=== PATIENT | male | born 1945 | race Caucasian/White ===

== ENCOUNTER 2017-04-07 16:59 | Inpatient (IN) | payer MEDICARE, BC ==
[~2017-04-07] VITALS: Ht 185.4 cm; Wt 77.1 kg
[2017-04-07] MEDS: Albuterol ud Inhalation HHN SCH ×3 (17:21→17:53)
[2017-04-07] MEDS: Ipratropium 0.02% Inh Soln 2.5ml UD HHN SCH ×3 (17:21→17:52)
[2017-04-07 17:28] VITALS: BP 138/85
[2017-04-07] MEDS ORDERED: PREDNISONE20 MG ORAL (18:02)
[2017-04-07] MEDS ORDERED: AMOXICILLIN500 MG ORAL (18:02)
[2017-04-07] MEDS ORDERED: ALBUTEROL SULF8.5 GM INH (18:02)
[2017-04-07] MEDS ORDERED: Albuterol ud Inhalation HHN ONE (18:45)
[2017-04-07] MEDS ORDERED: Solu-MEDROL 125mg Inj IVP ONE (18:45)
[2017-04-07] MEDS ORDERED: Ipratropium 0.02% Inh Soln 2.5ml UD HHN ONE (18:45)
--- NOTE | 2017-04-07 19:36 | Emergency Room Report ---
History of Present Illness General Chief Complaint: Dyspnea/Respdistress Source: Patient, Medical Record, EMS Present Illness HPI 72-year-old male presents ED for shortness of breath. Started today. Per EMS patient was wheezing with low O2 saturations. Was started on reading treatments and states he feels better. Notes history of COPD. Admits to smoking. Denies fevers or chills. Denies chest pain. No other aggravating relieving factors. Denies any other associated Allergies: Coded Allergies: No Known Allergies (Unverified , 04/07/17) Patient History Past Medical History: COPD Past Surgical History: none Pertinent Family History: none Social History: Reports: smoking, Denies: alcohol use, drug use Immunizations: UTD Reviewed Nursing Documentation: PMH: Agreed, PSxH: Agreed Nursing Documentation-PMH Past Medical History: No History, Except For Hx COPD: Yes - emphysema Review of Systems All Other Systems: negative except mentioned in HPI Physical Exam Vital Signs Date Time Temp Pulse Resp B/P (MAP) Pulse Ox O2 Delivery O2 Flow Rate FiO2 04/07/17 16:56 98.4 115 20 138/85 95 Room Air Sp02 EP Interpretation: reviewed, normal General Appearance: no apparent distress, alert, GCS 15, non-toxic Head: normocephalic, atraumatic Eyes: bilateral eye normal inspection, bilateral eye PERRL ENT: hearing grossly normal, normal pharynx, no angioedema, normal voice Neck: full range of motion, supple/symm/no masses Respiratory: chest non-tender, speaking full sentences, wheezing Cardiovascular #1: regular rate, rhythm, no edema Cardiovascular #2: 2+ carotid (R), 2+ carotid (L), 2+ radial (R), 2+ radial (L) , 2+ dorsalis pedis (R), 2+ dorsalis pedis (L) Gastrointestinal: normal bowel sounds, non tender, soft, non-distended, no guarding, no rebound Rectal: deferred Genitourinary: normal inspection, no CVA tenderness Musculoskeletal: back normal, gait/station normal, normal range of motion, non- tender Neurologic: alert, oriented x3, responsive, motor strength/tone normal, sensory intact, speech normal Psychiatric: judgement/insight normal, memory normal, mood/affect normal, no suicidal/homicidal ideation Reflexes: 3+ bicep (R), 3+ bicep (L), 3+ tricep (R), 3+ tricep (L), 3+ knee (R) , 3+ knee (L) Skin: normal color, no rash, warm/dry, well hydrated Lymphatic: no adenopathy Medical Decision Making Diagnostic Impression: Primary Impression: COPD exacerbation ER Course Hospital Course 72-year-old M presenting to ED with SOB. h/o COPD Differential diagnoses include: Pneumonia, CHF exacerbation, pneumothorax, fluid overload Clinical course Patient placed on stretcher. On inspector paper products with stable vitals. After initial history and physical, I ordered nebulizer treatments, prednisone, CXR. Patient received breathing treatment x3. Initially said he felt better wishes to be discharged. Chest x-ray shows chronic interstitial changes. After patient got up he started to feel short of breath again. Hypoxic after breathing treatments stopped. We gave additional breathing treatments, magnesium. O2 sats declining despite treatments Patient started on BiPAP Labs - leukocytosis noted, hemoglobin/hematocrit stable, electrolytes okay, lactate okay, troponins negative CXR - chronic interstitial changes EKG - sinus tachycardia, no acute ischemic changes interpreted by me abx given. Case discussed with Dr. Ramírez and he agreed to the patient to his service for further care and support I feel this is a highly complex case requiring extensive working including EKG/ Rhythm strip, Xray/CT/US, Blood/urine lab work, repeat exams while in ED, and administration of strong opiates/narcotics for pain control, admission to hospital or close patient follow up. Diagnosis - COPD exacerbation Patient admitted to [facility] in serious condition Labs Test 04/07/17 19:05 White Blood Count 19.3 K/UL (4.8-10.8) Red Blood Count 5.23 M/UL (4.70-6.10) Hemoglobin 15.9 G/DL (14.2-18.0) Hematocrit 50.1 % (42.0-52.0) Mean Corpuscular Volume 96 FL (80-99) Mean Corpuscular Hemoglobin 30.5 PG (27.0-31.0) Mean Corpuscular Hemoglobin Concent 31.8 G/DL (32.0-36.0) Red Cell Distribution Width 13.2 % (11.6-14.8) Platelet Count 200 K/UL (150-450) Mean Platelet Volume 8.1 FL (6.5-10.1) Neutrophils (%) (Auto) % (45.0-75.0) Lymphocytes (%) (Auto) % (20.0-45.0) Monocytes (%) (Auto) % (1.0-10.0) Eosinophils (%) (Auto) % (0.0-3.0) Basophils (%) (Auto) % (0.0-2.0) Differential Total Cells Counted 100 Neutrophils % (Manual) 77 % (45-75) Lymphocytes % (Manual) 13 % (20-45) Monocytes % (Manual) 6 % (1-10) Eosinophils % (Manual) 0 % (0-3) Basophils % (Manual) 0 % (0-2) Band Neutrophils 4 % (0-8) Platelet Estimate Adequate Platelet Morphology Normal Red Blood Cell Morphology Normal Sodium Level 136 MMOL/L (136-145) Potassium Level 4.2 MMOL/L (3.5-5.1) Chloride Level 99 MMOL/L (98-107) Carbon Dioxide Level 27 MMOL/L (21-32) Anion Gap 11 mmol/L (5-15) Blood Urea Nitrogen 11 mg/dL (7-18) Creatinine 0.8 MG/DL (0.55-1.30) Estimat Glomerular Filtration Rate mL/min (>60) Glucose Level 118 MG/DL (74-106) Lactic Acid Level 1.50 mmol/L (0.66-2.22) Calcium Level 8.2 MG/DL (8.5-10.1) Total Bilirubin 0.9 MG/DL (0.2-1.0) Aspartate Amino Transf (AST/SGOT) 18 U/L (15-37) Alanine Aminotransferase (ALT/SGPT) 27 U/L (12-78) Alkaline Phosphatase 57 U/L (46-116) Total Creatine Kinase 121 U/L (26-308) Creatine Kinase MB 0.9 NG/ML (0.0-3.6) Creatine Kinase MB Relative Index 0.7 Troponin I 0.065 ng/mL (0.000-0.056) Pro-B-Type Natriuretic Peptide 261 pg/mL (0-125) Total Protein 7.2 G/DL (6.4-8.2) Albumin 4.0 G/DL (3.4-5.0) Globulin 3.2 g/dL Albumin/Globulin Ratio 1.3 (1.0-2.7) EKG Diagnostic Results Rate: tachycardiac Rhythm: NSR ST Segments: no acute changes ASA given to the pt in ED: No Rhythm Strip Diag. Results EP Interpretation: yes Rhythm: NSR, no PVC's, no ectopy Chest X-Ray Diagnostic Results Chest X-Ray Diagnostic Results : Chest X-Ray Ordered: Yes # of Views/Limited/Complete: 1 View Indication: Shortness of Breath EP Interpretation: Yes Interpretation: no pneumothorax, no acute cardiopulmonary disease, other - chronic interstitital changes Impression: Other - COPD Electronically Signed by: Electronically signed by Glenroy Laird MD Last Vital Signs Date Time Temp Pulse Resp B/P (MAP) Pulse Ox O2 Delivery O2 Flow Rate FiO2 04/07/17 19:15 110 24 88 Room Air 04/07/17 17:28 98.4 138/85 Status: improved Disposition: ADMITTED INPATIENT Condition: Serious Scripts Albuterol Sulfate* (ALBUTEROL SULFATE MDI*) 8.5 Gm Hfa.aer.ad 2 PUFF INH Q6H, #1 EA 0 Refills Prov: GLENROY LAIRD M.D. 04/07/17 Prednisone* (PREDNISONE*) 20 Mg Tablet 40 MG ORAL DAILY, #10 TAB Prov: GLENROY LAIRD M.D. 04/07/17 Amoxicillin* (AMOXIL*) 500 Mg Capsule 500 MG ORAL THREE TIMES A DAY, #21 CAP Prov: GLENROY LAIRD M.D. 04/07/17 Referrals: NON PHYSICIAN (PCP) Patient Instructions: Chronic Obstructive Pulmonary Disease Exacerbation GLENROY LAIRD M.D. Apr 07, 2017 19:35
[2017-04-07] MEDS ORDERED: Azithromycin 500mg Inj IV ONE (19:42)
[2017-04-07 19:43] LABS: HEMATOCRIT 50.1 % (42.0-52.0); HEMOGLOBIN 15.9 G/DL (14.2-18.0); MEAN CORPUSCULAR VOLUME 96 FL (80-99); PLATELET COUNT 200 K/UL (150-450); RED BLOOD COUNT 5.23 M/UL (4.70-6.10); RED CELL DISTRIBUTION WIDTH 13.2 % (11.6-14.8); WHITE BLOOD COUNT 19.3 K/UL (4.8-10.8)
[2017-04-07] MEDS ORDERED: cefTRIAXone 1 GM in NS 55 ML IVPB ONE (19:45)
[2017-04-07] MEDS ORDERED: Azithromycin 500 MG in NS 275 ML IV ONE (19:45)
[2017-04-07 20:08] LABS: ANION GAP 11 mmol/L (5-15); BLOOD UREA NITROGEN 11 mg/dL (7-18); CALCIUM 8.2 MG/DL (8.5-10.1); CARBON DIOXIDE 27 MMOL/L (21-32); CHLORIDE 99 MMOL/L (98-107); CREATININE 0.8 MG/DL (0.55-1.30); POTASSIUM 4.2 MMOL/L (3.5-5.1); SODIUM 136 MMOL/L (136-145)
[2017-04-07 20:20] LABS: ALANINE AMINOTRANSFERASE 27 U/L (12-78); ALBUMIN/GLOBULIN RATIO 1.3 (1.0-2.7); ALKALINE PHOSPHATASE 57 U/L (46-116); ASPARTATE AMINO TRANSFERASE 18 U/L (15-37); BILIRUBIN,TOTAL 0.9 MG/DL (0.2-1.0); CKMB 0.9 NG/ML (0.0-3.6); CREATINE KINASE 121 U/L (26-308)
[2017-04-07] MEDS ORDERED: LORazepam Inj 2mg/ml 1ml IV ONE (20:30)
[2017-04-07 21:12] VITALS: BP 118/65
[2017-04-08] VITALS (9 sets, daily range): BP systolic 107–153; BP diastolic 52–94
[2017-04-08 08:15] LABS: APPEARANCE,URINE CLEAR; BILIRUBIN, URINE NEGATIVE (NEGATIVE); COLOR,URINE PALE YELLOW; GLUCOSE, URINE (UA) NEGATIVE (NEGATIVE); KETONES,URINE NEGATIVE (NEGATIVE); LEUKOCYTE ESTERASE ,URINE NEGATIVE (NEGATIVE); NITRITE,URINE NEGATIVE (NEGATIVE); PH,URINE 5 (4.5-8.0); PROTEIN,URINE 2+ (NEGATIVE); UROBILINOGEN,URINE NORMAL MG/DL (0.0-1.0)
--- NOTE | 2017-04-08 11:38 | Diagnostic Imaging Report ---
Indication: Dyspnea Comparison: None A single view chest radiograph was obtained. Findings: There is a large area of increased density overlying the right lung in the mid to lower aspect. This could be due to soft tissue attenuation as the soft tissues appear denser on the right. Please correlate clinically. This could be on the basis of asymmetric breast tissue or right-sided soft tissue mass. The interstitium of the lung is prominent bilaterally. The heart is normal in size. Bones are osteopenic but age appropriate. IMPRESSION: Asymmetric density projected over the right mid and lower lung field probably on the basis of soft tissue attenuation. Underlying parenchymal disease i.e. pneumonia not excluded. Please correlate clinically. Suggest repeat examination including a lateral view.
[2017-04-08] MEDS: Albuterol/Ipratropium 3ml neb HHN SCH ×3 (16:00→23:00)
[2017-04-08] MEDS: Solu-MEDROL 125mg Inj IVP SCH ×2 (18:06→23:21)
--- NOTE | 2017-04-08 18:24 | History & Physical ---
History and Physical History & Physicial Dictated for Int Med-Dr Ramírez no. [id number]. CHRISTI LOPES Apr 08, 2017 18:24
[2017-04-08] MEDS ORDERED: Albuterol/Ipratropium 3ml neb HHN PRN (18:45)
--- NOTE | 2017-04-08 19:01 | Consultation ---
Consult Note Assessment/Plan DICT # [id number] GUILLAUME PUENTES M.D. Apr 08, 2017 19:01
[2017-04-08] MEDS ORDERED: Azithromycin 500 MG in NS 275 ML IV SCH (20:00)
[2017-04-08] MEDS: Heparin 5000 units/ml inj SUBQ SCH (21:59)
[2017-04-08] MEDS: Azithromycin 500 MG in NS 275 ML IV SCH (22:29)
[2017-04-09] VITALS: BP 114/74
[2017-04-09] MEDS: Albuterol/Ipratropium 3ml neb HHN SCH ×11 (01:00→22:38)
--- NOTE | 2017-04-09 01:45 | History and Physical Report ---
DATE OF ADMISSION: 04/07/2017 CHIEF COMPLAINT: The patient is a 72-year-old white male who presents with chief complaint of shortness of breath and cough. HISTORY OF PRESENT ILLNESS: Began four days prior to admission. The patient began to have a nonproductive cough. The patient then began to develop shortness of breath. The patient was unable to catch his breath. The patient presented to [place] emergency room. The patient was found to be hypoxic. The patient is admitted for chronic obstructive pulmonary disease, acute exacerbation. PAST MEDICAL HISTORY: Significant for: 1. Chronic obstructive pulmonary disease. 2. Hypertension. 3. Irritable bowel syndrome. 4. Hypercholesterolemia. PAST SURGICAL HISTORY: Significant for lumbar laminectomy. CURRENT MEDICATIONS: 1. Enalapril of an unknown dose daily. 2. Statin of unknown dose. 3. Albuterol metered dose inhaler two puffs p.o. daily. 4. Advair 250/50 mcg one puff p.o. twice daily. ALLERGIES: Penicillin. SOCIAL HISTORY: The patient is single. 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 The patient admits to tobacco use, one-half pack per day for 40 years. The patient admits to occasional alcohol use. The patient denies drug abuse. REVIEW OF SYSTEMS: CONSTITUTIONAL: The patient denies weight loss or weight gain. The patient denies fevers or chills. HEENT: The patient denies ear or throat pain. The patient denies headache. CARDIOVASCULAR: The patient denies palpitations or chest pain. CHEST: The patient complains of wheezes. The patient complains of nonproductive cough. The patient complains of shortness of breath. ABDOMEN: The patient complains of abdominal distention. The patient denies nausea, vomiting, diarrhea, or constipation. GENITOURINARY: The patient denies dysuria or increased frequency of urination. NEUROMUSCULAR: The patient denies seizures or generalized weakness. PHYSICAL EXAMINATION: VITAL SIGNS: Temperature 97.6, respirations 24, pulse 93, and blood pressure 153/86. GENERAL: The patient is well-developed and well-nourished white male who is currently tolerating nasal cannula. The patient is in no apparent distress. HEENT: Eyes, pupils are equal and responsive to light and accommodation. Extraocular movements are intact. NECK: Supple. No lymphadenopathy. CHEST: Few wheezes in the bilateral lower bases with left being greater than right. There are no crackles. There is no dullness to percussion. CARDIOVASCULAR: Regular rhythm and rate. S1 and S2 are normal without murmurs, rubs, or gallops. ABDOMEN: Soft and distended with decreased bowel sounds. No evidence of hepatosplenomegaly. Currently, no rebound or guarding noted. EXTREMITIES: Negative for clubbing, cyanosis, or edema. RECTAL: Refused. GENITAL: Refused. NEUROLOGIC: Cranial nerves II through XII are grossly intact without focal deficits. Motor strength is 5/5 bilaterally. Deep tendon reflexes are 2+ plantar. LABORATORY AND DIAGNOSTIC DATA: WBC 19.3, hemoglobin 15.9, hematocrit 50.1, and platelets 200,000. Sodium 136, potassium 4.2, chloride 99, CO2 27, BUN 11, creatinine 0.8 and glucose 118. Troponin elevated at 0.065. BNP elevated at 261. A chest x-ray was reported as right mid and lower lung density consistent with pneumonia. ASSESSMENT: This is a 72-year-old white male: 1. Shortness of breath. 2. Chronic obstructive pulmonary disease, acute exacerbation. 3. Pneumonia. 4. Hypoxia. 5. Hypertension. 6. Hypercholesterolemia. 7. Irritable bowel syndrome. 8. Abdominal distention. TREATMENT: 1. Pneumonia/chronic obstructive pulmonary exacerbation. A Pulmonary consultation has been obtained with Dr. Neely. The patient has been started empirically on intravenous Solu-Medrol. The patient has been started on intravenous Levaquin and azithromycin. We will follow recommendation of Pulmonary. 2. Hypertension. Continue enalapril. 3. Hypercholesterolemia. A fasting cholesterol panel obtained. 4. Irritable bowel syndrome/abdominal distention. A KUB is pending. Danielito Thomas M.D. DR: MICHAEL JOB#: [id number] CC:
[2017-04-09 04:00] VITALS: BP 126/74
[2017-04-09 04:45] LABS: HEMATOCRIT 39.2 % (42.0-52.0); HEMOGLOBIN 13.2 G/DL (14.2-18.0); MEAN CORPUSCULAR VOLUME 98 FL (80-99); PLATELET COUNT 163 K/UL (150-450); RED BLOOD COUNT 3.98 M/UL (4.70-6.10); RED CELL DISTRIBUTION WIDTH 12.8 % (11.6-14.8); WHITE BLOOD COUNT 15.3 K/UL (4.8-10.8)
--- NOTE | 2017-04-09 04:45 | Consultation ---
DATE OF CONSULTATION: 04/08/2017 PULMONARY CONSULTATION CONSULTING PHYSICIAN: Gio Neely M.D. REFERRING PHYSICIAN: Gadiel Ramírez M.D. REASON FOR CONSULTATION: Chronic obstructive pulmonary disease exacerbation. HISTORY OF PRESENT ILLNESS: The patient is a 72-year-old male with a history of severe COPD, CHF, and pulmonary hypertension, who sees Dr. Sher Long. He usually takes Spiriva and Symbicort with multiple exacerbations and continued smoking, presented to the emergency department with several days of cough, congestion, shortness of breath, increased wheezing, and generalized malaise. No fevers or chills. No headaches or dizziness. After receiving breathing treatments, he notes some alleviation and currently feels markedly improved. He had his review of [facility] record. He had a CTA of the chest with scattered micronodules suggestive of smoker's bronchiolitis and evidence of pulmonary hypertension. PAST MEDICAL HISTORY: 1. COPD. 2. Pulmonary hypertension. 3. CHF. 4. IBS. PAST SURGICAL HISTORY: None. ALLERGIES: Penicillin. MEDICATIONS: Prior to admission medications are albuterol, amoxicillin, and prednisone, however, the list at [facility] is much more extensive. SOCIAL HISTORY: He is a daily smoker greater than a pack per day. No drugs or alcohol. FAMILY HISTORY: Noncontributory. REVIEW OF SYSTEMS: Negative other than the history of present illness. PHYSICAL EXAMINATION: VITAL SIGNS: Temperature 98, pulse 95, blood pressure 110/84, respiratory rate 26, and saturating 98% on 10 liters venturi mask. GENERAL: He is a well-developed, well-nourished male, in no acute distress. Awake, alert, and oriented x3. HEENT: Normocephalic and atraumatic. Oropharynx is clear with moist mucous membranes. NECK: Supple without lymphadenopathy or JVD. CHEST: Distant, but clear. HEART: Regular rate and rhythm. ABDOMEN: Soft, nontender, and nondistended. EXTREMITIES: No cyanosis, clubbing, or edema. ANCILLARY DATA: Spirometry from Dr. Long's office, FEV1 was 0.93. Labs at [place], white count 19.3, hemoglobin 15.9, and platelet count 200. ABG, 7.33/50/135/25/98. Sodium 136, potassium 4.2, chloride 99, bicarbonate 27, BUN 11, creatinine 0.8, glucose 118, and calcium 8.2. Total bilirubin 0.9. AST 18, ALT 27, and alkaline phosphatase 57. CK 121. Troponin 0.065. BNP 261. Total protein 7.2. Albumin 4.0. Rapid influenza A and B from the ER is negative. ASSESSMENT: The patient is a 72-year-old male smoker with a history of chronic obstructive pulmonary disease, respiratory bronchiolitis, pulmonary hypertension, congestive heart failure, and irritable bowel syndrome, presenting with shortness of breath, cough, and wheezing consistent with an exacerbation of his chronic obstructive pulmonary disease possibly in the setting of an antecedent viral respiratory illness versus tracheobronchitis. PROBLEM LIST: 1. Chronic obstructive pulmonary disease with acute exacerbation. 2. Viral upper respiratory infection versus tracheobronchitis. 3. Leukocytosis, likely secondary to above. 4. Pulmonary hypertension. 5. Congestive heart failure. 6. Respiratory bronchiolitis. 7. Irritable bowel syndrome. TREATMENT PLAN: 1. Optimize pulmonary hygiene/mobilize as tolerated. 2. Titrate down FiO2 to keep saturations greater than 90%. 3. Wvacz-nsk-jizap and p.r.n. DuoNebs. 4. Continue Spiriva and Advair ( Symbicort). 5. Continue antibiotics. 6. Follow up sputum culture and respiratory panel. 7. Monitor volumes. 8. Follow up EKG and troponin. 9. Echocardiogram has been ordered. 10. DVT prophylaxis and heparin subcutaneously. 11. Nicotine patch. 12. Encourage tobacco cessation. Dr. Ramírez, thank you for allowing me to assist in the care of your patient. If I may be of any assistance in the future, please do not hesitate to ask. Gio Neely M.D. DR: SAYDA JOB#: [id number] CC:
[2017-04-09 05:05] LABS: ALANINE AMINOTRANSFERASE 20 U/L (12-78); ALBUMIN 2.9 G/DL (3.4-5.0); ALBUMIN/GLOBULIN RATIO 0.8 (1.0-2.7); ALKALINE PHOSPHATASE 42 U/L (46-116); ANION GAP 6 mmol/L (5-15); ASPARTATE AMINO TRANSFERASE 12 U/L (15-37); BILIRUBIN,TOTAL 0.3 MG/DL (0.2-1.0); BLOOD UREA NITROGEN 30 mg/dL (7-18); CALCIUM 7.7 MG/DL (8.5-10.1); CARBON DIOXIDE 29 MMOL/L (21-32); CHLORIDE 106 MMOL/L (98-107); CREATININE 0.8 MG/DL (0.55-1.30); POTASSIUM 4.4 MMOL/L (3.5-5.1); SODIUM 141 MMOL/L (136-145)
[2017-04-09] MEDS: Solu-MEDROL 125mg Inj IVP SCH ×3 (05:15→17:44)
[2017-04-09 08:00] VITALS: BP 109/73
[2017-04-09] MEDS: Heparin 5000 units/ml inj SUBQ SCH ×2 (08:43→21:20)
--- NOTE | 2017-04-09 09:25 | Diagnostic Imaging Report ---
Indication: COPD Technique: XRAY Chest 1v Comparison: 03/30/2017 Findings: Heart size and mediastinal contours are stable. Interval resolution of the previously seen opacity in the right lung. There is no definite focal consolidation. No pleural effusion. No pneumothorax. Impression: Interval resolution of the previously seen right mid/lower lung opacities which may have been artifactual in etiology. No definite consolidation, pleural effusion or pneumothorax.
[2017-04-09] MEDS: Advair 250/50 Inhaler - 14 dose INH SCH ×2 (10:59→21:32)
--- NOTE | 2017-04-09 11:23 | Diagnostic Imaging Report ---
Indication: Abdominal distention Technique: XRAY Abdomen 1v Comparison: None Findings: Nonspecific bowel gas pattern. Bowel distention of the stomach. Gas is seen throughout the small bowel, colon and rectum. The gas pattern is not overtly obstructive. No evidence to suggest free intraperitoneal air however sensitivity is limited on supine views. No acute osseous abnormality seen. Impression: Nonspecific bowel gas pattern with air seen in the stomach, small bowel, colon and rectum. No definite evidence to suggest free intraperitoneal air. Stomach is mildly distended. CT of the abdomen with oral contrast can be obtained for more sensitive evaluation as clinically indicated.
[2017-04-09 12:00] VITALS: BP 127/64
--- NOTE | 2017-04-09 14:30 | Internal Med Progress Note ---
Subjective Date of Service: Apr 09, 2017 Physician Name Thomas,Christi Attending Physician Gadiel Ramírez MD Current Medications Medications (Trade) Dose Ordered Sig/Evi Route PRN Reason Start Time Stop Time Status Last Admin Dose Admin Acetaminophen (Tylenol) 650 mg Q4H PRN ORAL Mild Pain (Pain Scale 1-3) 04/08/17 12:00 05/08/17 11:59 Albuterol/ Ipratropium (Albuterol/ Ipratropium) 3 ml Q4H PRN HHN Shortness of Breath 04/08/17 18:45 04/13/17 18:44 Albuterol/ Ipratropium (Albuterol/ Ipratropium) 3 ml Q4HRT HHN 04/08/17 16:00 04/13/17 15:59 04/09/17 09:06 Albuterol/ Ipratropium (Albuterol/ Ipratropium) 3 ml Q6HRT N 04/09/17 01:00 04/14/17 00:59 04/09/17 13:06 Azithromycin 500 mg/Sodium Chloride 275 ml @ 275 mls/hr Q24H IV 04/08/17 23:00 04/15/17 22:59 04/08/17 22:29 Dextrose (Dextrose 50%) STAT PRN IV Hypoglycemia 04/08/17 12:00 05/08/17 11:59 Heparin Sodium (Porcine) (Heparin 5000 units/ml) 5,000 units EVERY 12 HOURS SUBQ 04/08/17 21:00 05/08/17 20:59 04/09/17 08:43 Levofloxacin 100 ml @ 100 mls/hr Q24H IVPB 04/08/17 17:00 04/15/17 16:59 04/08/17 18:25 Methylprednisolone Sodium Succinate (Solu-MEDROL) 60 mg EVERY 6 HOURS IVP 04/08/17 18:00 05/08/17 17:59 04/09/17 11:52 Pantoprazole (Protonix) 40 mg DAILY ORAL 04/08/17 16:30 05/08/17 16:29 04/09/17 08:42 Salmeterol Xinafoate/ Fluticasone (Advair 250/50 Diskus) 1 puffs BIDRT INH 04/09/17 10:00 1/29/18 09:59 04/09/17 10:59 Tiotropium Murphy (Spiriva Inhaler) 1 puff Q24HRS INH 04/09/17 10:00 05/09/17 09:59 04/09/17 11:00 Allergies: Coded Allergies: PENICILLINS (Verified Allergy, Unknown, 04/08/17) ROS Limited/Unobtainable: No Constitutional: Reports: no symptoms HEENT: Reports: no symptoms Cardiovascular: Reports: no symptoms Respiratory: Reports: shortness of breath Gastrointestinal/Abdominal: Reports: no symptoms Genitourinary: Reports: no symptoms Neurologic/Psychiatric: Reports: no symptoms Subjective 72 YO M admitted with shortness of breath and COPD exacerbation. Cover for Int Derrick-Dr Ramírez. [facility]. Tolerating nasal canula. Objective Last Vital Signs Date Time Temp Pulse Resp B/P (MAP) Pulse Ox O2 Delivery O2 Flow Rate FiO2 04/09/17 13:11 71 16 95 Room Air 04/09/17 12:00 10.0 45 04/09/17 12:00 97.8 127/64 General Appearance: WD/WN, no apparent distress, mild distress EENT: PERRL/EOMI, normal ENT inspection Neck: non-tender, normal alignment, supple, normal inspection Cardiovascular: normal peripheral pulses, normal rate, regular rhythm, no gallop/murmur, no JVD Respiratory/Chest: chest wall non-tender, respiratory distress, accessory muscle use, crackles/rales, expiratory wheezing Abdomen: normal bowel sounds, non tender, soft, no organomegaly, no mass Extremities: normal range of motion, non-tender 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, no motor/sensory deficits Skin: normal pigmentation, warm/dry Laboratory Tests Test 04/08/17 18:40 04/08/17 20:20 04/09/17 03:40 Arterial Blood pH 7.408 (7.350-7.450) Arterial Blood Partial Pressure CO2 43.9 mmHg (35.0-45.0) Arterial Blood Partial Pressure O2 59.9 mmHg (75.0-100.0) L Arterial Blood HCO3 27.1 mmol/L (22.0-26.0) H Arterial Blood Oxygen Saturation 91.6 % (92.0-98.0) L Arterial Blood Base Excess 2.0 Jace Test Positive Troponin I 0.038 ng/mL (0.000-0.056) White Blood Count 15.3 K/UL (4.8-10.8) H Red Blood Count 3.98 M/UL (4.70-6.10) L Hemoglobin 13.2 G/DL (14.2-18.0) L Hematocrit 39.2 % (42.0-52.0) L Mean Corpuscular Volume 98 FL (80-99) Mean Corpuscular Hemoglobin 33.2 PG (27.0-31.0) H Mean Corpuscular Hemoglobin Concent 33.7 G/DL (32.0-36.0) Red Cell Distribution Width 12.8 % (11.6-14.8) Platelet Count 163 K/UL (150-450) Mean Platelet Volume 9.2 FL (6.5-10.1) Neutrophils (%) (Auto) % (45.0-75.0) Lymphocytes (%) (Auto) % (20.0-45.0) Monocytes (%) (Auto) % (1.0-10.0) Eosinophils (%) (Auto) % (0.0-3.0) Basophils (%) (Auto) % (0.0-2.0) Differential Total Cells Counted 100 Neutrophils % (Manual) 94 % (45-75) H Lymphocytes % (Manual) 4 % (20-45) L Monocytes % (Manual) 2 % (1-10) Eosinophils % (Manual) 0 % (0-3) Basophils % (Manual) 0 % (0-2) Band Neutrophils 0 % (0-8) Platelet Estimate Adequate Platelet Morphology Normal Sodium Level 141 MMOL/L (136-145) Potassium Level 4.4 MMOL/L (3.5-5.1) Chloride Level 106 MMOL/L (98-107) Carbon Dioxide Level 29 MMOL/L (21-32) Anion Gap 6 mmol/L (5-15) Blood Urea Nitrogen 30 mg/dL (7-18) H Creatinine 0.8 MG/DL (0.55-1.30) Estimat Glomerular Filtration Rate mL/min (>60) Glucose Level 146 MG/DL (74-106) H Calcium Level 7.7 MG/DL (8.5-10.1) L Total Bilirubin 0.3 MG/DL (0.2-1.0) Aspartate Amino Transf (AST/SGOT) 12 U/L (15-37) L Alanine Aminotransferase (ALT/SGPT) 20 U/L (12-78) Alkaline Phosphatase 42 U/L (46-116) L Total Protein 6.7 G/DL (6.4-8.2) Albumin 2.9 G/DL (3.4-5.0) L Globulin 3.8 g/dL Albumin/Globulin Ratio 0.8 (1.0-2.7) L Microbiology Date/Time Source Procedure Growth Status 04/07/17 19:05 Blood Blood Culture - Preliminary NO GROWTH AFTER 24 HOURS Resulted 04/07/17 19:05 Blood Blood Culture - Preliminary NO GROWTH AFTER 24 HOURS Resulted 04/08/17 01:30 Nasal Nares Influenza Types A,B Antigen (UNIQUE) - Final Complete Intake and Output 04/08/17 04/09/17 19:00 07:00 Intake Total 290 ml 375 ml Balance 290 ml 375 ml Intake Oral 240 ml IV Total 50 ml 375 ml # Voids 1 3 # Bowel Movements 4 Assessment/Plan Problem List: (1) Pneumonia Assessment & Plan: Continue azithromycin and levaquin. See pulmonary note. (2) Shortness of breath Assessment & Plan: Due to COPD (3) Wheezing (4) Hypoxia (5) Hypertension (6) Irritable bowel syndrome (7) Abdominal distension (8) COPD exacerbation Assessment & Plan: Continue duoneb and IV solumedrol. See pulmonary note. Status: CHRISTI Desai Apr 09, 2017 14:30
[2017-04-09 16:00] VITALS: BP 160/80
[2017-04-09] MEDS ORDERED: LORazepam 1mg tab ORAL PRN (16:45)
[2017-04-09 20:00] VITALS: BP 140/80
[2017-04-09] MEDS: Azithromycin 500 MG in NS 275 ML IV SCH (23:09)
--- NOTE | 2017-04-09 23:28 | Pulmonology Progress Note ---
Assessment/Plan Assessment/Plan PROBLEM LIST: 1. Chronic obstructive pulmonary disease with acute exacerbation. 2. Viral upper respiratory infection versus tracheobronchitis. 3. Leukocytosis, likely secondary to above. 4. Pulmonary hypertension. 5. Congestive heart failure. 6. Respiratory bronchiolitis. 7. Irritable bowel syndrome. TREATMENT PLAN: 1. Optimize pulmonary hygiene/mobilize as tolerated. 2. Titrate down FiO2 to keep saturations greater than 90%, check RA sats 3. Olbfj-szm-mkqcd and p.r.n. DuoNebs. 4. Continue Spiriva and Advair 5. Continue antibiotics. 6. Follow up sputum culture and respiratory panel. 7. Monitor volumes. 8. taper steroids, dc on 60 mg po daily and taper 505 every 3 days 10. DVT prophylaxis and heparin subcutaneously. 11. Nicotine patch. 12. Encourage tobacco cessation. 13. fu with dr beach as out pt for PFT Subjective Constitutional: Reports: no symptoms HEENT: Repors: no symptoms Respiratory: Reports: no symptoms Cardiovascular: Reports: no symptoms Gastrointestinal/Abdominal: Reports: no symptoms Allergies: Coded Allergies: PENICILLINS (Verified Allergy, Unknown, 04/08/17) Subjective continues to improve no cp nv or bleeding not using bipap on ra no fever min phlegm nebs helpful discussed tobacco cessation Objective Last 24 Hour Vital Signs Date Time Temp Pulse Resp B/P (MAP) Pulse Ox O2 Delivery O2 Flow Rate FiO2 04/09/17 22:46 78 18 100 Room Air 04/09/17 22:38 73 18 94 Room Air 04/09/17 20:15 75 18 99 Room Air 04/09/17 20:13 Room Air 04/09/17 20:13 96 Room Air 21 04/09/17 20:08 79 18 96 Room Air 04/09/17 20:00 73 04/09/17 20:00 97.4 76 20 140/80 96 Room Air 04/09/17 16:00 80 04/09/17 16:00 98.1 82 18 160/80 96 Room Air 04/09/17 13:11 71 16 95 Room Air 04/09/17 13:11 72 16 97 Room Air 04/09/17 12:00 10.0 45 04/09/17 12:00 70 04/09/17 12:00 97.8 71 18 127/64 92 Room Air 04/09/17 11:03 69 16 97 Room Air 04/09/17 10:59 68 16 96 Room Air 04/09/17 08:00 10.0 45 04/09/17 08:00 97.7 76 18 109/73 91 Room Air 04/09/17 08:00 80 04/09/17 07:10 Room Air 04/09/17 07:10 70 16 94 Room Air 04/09/17 07:10 74 16 95 Room Air 04/09/17 07:10 94 Room Air 21 04/09/17 04:00 97.8 88 22 126/74 99 Venturi Mask 10.0 30 04/09/17 04:00 72 04/09/17 03:43 Room Air 04/09/17 03:43 Room Air 04/09/17 00:00 98.2 82 24 114/74 98 Venturi Mask 10.0 30 04/09/17 00:00 84 04/08/17 23:30 Room Air 04/08/17 23:30 Room Air Intake and Output 04/08/17 04/09/17 19:00 07:00 Intake Total 290 ml 375 ml Balance 290 ml 375 ml Intake Oral 240 ml IV Total 50 ml 375 ml # Voids 1 3 # Bowel Movements 4 General Appearance: WD/WN HEENT: atraumatic, anicteric Respiratory/Chest: normal breath sounds, no respiratory distress Cardiovascular: normal rate, regular rhythm Abdomen: soft, non tender, no organomegaly Extremities: no cyanosis, no clubbing Skin: no rash, no lesions 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 grossly normal, no motor/sensory deficits, oriented x 3, responsive Lymphatic: no neck adenopathy, no groin adenopathy Musculoskeletal: normal muscle bulk Microbiology Date/Time Source Procedure Growth Status 04/07/17 19:05 Blood Blood Culture - Preliminary NO GROWTH AFTER 24 HOURS Resulted 04/07/17 19:05 Blood Blood Culture - Preliminary NO GROWTH AFTER 24 HOURS Resulted 04/08/17 01:30 Nasal Nares Influenza Types A,B Antigen (UNIQUE) - Final Complete Laboratory Tests 04/09/17 03:40: White Blood Count 15.3H, Red Blood Count 3.98L, Hemoglobin 13.2L, Hematocrit 39.2L, Mean Corpuscular Volume 98, Mean Corpuscular Hemoglobin 33.2H, Mean Corpuscular Hemoglobin Concent 33.7, Red Cell Distribution Width 12.8, Platelet Count 163, Mean Platelet Volume 9.2, Neutrophils (%) (Auto) , Lymphocytes (%) ( Auto) , Monocytes (%) (Auto) , Eosinophils (%) (Auto) , Basophils (%) (Auto) , Differential Total Cells Counted 100, Neutrophils % (Manual) 94H, Lymphocytes % (Manual) 4L, Monocytes % (Manual) 2, Eosinophils % (Manual) 0, Basophils % ( Manual) 0, Band Neutrophils 0, Platelet Estimate Adequate, Platelet Morphology Normal, Sodium Level 141, Potassium Level 4.4, Chloride Level 106, Carbon Dioxide Level 29, Anion Gap 6, Blood Urea Nitrogen 30H, Creatinine 0.8, Estimat Glomerular Filtration Rate , Glucose Level 146H, Calcium Level 7.7L, Total Bilirubin 0.3, Aspartate Amino Transf (AST/SGOT) 12L, Alanine Aminotransferase ( ALT/SGPT) 20, Alkaline Phosphatase 42L, Total Protein 6.7, Albumin 2.9L, Globulin 3.8, Albumin/Globulin Ratio 0.8L Current Medications Medications (Trade) Dose Ordered Sig/Evi Route PRN Reason Start Time Stop Time Status Last Admin Dose Admin Acetaminophen (Tylenol) 650 mg Q4H PRN ORAL Mild Pain (Pain Scale 1-3) 04/08/17 12:00 05/08/17 11:59 Albuterol/ Ipratropium (Albuterol/ Ipratropium) 3 ml Q4H PRN HHN Shortness of Breath 04/08/17 18:45 04/13/17 18:44 Albuterol/ Ipratropium (Albuterol/ Ipratropium) 3 ml Q4HRT N 04/08/17 16:00 04/13/17 15:59 04/09/17 22:38 Albuterol/ Ipratropium (Albuterol/ Ipratropium) 3 ml Q6HRT N 04/09/17 01:00 04/14/17 00:59 04/09/17 13:06 Azithromycin 500 mg/Sodium Chloride 275 ml @ 275 mls/hr Q24H IV 04/08/17 23:00 04/15/17 22:59 04/09/17 23:09 Dextrose (Dextrose 50%) STAT PRN IV Hypoglycemia 04/08/17 12:00 05/08/17 11:59 Heparin Sodium (Porcine) (Heparin 5000 units/ml) 5,000 units EVERY 12 HOURS SUBQ 04/08/17 21:00 05/08/17 20:59 04/09/17 21:20 Levofloxacin 100 ml @ 100 mls/hr Q24H IVPB 04/08/17 17:00 04/15/17 16:59 04/09/17 17:12 Lorazepam (Ativan) 2 mg Q6H PRN ORAL For Anxiety 04/09/17 16:45 04/16/17 16:44 04/09/17 21:18 Methylprednisolone Sodium Succinate (Solu-MEDROL) 60 mg EVERY 6 HOURS IVP 04/08/17 18:00 05/08/17 17:59 04/09/17 17:44 Pantoprazole (Protonix) 40 mg DAILY ORAL 04/08/17 16:30 05/08/17 16:29 04/09/17 08:42 Salmeterol Xinafoate/ Fluticasone (Advair 250/50 Diskus) 1 puffs BIDRT INH 04/09/17 10:00 05/09/17 09:59 04/09/17 21:32 Tiotropium [place] (Spiriva Inhaler) 1 puff Q24HRS INH 04/09/17 10:00 05/09/17 09:59 04/09/17 11:00 AUDREY VITAL DO Apr 09, 2017 23:27
[2017-04-10] VITALS: BP 135/73
[2017-04-10] MEDS: Solu-MEDROL 125mg Inj IVP SCH ×3 (00:01→12:19)
[2017-04-10] MEDS: Albuterol/Ipratropium 3ml neb HHN SCH ×5 (01:00→11:00)
[2017-04-10 04:00] VITALS: BP 128/66
[2017-04-10 04:49] LABS: HEMATOCRIT 37.8 % (42.0-52.0); HEMOGLOBIN 12.8 G/DL (14.2-18.0); MEAN CORPUSCULAR VOLUME 97 FL (80-99); PLATELET COUNT 178 K/UL (150-450); RED BLOOD COUNT 3.91 M/UL (4.70-6.10); WHITE BLOOD COUNT 14.9 K/UL (4.8-10.8)
[2017-04-10 05:25] LABS: ANION GAP 6 mmol/L (5-15); BLOOD UREA NITROGEN 25 mg/dL (7-18); CALCIUM 7.8 MG/DL (8.5-10.1); CARBON DIOXIDE 28 MMOL/L (21-32); CHLORIDE 107 MMOL/L (98-107); CREATININE 0.8 MG/DL (0.55-1.30); POTASSIUM 3.9 MMOL/L (3.5-5.1); SODIUM 141 MMOL/L (136-145)
[2017-04-10 08:00] VITALS: BP 151/90
[2017-04-10] MEDS: Heparin 5000 units/ml inj SUBQ SCH (09:07)
[2017-04-10] MEDS: Advair 250/50 Inhaler - 14 dose INH SCH (10:30)
--- NOTE | 2017-04-10 12:56 | Internal Med Progress Note ---
Subjective Date of Service: Apr 10, 2017 Physician Name SalazarChristi Attending Physician Gadiel Ramírez MD Current Medications Medications (Trade) Dose Ordered Sig/Evi Route PRN Reason Start Time Stop Time Status Last Admin Dose Admin Acetaminophen (Tylenol) 650 mg Q4H PRN ORAL Mild Pain (Pain Scale 1-3) 04/08/17 12:00 05/08/17 11:59 Albuterol/ Ipratropium (Albuterol/ Ipratropium) 3 ml Q4H PRN HHN Shortness of Breath 04/08/17 18:45 04/13/17 18:44 Albuterol/ Ipratropium (Albuterol/ Ipratropium) 3 ml Q4HRT HHN 04/08/17 16:00 04/13/17 15:59 04/10/17 03:02 Albuterol/ Ipratropium (Albuterol/ Ipratropium) 3 ml Q6HRT N 04/09/17 01:00 04/14/17 00:59 04/10/17 08:02 Azithromycin 500 mg/Sodium Chloride 275 ml @ 275 mls/hr Q24H IV 04/08/17 23:00 04/15/17 22:59 04/09/17 23:09 Dextrose (Dextrose 50%) STAT PRN IV Hypoglycemia 04/08/17 12:00 05/08/17 11:59 Heparin Sodium (Porcine) (Heparin 5000 units/ml) 5,000 units EVERY 12 HOURS SUBQ 04/08/17 21:00 05/08/17 20:59 04/10/17 09:07 Levofloxacin 100 ml @ 100 mls/hr Q24H IVPB 04/08/17 17:00 04/15/17 16:59 04/09/17 17:12 Lorazepam (Ativan) 2 mg Q6H PRN ORAL For Anxiety 04/09/17 16:45 04/16/17 16:44 04/09/17 21:18 Methylprednisolone Sodium Succinate (Solu-MEDROL) 60 mg EVERY 6 HOURS IVP 04/08/17 18:00 05/08/17 17:59 04/10/17 12:19 Pantoprazole (Protonix) 40 mg DAILY ORAL 04/08/17 16:30 05/08/17 16:29 04/10/17 09:04 Salmeterol Xinafoate/ Fluticasone (Advair 250/50 Diskus) 1 puffs BIDRT INH 04/09/17 10:00 05/09/17 09:59 04/10/17 10:30 Tiotropium [place] (Spiriva Inhaler) 1 puff Q24HRS INH 04/09/17 10:00 05/09/17 09:59 04/10/17 10:29 Allergies: Coded Allergies: PENICILLINS (Verified Allergy, Unknown, 04/08/17) Subjective 72 YO M admitted with shortness of breath and COPD exacerbation. Cover for Int Med-Dr Ramírez. ALPHONSE. Tolerating nasal canula. Objective Last Vital Signs Date Time Temp Pulse Resp B/P (MAP) Pulse Ox O2 Delivery O2 Flow Rate FiO2 04/10/17 10:35 75 18 97 Room Air 04/10/17 08:07 21 04/10/17 08:00 97.3 151/90 04/09/17 12:00 10.0 Laboratory Tests Test 04/10/17 03:05 White Blood Count 14.9 K/UL (4.8-10.8) H Red Blood Count 3.91 M/UL (4.70-6.10) L Hemoglobin 12.8 G/DL (14.2-18.0) L Hematocrit 37.8 % (42.0-52.0) L Mean Corpuscular Volume 97 FL (80-99) Mean Corpuscular Hemoglobin 32.9 PG (27.0-31.0) H Mean Corpuscular Hemoglobin Concent 34.0 G/DL (32.0-36.0) Red Cell Distribution Width 13.0 % (11.6-14.8) Platelet Count 178 K/UL (150-450) Mean Platelet Volume 8.1 FL (6.5-10.1) Neutrophils (%) (Auto) % (45.0-75.0) Lymphocytes (%) (Auto) % (20.0-45.0) Monocytes (%) (Auto) % (1.0-10.0) Eosinophils (%) (Auto) % (0.0-3.0) Basophils (%) (Auto) % (0.0-2.0) Differential Total Cells Counted 100 Neutrophils % (Manual) 90 % (45-75) H Lymphocytes % (Manual) 9 % (20-45) L Monocytes % (Manual) 1 % (1-10) Eosinophils % (Manual) 0 % (0-3) Basophils % (Manual) 0 % (0-2) Band Neutrophils 0 % (0-8) Platelet Estimate Adequate Platelet Morphology Normal Red Blood Cell Morphology Normal Sodium Level 141 MMOL/L (136-145) Potassium Level 3.9 MMOL/L (3.5-5.1) Chloride Level 107 MMOL/L (98-107) Carbon Dioxide Level 28 MMOL/L (21-32) Anion Gap 6 mmol/L (5-15) Blood Urea Nitrogen 25 mg/dL (7-18) H Creatinine 0.8 MG/DL (0.55-1.30) Estimat Glomerular Filtration Rate mL/min (>60) Glucose Level 148 MG/DL (74-106) H Calcium Level 7.8 MG/DL (8.5-10.1) L Microbiology Date/Time Source Procedure Growth Status 04/07/17 19:05 Blood Blood Culture - Preliminary NO GROWTH AFTER 48 HOURS Resulted 04/07/17 19:05 Blood Blood Culture - Preliminary NO GROWTH AFTER 48 HOURS Resulted 04/08/17 06:10 Nasal Nares MRSA Culture - Final NO METHICILLIN RESISTANT STAPH AUREUS... Complete 04/08/17 01:30 Nasal Nares Influenza Types A,B Antigen (UNIQUE) - Final Complete 04/08/17 06:10 Rectum VRE Culture - Final NO VANCOMYCIN RESISTANT ENTEROCOCCUS ... Complete Intake and Output 04/09/17 04/10/17 19:00 07:00 Intake Total 1920 ml 515 ml Balance 1920 ml 515 ml Intake Oral 1820 ml 240 ml IV Total 100 ml 275 ml # Voids 9 4 # Bowel Movements 2 1 Objective General Appearance: WD/WN, no apparent distress, mild distress EENT: PERRL/EOMI, normal ENT inspection Neck: non-tender, normal alignment, supple, normal inspection Cardiovascular: normal peripheral pulses, normal rate, regular rhythm, no gallop/murmur, no JVD Respiratory/Chest: chest wall non-tender, respiratory distress, accessory muscle use, crackles/rales, expiratory wheezing Abdomen: normal bowel sounds, non tender, soft, no organomegaly, no mass Extremities: normal range of motion, non-tender 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 See pulmonary note. (2) Shortness of breath Assessment & Plan: Due to COPD (3) Wheezing (4) Hypoxia (5) Hypertension (6) Irritable bowel syndrome (7) Abdominal distension (8) COPD exacerbation Assessment & Plan: Continue duoneb and IV solumedrol. See pulmonary note. Status: stable Assessment/Plan D/C home today. CHRISTI SALAZAR Apr 10, 2017 12:55
[2017-04-10] MEDS ORDERED: LEVAQUIN500 MG ORAL (13:00)
[2017-04-10] MEDS ORDERED: ADVAIR 250/501 PUFFS INH (13:00)
[2017-04-10] MEDS ORDERED: DUONEB 0.5-3(2.53 ML HHN (13:00)
[2017-04-10] MEDS ORDERED: Tubing IV Secondary IV ONE (14:02)
[2017-04-10] MEDS ORDERED: NS 275ml ONE (14:02)
--- NOTE | 2017-04-13 09:20 | Discharge Summary ---
Discharge Summary Hospital Course Date of Admission Apr 07, 2017 at 19:15 Date of Discharge Apr 10, 2017 at 14:03 Admitting Diagnosis COPD HPI Himanshu Fisher is a 72 year old male who was admitted on Apr 07, 2017 at 19:15 for Chronich Obstructive Pulmonary Disease Hospital Course dc summary #[id number] Discharge Medications New Medications: Levofloxacin* (Levaquin*) 500 Mg Tablet 500 MG ORAL DAILY for 7 Days, TAB Fluticasone/Salmeterol (Advair 250-50 Diskus) 1 Each Blst.w.dev 1 PUFFS INH BIDRT for 30 Days, UNIT Ipratropium/Albuterol Sulfate (DuoNeb 0.5-3(2.5)mg/3ml) 3 Ml Ampul.neb 3 ML HHN Q4HRT for 30 Days, EA Continued Medications: Albuterol Sulfate* (Albuterol Sulfate Mdi*) 8.5 Gm Hfa.aer.ad 2 PUFF INH Q6H, #1 EA 0 Refills Prednisone* (Prednisone*) 20 Mg Tablet 40 MG ORAL DAILY, #10 TAB Discontinued Medications: Amoxicillin* (Amoxil*) 500 Mg Capsule 500 MG ORAL THREE TIMES A DAY, #21 CAP Discharge Condition Upon Discharge: stable Discharge Disposition Patient was discharged to Home (01) Discharge Diagnoses: Discharge Instructions Discharge Instructions Special Instructions I have been assigned to complete a D/C Summary on this account. I was not involved in the patient management Mayi Rosa NP ([facility]) Apr 13, 2017 09:20
--- NOTE | 2017-04-14 02:15 | Discharge Summary 2 SIG ---
DATE OF ADMISSION: 04/07/2017 DATE OF DISCHARGE: 04/10/2017 REASON FOR ADMISSION: 72-year-old male with a past medical history significant for COPD, hypertension, irritable bowel syndrome, CHF, pulmonary, hypertension, hypercholesterolemia, current smoker, presented to emergency department with several days of cough, congestion, shortness of breath, increased wheezing, and generalized malaise. No fever. No chills. No headache. No dizziness. The patient on Spiriva and Symbicort at home, but still smoking. The patient reported multiple exacerbations of COPD in the past. CT of the chest from [facility] records, with evidence of scattered micro nodules, suggestive of smoker's bronchiolitis and evidence of pulmonary hypertension. Chest x-ray showed chronic interstitial changes, possible pneumonia. The patient had leukocytosis, WBC -19.3, pro-BNP-261. Minimally elevated troponin -0.065. Hemoglobin and hematocrit stable. The patient received breathing treatment x3. Initially he felt better, but shortly after felt short of breath again and was hypoxic. The patient was started on the BiPAP 16/8 with FiO2 of 50% since the oxygen saturation declined despite treatment. ABG revealed respiratory acidosis, pH -7.33 and pCO2- 50. The patient was started on empiric antibiotics and IV steroids and admitted with acute COPD exacerbation. HOSPITAL COURSE: The patient was admitted. Pulmonology consult was requested. Supplemental oxygen provided initially via BiPAP. Next day patient was able to be weaned from the BiPAP. ABG was done on the room air and appeared to be stable. No evidence of acidosis or hypercapnia. The patient was on the IV steroids, which were gradually tapered and changed to oral prednisone upon discharge. Nebulizing treatment with bronchodilator was provided [id number] and as needed. Inhalers such as Spiriva and Advair were continued. The patient was on empiric antibiotics. Blood culture were negative. Followup chest x-ray revealed no evidence of pneumonia, likely artifact . Next troponin was negative. Mild elevation of troponin was likely secondary to increased oxygen demand during the acute COPD exacerbation. DVT prophylaxis provided. EKG revealed no acute ischemic changes, sinus rhythm. The patient was started on a nicotine patch and encouraged tobacco cessation. Echocardiogram revealed preserved ejection fraction of 55% to 60%. No evidence of left ventricular hypertrophy and IVC dilated at 2.4 cm and collapsible with respiration, indicative of increased right atrial pressure. No evidence of pericardial or pleural effusion. Leukocytosis trending down. Blood pressure was managed with UZAIR inhibitor and was stable.The patient clinically improved. No fever . On room air pulse oximetry was stable. No chest pain. No nausea. No vomiting. Minimal amount of phlegm. The patient was stable for discharge home and follow up with the primary medical doctor next week. Encouraged compliance with medication and tobacco cessation. Prescription provided for oral prednisone and empiric antibiotics. DISCHARGE MEDICATIONS: See medication reconciliation list. DISCHARGE INSTRUCTIONS: Follow up with the primary medical doctor next week. DISCHARGE DIAGNOSES: 1. Chronic obstructive pulmonary disease with acute exacerbation 2. Viral upper respiratory infection versus tracheal bronchitis. 3. Leukocytosis likely secondary to above, improving. 4. Pulmonary hypertension. 5. Congestive heart failure. 6. Respiratory bronchiolitis. 7. Inflammatory bowel syndrome. 8. Hypertension. Gadiel Ramírez M.D. I have been assigned to dictate discharge summary on this account and I was not involved in the patient's management. Mayi Rosa ([facility] N.PKristie DR: Eleanor JOB#: [id number] CC: KARL
--- NOTE | 2017-04-18 21:49 | Cardiology Report ---
APPROVED REPORT EXAM: Two-dimensional and M-mode echocardiogram with Doppler and color Doppler. INDICATION Congestive Heart Failure M-Mode DIMENSIONS IVSd0.6 (0.7-1.1cm)Left Atrium (MM)3.7 (1.6-4.0cm) LVDd5.7 (3.5-5.6cm)Aortic Root3.2 (2.0-3.7cm) PWd1.0 (0.7-1.1cm)Aortic Cusp Exc.1.9 (1.5-2.0cm) LVDs4.1 (2.5-4.0cm) PWs1.0 cm Technically difficult study due to poor acoustical windows. Normal left ventricular chamber size, systolic function and wall motion. Left ventricular ejection fraction estimated to be 55-60%. No evidence of left ventricular hypertrophy. No evidence of pericardial or pleural effusion. Mild bi-atrial enlargement by 2D. Focal aortic valve sclerosis with adequate cusp excursion. Thickened mitral valve leaflets with normal excursion. Mild mitral annulus and aortic root calcification. Pulmonic valve not well visualized. Normal tricuspid valve structure. IVC dilated at 2.4cm and collapsible with respiration indicate increased RA pressure. A color flow and spectral Doppler study was performed and revealed: No aortic regurgitation. No mitral regurgitation. Mitral diastolic velocities suggest reduced left ventricular relaxation c/w diastolic dysfunction grade 1. No tricuspid regurgitation.
--- NOTE | 2017-04-19 00:11 | Cardiology Report ---
APPROVED REPORT EKG Measurement Heart [id number] Sinus tachycardia Indeterminate axis Right ventricular hypertrophy Nonspecific ST abnormality Abnormal ECG
== END 2017-04-10 14:03 | disposition home or self-care (01) | DRG 192 ==
LOC: EDBD 16:59 → EDBEDREQ 18:52 → EMR 19:12 → 2E 19:15 → EDBEDREQ 20:15 → EDBEDREQSVC 20:15 → EDBEDREQ 04-08 16:40 → 2W 04-08 17:17
PROC: 5A09357 Assistance with Respiratory Ventilation, Less than 24 Consecutive Hours, Continuous Positive Airway Pressure (ICD-10-PCS; principal; 2017-04-07)
DX: J44.1 Chronic obstructive pulmonary disease with (acute) exacerbation (principal); I27.20 Pulmonary hypertension, unspecified; I11.0 Hypertensive heart disease with heart failure; I50.9 Heart failure, unspecified; J44.0 Chronic obstructive pulmonary disease with (acute) lower respiratory infection; K58.9 Irritable bowel syndrome, unspecified; E78.00 Pure hypercholesterolemia, unspecified; R09.02 Hypoxemia; Z88.0 Allergy status to penicillin; Z72.89 Other problems related to lifestyle; F17.210 Nicotine dependence, cigarettes, uncomplicated; J06.9 Acute upper respiratory infection, unspecified
CPT/HCPCS: 36415; 36600; 71010; 74000; 80048; 80053; 81003; 82550; 82553; 82803; 83605; 83880; 84484; 85007; 85025; 86710; 87040; 87081; 93005; 93306; 94640; 94660; 94664; 94760; 99285; J7620

== ENCOUNTER 2017-11-01 15:26 | Inpatient (IN) | payer MEDICARE, BC ==
[~2017-11-01] VITALS: Ht 182.9 cm; Wt 84.8 kg
[~2017-11-01 15:26] MED LIST: ADVAIR 250/501 PUFFS INH; ALBUTEROL SULF8.5 GM INH; AMOXICILLIN500 MG ORAL; DUONEB 0.5-3(2.53 ML HHN; LEVAQUIN500 MG ORAL; PREDNISONE20 MG ORAL
[2017-11-01 15:55] VITALS: BP 166/89
[2017-11-01 16:07] LABS: BASOPHILS % (AUTO) 1.7 % (0.0-2.0); EOSINOPHILS % (AUTO) 0.2 % (0.0-3.0); HEMATOCRIT 48.8 % (42.0-52.0); HEMOGLOBIN 16.6 G/DL (14.2-18.0); LYMPHOCYTES % (AUTO) 10.4 % (20.0-45.0); MEAN CORPUSCULAR VOLUME 97 FL (80-99); MONOCYTES % (AUTO) 2.9 % (1.0-10.0); NEUTROPHILS % (AUTO) 84.9 % (45.0-75.0); PLATELET COUNT 165 K/UL (150-450); RED BLOOD COUNT 5.03 M/UL (4.70-6.10); RED CELL DISTRIBUTION WIDTH 13.4 % (11.6-14.8); WHITE BLOOD COUNT 13.9 K/UL (4.8-10.8)
[2017-11-01] MEDS ORDERED: Albuterol ud Inhalation HHN ONE (16:15)
[2017-11-01] MEDS ORDERED: Ipratropium 0.02% Inh Soln 2.5ml UD HHN ONE (16:15)
[2017-11-01 16:20] LABS: ANION GAP 7 mmol/L (5-15); BLOOD UREA NITROGEN 46 mg/dL (7-18); CALCIUM 9.4 MG/DL (8.5-10.1); CARBON DIOXIDE 36 MMOL/L (21-32); CHLORIDE 101 MMOL/L (98-107); CREATININE 1.1 MG/DL (0.55-1.30); POTASSIUM 5.1 MMOL/L (3.5-5.1); SODIUM 144 MMOL/L (136-145)
[2017-11-01 16:33] LABS: ALANINE AMINOTRANSFERASE 56 U/L (12-78); ALBUMIN 4.1 G/DL (3.4-5.0); ALBUMIN/GLOBULIN RATIO 1.3 (1.0-2.7); ALKALINE PHOSPHATASE 48 U/L (46-116); ASPARTATE AMINO TRANSFERASE 25 U/L (15-37); BILIRUBIN,TOTAL 0.7 MG/DL (0.2-1.0); CKMB 3.8 NG/ML (0.0-3.6); CREATINE KINASE 93 U/L (26-308)
[2017-11-01] MEDS ORDERED: Aspirin Baby 81mg ORAL ONE (16:45)
--- NOTE | 2017-11-01 16:46 | Diagnostic Imaging Report ---
Indication: Reason For Exam: SOB Technique: One view of the chest Comparison: none Findings: Lungs and pleural spaces are clear. The heart size is normal. No significant change Impression: No acute process
[2017-11-01] MEDS ORDERED: SPIRIVA18 MCG INH (16:53)
[2017-11-01] MEDS ORDERED: SYMBICORT 16010.2 G1 IH (16:53)
--- NOTE | 2017-11-01 17:02 | Emergency Room Report ---
History of Present Illness General Chief Complaint: Dyspnea/Respdistress Source: Patient Present Illness HPI This patient states that he has had shortness of breath for the past 3 days. He denies recent illness. He states he has a history of COPD. He does continue to smoke. He denies chest pain. He denies abdominal pain. He denies nausea or vomiting. He has no other complaints. Allergies: Coded Allergies: PENICILLINS (Verified Allergy, Unknown, 04/08/17) Patient History Past Medical History: see triage record, DM, CHF, COPD, other - irritable bowel syndrome Social History: Reports: smoking, alcohol use Reviewed Nursing Documentation: PMH: Agreed; PSxH: Agreed Nursing Documentation-PMH Hx Hypertension: Yes Hx Asthma: Yes Hx COPD: Yes Hx Diabetes: Yes Hx Cancer: No Hx Gastrointestinal Problems: No Hx Neurological Problems: No Review of Systems All Other Systems: negative except mentioned in HPI Physical Exam Vital Signs Date Time Temp Pulse Resp B/P (MAP) Pulse Ox O2 Delivery O2 Flow Rate FiO2 11/01/17 15:22 129 26 250/120 97 Simple Mask 5.0 Sp02 EP Interpretation: reviewed, normal General Appearance: no apparent distress, alert, GCS 15, non-toxic Head: normocephalic, atraumatic Eyes: bilateral eye normal inspection, bilateral eye PERRL ENT: hearing grossly normal, normal pharynx, no angioedema, normal voice Neck: full range of motion, supple/symm/no masses Respiratory: chest non-tender, speaking full sentences, wheezing, expiration Cardiovascular #1: regular rate, rhythm, no edema Gastrointestinal: normal bowel sounds, non tender, soft, non-distended, no guarding, no rebound Rectal: deferred Musculoskeletal: back normal, normal range of motion, swelling - BLE 1+pitting edema Neurologic: alert, oriented x3, responsive, motor strength/tone normal, sensory intact, speech normal Psychiatric: judgement/insight normal, memory normal, mood/affect normal, no suicidal/homicidal ideation Skin: normal color, no rash, warm/dry, well hydrated Medical Decision Making Diagnostic Impression: Primary Impression: COPD exacerbation Additional Impression: NSTEMI (non-ST elevated myocardial infarction) ER Course This patient has a COPD exacerbation. He was given albuterol, Atrovent and prednisone. He had significant improvement in his work of breathing. He was also found to have a slightly elevated troponin. EKG did have diffuse ST segment depressions. Patient was given aspirin and admitted to telemetry for further evaluation and treatment by pulmonology and cardiology. This patient is critically ill. This patient required complex medical decision- making, aggressive intervention, extensive laboratory workup and monitoring. Critical care time: 40 minutes. Laboratory Tests Test 11/01/17 15:40 White Blood Count 13.9 K/UL (4.8-10.8) H Red Blood Count 5.03 M/UL (4.70-6.10) Hemoglobin 16.6 G/DL (14.2-18.0) Hematocrit 48.8 % (42.0-52.0) Mean Corpuscular Volume 97 FL (80-99) Mean Corpuscular Hemoglobin 33.0 PG (27.0-31.0) H Mean Corpuscular Hemoglobin Concent 34.0 G/DL (32.0-36.0) Red Cell Distribution Width 13.4 % (11.6-14.8) Platelet Count 165 K/UL (150-450) Mean Platelet Volume 8.4 FL (6.5-10.1) Neutrophils (%) (Auto) 84.9 % (45.0-75.0) H Lymphocytes (%) (Auto) 10.4 % (20.0-45.0) L Monocytes (%) (Auto) 2.9 % (1.0-10.0) Eosinophils (%) (Auto) 0.2 % (0.0-3.0) Basophils (%) (Auto) 1.7 % (0.0-2.0) Prothrombin Time 10.6 SEC (9.30-11.50) Prothrombin Time INR 1.0 (0.9-1.1) PTT 19 SEC (23-33) L Sodium Level 144 MMOL/L (136-145) Potassium Level 5.1 MMOL/L (3.5-5.1) Chloride Level 101 MMOL/L (98-107) Carbon Dioxide Level 36 MMOL/L (21-32) H Anion Gap 7 mmol/L (5-15) Blood Urea Nitrogen 46 mg/dL (7-18) H Creatinine 1.1 MG/DL (0.55-1.30) Estimate Glomerular Filtration Rate mL/min (>60) Glucose Level 289 MG/DL (74-106) H Calcium Level 9.4 MG/DL (8.5-10.1) Total Bilirubin 0.7 MG/DL (0.2-1.0) Aspartate Amino Transferase (AST) 25 U/L (15-37) Alanine Aminotransferase (ALT) 56 U/L (12-78) Alkaline Phosphatase 48 U/L (46-116) Total Creatine Kinase 93 U/L (26-308) Creatine Kinase MB 3.8 NG/ML (0.0-3.6) H Creatine Kinase MB Relative Index 4.0 Troponin I 0.115 ng/mL (0.000-0.056) Pro-B-Type Natriuretic Peptide 345 pg/mL (0-125) H Total Protein 7.3 G/DL (6.4-8.2) Albumin 4.1 G/DL (3.4-5.0) Globulin 3.2 g/dL Albumin/Globulin Ratio 1.3 (1.0-2.7) EKG Diagnostic Results Rate: tachycardiac Rhythm: other - S.tachycardia, RAD, Diffuse ST segment depressions. ST Segments: other - See above Rhythm Strip Diag. Results EP Interpretation: yes Rate: 100's Rhythm: no PVC's, no ectopy, other - S.tachycardia Chest X-Ray Diagnostic Results Chest X-Ray Diagnostic Results : Chest X-Ray Ordered: Yes # of Views/Limited/Complete: 1 View Indication: Shortness of Breath EP Interpretation: Yes Interpretation: no consolidation, no effusion, no pneumothorax, no acute cardiopulmonary disease Impression: No acute disease Electronically Signed by: Shira Last Vital Signs Date Time Temp Pulse Resp B/P (MAP) Pulse Ox O2 Delivery O2 Flow Rate FiO2 11/01/17 15:55 117 30 166/89 99 Nasal Cannula 2.0 Disposition: ADMITTED INPATIENT Condition: Serious Referrals: NON PHYSICIAN (PCP) Norma Lara DO Nov 01, 2017 17:02
[2017-11-01] MEDS ORDERED: Enoxaparin 100mg Inj SUBQ ONE (17:15)
[2017-11-01] MEDS ORDERED: PREDNISONE20 MG ORAL (18:26)
[2017-11-01] MEDS ORDERED: ENALAPRIL MALEAT5 MG ORAL (18:26)
[2017-11-01] MEDS ORDERED: KLOR-CON M2020 MEQ ORAL (18:26)
[2017-11-01] MEDS ORDERED: CRESTOR10 M2 ORAL (18:26)
[2017-11-01] MEDS ORDERED: LANTUS SOL100 UNIT/1 SUBQ (18:26)
[2017-11-01] MEDS ORDERED: LEXAPRO10 MG ORAL (18:26)
[2017-11-01] MEDS ORDERED: HUMALOG100 UNIT/1 SUBQ (18:26)
[2017-11-01] MEDS ORDERED: CARVEDILOL6.25 MG ORAL (18:26)
[2017-11-01] MEDS ORDERED: FUROSEMIDE20 M1 ORAL (18:36)
[2017-11-01] MEDS ORDERED: VENTOLIN HFA18 GM INH (18:37)
[2017-11-01] MEDS ORDERED: LORazepam Inj 2mg/ml 1ml IV PRN (19:00)
[2017-11-01] MEDS ORDERED: Morphine Sulfate 2mg/ml Inj(IV/IM USE ONLY) IVP PRN (19:00)
[2017-11-01] MEDS ORDERED: Promethazine/Codeine 5ml UD ORAL PRN (19:00)
[2017-11-01] MEDS ORDERED: Nitroglycerin Subl 0.4mg tab SL PRN (19:00)
[2017-11-01] MEDS ORDERED: Albuterol/Ipratropium 3ml neb HHN PRN (19:00)
[2017-11-01 20:00] VITALS: BP 117/63
[2017-11-01] MEDS: Theophylline ER 100mg ORAL SCH (20:57)
[2017-11-01] MEDS: Enalapril 5mg tab ORAL SCH (20:57)
[2017-11-01] MEDS: Carvedilol 6.25mg Tab ORAL SCH (20:58)
[2017-11-01] MEDS: NovoLOG Insulin Flexpen SUBQ SCH (21:19)
[2017-11-01] MEDS: Solu-MEDROL 125mg Inj IV SCH (23:34)
[2017-11-02] VITALS: BP 131/93
[2017-11-02 04:00] VITALS: BP 123/74
[2017-11-02] MEDS: Solu-MEDROL 125mg Inj IV SCH ×3 (05:34→18:03)
[2017-11-02] MEDS: NovoLOG Insulin Flexpen SUBQ SCH ×4 (06:12→21:14)
[2017-11-02 06:57] LABS: APPEARANCE,URINE CLEAR; BILIRUBIN, URINE NEGATIVE (NEGATIVE); COLOR,URINE YELLOW; GLUCOSE, URINE (UA) 4+ (NEGATIVE); KETONES,URINE 1+ (NEGATIVE); LEUKOCYTE ESTERASE ,URINE NEGATIVE (NEGATIVE); NITRITE,URINE NEGATIVE (NEGATIVE); PH,URINE 6 (4.5-8.0); PROTEIN,URINE 1+ (NEGATIVE); UROBILINOGEN,URINE NORMAL MG/DL (0.0-1.0)
[2017-11-02 07:35] LABS: HEMATOCRIT 43.7 % (42.0-52.0); HEMOGLOBIN 14.4 G/DL (14.2-18.0); MEAN CORPUSCULAR VOLUME 99 FL (80-99); PLATELET COUNT 160 K/UL (150-450); RED BLOOD COUNT 4.41 M/UL (4.70-6.10); RED CELL DISTRIBUTION WIDTH 13.1 % (11.6-14.8); WHITE BLOOD COUNT 10.7 K/UL (4.8-10.8)
[2017-11-02 08:00] VITALS: BP 122/68
[2017-11-02 08:00] LABS: ALANINE AMINOTRANSFERASE 44 U/L (12-78); ALBUMIN 3.3 G/DL (3.4-5.0); ALBUMIN/GLOBULIN RATIO 1.2 (1.0-2.7); ALKALINE PHOSPHATASE 38 U/L (46-116); ANION GAP 4 mmol/L (5-15); ASPARTATE AMINO TRANSFERASE 11 U/L (15-37); BILIRUBIN,TOTAL 0.5 MG/DL (0.2-1.0); BLOOD UREA NITROGEN 38 mg/dL (7-18); CALCIUM 8.9 MG/DL (8.5-10.1); CARBON DIOXIDE 36 MMOL/L (21-32); CHLORIDE 104 MMOL/L (98-107); CREATININE 0.7 MG/DL (0.55-1.30); POTASSIUM 4.2 MMOL/L (3.5-5.1); SODIUM 144 MMOL/L (136-145)
[2017-11-02] MEDS: Theophylline ER 100mg ORAL SCH ×2 (08:46→21:13)
[2017-11-02] MEDS: Carvedilol 6.25mg Tab ORAL SCH ×2 (08:47→21:13)
[2017-11-02] MEDS: Enalapril 5mg tab ORAL SCH ×2 (08:47→21:12)
[2017-11-02] MEDS: Heparin 5000 units/ml inj SUBQ SCH ×2 (08:49→21:15)
--- NOTE | 2017-11-02 10:56 | History & Physical ---
History and Physical History & Physicial Dictated for Int Med-Dr Ramírez no. [id number]. Danielito Thomas MD Nov 02, 2017 10:56
--- NOTE | 2017-11-02 11:51 | Consultation ---
History of Present Illness General Date patient seen: Nov 02, 2017 Chief Complaint: Dyspnea/Respdistress Present Illness HPI 72 year old male with hx of COPD, smoking, CHF, CAD, DM presented to ER with CC of shortness of breath for the past 3 days. He denies recent illness. He denies chest pain. He denies abdominal pain. He denies nausea or vomiting. C/ o increasing pedal edema. He usually takes insulin. Pt is admitted to telemetry for further evaluation. Allergies: Coded Allergies: PENICILLINS (Verified Allergy, Unknown, 04/08/17) Medication History Scheduled Albuterol Sulfate (Ventolin Hfa), 2 PUFFS INH Q12HR, (Reported) Budesonide/Formoterol Fumarate (Symbicort 160-4.5 Mcg Inhaler), 2 PUFFS IH BID, (Reported) Carvedilol* (Carvedilol*), 6.25 MG ORAL EVERY 12 HOURS, (Reported) Enalapril Maleate* (Enalapril Maleate*), 5 MG ORAL EVERY 12 HOURS, (Reported) Escitalopram Oxalate* (Lexapro*), 10 MG ORAL DAILY, (Reported) Furosemide* (Lasix*), 20 MG ORAL DAILY, (Reported) Insulin Glargine (Lantus), 25 UNITS SUBQ BEFORE BREAKFAST, (Reported) Insulin Lispro (Humalog), 10 UNITS SUBQ AC, (Reported) Potassium Chloride (Klor-Con M20), 20 MEQ ORAL DAILY, (Reported) Prednisone* (Prednisone*), 20 MG ORAL DAILY, (Reported) Rosuvastatin Calcium* (Crestor*), 10 MG ORAL DAILY, (Reported) Tiotropium [place]* (Spiriva*), 2 PUFF INH DAILY, (Reported) Discontinued Medications Albuterol Sulfate* (Albuterol Sulfate Mdi*), 2 PUFF INH Q6H Discontinued Reason: Pt stopped taking med Fluticasone/Salmeterol (Advair 250-50 Diskus), 1 PUFFS INH BIDRT Discontinued Reason: Pt stopped taking med Ipratropium/Albuterol Sulfate (DuoNeb 0.5-3(2.5)mg/3ml), 3 ML HHN Q4HRT Discontinued Reason: Pt stopped taking med Levofloxacin* (Levaquin*), 500 MG ORAL DAILY Discontinued Reason: Therapy completed Prednisone* (Prednisone*), 40 MG ORAL DAILY Discontinued Reason: Pt stopped taking med Patient History Healthcare decision maker N Resuscitation status Full Code Advanced Directive on File No Past Medical/Surgical History Past Medical/Surgical History: (1) COPD (chronic obstructive pulmonary disease) (2) Diabetes mellitus (3) Hypertension Review of Systems All Other Systems: negative except mentioned in HPI Physical Exam General Appearance: WD/WN, no apparent distress, mild distress Lines, tubes and drains: peripheral HEENT: normocephalic, atraumatic Neck: non-tender, normal alignment Respiratory/Chest: chest wall non-tender, lungs clear, rhonchi - left, rhonchi - right Cardiovascular/Chest: normal peripheral pulses Abdomen: normal bowel sounds, non tender, soft Genitourinary/Rectal: normal genital exam Last 24 Hour Vital Signs Date Time Temp Pulse Resp B/P (MAP) Pulse Ox O2 Delivery O2 Flow Rate FiO2 11/02/17 09:00 Nasal Cannula 2.0 11/02/17 08:47 122/68 11/02/17 08:47 95 122/68 11/02/17 08:00 98.1 95 18 122/68 (86) 96 98.1 11/02/17 08:00 103 11/02/17 07:06 69 20 Nasal Cannula 2.0 11/02/17 07:05 95 Nasal Cannula 2.0 28 11/02/17 07:05 Nasal Cannula 2.0 28 11/02/17 04:00 79 11/02/17 04:00 98.3 84 21 123/74 (90) 96 98.3 11/02/17 00:00 97.3 84 24 131/93 (106) 96 97.3 11/02/17 00:00 84 11/01/17 21:18 Nasal Cannula 2.0 28 11/01/17 21:18 98 Nasal Cannula 2.0 28 11/01/17 21:00 Nasal Cannula 2.0 11/01/17 20:58 95 117/63 11/01/17 20:57 117/63 11/01/17 20:22 Nasal Cannula 2.0 11/01/17 20:00 97.5 95 24 117/63 (81) 94 97.5 11/01/17 20:00 93 11/01/17 18:35 117 16 166/89 98 Nasal Cannula 2.0 28 11/01/17 17:18 93 16 98 Nasal Cannula 2.0 28 11/01/17 17:03 105 23 Nasal Cannula 2.0 11/01/17 17:03 28 11/01/17 17:00 105 20 96 Nasal Cannula 2.0 28 11/01/17 15:55 117 30 166/89 99 Nasal Cannula 2.0 11/01/17 15:53 117 30 Nasal Cannula 2.0 11/01/17 15:22 129 26 250/120 97 Simple Mask 5.0 Intake and Output 11/01/17 11/02/17 19:00 07:00 Output Total 0 ml Balance 0 ml Output Urine Total 0 ml # Bowel Movements 1 Laboratory Tests Test 11/01/17 15:40 11/01/17 17:05 11/01/17 22:56 11/02/17 03:00 White Blood Count 13.9 K/UL (4.8-10.8) H Red Blood Count 5.03 M/UL (4.70-6.10) Hemoglobin 16.6 G/DL (14.2-18.0) Hematocrit 48.8 % (42.0-52.0) Mean Corpuscular Volume 97 FL (80-99) Mean Corpuscular Hemoglobin 33.0 PG (27.0-31.0) H Mean Corpuscular Hemoglobin Concent 34.0 G/DL (32.0-36.0) Red Cell Distribution Width 13.4 % (11.6-14.8) Platelet Count 165 K/UL (150-450) Mean Platelet Volume 8.4 FL (6.5-10.1) Neutrophils (%) (Auto) 84.9 % (45.0-75.0) H Lymphocytes (%) (Auto) 10.4 % (20.0-45.0) L Monocytes (%) (Auto) 2.9 % (1.0-10.0) Eosinophils (%) (Auto) 0.2 % (0.0-3.0) Basophils (%) (Auto) 1.7 % (0.0-2.0) Prothrombin Time 10.6 SEC (9.30-11.50) Prothromb Time International Ratio 1.0 (0.9-1.1) Activated Partial Thromboplast Time 19 SEC (23-33) L Sodium Level 144 MMOL/L (136-145) Potassium Level 5.1 MMOL/L (3.5-5.1) Chloride Level 101 MMOL/L (98-107) Carbon Dioxide Level 36 MMOL/L (21-32) H Anion Gap 7 mmol/L (5-15) Blood Urea Nitrogen 46 mg/dL (7-18) H Creatinine 1.1 MG/DL (0.55-1.30) Estimat Glomerular Filtration Rate mL/min (>60) Glucose Level 289 MG/DL (74-106) H Calcium Level 9.4 MG/DL (8.5-10.1) Total Bilirubin 0.7 MG/DL (0.2-1.0) Aspartate Amino Transf (AST/SGOT) 25 U/L (15-37) Alanine Aminotransferase (ALT/SGPT) 56 U/L (12-78) Alkaline Phosphatase 48 U/L (46-116) Total Creatine Kinase 93 U/L (26-308) Creatine Kinase MB 3.8 NG/ML (0.0-3.6) H Creatine Kinase MB Relative Index 4.0 Troponin I 0.115 ng/mL (0.000-0.056) 0.108 ng/mL (0.000-0.056) 0.132 ng/mL (0.000-0.056) Pro-B-Type Natriuretic Peptide 345 pg/mL (0-125) H Total Protein 7.3 G/DL (6.4-8.2) Albumin 4.1 G/DL (3.4-5.0) Globulin 3.2 g/dL Albumin/Globulin Ratio 1.3 (1.0-2.7) Urine Color Yellow Urine Appearance Clear Urine pH 6 (4.5-8.0) Urine Specific [place] 1.020 (1.005-1.035) Urine Protein 1+ (NEGATIVE) H Urine Glucose (UA) 4+ (NEGATIVE) H Urine Ketones 1+ (NEGATIVE) H Urine Occult Blood 5+ (NEGATIVE) H Urine Nitrite Negative (NEGATIVE) Urine Bilirubin Negative (NEGATIVE) Urine Urobilinogen Normal MG/DL (0.0-1.0) Urine Leukocyte Esterase Negative (NEGATIVE) Urine RBC 10-15 /HPF (0 - 0) H Urine WBC 2-4 /HPF (0 - 0) Urine Squamous Epithelial Cells Occasional /LPF Urine Bacteria Few /HPF (NONE) Urine Opiates Screen Negative (NEGATIVE) Urine Barbiturates Screen Negative (NEGATIVE) Phencyclidine (PCP) Screen Negative (NEGATIVE) Urine Amphetamines Screen Negative (NEGATIVE) Urine Benzodiazepines Screen Negative (NEGATIVE) Urine Cocaine Screen Negative (NEGATIVE) Urine Marijuana (THC) Screen Negative (NEGATIVE) Test 11/02/17 06:39 White Blood Count 10.7 K/UL (4.8-10.8) Red Blood Count 4.41 M/UL (4.70-6.10) L Hemoglobin 14.4 G/DL (14.2-18.0) Hematocrit 43.7 % (42.0-52.0) Mean Corpuscular Volume 99 FL (80-99) Mean Corpuscular Hemoglobin 32.6 PG (27.0-31.0) H Mean Corpuscular Hemoglobin Concent 33.0 G/DL (32.0-36.0) Red Cell Distribution Width 13.1 % (11.6-14.8) Platelet Count 160 K/UL (150-450) Mean Platelet Volume 8.8 FL (6.5-10.1) Neutrophils (%) (Auto) % (45.0-75.0) Lymphocytes (%) (Auto) % (20.0-45.0) Monocytes (%) (Auto) % (1.0-10.0) Eosinophils (%) (Auto) % (0.0-3.0) Basophils (%) (Auto) % (0.0-2.0) Differential Total Cells Counted 100 Neutrophils % (Manual) 88 % (45-75) H Lymphocytes % (Manual) 10 % (20-45) L Monocytes % (Manual) 2 % (1-10) Eosinophils % (Manual) 0 % (0-3) Basophils % (Manual) 0 % (0-2) Band Neutrophils 0 % (0-8) Platelet Estimate Adequate Platelet Morphology Normal Macrocytosis 1+ Sodium Level 144 MMOL/L (136-145) Potassium Level 4.2 MMOL/L (3.5-5.1) Chloride Level 104 MMOL/L (98-107) Carbon Dioxide Level 36 MMOL/L (21-32) H Anion Gap 4 mmol/L (5-15) L Blood Urea Nitrogen 38 mg/dL (7-18) H Creatinine 0.7 MG/DL (0.55-1.30) Estimat Glomerular Filtration Rate mL/min (>60) Glucose Level 211 MG/DL (74-106) H Calcium Level 8.9 MG/DL (8.5-10.1) Total Bilirubin 0.5 MG/DL (0.2-1.0) Aspartate Amino Transf (AST/SGOT) 11 U/L (15-37) L Alanine Aminotransferase (ALT/SGPT) 44 U/L (12-78) Alkaline Phosphatase 38 U/L (46-116) L Pro-B-Type Natriuretic Peptide Pending Total Protein 6.1 G/DL (6.4-8.2) L Albumin 3.3 G/DL (3.4-5.0) L Globulin 2.8 g/dL Albumin/Globulin Ratio 1.2 (1.0-2.7) Height (Feet): 6 Height (Inches): 0.00 Weight (Pounds): 176 Medications Current Medications Medications (Trade) Dose Ordered Sig/Evi Route PRN Reason Start Time Stop Time Status Last Admin Dose Admin Acetaminophen (Tylenol) 650 mg Q4H PRN ORAL fever 11/01/17 19:00 12/01/17 18:59 Albuterol/ Ipratropium (Albuterol/ Ipratropium) 3 ml Q4H HHN 11/02/17 11:00 11/06/17 18:59 Carvedilol (Coreg) 6.25 mg EVERY 12 HOURS ORAL 11/01/17 21:00 12/01/17 20:59 11/02/17 08:47 Clonidine HCl (Catapres Tab) 0.1 mg Q4H PRN ORAL sbp more than 160 11/01/17 19:00 12/01/17 18:59 Dextrose (Dextrose 50%) 25 ml STAT PRN IV Hypoglycemia 11/01/17 19:00 12/01/17 18:59 Dextrose (Dextrose 50%) 50 ml STAT PRN IV Hypoglycemia 11/01/17 19:00 12/01/17 18:59 Enalapril Maleate (Vasotec) 5 mg EVERY 12 HOURS ORAL 11/01/17 21:00 12/01/17 20:59 11/02/17 08:47 Furosemide (Lasix) 20 mg DAILY IV 11/02/17 10:55 12/02/17 10:54 11/02/17 11:36 Heparin Sodium (Porcine) (Heparin 5000 units/ml) 5,000 units EVERY 12 HOURS SUBQ 11/02/17 09:00 12/02/17 08:59 11/02/17 08:49 Insulin Aspart (NovoLOG) BEFORE MEALS AND HS SUBQ 11/01/17 21:00 12/01/17 20:59 11/02/17 11:38 Levofloxacin 100 ml @ 100 mls/hr Q24H IVPB 11/02/17 12:00 11/09/17 11:59 Lorazepam (Ativan 2mg/ml 1ml) 0.5 mg Q4H PRN IV For Anxiety 11/01/17 19:00 11/08/17 18:59 Methylprednisolone Sodium Succinate (Solu-MEDROL) 60 mg EVERY 6 HOURS IV 11/02/17 00:00 12/02/17 00:00 11/02/17 11:36 Morphine Sulfate (Morphine Sulfate) 2 mg Q4H PRN IVP severe pain 7-11/01/17 19:00 11/08/17 18:59 Nitroglycerin (Ntg) 0.4 mg Q5M X 3 DOSES PRN SL Prn Chest Pain 11/01/17 19:00 12/01/17 18:59 Ondansetron HCl (Zofran) 4 mg Q6H PRN IVP Nausea & Vomiting 11/01/17 19:00 12/01/17 18:59 Promethazine HCl/ Codeine (Phenergan with Codeine) 5 ml Q6H PRN ORAL cough 11/01/17 19:00 12/01/17 18:59 Temazepam (Restoril) 15 mg HSPRN PRN ORAL Insomnia 11/01/17 19:00 11/08/17 18:59 Theophylline (Zafar-Dur) 100 mg EVERY 12 HOURS ORAL 11/01/17 21:00 12/01/17 20:59 11/02/17 08:46 Assessment/Plan Problem List: (1) Acute respiratory failure ICD Codes: J96.00 - Acute respiratory failure, unspecified whether with hypoxia or hypercapnia SNOMED: 87362455 (2) COPD exacerbation ICD Codes: J44.1 - Chronic obstructive pulmonary disease with (acute) exacerbation SNOMED: 818403054593167 (3) NSTEMI (non-ST elevated myocardial infarction) ICD Codes: I21.4 - Non-ST elevation (NSTEMI) myocardial infarction SNOMED: 822812444 (4) Diabetes mellitus ICD Codes: E11.9 - Type 2 diabetes mellitus without complications SNOMED: 75892501 (5) Hypertension ICD Codes: I10 - Essential (primary) hypertension SNOMED: 47590879 Assessment/Plan respiratory treatment check sputum] iv steroids iv lasix echo cardiology evaluation dvt porphylaxis diabetic diet and sliding scale. Mikie Gray MD Nov 02, 2017 11:51
[2017-11-02] MEDS: Albuterol/Ipratropium 3ml neb HHN SCH ×4 (11:53→23:31)
[2017-11-02 12:00] VITALS: BP 132/74
--- NOTE | 2017-11-02 13:51 | Consultation ---
History of Present Illness General Date patient seen: Nov 02, 2017 Chief Complaint: Dyspnea/Respdistress Present Illness HPI The patient is a 72yo pt shortness of breath for the past 3 days. COPD and mmp. The pt is anxious and has poor insight, the pt is not suicidal/homicidal Allergies: Coded Allergies: PENICILLINS (Verified Allergy, Unknown, 04/08/17) Medication History Scheduled Albuterol Sulfate (Ventolin Hfa), 2 PUFFS INH Q12HR, (Reported) Budesonide/Formoterol Fumarate (Symbicort 160-4.5 Mcg Inhaler), 2 PUFFS IH BID, (Reported) Carvedilol* (Carvedilol*), 6.25 MG ORAL EVERY 12 HOURS, (Reported) Enalapril Maleate* (Enalapril Maleate*), 5 MG ORAL EVERY 12 HOURS, (Reported) Escitalopram Oxalate* (Lexapro*), 10 MG ORAL DAILY, (Reported) Furosemide* (Lasix*), 20 MG ORAL DAILY, (Reported) Insulin Glargine (Lantus), 25 UNITS SUBQ BEFORE BREAKFAST, (Reported) Insulin Lispro (Humalog), 10 UNITS SUBQ AC, (Reported) Potassium Chloride (Klor-Con M20), 20 MEQ ORAL DAILY, (Reported) Prednisone* (Prednisone*), 20 MG ORAL DAILY, (Reported) Rosuvastatin Calcium* (Crestor*), 10 MG ORAL DAILY, (Reported) Tiotropium [place]* (Spiriva*), 2 PUFF INH DAILY, (Reported) Discontinued Medications Albuterol Sulfate* (Albuterol Sulfate Mdi*), 2 PUFF INH Q6H Discontinued Reason: Pt stopped taking med Fluticasone/Salmeterol (Advair 250-50 Diskus), 1 PUFFS INH BIDRT Discontinued Reason: Pt stopped taking med Ipratropium/Albuterol Sulfate (DuoNeb 0.5-3(2.5)mg/3ml), 3 ML HHN Q4HRT Discontinued Reason: Pt stopped taking med Levofloxacin* (Levaquin*), 500 MG ORAL DAILY Discontinued Reason: Therapy completed Prednisone* (Prednisone*), 40 MG ORAL DAILY Discontinued Reason: Pt stopped taking med Patient History Limited by: medical condition History Provided By: Patient, Medical Record, PMD Healthcare decision maker N Resuscitation status Full Code Advanced Directive on File No Past Medical/Surgical History Past Medical/Surgical History: (1) Irritable bowel syndrome (2) Shortness of breath (3) Abdominal distension (4) Wheezing (5) Pneumonia (6) NSTEMI (non-ST elevated myocardial infarction) (7) COPD (chronic obstructive pulmonary disease) (8) Diabetes mellitus (9) Hypertension (10) Acute respiratory failure (11) Hypoxia (12) COPD exacerbation Review of Systems Psychiatric: Reports: prior hx, anxiety, depressed feelings, emotional problems Physical Exam General Appearance: no apparent distress, alert Neurologic: depressed affect Last 24 Hour Vital Signs Date Time Temp Pulse Resp B/P (MAP) Pulse Ox O2 Delivery O2 Flow Rate FiO2 11/02/17 12:00 98.0 88 20 132/74 (93) 95 98.0 11/02/17 09:00 Nasal Cannula 2.0 11/02/17 08:47 122/68 11/02/17 08:47 95 122/68 11/02/17 08:00 98.1 95 18 122/68 (86) 96 98.1 11/02/17 08:00 103 11/02/17 07:06 69 20 Nasal Cannula 2.0 11/02/17 07:05 95 Nasal Cannula 2.0 28 11/02/17 07:05 Nasal Cannula 2.0 28 11/02/17 04:00 79 11/02/17 04:00 98.3 84 21 123/74 (90) 96 98.3 11/02/17 00:00 97.3 84 24 131/93 (106) 96 97.3 11/02/17 00:00 84 11/01/17 21:18 Nasal Cannula 2.0 28 11/01/17 21:18 98 Nasal Cannula 2.0 28 11/01/17 21:00 Nasal Cannula 2.0 11/01/17 20:58 95 117/63 11/01/17 20:57 117/63 11/01/17 20:22 Nasal Cannula 2.0 11/01/17 20:00 97.5 95 24 117/63 (81) 94 97.5 11/01/17 20:00 93 11/01/17 18:35 117 16 166/89 98 Nasal Cannula 2.0 28 11/01/17 17:18 93 16 98 Nasal Cannula 2.0 28 11/01/17 17:03 105 23 Nasal Cannula 2.0 11/01/17 17:03 28 11/01/17 17:00 105 20 96 Nasal Cannula 2.0 28 11/01/17 15:55 117 30 166/89 99 Nasal Cannula 2.0 11/01/17 15:53 117 30 Nasal Cannula 2.0 11/01/17 15:22 129 26 250/120 97 Simple Mask 5.0 Intake and Output 11/01/17 11/02/17 19:00 07:00 Output Total 0 ml Balance 0 ml Output Urine Total 0 ml # Bowel Movements 1 Laboratory Tests Test 11/01/17 15:40 11/01/17 17:05 11/01/17 22:56 11/02/17 03:00 White Blood Count 13.9 K/UL (4.8-10.8) H Red Blood Count 5.03 M/UL (4.70-6.10) Hemoglobin 16.6 G/DL (14.2-18.0) Hematocrit 48.8 % (42.0-52.0) Mean Corpuscular Volume 97 FL (80-99) Mean Corpuscular Hemoglobin 33.0 PG (27.0-31.0) H Mean Corpuscular Hemoglobin Concent 34.0 G/DL (32.0-36.0) Red Cell Distribution Width 13.4 % (11.6-14.8) Platelet Count 165 K/UL (150-450) Mean Platelet Volume 8.4 FL (6.5-10.1) Neutrophils (%) (Auto) 84.9 % (45.0-75.0) H Lymphocytes (%) (Auto) 10.4 % (20.0-45.0) L Monocytes (%) (Auto) 2.9 % (1.0-10.0) Eosinophils (%) (Auto) 0.2 % (0.0-3.0) Basophils (%) (Auto) 1.7 % (0.0-2.0) Prothrombin Time 10.6 SEC (9.30-11.50) Prothromb Time International Ratio 1.0 (0.9-1.1) Activated Partial Thromboplast Time 19 SEC (23-33) L Sodium Level 144 MMOL/L (136-145) Potassium Level 5.1 MMOL/L (3.5-5.1) Chloride Level 101 MMOL/L (98-107) Carbon Dioxide Level 36 MMOL/L (21-32) H Anion Gap 7 mmol/L (5-15) Blood Urea Nitrogen 46 mg/dL (7-18) H Creatinine 1.1 MG/DL (0.55-1.30) Estimat Glomerular Filtration Rate mL/min (>60) Glucose Level 289 MG/DL (74-106) H Calcium Level 9.4 MG/DL (8.5-10.1) Total Bilirubin 0.7 MG/DL (0.2-1.0) Aspartate Amino Transf (AST/SGOT) 25 U/L (15-37) Alanine Aminotransferase (ALT/SGPT) 56 U/L (12-78) Alkaline Phosphatase 48 U/L (46-116) Total Creatine Kinase 93 U/L (26-308) Creatine Kinase MB 3.8 NG/ML (0.0-3.6) H Creatine Kinase MB Relative Index 4.0 Troponin I 0.115 ng/mL (0.000-0.056) 0.108 ng/mL (0.000-0.056) 0.132 ng/mL (0.000-0.056) Pro-B-Type Natriuretic Peptide 345 pg/mL (0-125) H Total Protein 7.3 G/DL (6.4-8.2) Albumin 4.1 G/DL (3.4-5.0) Globulin 3.2 g/dL Albumin/Globulin Ratio 1.3 (1.0-2.7) Urine Color Yellow Urine Appearance Clear Urine pH 6 (4.5-8.0) Urine Specific [place] 1.020 (1.005-1.035) Urine Protein 1+ (NEGATIVE) H Urine Glucose (UA) 4+ (NEGATIVE) H Urine Ketones 1+ (NEGATIVE) H Urine Occult Blood 5+ (NEGATIVE) H Urine Nitrite Negative (NEGATIVE) Urine Bilirubin Negative (NEGATIVE) Urine Urobilinogen Normal MG/DL (0.0-1.0) Urine Leukocyte Esterase Negative (NEGATIVE) Urine RBC 10-15 /HPF (0 - 0) H Urine WBC 2-4 /HPF (0 - 0) Urine Squamous Epithelial Cells Occasional /LPF Urine Bacteria Few /HPF (NONE) Urine Opiates Screen Negative (NEGATIVE) Urine Barbiturates Screen Negative (NEGATIVE) Phencyclidine (PCP) Screen Negative (NEGATIVE) Urine Amphetamines Screen Negative (NEGATIVE) Urine Benzodiazepines Screen Negative (NEGATIVE) Urine Cocaine Screen Negative (NEGATIVE) Urine Marijuana (THC) Screen Negative (NEGATIVE) Test 11/02/17 06:39 White Blood Count 10.7 K/UL (4.8-10.8) Red Blood Count 4.41 M/UL (4.70-6.10) L Hemoglobin 14.4 G/DL (14.2-18.0) Hematocrit 43.7 % (42.0-52.0) Mean Corpuscular Volume 99 FL (80-99) Mean Corpuscular Hemoglobin 32.6 PG (27.0-31.0) H Mean Corpuscular Hemoglobin Concent 33.0 G/DL (32.0-36.0) Red Cell Distribution Width 13.1 % (11.6-14.8) Platelet Count 160 K/UL (150-450) Mean Platelet Volume 8.8 FL (6.5-10.1) Neutrophils (%) (Auto) % (45.0-75.0) Lymphocytes (%) (Auto) % (20.0-45.0) Monocytes (%) (Auto) % (1.0-10.0) Eosinophils (%) (Auto) % (0.0-3.0) Basophils (%) (Auto) % (0.0-2.0) Differential Total Cells Counted 100 Neutrophils % (Manual) 88 % (45-75) H Lymphocytes % (Manual) 10 % (20-45) L Monocytes % (Manual) 2 % (1-10) Eosinophils % (Manual) 0 % (0-3) Basophils % (Manual) 0 % (0-2) Band Neutrophils 0 % (0-8) Platelet Estimate Adequate Platelet Morphology Normal Macrocytosis 1+ Sodium Level 144 MMOL/L (136-145) Potassium Level 4.2 MMOL/L (3.5-5.1) Chloride Level 104 MMOL/L (98-107) Carbon Dioxide Level 36 MMOL/L (21-32) H Anion Gap 4 mmol/L (5-15) L Blood Urea Nitrogen 38 mg/dL (7-18) H Creatinine 0.7 MG/DL (0.55-1.30) Estimat Glomerular Filtration Rate mL/min (>60) Glucose Level 211 MG/DL (74-106) H Calcium Level 8.9 MG/DL (8.5-10.1) Total Bilirubin 0.5 MG/DL (0.2-1.0) Aspartate Amino Transf (AST/SGOT) 11 U/L (15-37) L Alanine Aminotransferase (ALT/SGPT) 44 U/L (12-78) Alkaline Phosphatase 38 U/L (46-116) L Pro-B-Type Natriuretic Peptide 222 pg/mL (0-125) H Total Protein 6.1 G/DL (6.4-8.2) L Albumin 3.3 G/DL (3.4-5.0) L Globulin 2.8 g/dL Albumin/Globulin Ratio 1.2 (1.0-2.7) Height (Feet): 6 Height (Inches): 0.00 Weight (Pounds): 176 Medications Current Medications Medications (Trade) Dose Ordered Sig/Evi Route PRN Reason Start Time Stop Time Status Last Admin Dose Admin Acetaminophen (Tylenol) 650 mg Q4H PRN ORAL fever 11/01/17 19:00 12/01/17 18:59 Albuterol/ Ipratropium (Albuterol/ Ipratropium) 3 ml Q4H HHN 11/02/17 11:00 11/06/17 18:59 11/02/17 11:53 Carvedilol (Coreg) 6.25 mg EVERY 12 HOURS ORAL 11/01/17 21:00 12/01/17 20:59 11/02/17 08:47 Clonidine HCl (Catapres Tab) 0.1 mg Q4H PRN ORAL sbp more than 160 11/01/17 19:00 12/01/17 18:59 Dextrose (Dextrose 50%) 25 ml STAT PRN IV Hypoglycemia 11/01/17 19:00 12/01/17 18:59 Enalapril Maleate (Vasotec) 5 mg EVERY 12 HOURS ORAL 11/01/17 21:00 12/01/17 20:59 11/02/17 08:47 Furosemide (Lasix) 20 mg Q8H IV 11/02/17 20:00 12/02/17 19:59 Heparin Sodium (Porcine) (Heparin 5000 units/ml) 5,000 units EVERY 12 HOURS SUBQ 11/02/17 09:00 12/02/17 08:59 11/02/17 08:49 Insulin Aspart (NovoLOG) BEFORE MEALS AND HS SUBQ 11/01/17 21:00 12/01/17 20:59 11/02/17 11:38 Levofloxacin 100 ml @ 100 mls/hr Q24H IVPB 11/02/17 12:00 11/09/17 11:59 11/02/17 12:27 Lorazepam (Ativan 2mg/ml 1ml) 0.5 mg Q4H PRN IV For Anxiety 11/01/17 19:00 11/08/17 18:59 Methylprednisolone Sodium Succinate (Solu-MEDROL) 60 mg EVERY 6 HOURS IV 11/02/17 00:00 12/02/17 00:00 11/02/17 11:36 Nitroglycerin (Ntg) 0.4 mg Q5M X 3 DOSES PRN SL Prn Chest Pain 11/01/17 19:00 12/01/17 18:59 Ondansetron HCl (Zofran) 4 mg Q6H PRN IVP Nausea & Vomiting 11/01/17 19:00 12/01/17 18:59 Promethazine HCl/ Codeine (Phenergan with Codeine) 5 ml Q6H PRN ORAL cough 11/01/17 19:00 12/01/17 18:59 Temazepam (Restoril) 15 mg HSPRN PRN ORAL Insomnia 11/01/17 19:00 11/08/17 18:59 Theophylline (Zafar-Dur) 100 mg EVERY 12 HOURS ORAL 11/01/17 21:00 12/01/17 20:59 11/02/17 08:46 Assessment/Plan Status: stable, progressing Assessment/Plan MDD Anxiety d/o lexapro 10mg qam provided ro/Carley Williamson MD Nov 02, 2017 13:51
--- NOTE | 2017-11-02 14:54 | Cardiology Report ---
APPROVED REPORT EXAM: Two-dimensional and M-mode echocardiogram with Doppler and color Doppler. INDICATION SOB M-Mode DIMENSIONS IVSd1.4 (0.7-1.1cm)Left Atrium (MM)3.8 (1.6-4.0cm) LVDd4.0 (3.5-5.6cm)Aortic Root3.9 (2.0-3.7cm) PWd1.5 (0.7-1.1cm)Aortic Cusp Exc.1.7 (1.5-2.0cm) LVDs2.6 (2.5-4.0cm) PWs1.5 cm Technically limited and difficult study due to poor acoustical windows. Lack of apical windows. Normal left ventricular chamber size, systolic function and wall motion. Left ventricular ejection fraction estimated to be 55-60 %. No evidence of left ventricular hypertrophy. No evidence of pericardial or pleural effusion. All other cardiac chamber sizes are within normal limits. Focal aortic valve sclerosis with adequate cusp excursion. Thickened mitral valve leaflets with normal excursion. Mild mitral annulus and aortic root calcification. Pulmonic valve not well visualized. Normal tricuspid valve structure. IVC is normal in size and collapsible with respiration. A color flow and spectral Doppler study was performed and revealed: No aortic regurgitation. No mitral regurgitation. Mitral diastolic velocities suggest reduced left ventricular relaxation c/w diastolic dysfunction grade 1. Trace tricuspid regurgitation. Tricuspid systolic velocities suggests peak right ventricular systolic pressure of 30 mmHg
--- NOTE | 2017-11-02 15:16 | Consultation ---
History of Present Illness General Date patient seen: Nov 02, 2017 Time patient seen: 15:13 Chief Complaint: Dyspnea/Respdistress Reason for Consultation: Elevated troponin Present Illness HPI 72 year old male with COPD, CAD, CHF, DM, Smoking, edema presents with COPD exacerbation x3 days, cardiology consulted for elevated troponin. Allergies: Coded Allergies: PENICILLINS (Verified Allergy, Unknown, 04/08/17) Medication History Scheduled Albuterol Sulfate (Ventolin Hfa), 2 PUFFS INH Q12HR, (Reported) Budesonide/Formoterol Fumarate (Symbicort 160-4.5 Mcg Inhaler), 2 PUFFS IH BID, (Reported) Carvedilol* (Carvedilol*), 6.25 MG ORAL EVERY 12 HOURS, (Reported) Enalapril Maleate* (Enalapril Maleate*), 5 MG ORAL EVERY 12 HOURS, (Reported) Escitalopram Oxalate* (Lexapro*), 10 MG ORAL DAILY, (Reported) Furosemide* (Lasix*), 20 MG ORAL DAILY, (Reported) Insulin Glargine (Lantus), 25 UNITS SUBQ BEFORE BREAKFAST, (Reported) Insulin Lispro (Humalog), 10 UNITS SUBQ AC, (Reported) Potassium Chloride (Klor-Con M20), 20 MEQ ORAL DAILY, (Reported) Prednisone* (Prednisone*), 20 MG ORAL DAILY, (Reported) Rosuvastatin Calcium* (Crestor*), 10 MG ORAL DAILY, (Reported) Tiotropium [place]* (Spiriva*), 2 PUFF INH DAILY, (Reported) Discontinued Medications Albuterol Sulfate* (Albuterol Sulfate Mdi*), 2 PUFF INH Q6H Discontinued Reason: Pt stopped taking med Fluticasone/Salmeterol (Advair 250-50 Diskus), 1 PUFFS INH BIDRT Discontinued Reason: Pt stopped taking med Ipratropium/Albuterol Sulfate (DuoNeb 0.5-3(2.5)mg/3ml), 3 ML HHN Q4HRT Discontinued Reason: Pt stopped taking med Levofloxacin* (Levaquin*), 500 MG ORAL DAILY Discontinued Reason: Therapy completed Prednisone* (Prednisone*), 40 MG ORAL DAILY Discontinued Reason: Pt stopped taking med Patient History Healthcare decision maker N Resuscitation status Full Code Advanced Directive on File No Review of Systems Constitutional: Reports: no symptoms Eye: Reports: no symptoms ENT: Reports: no symptoms Respiratory: Reports: shortness of breath, wheezing, CHAVEZ Cardiovascular: Reports: no symptoms Gastrointestinal: Reports: no symptoms Genitourinary: Reports: no symptoms Musculoskeletal: Reports: no symptoms Skin: Reports: no symptoms Psychiatric: Reports: no symptoms Neurological: Reports: no symptoms Endocrine: Reports: no symptoms Hematologic/Lymphatic: Reports: no symptoms Physical Exam General Appearance: no apparent distress Lines, tubes and drains: peripheral HEENT: normocephalic Neck: non-tender Respiratory/Chest: accessory muscle use, expiratory wheezing, inspiratory wheezing Breasts: no masses Cardiovascular/Chest: normal peripheral pulses Abdomen: normal bowel sounds Extremities: normal range of motion Neurologic: fine patcher II-XII grossly normal Last 24 Hour Vital Signs Date Time Temp Pulse Resp B/P (MAP) Pulse Ox O2 Delivery O2 Flow Rate FiO2 11/02/17 12:00 100 11/02/17 12:00 98.0 88 20 132/74 (93) 95 98.0 11/02/17 09:00 Nasal Cannula 2.0 11/02/17 08:47 122/68 11/02/17 08:47 95 122/68 11/02/17 08:00 98.1 95 18 122/68 (86) 96 98.1 11/02/17 08:00 103 11/02/17 07:06 69 20 Nasal Cannula 2.0 11/02/17 07:05 95 Nasal Cannula 2.0 28 11/02/17 07:05 Nasal Cannula 2.0 28 11/02/17 04:00 79 11/02/17 04:00 98.3 84 21 123/74 (90) 96 98.3 11/02/17 00:00 97.3 84 24 131/93 (106) 96 97.3 11/02/17 00:00 84 11/01/17 21:18 Nasal Cannula 2.0 28 11/01/17 21:18 98 Nasal Cannula 2.0 28 11/01/17 21:00 Nasal Cannula 2.0 11/01/17 20:58 95 117/63 11/01/17 20:57 117/63 11/01/17 20:22 Nasal Cannula 2.0 11/01/17 20:00 97.5 95 24 117/63 (81) 94 97.5 11/01/17 20:00 93 11/01/17 18:35 117 16 166/89 98 Nasal Cannula 2.0 28 11/01/17 17:18 93 16 98 Nasal Cannula 2.0 28 11/01/17 17:03 105 23 Nasal Cannula 2.0 11/01/17 17:03 28 11/01/17 17:00 105 20 96 Nasal Cannula 2.0 28 11/01/17 15:55 117 30 166/89 99 Nasal Cannula 2.0 11/01/17 15:53 117 30 Nasal Cannula 2.0 11/01/17 15:22 129 26 250/120 97 Simple Mask 5.0 Intake and Output 11/01/17 11/02/17 19:00 07:00 Output Total 0 ml Balance 0 ml Output Urine Total 0 ml # Bowel Movements 1 Laboratory Tests Test 11/01/17 15:40 11/01/17 17:05 11/01/17 22:56 11/02/17 03:00 White Blood Count 13.9 K/UL (4.8-10.8) H Red Blood Count 5.03 M/UL (4.70-6.10) Hemoglobin 16.6 G/DL (14.2-18.0) Hematocrit 48.8 % (42.0-52.0) Mean Corpuscular Volume 97 FL (80-99) Mean Corpuscular Hemoglobin 33.0 PG (27.0-31.0) H Mean Corpuscular Hemoglobin Concent 34.0 G/DL (32.0-36.0) Red Cell Distribution Width 13.4 % (11.6-14.8) Platelet Count 165 K/UL (150-450) Mean Platelet Volume 8.4 FL (6.5-10.1) Neutrophils (%) (Auto) 84.9 % (45.0-75.0) H Lymphocytes (%) (Auto) 10.4 % (20.0-45.0) L Monocytes (%) (Auto) 2.9 % (1.0-10.0) Eosinophils (%) (Auto) 0.2 % (0.0-3.0) Basophils (%) (Auto) 1.7 % (0.0-2.0) Prothrombin Time 10.6 SEC (9.30-11.50) Prothromb Time International Ratio 1.0 (0.9-1.1) Activated Partial Thromboplast Time 19 SEC (23-33) L Sodium Level 144 MMOL/L (136-145) Potassium Level 5.1 MMOL/L (3.5-5.1) Chloride Level 101 MMOL/L (98-107) Carbon Dioxide Level 36 MMOL/L (21-32) H Anion Gap 7 mmol/L (5-15) Blood Urea Nitrogen 46 mg/dL (7-18) H Creatinine 1.1 MG/DL (0.55-1.30) Estimat Glomerular Filtration Rate mL/min (>60) Glucose Level 289 MG/DL (74-106) H Calcium Level 9.4 MG/DL (8.5-10.1) Total Bilirubin 0.7 MG/DL (0.2-1.0) Aspartate Amino Transf (AST/SGOT) 25 U/L (15-37) Alanine Aminotransferase (ALT/SGPT) 56 U/L (12-78) Alkaline Phosphatase 48 U/L (46-116) Total Creatine Kinase 93 U/L (26-308) Creatine Kinase MB 3.8 NG/ML (0.0-3.6) H Creatine Kinase MB Relative Index 4.0 Troponin I 0.115 ng/mL (0.000-0.056) 0.108 ng/mL (0.000-0.056) 0.132 ng/mL (0.000-0.056) Pro-B-Type Natriuretic Peptide 345 pg/mL (0-125) H Total Protein 7.3 G/DL (6.4-8.2) Albumin 4.1 G/DL (3.4-5.0) Globulin 3.2 g/dL Albumin/Globulin Ratio 1.3 (1.0-2.7) Urine Color Yellow Urine Appearance Clear Urine pH 6 (4.5-8.0) Urine Specific [place] 1.020 (1.005-1.035) Urine Protein 1+ (NEGATIVE) H Urine Glucose (UA) 4+ (NEGATIVE) H Urine Ketones 1+ (NEGATIVE) H Urine Occult Blood 5+ (NEGATIVE) H Urine Nitrite Negative (NEGATIVE) Urine Bilirubin Negative (NEGATIVE) Urine Urobilinogen Normal MG/DL (0.0-1.0) Urine Leukocyte Esterase Negative (NEGATIVE) Urine RBC 10-15 /HPF (0 - 0) H Urine WBC 2-4 /HPF (0 - 0) Urine Squamous Epithelial Cells Occasional /LPF Urine Bacteria Few /HPF (NONE) Urine Opiates Screen Negative (NEGATIVE) Urine Barbiturates Screen Negative (NEGATIVE) Phencyclidine (PCP) Screen Negative (NEGATIVE) Urine Amphetamines Screen Negative (NEGATIVE) Urine Benzodiazepines Screen Negative (NEGATIVE) Urine Cocaine Screen Negative (NEGATIVE) Urine Marijuana (THC) Screen Negative (NEGATIVE) Test 11/02/17 06:39 White Blood Count 10.7 K/UL (4.8-10.8) Red Blood Count 4.41 M/UL (4.70-6.10) L Hemoglobin 14.4 G/DL (14.2-18.0) Hematocrit 43.7 % (42.0-52.0) Mean Corpuscular Volume 99 FL (80-99) Mean Corpuscular Hemoglobin 32.6 PG (27.0-31.0) H Mean Corpuscular Hemoglobin Concent 33.0 G/DL (32.0-36.0) Red Cell Distribution Width 13.1 % (11.6-14.8) Platelet Count 160 K/UL (150-450) Mean Platelet Volume 8.8 FL (6.5-10.1) Neutrophils (%) (Auto) % (45.0-75.0) Lymphocytes (%) (Auto) % (20.0-45.0) Monocytes (%) (Auto) % (1.0-10.0) Eosinophils (%) (Auto) % (0.0-3.0) Basophils (%) (Auto) % (0.0-2.0) Differential Total Cells Counted 100 Neutrophils % (Manual) 88 % (45-75) H Lymphocytes % (Manual) 10 % (20-45) L Monocytes % (Manual) 2 % (1-10) Eosinophils % (Manual) 0 % (0-3) Basophils % (Manual) 0 % (0-2) Band Neutrophils 0 % (0-8) Platelet Estimate Adequate Platelet Morphology Normal Macrocytosis 1+ Sodium Level 144 MMOL/L (136-145) Potassium Level 4.2 MMOL/L (3.5-5.1) Chloride Level 104 MMOL/L (98-107) Carbon Dioxide Level 36 MMOL/L (21-32) H Anion Gap 4 mmol/L (5-15) L Blood Urea Nitrogen 38 mg/dL (7-18) H Creatinine 0.7 MG/DL (0.55-1.30) Estimat Glomerular Filtration Rate mL/min (>60) Glucose Level 211 MG/DL (74-106) H Calcium Level 8.9 MG/DL (8.5-10.1) Total Bilirubin 0.5 MG/DL (0.2-1.0) Aspartate Amino Transf (AST/SGOT) 11 U/L (15-37) L Alanine Aminotransferase (ALT/SGPT) 44 U/L (12-78) Alkaline Phosphatase 38 U/L (46-116) L Pro-B-Type Natriuretic Peptide 222 pg/mL (0-125) H Total Protein 6.1 G/DL (6.4-8.2) L Albumin 3.3 G/DL (3.4-5.0) L Globulin 2.8 g/dL Albumin/Globulin Ratio 1.2 (1.0-2.7) Height (Feet): 6 Height (Inches): 0.00 Weight (Pounds): 176 Medications Current Medications Medications (Trade) Dose Ordered Sig/Evi Route PRN Reason Start Time Stop Time Status Last Admin Dose Admin Acetaminophen (Tylenol) 650 mg Q4H PRN ORAL fever 11/01/17 19:00 12/01/17 18:59 Albuterol/ Ipratropium (Albuterol/ Ipratropium) 3 ml Q4H HHN 11/02/17 11:00 11/06/17 18:59 11/02/17 11:53 Carvedilol (Coreg) 6.25 mg EVERY 12 HOURS ORAL 11/01/17 21:00 12/01/17 20:59 11/02/17 08:47 Clonidine HCl (Catapres Tab) 0.1 mg Q4H PRN ORAL sbp more than 160 11/01/17 19:00 12/01/17 18:59 Dextrose (Dextrose 50%) 25 ml STAT PRN IV Hypoglycemia 11/01/17 19:00 12/01/17 18:59 Enalapril Maleate (Vasotec) 5 mg EVERY 12 HOURS ORAL 11/01/17 21:00 12/01/17 20:59 11/02/17 08:47 Furosemide (Lasix) 20 mg Q8H IV 11/02/17 20:00 12/02/17 19:59 Heparin Sodium (Porcine) (Heparin 5000 units/ml) 5,000 units EVERY 12 HOURS SUBQ 11/02/17 09:00 12/02/17 08:59 11/02/17 08:49 Insulin Aspart (NovoLOG) BEFORE MEALS AND HS SUBQ 11/01/17 21:00 12/01/17 20:59 11/02/17 11:38 Levofloxacin 100 ml @ 100 mls/hr Q24H IVPB 11/02/17 12:00 11/09/17 11:59 11/02/17 12:27 Lorazepam (Ativan 2mg/ml 1ml) 0.5 mg Q4H PRN IV For Anxiety 11/01/17 19:00 11/08/17 18:59 Methylprednisolone Sodium Succinate (Solu-MEDROL) 60 mg EVERY 6 HOURS IV 11/02/17 00:00 12/02/17 00:00 11/02/17 11:36 Nitroglycerin (Ntg) 0.4 mg Q5M X 3 DOSES PRN SL Prn Chest Pain 11/01/17 19:00 12/01/17 18:59 Ondansetron HCl (Zofran) 4 mg Q6H PRN IVP Nausea & Vomiting 11/01/17 19:00 12/01/17 18:59 Promethazine HCl/ Codeine (Phenergan with Codeine) 5 ml Q6H PRN ORAL cough 11/01/17 19:00 12/01/17 18:59 Temazepam (Restoril) 15 mg HSPRN PRN ORAL Insomnia 11/01/17 19:00 11/08/17 18:59 Theophylline (Zafar-Dur) 100 mg EVERY 12 HOURS ORAL 11/01/17 21:00 12/01/17 20:59 11/02/17 08:46 Assessment/Plan Status: stable Assessment/Plan Assessment CHF - diastolic dysfunction CAD LE edema COPD Smoking history Diabetes Plan: Echocardiogram reviewed; normal LV function, no WMA, no valve issues, grade 1 diastolic dysfunction Serial troponin - troponin not rising, no ischemia on EKG, no chest pain, clinically not significant at this time, hold heparin, no indication for cath at this time Recommend ischemia evaluation prior to discharge due to multiple cardiac risk factors, patient must be stable from respiratory standpoint before stress testing can occur Continue Statin Continue lasix, low salt diet, monitor renal function Continue enalapril Continue coreg Add aspirin Cy Choi M.D. Nov 02, 2017 15:16
--- NOTE | 2017-11-02 15:37 | Cardiology Report ---
APPROVED REPORT EKG Measurement Heart [id number] Sinus tachycardia Right superior axis deviation Pulmonary disease pattern Right ventricular hypertrophy with repolarization abnormality Septal infarct, age undetermined Marked ST abnormality, possible inferior subendocardial injury Abnormal ECG
[2017-11-02 16:00] VITALS: BP 136/59
--- NOTE | 2017-11-02 18:45 | History and Physical Report ---
DATE OF ADMISSION: 11/01/2017 CHIEF COMPLAINT: The patient is a 72-year-old white male, presents with chief complaint of shortness of breath. HISTORY OF PRESENT ILLNESS: The patient was admitted to [facility] in March 2017. Please see history and physical and discharge summary dictated at that time. The patient was admitted for chronic obstructive pulmonary disease acute exacerbation. The patient states history of present illness began approximately one week ago. The patient began to experience swelling of his bilateral ankles. The patient was seen by his sheet tester, . The patient was started on oral Lasix. The patient states his feet continued to swell. The patient then began to experience shortness of breath 3 or 4 days ago. The patient complains of wheezing. The patient complains of cough, which is essentially nonproductive. The patient does have some sputum production, which is yellow in color. The patient presented to [place] emergency room. The patient was admitted for shortness of breath and bilateral ankle swelling to rule out congestive heart failure versus chronic obstructive pulmonary disease, acute exacerbation. PAST MEDICAL HISTORY: Significant for, 1. New onset diabetes, diagnosed in April 2017. 2. Chronic obstructive pulmonary disease. 3. Hypertension. 4. Irritable bowel syndrome. 5. Hypercholesterolemia. PAST SURGICAL HISTORY: Significant for lumbar laminectomy. CURRENT MEDICATIONS: 1. Albuterol metered-dose inhaler two puffs p.o. q.i.d. p.r.n. 2. Advair 250/50 one puff p.o. twice daily, however, the patient has run out of this medication for one week. 3. Carvedilol 6.25 mg p.o. twice daily. 4. Enalapril 5 mg p.o. twice daily. 5. Lexapro 10 mg p.o. daily. 6. Lasix 20 mg p.o. daily. 7. Lantus 25 units subcutaneously q.a.c. breakfast time. 8. NovoLog sliding scale. 9. Potassium chloride 20 mEq p.o. daily. 10. Prednisone 20 mg p.o. daily. 11. Crestor 10 mg p.o. daily. 12. Spiriva 18 mcg 2 puffs p.o. daily. ALLERGIES: Penicillin. SOCIAL HISTORY: The patient is single and lives alone. 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 The patient admits to tobacco use of one pack per day for 40 years. The patient denies alcohol use. REVIEW OF SYSTEMS: CONSTITUTIONAL: The patient denies weight loss or weight gain. The patient denies fever or chills. HEENT: The patient denies ear or throat pain. The patient denies headache. CARDIOVASCULAR: The patient denies palpitations or chest pain. CHEST: The patient complains of wheezing as above. The patient complains of cough. The patient complains of shortness of breath. ABDOMEN: The patient denies nausea, vomiting, diarrhea, or constipation. GENITOURINARY: The patient denies dysuria or increased frequency of urination. NEUROMUSCULAR: The patient denies seizures or generalized weakness. PHYSICAL EXAMINATION: VITAL SIGNS: Temperature 98.3 degrees, respirations 21, pulse 79-84, and blood pressure 123/74. GENERAL: The patient is a well-developed and well-nourished thin-appearing white male, in no apparent distress. HEENT: Eyes, pupils equal and responsive to light and accommodation. Extraocular movements are intact. NECK: Supple without lymphadenopathy. CHEST: Diffuse wheezes heard in the bilateral lung amaya. Crackles heard in the left greater than right lower base. CARDIOVASCULAR: Tachycardic, regular rhythm. S1 and S2 are normal without murmurs, rubs, or gallops. ABDOMEN: Soft, nontender, and nondistended. Positive bowel sounds. No evidence of hepatosplenomegaly. Currently, no rebound or guarding noted. EXTREMITIES: Multiple skin tears in the bilateral upper extremities. Otherwise, without clubbing or cyanosis. There is 2+ pitting edema at bilateral ankles. NEUROLOGICAL: Cranial nerves II through XII are grossly intact without focal deficits. Motor strength is 5/5 bilaterally. Deep tendon reflexes are 2+ plantar. LABORATORY AND DIAGNOSTIC DATA: WBC 13.9, hemoglobin 16.6, hematocrit 48.8 and platelets 165,000. Sodium 144, potassium 5.1, chloride 101, CO2 36, BUN 46, creatinine 1.1 and glucose 289. Troponin elevated at 0.115. Chest x-ray was reported as no acute disease. ASSESSMENT: This is a 72-year-old white male, 1. Dyspnea. 2. Chronic obstructive pulmonary disease, acute exacerbation. 3. Edema in bilateral ankles. 4. Diabetes type 2. 5. Hypertension. 6. Irritable bowel syndrome. 7. Hypercholesterolemia. TREATMENT: 1. Shortness of breath/chronic obstructive pulmonary disease, acute exacerbation. Pulmonary consultation has been obtained with Dr. Mikie Gray. The patient has been started empirically on intravenous Solu-Medrol. The patient has also been started on intravenous Levaquin. The patient will be offered DuoNeb q.4 h. scheduled. We will follow recommendation of Pulmonary. 2. Edema of bilateral ankles, concern is for congestive heart failure with elevated troponin. A Cardiology consultation has been obtained with . An echocardiogram is pending. We will follow recommendation of Cardiology. 3. Diabetes type 2. Continue Lantus and NovoLog sliding scale as above. 4. Hypertension. Continue Coreg and Vasotec as above. 5. Irritable bowel syndrome. 6. Hypercholesteremia. Continue Crestor as above. Danielito Thomas M.D. DR: ESTER JOB#: [id number] CC:
[2017-11-02 20:00] VITALS: BP 111/74
[2017-11-03] VITALS: BP 102/67
[2017-11-03] MEDS: Solu-MEDROL 125mg Inj IV SCH ×4 (00:23→17:00)
[2017-11-03] MEDS: Albuterol/Ipratropium 3ml neb HHN SCH ×6 (03:32→23:37)
[2017-11-03 04:00] VITALS: BP 104/52
[2017-11-03] MEDS: NovoLOG Insulin Flexpen SUBQ SCH ×4 (05:17→20:41)
[2017-11-03 08:00] VITALS: BP 105/61
[2017-11-03 08:51] LABS: HEMATOCRIT 44.4 % (42.0-52.0); HEMOGLOBIN 15.1 G/DL (14.2-18.0); MEAN CORPUSCULAR VOLUME 96 FL (80-99); PLATELET COUNT 169 K/UL (150-450); RED BLOOD COUNT 4.62 M/UL (4.70-6.10); RED CELL DISTRIBUTION WIDTH 12.6 % (11.6-14.8); WHITE BLOOD COUNT 12.1 K/UL (4.8-10.8)
[2017-11-03] MEDS: Enalapril 5mg tab ORAL SCH ×2 (09:00→20:38)
[2017-11-03] MEDS: Carvedilol 6.25mg Tab ORAL SCH ×2 (09:00→20:37)
[2017-11-03 09:13] LABS: ANION GAP 4 mmol/L (5-15); BLOOD UREA NITROGEN 31 mg/dL (7-18); CALCIUM 8.8 MG/DL (8.5-10.1); CARBON DIOXIDE 37 MMOL/L (21-32); CHLORIDE 93 MMOL/L (98-107); CREATININE 0.9 MG/DL (0.55-1.30); POTASSIUM 3.9 MMOL/L (3.5-5.1); SODIUM 134 MMOL/L (136-145)
[2017-11-03] MEDS: Aspirin Baby 81mg NG SCH (09:36)
[2017-11-03] MEDS: Theophylline ER 100mg ORAL SCH ×2 (09:37→20:37)
[2017-11-03] MEDS: Heparin 5000 units/ml inj SUBQ SCH ×2 (09:40→20:42)
[2017-11-03 12:00] VITALS: BP 100/62
--- NOTE | 2017-11-03 12:58 | General Progress Note ---
Assessment/Plan Status: stable Assessment/Plan MDD Anxiety d/o lexapro 10mg qam provided ro/st Subjective Date patient seen: Nov 03, 2017 Neurologic/Psychiatric: Reports: anxiety, depressed, emotional problems Allergies: Coded Allergies: PENICILLINS (Verified Allergy, Unknown, 04/08/17) Objective Last 24 Hour Vital Signs Date Time Temp Pulse Resp B/P (MAP) Pulse Ox O2 Delivery O2 Flow Rate FiO2 11/03/17 12:00 98.0 83 19 100/62 (75) 95 98.0 11/03/17 10:54 90 20 100 Nasal Cannula 2.0 28 11/03/17 10:46 88 20 98 Nasal Cannula 2.0 28 11/03/17 09:00 105/61 11/03/17 09:00 102 105/61 11/03/17 09:00 Nasal Cannula 2.0 11/03/17 08:00 96.0 102 17 105/61 (76) 95 96.0 11/03/17 08:00 99 11/03/17 07:20 93 20 100 Nasal Cannula 2.0 28 11/03/17 07:14 100 Nasal Cannula 2.0 28 11/03/17 07:14 Nasal Cannula 2.0 28 11/03/17 07:13 95 20 100 Nasal Cannula 2.0 28 11/03/17 04:00 75 11/03/17 04:00 97.2 77 18 104/52 (69) 95 97.2 11/03/17 03:42 84 18 97 Nasal Cannula 2.0 28 11/03/17 03:32 81 20 97 Nasal Cannula 2.0 28 11/03/17 00:00 79 11/03/17 00:00 96.2 103 18 102/67 (79) 100 96.2 11/02/17 23:40 87 18 98 Nasal Cannula 2.0 28 11/02/17 23:31 86 20 97 Nasal Cannula 2.0 28 11/02/17 21:13 90 111/74 11/02/17 21:12 111/74 11/02/17 21:00 Nasal Cannula 2.0 11/02/17 20:00 89 11/02/17 20:00 97.9 90 18 111/74 (86) 95 97.9 11/02/17 19:55 85 18 98 Nasal Cannula 2.0 28 7/25/18 19:50 Nasal Cannula 2.0 28 11/02/17 19:50 95 Nasal Cannula 2.0 28 11/02/17 19:47 80 20 96 Nasal Cannula 2.0 28 11/02/17 16:00 98.0 78 18 136/59 (84) 95 98.0 11/02/17 16:00 85 11/02/17 15:55 98 16 98 Nasal Cannula 2.0 28 11/02/17 15:44 96 20 98 Nasal Cannula 2.0 28 Intake and Output 11/02/17 11/03/17 19:00 07:00 Intake Total 500 ml 500 ml Output Total 1650 ml Balance -1150 ml 500 ml Intake Oral 400 ml 500 ml IV Total 100 ml Output Urine Total 1650 ml # Voids 3 6 # Bowel Movements 1 1 Laboratory Tests 11/02/17 19:10: Troponin I 0.102H 11/03/17 08:30: White Blood Count 12.1H, Red Blood Count 4.62L, Hemoglobin 15.1, Hematocrit 44.4 , Mean Corpuscular Volume 96, Mean Corpuscular Hemoglobin 32.7H, Mean Corpuscular Hemoglobin Concent 34.0, Red Cell Distribution Width 12.6, Platelet Count 169, Mean Platelet Volume 9.3, Neutrophils (%) (Auto) , Lymphocytes (%) ( Auto) , Monocytes (%) (Auto) , Eosinophils (%) (Auto) , Basophils (%) (Auto) , Differential Total Cells Counted 100, Neutrophils % (Manual) 84H, Lymphocytes % (Manual) 9L, Monocytes % (Manual) 1, Eosinophils % (Manual) 0, Basophils % ( Manual) 0, Band Neutrophils 6, Platelet Estimate Adequate, Platelet Morphology Normal, Red Blood Cell Morphology , Macrocytosis 1+, Sodium Level 134L, Potassium Level 3.9, Chloride Level 93L, Carbon Dioxide Level 37H, Anion Gap 4L , Blood Urea Nitrogen 31H, Creatinine 0.9, Estimat Glomerular Filtration Rate , Glucose Level 418#H, Calcium Level 8.8, Pro-B-Type Natriuretic Peptide 133H Height (Feet): 6 Height (Inches): 0.00 Weight (Pounds): 176 General Appearance: no apparent distress, alert Neurologic: alert, oriented x 3, depressed affect Carley Rangel MD Nov 03, 2017 12:58
--- NOTE | 2017-11-03 13:02 | Pulmonology Progress Note ---
Assessment/Plan Problems: (1) Acute respiratory failure (2) COPD exacerbation (3) NSTEMI (non-ST elevated myocardial infarction) (4) Diabetes mellitus (5) Hypertension Assessment/Plan improving respiratory treatment less cough echo reviewed cardio note reviewed and appreciated sliding scale diabetic diet Subjective ROS Limited/Unobtainable: No Constitutional: Reports: no symptoms HEENT: Repors: no symptoms Respiratory: Reports: no symptoms Cardiovascular: Reports: no symptoms Allergies: Coded Allergies: PENICILLINS (Verified Allergy, Unknown, 04/08/17) Objective Last 24 Hour Vital Signs Date Time Temp Pulse Resp B/P (MAP) Pulse Ox O2 Delivery O2 Flow Rate FiO2 11/03/17 12:00 98.0 83 19 100/62 (75) 95 98.0 11/03/17 10:54 90 20 100 Nasal Cannula 2.0 28 11/03/17 10:46 88 20 98 Nasal Cannula 2.0 28 11/03/17 09:00 105/61 11/03/17 09:00 102 105/61 11/03/17 09:00 Nasal Cannula 2.0 11/03/17 08:00 96.0 102 17 105/61 (76) 95 96.0 11/03/17 08:00 99 11/03/17 07:20 93 20 100 Nasal Cannula 2.0 28 11/03/17 07:14 100 Nasal Cannula 2.0 28 11/03/17 07:14 Nasal Cannula 2.0 28 11/03/17 07:13 95 20 100 Nasal Cannula 2.0 28 11/03/17 04:00 75 11/03/17 04:00 97.2 77 18 104/52 (69) 95 97.2 11/03/17 03:42 84 18 97 Nasal Cannula 2.0 28 11/03/17 03:32 81 20 97 Nasal Cannula 2.0 28 11/03/17 00:00 79 11/03/17 00:00 96.2 103 18 102/67 (79) 100 96.2 11/02/17 23:40 87 18 98 Nasal Cannula 2.0 28 11/02/17 23:31 86 20 97 Nasal Cannula 2.0 28 11/02/17 21:13 90 111/74 11/02/17 21:12 111/74 11/02/17 21:00 Nasal Cannula 2.0 7/25/18 20:00 89 11/02/17 20:00 97.9 90 18 111/74 (86) 95 97.9 11/02/17 19:55 85 18 98 Nasal Cannula 2.0 28 11/02/17 19:50 Nasal Cannula 2.0 28 11/02/17 19:50 95 Nasal Cannula 2.0 28 11/02/17 19:47 80 20 96 Nasal Cannula 2.0 28 11/02/17 16:00 98.0 78 18 136/59 (84) 95 98.0 11/02/17 16:00 85 11/02/17 15:55 98 16 98 Nasal Cannula 2.0 28 11/02/17 15:44 96 20 98 Nasal Cannula 2.0 28 Intake and Output 11/02/17 11/03/17 19:00 07:00 Intake Total 500 ml 500 ml Output Total 1650 ml Balance -1150 ml 500 ml Intake Oral 400 ml 500 ml IV Total 100 ml Output Urine Total 1650 ml # Voids 3 6 # Bowel Movements 1 1 General Appearance: WD/WN HEENT: normocephalic, atraumatic Respiratory/Chest: decreased breath sounds Cardiovascular: normal peripheral pulses, normal rate Abdomen: normal bowel sounds, soft, non tender Genitourinary: normal external genitalia Skin: no lesions 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 Complete 11/01/17 16:50 Rectum VRE Culture - Final NO VANCOMYCIN RESISTANT ENTEROCOCCUS ... Complete 11/01/17 16:50 Rectum - Final NO CARBAPENEM-RESISTANT ENTEROBACTERI... Complete Laboratory Tests 11/02/17 19:10: Troponin I 0.102H 11/03/17 08:30: White Blood Count 12.1H, Red Blood Count 4.62L, Hemoglobin 15.1, Hematocrit 44.4 , Mean Corpuscular Volume 96, Mean Corpuscular Hemoglobin 32.7H, Mean Corpuscular Hemoglobin Concent 34.0, Red Cell Distribution Width 12.6, Platelet Count 169, Mean Platelet Volume 9.3, Neutrophils (%) (Auto) , Lymphocytes (%) ( Auto) , Monocytes (%) (Auto) , Eosinophils (%) (Auto) , Basophils (%) (Auto) , Differential Total Cells Counted 100, Neutrophils % (Manual) 84H, Lymphocytes % (Manual) 9L, Monocytes % (Manual) 1, Eosinophils % (Manual) 0, Basophils % ( Manual) 0, Band Neutrophils 6, Platelet Estimate Adequate, Platelet Morphology Normal, Red Blood Cell Morphology , Macrocytosis 1+, Sodium Level 134L, Potassium Level 3.9, Chloride Level 93L, Carbon Dioxide Level 37H, Anion Gap 4L , Blood Urea Nitrogen 31H, Creatinine 0.9, Estimat Glomerular Filtration Rate , Glucose Level 418#H, Calcium Level 8.8, Pro-B-Type Natriuretic Peptide 133H Current Medications Medications (Trade) Dose Ordered Sig/Evi Route PRN Reason Start Time Stop Time Status Last Admin Dose Admin Acetaminophen (Tylenol) 650 mg Q4H PRN ORAL fever 11/01/17 19:00 12/01/17 18:59 Albuterol/ Ipratropium (Albuterol/ Ipratropium) 3 ml Q4H HHN 11/02/17 11:00 11/06/17 18:59 11/03/17 10:46 Aspirin (ASA) 81 mg DAILY NG 11/03/17 09:00 12/03/17 08:59 11/03/17 09:36 Carvedilol (Coreg) 6.25 mg EVERY 12 HOURS ORAL 11/01/17 21:00 12/01/17 20:59 11/02/17 21:13 Clonidine HCl (Catapres Tab) 0.1 mg Q4H PRN ORAL sbp more than 160 11/01/17 19:00 12/01/17 18:59 Dextrose (Dextrose 50%) 25 ml STAT PRN IV Hypoglycemia 11/01/17 19:00 12/01/17 18:59 Enalapril Maleate (Vasotec) 5 mg EVERY 12 HOURS ORAL 11/01/17 21:00 12/01/17 20:59 11/02/17 21:12 Furosemide (Lasix) 20 mg Q8H IV 11/02/17 20:00 12/02/17 19:59 11/03/17 12:34 Heparin Sodium (Porcine) (Heparin 5000 units/ml) 5,000 units EVERY 12 HOURS SUBQ 11/02/17 09:00 12/02/17 08:59 11/03/17 09:40 Insulin Aspart (NovoLOG) BEFORE MEALS AND HS SUBQ 11/01/17 21:00 12/01/17 20:59 11/03/17 12:38 Levofloxacin 100 ml @ 100 mls/hr Q24H IVPB 11/02/17 12:00 11/09/17 11:59 11/03/17 12:32 Lorazepam (Ativan 2mg/ml 1ml) 0.5 mg Q4H PRN IV For Anxiety 11/01/17 19:00 11/08/17 18:59 Methylprednisolone Sodium Succinate (Solu-MEDROL) 60 mg EVERY 6 HOURS IV 11/02/17 00:00 12/02/17 00:00 11/03/17 12:34 Nitroglycerin (Ntg) 0.4 mg Q5M X 3 DOSES PRN SL Prn Chest Pain 11/01/17 19:00 12/01/17 18:59 Ondansetron HCl (Zofran) 4 mg Q6H PRN IVP Nausea & Vomiting 11/01/17 19:00 12/01/17 18:59 Promethazine HCl/ Codeine (Phenergan with Codeine) 5 ml Q6H PRN ORAL cough 11/01/17 19:00 12/01/17 18:59 Temazepam (Restoril) 15 mg HSPRN PRN ORAL Insomnia 11/01/17 19:00 11/08/17 18:59 Theophylline (Zafar-Dur) 100 mg EVERY 12 HOURS ORAL 11/01/17 21:00 12/01/17 20:59 11/03/17 09:37 Mikie Gray MD Nov 03, 2017 13:02
[2017-11-03] MEDS ORDERED: Lexiscan 0.4mg/5ml syringe IV SCH (15:30)
--- NOTE | 2017-11-03 15:41 | Internal Med Progress Note ---
Subjective Date of Service: Nov 03, 2017 Physician Name Danielito Thomas Attending Physician Gadiel Ramírez MD Current Medications Medications (Trade) Dose Ordered Sig/Evi Route PRN Reason Start Time Stop Time Status Last Admin Dose Admin Acetaminophen (Tylenol) 650 mg Q4H PRN ORAL fever 11/01/17 19:00 12/01/17 18:59 Albuterol/ Ipratropium (Albuterol/ Ipratropium) 3 ml Q4H HHN 11/02/17 11:00 11/06/17 18:59 11/03/17 15:11 Aspirin (ASA) 81 mg DAILY NG 11/03/17 09:00 12/03/17 08:59 11/03/17 09:36 Carvedilol (Coreg) 6.25 mg EVERY 12 HOURS ORAL 11/01/17 21:00 12/01/17 20:59 11/02/17 21:13 Clonidine HCl (Catapres Tab) 0.1 mg Q4H PRN ORAL sbp more than 160 11/01/17 19:00 12/01/17 18:59 Dextrose (Dextrose 50%) 25 ml STAT PRN IV Hypoglycemia 11/01/17 19:00 12/01/17 18:59 Enalapril Maleate (Vasotec) 5 mg EVERY 12 HOURS ORAL 11/01/17 21:00 12/01/17 20:59 11/02/17 21:12 Furosemide (Lasix) 20 mg Q8H IV 11/02/17 20:00 12/02/17 19:59 11/03/17 12:34 Heparin Sodium (Porcine) (Heparin 5000 units/ml) 5,000 units EVERY 12 HOURS SUBQ 11/02/17 09:00 12/02/17 08:59 11/03/17 09:40 Insulin Aspart (NovoLOG) BEFORE MEALS AND HS SUBQ 11/01/17 21:00 12/01/17 20:59 11/03/17 12:38 Levofloxacin 100 ml @ 100 mls/hr Q24H IVPB 11/02/17 12:00 11/09/17 11:59 11/03/17 12:32 Lorazepam (Ativan 2mg/ml 1ml) 0.5 mg Q4H PRN IV For Anxiety 11/01/17 19:00 11/08/17 18:59 Methylprednisolone Sodium Succinate (Solu-MEDROL) 60 mg EVERY 6 HOURS IV 11/02/17 00:00 12/02/17 00:00 11/03/17 12:34 Nitroglycerin (Ntg) 0.4 mg Q5M X 3 DOSES PRN SL Prn Chest Pain 11/01/17 19:00 12/01/17 18:59 Ondansetron HCl (Zofran) 4 mg Q6H PRN IVP Nausea & Vomiting 11/01/17 19:00 12/01/17 18:59 Promethazine HCl/ Codeine (Phenergan with Codeine) 5 ml Q6H PRN ORAL cough 11/01/17 19:00 12/01/17 18:59 Temazepam (Restoril) 15 mg HSPRN PRN ORAL Insomnia 11/01/17 19:00 11/08/17 18:59 Theophylline (Zafar-Dur) 100 mg EVERY 12 HOURS ORAL 11/01/17 21:00 12/01/17 20:59 11/03/17 09:37 Allergies: Coded Allergies: PENICILLINS (Verified Allergy, Unknown, 04/08/17) ROS Limited/Unobtainable: No Constitutional: Reports: no symptoms HEENT: Reports: no symptoms Cardiovascular: Reports: no symptoms Respiratory: Reports: no symptoms Gastrointestinal/Abdominal: Reports: no symptoms Genitourinary: Reports: no symptoms Neurologic/Psychiatric: Reports: no symptoms Subjective 72 YO M admitted with chief complaint of shortness of breath. Now COPD exacerbation and elevated troponin. Cover for Int Derrick-Dr Ramírez. Objective Last Vital Signs Date Time Temp Pulse Resp B/P (MAP) Pulse Ox O2 Delivery O2 Flow Rate FiO2 11/03/17 15:18 98 20 100 Nasal Cannula 2.0 28 11/03/17 12:00 98.0 100/62 (75) 98.0 General Appearance: WD/WN, no apparent distress, alert EENT: PERRL/EOMI, normal ENT inspection Neck: non-tender, normal alignment, supple Cardiovascular: normal peripheral pulses, normal rate, regular rhythm, no gallop/murmur, no JVD Respiratory/Chest: chest wall non-tender, lungs clear, normal breath sounds, no respiratory distress, no accessory muscle use Abdomen: normal bowel sounds, non tender, soft, no organomegaly, no mass Extremities: normal range of motion, non-tender Edema: mild edema 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, no motor/sensory deficits Skin: normal pigmentation, warm/dry Laboratory Tests Test 11/02/17 19:10 11/03/17 08:30 Troponin I 0.102 ng/mL (0.000-0.056) White Blood Count 12.1 K/UL (4.8-10.8) H Red Blood Count 4.62 M/UL (4.70-6.10) L Hemoglobin 15.1 G/DL (14.2-18.0) Hematocrit 44.4 % (42.0-52.0) Mean Corpuscular Volume 96 FL (80-99) Mean Corpuscular Hemoglobin 32.7 PG (27.0-31.0) H Mean Corpuscular Hemoglobin Concent 34.0 G/DL (32.0-36.0) Red Cell Distribution Width 12.6 % (11.6-14.8) Platelet Count 169 K/UL (150-450) Mean Platelet Volume 9.3 FL (6.5-10.1) Neutrophils (%) (Auto) % (45.0-75.0) Lymphocytes (%) (Auto) % (20.0-45.0) Monocytes (%) (Auto) % (1.0-10.0) Eosinophils (%) (Auto) % (0.0-3.0) Basophils (%) (Auto) % (0.0-2.0) Differential Total Cells Counted 100 Neutrophils % (Manual) 84 % (45-75) H Lymphocytes % (Manual) 9 % (20-45) L Monocytes % (Manual) 1 % (1-10) Eosinophils % (Manual) 0 % (0-3) Basophils % (Manual) 0 % (0-2) Band Neutrophils 6 % (0-8) Platelet Estimate Adequate Platelet Morphology Normal Red Blood Cell Morphology Macrocytosis 1+ Sodium Level 134 MMOL/L (136-145) L Potassium Level 3.9 MMOL/L (3.5-5.1) Chloride Level 93 MMOL/L (98-107) L Carbon Dioxide Level 37 MMOL/L (21-32) H Anion Gap 4 mmol/L (5-15) L Blood Urea Nitrogen 31 mg/dL (7-18) H Creatinine 0.9 MG/DL (0.55-1.30) Estimat Glomerular Filtration Rate mL/min (>60) Glucose Level 418 MG/DL (74-106) #H Calcium Level 8.8 MG/DL (8.5-10.1) Pro-B-Type Natriuretic Peptide 133 pg/mL (0-125) H Microbiology Date/Time Source Procedure Growth Status 11/01/17 16:50 Nasal Nares MRSA Culture - Final NO METHICILLIN RESISTANT STAPH AUREUS... Complete 11/01/17 16:50 Rectum VRE Culture - Final NO VANCOMYCIN RESISTANT ENTEROCOCCUS ... Complete 11/01/17 16:50 Rectum - Final NO CARBAPENEM-RESISTANT ENTEROBACTERI... Complete Intake and Output 11/02/17 11/03/17 19:00 07:00 Intake Total 500 ml 500 ml Output Total 1650 ml Balance -1150 ml 500 ml Intake Oral 400 ml 500 ml IV Total 100 ml Output Urine Total 1650 ml # Voids 3 6 # Bowel Movements 1 1 Assessment/Plan Problem List: (1) Elevated troponin level Assessment & Plan: AWait cardiolite stress test; See cardiology note (2) Shortness of breath Assessment & Plan: ?COPD vs CHF? Continue IV solumedrol and albuterol nebs- see pulmonary note. Increase IV lasix-see cardiology note. (3) Hypercholesterolemia (4) Irritable bowel syndrome (5) Hypertension Assessment & Plan: Continue coreg (6) COPD exacerbation (7) Edema Assessment & Plan: ?CHF? Increase lasix (8) Diabetes mellitus Assessment & Plan: Continue novolog sliding scale. Status: not improved Danielito Thomas MD Nov 03, 2017 15:41
[2017-11-03 16:00] VITALS: BP 120/84
--- NOTE | 2017-11-03 17:49 | Cardiology Progress Note ---
Assessment/Plan Status: stable Assessment/Plan Assessment CHF - diastolic dysfunction CAD LE edema COPD Smoking history Diabetes Plan: Echocardiogram reviewed; normal LV function, no WMA, no valve issues, grade 1 diastolic dysfunction Patient had recent ischemia evaluation that was normal Continue Statin Continue lasix, low salt diet, monitor renal function Continue enalapril Continue coreg Add aspirin Continue breathing treatments, steroids, pulmonary rehab Subjective Cardiovascular: Reports: no symptoms Respiratory: Reports: no symptoms Gastrointestinal/Abdominal: Reports: no symptoms Genitourinary: Reports: no symptoms Subjective Breathing has improved, no distress, no CP Patient had outpatient stress that that was normal. Objective Last 24 Hour Vital Signs Date Time Temp Pulse Resp B/P (MAP) Pulse Ox O2 Delivery O2 Flow Rate FiO2 11/03/17 16:00 88 11/03/17 16:00 96.8 98 17 120/84 (96) 98 96.8 11/03/17 15:18 98 20 100 Nasal Cannula 2.0 28 11/03/17 15:11 98 20 98 Nasal Cannula 2.0 28 11/03/17 12:00 98.0 83 19 100/62 (75) 95 98.0 11/03/17 12:00 79 11/03/17 10:54 90 20 100 Nasal Cannula 2.0 11/03/17 10:46 88 20 98 Nasal Cannula 2.0 28 11/03/17 09:00 105/61 11/03/17 09:00 102 105/61 11/03/17 09:00 Nasal Cannula 2.0 11/03/17 08:00 96.0 102 17 105/61 (76) 95 96.0 11/03/17 08:00 99 11/03/17 07:20 93 20 100 Nasal Cannula 2.0 11/03/17 07:14 100 Nasal Cannula 2.0 28 11/03/17 07:14 Nasal Cannula 2.0 28 11/03/17 07:13 95 20 100 Nasal Cannula 2.0 28 11/03/17 04:00 75 11/03/17 04:00 97.2 77 18 104/52 (69) 95 97.2 11/03/17 03:42 84 18 97 Nasal Cannula 2.0 28 11/03/17 03:32 81 20 97 Nasal Cannula 2.0 28 11/03/17 00:00 79 11/03/17 00:00 96.2 103 18 102/67 (79) 100 96.2 11/02/17 23:40 87 18 98 Nasal Cannula 2.0 28 11/02/17 23:31 86 20 97 Nasal Cannula 2.0 28 11/02/17 21:13 90 111/74 11/02/17 21:12 111/74 11/02/17 21:00 Nasal Cannula 2.0 11/02/17 20:00 89 11/02/17 20:00 97.9 90 18 111/74 (86) 95 97.9 11/02/17 19:55 85 18 98 Nasal Cannula 2.0 28 11/02/17 19:50 Nasal Cannula 2.0 28 11/02/17 19:50 95 Nasal Cannula 2.0 28 11/02/17 19:47 80 20 96 Nasal Cannula 2.0 28 General Appearance: no apparent distress EENT: PERRL/EOMI, normal ENT inspection Neck: non-tender, normal alignment Rhythm: NSR Cardiovascular: normal peripheral pulses Respiratory/Chest: chest wall non-tender, no respiratory distress, expiratory wheezing Abdomen: non tender, no organomegaly, no mass Extremities: normal range of motion 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0) Red Cell Distribution Width 12.6 % (11.6-14.8) Platelet Count 169 K/UL (150-450) Mean Platelet Volume 9.3 FL (6.5-10.1) Neutrophils (%) (Auto) % (45.0-75.0) Lymphocytes (%) (Auto) % (20.0-45.0) Monocytes (%) (Auto) % (1.0-10.0) Eosinophils (%) (Auto) % (0.0-3.0) Basophils (%) (Auto) % (0.0-2.0) Differential Total Cells Counted 100 Neutrophils % (Manual) 84 % (45-75) H Lymphocytes % (Manual) 9 % (20-45) L Monocytes % (Manual) 1 % (1-10) Eosinophils % (Manual) 0 % (0-3) Basophils % (Manual) 0 % (0-2) Band Neutrophils 6 % (0-8) Platelet Estimate Adequate Platelet Morphology Normal Red Blood Cell Morphology Macrocytosis 1+ Sodium Level 134 MMOL/L (136-145) L Potassium Level 3.9 MMOL/L (3.5-5.1) Chloride Level 93 MMOL/L (98-107) L Carbon Dioxide Level 37 MMOL/L (21-32) H Anion Gap 4 mmol/L (5-15) L Blood Urea Nitrogen 31 mg/dL (7-18) H Creatinine 0.9 MG/DL (0.55-1.30) Estimat Glomerular Filtration Rate mL/min (>60) Glucose Level 418 MG/DL (74-106) #H Calcium Level 8.8 MG/DL (8.5-10.1) Pro-B-Type Natriuretic Peptide 133 pg/mL (0-125) H Microbiology Date/Time Source Procedure Growth Status 11/01/17 16:50 Nasal Nares MRSA Culture - Final NO METHICILLIN RESISTANT STAPH AUREUS... Complete 11/01/17 16:50 Rectum VRE Culture - Final NO VANCOMYCIN RESISTANT ENTEROCOCCUS ... Complete 11/01/17 16:50 Rectum - Final NO CARBAPENEM-RESISTANT ENTEROBACTERI... Complete Cy Choi M.D. Nov 03, 2017 17:49
[2017-11-03 20:00] VITALS: BP 121/73
[2017-11-04] VITALS: BP 121/72
[2017-11-04] MEDS: Solu-MEDROL 125mg Inj IV SCH ×5 (00:09→23:55)
[2017-11-04] MEDS: Albuterol/Ipratropium 3ml neb HHN SCH ×6 (03:36→23:19)
[2017-11-04 04:00] VITALS: BP 98/58
[2017-11-04] MEDS: NovoLOG Insulin Flexpen SUBQ SCH ×4 (06:39→21:18)
[2017-11-04 07:37] LABS: HEMATOCRIT 47.4 % (42.0-52.0); HEMOGLOBIN 16.1 G/DL (14.2-18.0); MEAN CORPUSCULAR VOLUME 97 FL (80-99); PLATELET COUNT 174 K/UL (150-450); RED BLOOD COUNT 4.89 M/UL (4.70-6.10); RED CELL DISTRIBUTION WIDTH 12.6 % (11.6-14.8); WHITE BLOOD COUNT 11.7 K/UL (4.8-10.8)
[2017-11-04 08:00] VITALS: BP 128/76
[2017-11-04 08:02] LABS: ANION GAP 1 mmol/L (5-15); BLOOD UREA NITROGEN 34 mg/dL (7-18); CALCIUM 9.3 MG/DL (8.5-10.1); CHLORIDE 92 MMOL/L (98-107); CREATININE 1.1 MG/DL (0.55-1.30); POTASSIUM 4.2 MMOL/L (3.5-5.1); SODIUM 136 MMOL/L (136-145)
[2017-11-04 08:08] LABS: CARBON DIOXIDE 44 MMOL/L (21-32)
[2017-11-04] MEDS: Carvedilol 6.25mg Tab ORAL SCH ×2 (09:30→21:15)
[2017-11-04] MEDS: Enalapril 5mg tab ORAL SCH ×2 (09:30→21:15)
[2017-11-04] MEDS: Theophylline ER 100mg ORAL SCH ×2 (09:30→21:15)
[2017-11-04] MEDS: Aspirin Baby 81mg NG SCH (09:30)
[2017-11-04] MEDS: Heparin 5000 units/ml inj SUBQ SCH ×2 (09:32→21:17)
[2017-11-04] MEDS ORDERED: Tubing IV Secondary IV ONE (10:50)
[2017-11-04] MEDS ORDERED: NS 275ml ONE (10:50)
--- NOTE | 2017-11-04 11:53 | Pulmonology Progress Note ---
Assessment/Plan Problems: (1) Acute respiratory failure (2) COPD exacerbation (3) NSTEMI (non-ST elevated myocardial infarction) (4) Diabetes mellitus (5) Hypertension Assessment/Plan improving respiratory treatment less cough increase lasix to 40 TID, check electrolytes echo reviewed cardio note reviewed and appreciated sliding scale diabetic diet Subjective ROS Limited/Unobtainable: No Interval Events: still c/o swelling of ankles Allergies: Coded Allergies: PENICILLINS (Verified Allergy, Unknown, 04/08/17) Objective Last 24 Hour Vital Signs Date Time Temp Pulse Resp B/P (MAP) Pulse Ox O2 Delivery O2 Flow Rate FiO2 11/04/17 09:30 128/76 11/04/17 09:30 93 128/76 11/04/17 09:15 93 20 98 Nasal Cannula 2.0 11/04/17 08:53 93 20 96 Nasal Cannula 2.0 11/04/17 08:53 96 Nasal Cannula 2.0 28 11/04/17 08:53 Nasal Cannula 2.0 28 11/04/17 08:00 97.8 100 20 128/76 (93) 96 97.8 11/04/17 08:00 97 11/04/17 04:00 97.0 85 20 98/58 (71) 96 97.0 11/04/17 04:00 83 11/04/17 03:46 85 20 98 Room Air 11/04/17 03:36 88 20 96 Room Air 11/04/17 00:00 97.0 87 20 121/72 (88) 94 97.0 11/04/17 00:00 91 11/03/17 23:47 79 20 99 Room Air 11/03/17 23:37 97 20 95 Room Air 11/03/17 21:00 Room Air 11/03/17 20:38 121/73 11/03/17 20:37 96 121/73 11/03/17 20:00 98.0 96 20 121/73 (89) 97 98.0 11/03/17 20:00 99 11/03/17 19:54 96 20 98 Room Air 21 11/03/17 19:44 107 20 95 Room Air 11/03/17 19:44 95 Room Air 21 11/03/17 19:44 Room Air 11/03/17 16:00 88 11/03/17 16:00 96.8 98 17 120/84 (96) 98 96.8 11/03/17 15:18 98 20 100 Nasal Cannula 2.0 28 11/03/17 15:11 98 20 98 Nasal Cannula 2.0 28 11/03/17 12:00 98.0 83 19 100/62 (75) 95 98.0 11/03/17 12:00 79 Intake and Output 11/03/17 11/04/17 19:00 07:00 Intake Total 1060 ml 240 ml Output Total 600 ml Balance 1060 ml -360 ml Intake Oral 960 ml 240 ml IV Total 100 ml Output Urine Total 600 ml # Voids 5 3 # Bowel Movements 1 General Appearance: WD/WN HEENT: normocephalic Respiratory/Chest: chest wall non-tender, normal breath sounds Cardiovascular: normal peripheral pulses, normal rate Abdomen: normal bowel sounds, soft, non tender Genitourinary: normal external genitalia Extremities: no clubbing 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 Complete 11/01/17 16:50 Rectum VRE Culture - Final NO VANCOMYCIN RESISTANT ENTEROCOCCUS ... Complete 11/01/17 16:50 Rectum - Final NO CARBAPENEM-RESISTANT ENTEROBACTERI... Complete Laboratory Tests 11/04/17 07:25: White Blood Count 11.7H, Red Blood Count 4.89, Hemoglobin 16.1, Hematocrit 47.4 , Mean Corpuscular Volume 97, Mean Corpuscular Hemoglobin 33.0H, Mean Corpuscular Hemoglobin Concent 34.0, Red Cell Distribution Width 12.6, Platelet Count 174, Mean Platelet Volume 9.5, Neutrophils (%) (Auto) , Lymphocytes (%) ( Auto) , Monocytes (%) (Auto) , Eosinophils (%) (Auto) , Basophils (%) (Auto) , Differential Total Cells Counted 100, Neutrophils % (Manual) 91H, Lymphocytes % (Manual) 5L, Monocytes % (Manual) 4, Eosinophils % (Manual) 0, Basophils % ( Manual) 0, Band Neutrophils 0, Platelet Estimate Adequate, Platelet Morphology Normal, Sodium Level 136, Potassium Level 4.2, Chloride Level 92L, Carbon Dioxide Level 44*H, Anion Gap 1L, Blood Urea Nitrogen 34H, Creatinine 1.1, Estimat Glomerular Filtration Rate , Glucose Level 337H, Calcium Level 9.3, Troponin I 0.089H Current Medications Medications (Trade) Dose Ordered Sig/Evi Route PRN Reason Start Time Stop Time Status Last Admin Dose Admin Acetaminophen (Tylenol) 650 mg Q4H PRN ORAL fever 11/01/17 19:00 12/01/17 18:59 Albuterol/ Ipratropium (Albuterol/ Ipratropium) 3 ml Q4H HHN 11/02/17 11:00 11/06/17 18:59 11/04/17 08:53 Aspirin (ASA) 81 mg DAILY NG 11/03/17 09:00 12/03/17 08:59 11/04/17 09:30 Carvedilol (Coreg) 6.25 mg EVERY 12 HOURS ORAL 11/01/17 21:00 12/01/17 20:59 11/04/17 09:30 Clonidine HCl (Catapres Tab) 0.1 mg Q4H PRN ORAL sbp more than 160 11/01/17 19:00 12/01/17 18:59 Dextrose (Dextrose 50%) 25 ml STAT PRN IV Hypoglycemia 11/01/17 19:00 12/01/17 18:59 Enalapril Maleate (Vasotec) 5 mg EVERY 12 HOURS ORAL 11/01/17 21:00 12/01/17 20:59 11/04/17 09:30 Furosemide (Lasix) 20 mg Q8H IV 11/02/17 20:00 12/02/17 19:59 11/04/17 04:18 Heparin Sodium (Porcine) (Heparin 5000 units/ml) 5,000 units EVERY 12 HOURS SUBQ 11/02/17 09:00 12/02/17 08:59 11/04/17 09:32 Insulin Aspart (NovoLOG) BEFORE MEALS AND HS SUBQ 11/01/17 21:00 12/01/17 20:59 11/04/17 06:39 Levofloxacin 100 ml @ 100 mls/hr Q24H IVPB 11/02/17 12:00 11/09/17 11:59 11/03/17 12:32 Lorazepam (Ativan 2mg/ml 1ml) 0.5 mg Q4H PRN IV For Anxiety 11/01/17 19:00 11/08/17 18:59 Methylprednisolone Sodium Succinate (Solu-MEDROL) 60 mg EVERY 6 HOURS IV 11/02/17 00:00 12/02/17 00:00 11/04/17 06:36 Nitroglycerin (Ntg) 0.4 mg Q5M X 3 DOSES PRN SL Prn Chest Pain 11/01/17 19:00 12/01/17 18:59 Ondansetron HCl (Zofran) 4 mg Q6H PRN IVP Nausea & Vomiting 11/01/17 19:00 12/01/17 18:59 Promethazine HCl/ Codeine (Phenergan with Codeine) 5 ml Q6H PRN ORAL cough 11/01/17 19:00 12/01/17 18:59 Temazepam (Restoril) 15 mg HSPRN PRN ORAL Insomnia 11/01/17 19:00 11/08/17 18:59 Theophylline (Zafar-Dur) 100 mg EVERY 12 HOURS ORAL 11/01/17 21:00 12/01/17 20:59 11/04/17 09:30 Mikie Gray MD Nov 04, 2017 11:53
[2017-11-04 12:00] VITALS: BP 111/75
--- NOTE | 2017-11-04 12:05 | General Progress Note ---
Assessment/Plan Status: unchanged Assessment/Plan MDD Anxiety d/o depakote 1000mg qhs provided ro/st Subjective Date patient seen: Nov 04, 2017 Neurologic/Psychiatric: Reports: anxiety, depressed, emotional problems Allergies: Coded Allergies: PENICILLINS (Verified Allergy, Unknown, 04/08/17) Subjective the pt is irritable somewhat uncooperative. the swallow eval was a challenge Objective Last 24 Hour Vital Signs Date Time Temp Pulse Resp B/P (MAP) Pulse Ox O2 Delivery O2 Flow Rate FiO2 11/04/17 09:30 128/76 11/04/17 09:30 93 128/76 11/04/17 09:15 93 20 98 Nasal Cannula 2.0 11/04/17 09:00 Nasal Cannula 2.0 Nasal Cannula 2.0 11/04/17 08:53 93 20 96 Nasal Cannula 2.0 11/04/17 08:53 96 Nasal Cannula 2.0 28 11/04/17 08:53 Nasal Cannula 2.0 28 11/04/17 08:00 97.8 100 20 128/76 (93) 96 97.8 11/04/17 08:00 97 11/04/17 04:00 97.0 85 20 98/58 (71) 96 97.0 11/04/17 04:00 83 11/04/17 03:46 85 20 98 Room Air 11/04/17 03:36 88 20 96 Room Air 11/04/17 00:00 97.0 87 20 121/72 (88) 94 97.0 11/04/17 00:00 91 11/03/17 23:47 79 20 99 Room Air 11/03/17 23:37 97 20 95 Room Air 11/03/17 21:00 Room Air 11/03/17 20:38 121/73 11/03/17 20:37 96 121/73 11/03/17 20:00 98.0 96 20 121/73 (89) 97 98.0 11/03/17 20:00 99 11/03/17 19:54 96 20 98 Room Air 21 11/03/17 19:44 107 20 95 Room Air 11/03/17 19:44 95 Room Air 21 11/03/17 19:44 Room Air 11/03/17 16:00 88 11/03/17 16:00 96.8 98 17 120/84 (96) 98 96.8 11/03/17 15:18 98 20 100 Nasal Cannula 2.0 28 11/03/17 15:11 98 20 98 Nasal Cannula 2.0 28 Intake and Output 11/03/17 11/04/17 19:00 07:00 Intake Total 1060 ml 240 ml Output Total 600 ml Balance 1060 ml -360 ml Intake Oral 960 ml 240 ml IV Total 100 ml Output Urine Total 600 ml # Voids 5 3 # Bowel Movements 1 Laboratory Tests 11/04/17 07:25: White Blood Count 11.7H, Red Blood Count 4.89, Hemoglobin 16.1, Hematocrit 47.4 , Mean Corpuscular Volume 97, Mean Corpuscular Hemoglobin 33.0H, Mean Corpuscular Hemoglobin Concent 34.0, Red Cell Distribution Width 12.6, Platelet Count 174, Mean Platelet Volume 9.5, Neutrophils (%) (Auto) , Lymphocytes (%) ( Auto) , Monocytes (%) (Auto) , Eosinophils (%) (Auto) , Basophils (%) (Auto) , Differential Total Cells Counted 100, Neutrophils % (Manual) 91H, Lymphocytes % (Manual) 5L, Monocytes % (Manual) 4, Eosinophils % (Manual) 0, Basophils % ( Manual) 0, Band Neutrophils 0, Platelet Estimate Adequate, Platelet Morphology Normal, Sodium Level 136, Potassium Level 4.2, Chloride Level 92L, Carbon Dioxide Level 44*H, Anion Gap 1L, Blood Urea Nitrogen 34H, Creatinine 1.1, Estimat Glomerular Filtration Rate , Glucose Level 337H, Calcium Level 9.3, Troponin I 0.089H Height (Feet): 6 Height (Inches): 0.00 Weight (Pounds): 178 General Appearance: no apparent distress, alert, agitated Neurologic: oriented x 3, responsive Carley Rangel MD Nov 04, 2017 12:05
--- NOTE | 2017-11-04 15:43 | Internal Med Progress Note ---
Subjective Date of Service: Nov 04, 2017 Physician Name Danielito Thomas Attending Physician Gadiel Ramírez MD Current Medications Medications (Trade) Dose Ordered Sig/Evi Route PRN Reason Start Time Stop Time Status Last Admin Dose Admin Acetaminophen (Tylenol) 650 mg Q4H PRN ORAL fever 11/01/17 19:00 12/01/17 18:59 Albuterol/ Ipratropium (Albuterol/ Ipratropium) 3 ml Q4HRT HHN 11/04/17 15:00 11/07/17 10:59 11/04/17 15:37 Aspirin (ASA) 81 mg DAILY NG 11/03/17 09:00 12/03/17 08:59 11/04/17 09:30 Carvedilol (Coreg) 6.25 mg EVERY 12 HOURS ORAL 11/01/17 21:00 12/01/17 20:59 11/04/17 09:30 Clonidine HCl (Catapres Tab) 0.1 mg Q4H PRN ORAL sbp more than 160 11/01/17 19:00 12/01/17 18:59 Dextrose (Dextrose 50%) 25 ml STAT PRN IV Hypoglycemia 11/01/17 19:00 12/01/17 18:59 Enalapril Maleate (Vasotec) 5 mg EVERY 12 HOURS ORAL 11/01/17 21:00 12/01/17 20:59 11/04/17 09:30 Escitalopram Oxalate (Lexapro) 10 mg DAILY ORAL 11/04/17 12:15 12/04/17 12:14 11/04/17 12:47 Furosemide (Lasix) 40 mg Q8H IV 11/04/17 12:00 12/04/17 11:59 11/04/17 12:46 Heparin Sodium (Porcine) (Heparin 5000 units/ml) 5,000 units EVERY 12 HOURS SUBQ 11/02/17 09:00 12/02/17 08:59 11/04/17 09:32 Insulin Aspart (NovoLOG) BEFORE MEALS AND HS SUBQ 11/01/17 21:00 12/01/17 20:59 11/04/17 12:48 Levofloxacin 100 ml @ 100 mls/hr Q24H IVPB 11/02/17 12:00 11/09/17 11:59 11/04/17 12:45 Methylprednisolone Sodium Succinate (Solu-MEDROL) 60 mg EVERY 6 HOURS IV 11/02/17 00:00 12/02/17 00:00 11/04/17 12:46 Nitroglycerin (Ntg) 0.4 mg Q5M X 3 DOSES PRN SL Prn Chest Pain 11/01/17 19:00 12/01/17 18:59 Ondansetron HCl (Zofran) 4 mg Q6H PRN IVP Nausea & Vomiting 11/01/17 19:00 12/01/17 18:59 Promethazine HCl/ Codeine (Phenergan with Codeine) 5 ml Q6H PRN ORAL cough 11/01/17 19:00 12/01/17 18:59 Temazepam (Restoril) 15 mg HSPRN PRN ORAL Insomnia 11/01/17 19:00 11/08/17 18:59 Theophylline (Zafar-Dur) 100 mg EVERY 12 HOURS ORAL 11/01/17 21:00 12/01/17 20:59 11/04/17 09:30 Allergies: Coded Allergies: PENICILLINS (Verified Allergy, Unknown, 04/08/17) ROS Limited/Unobtainable: No Constitutional: Reports: no symptoms HEENT: Reports: no symptoms Cardiovascular: Reports: no symptoms Respiratory: Reports: shortness of breath Gastrointestinal/Abdominal: Reports: no symptoms Genitourinary: Reports: no symptoms Neurologic/Psychiatric: Reports: no symptoms Subjective 72 YO M admitted with chief complaint of shortness of breath. Now COPD exacerbation and elevated troponin. Cover for Int Derrick-Dr Ramírez. Objective Last Vital Signs Date Time Temp Pulse Resp B/P (MAP) Pulse Ox O2 Delivery O2 Flow Rate FiO2 11/04/17 15:35 94 20 98 Nasal Cannula 2.0 28 11/04/17 12:00 97.0 111/75 (87) 97.0 Laboratory Tests Test 11/04/17 07:25 White Blood Count 11.7 K/UL (4.8-10.8) H Red Blood Count 4.89 M/UL (4.70-6.10) Hemoglobin 16.1 G/DL (14.2-18.0) Hematocrit 47.4 % (42.0-52.0) Mean Corpuscular Volume 97 FL (80-99) Mean Corpuscular Hemoglobin 33.0 PG (27.0-31.0) H Mean Corpuscular Hemoglobin Concent 34.0 G/DL (32.0-36.0) Red Cell Distribution Width 12.6 % (11.6-14.8) Platelet Count 174 K/UL (150-450) Mean Platelet Volume 9.5 FL (6.5-10.1) Neutrophils (%) (Auto) % (45.0-75.0) Lymphocytes (%) (Auto) % (20.0-45.0) Monocytes (%) (Auto) % (1.0-10.0) Eosinophils (%) (Auto) % (0.0-3.0) Basophils (%) (Auto) % (0.0-2.0) Differential Total Cells Counted 100 Neutrophils % (Manual) 91 % (45-75) H Lymphocytes % (Manual) 5 % (20-45) L Monocytes % (Manual) 4 % (1-10) Eosinophils % (Manual) 0 % (0-3) Basophils % (Manual) 0 % (0-2) Band Neutrophils 0 % (0-8) Platelet Estimate Adequate Platelet Morphology Normal Sodium Level 136 MMOL/L (136-145) Potassium Level 4.2 MMOL/L (3.5-5.1) Chloride Level 92 MMOL/L (98-107) L Carbon Dioxide Level 44 MMOL/L (21-32) *H Anion Gap 1 mmol/L (5-15) L Blood Urea Nitrogen 34 mg/dL (7-18) H Creatinine 1.1 MG/DL (0.55-1.30) Estimat Glomerular Filtration Rate mL/min (>60) Glucose Level 337 MG/DL (74-106) H Calcium Level 9.3 MG/DL (8.5-10.1) Troponin I 0.089 ng/mL (0.000-0.056) Microbiology Date/Time Source Procedure Growth Status 11/01/17 16:50 Nasal Nares MRSA Culture - Final NO METHICILLIN RESISTANT STAPH AUREUS... Complete 11/01/17 16:50 Rectum VRE Culture - Final NO VANCOMYCIN RESISTANT ENTEROCOCCUS ... Complete 11/01/17 16:50 Rectum - Final NO CARBAPENEM-RESISTANT ENTEROBACTERI... Complete Intake and Output 11/03/17 11/04/17 19:00 07:00 Intake Total 1060 ml 240 ml Output Total 600 ml Balance 1060 ml -360 ml Intake Oral 960 ml 240 ml IV Total 100 ml Output Urine Total 600 ml # Voids 5 3 # Bowel Movements 1 Objective General Appearance: WD/WN, no apparent distress, alert EENT: PERRL/EOMI, normal ENT inspection Neck: non-tender, normal alignment, supple Cardiovascular: normal peripheral pulses, normal rate, regular rhythm, no gallop/murmur, no JVD Respiratory/Chest: chest wall non-tender, lungs clear, normal breath sounds, no respiratory distress, no accessory muscle use Abdomen: normal bowel sounds, non tender, soft, no organomegaly, no mass Extremities: normal range of motion, non-tender Edema: mild edema 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 Continue IV solumedrol and albuterol nebs- see pulmonary note. Increase IV lasix-see cardiology note. (3) Hypercholesterolemia (4) Irritable bowel syndrome (5) Hypertension Assessment & Plan: Continue coreg (6) COPD exacerbation (7) Edema Assessment & Plan: ?CHF? echo=55-60% Increase lasix (8) Diabetes mellitus Assessment & Plan: Continue novolog sliding scale. Status: unchanged Danielito Thomas MD Nov 04, 2017 15:43
[2017-11-04 16:00] VITALS: BP 125/82
--- NOTE | 2017-11-04 19:57 | Cardiology Progress Note ---
Assessment/Plan Status: stable Assessment/Plan Assessment CHF - diastolic dysfunction CAD LE edema COPD Smoking history Diabetes Plan: Echocardiogram reviewed; normal LV function, no WMA, no valve issues, grade 1 diastolic dysfunction Patient had recent ischemia evaluation that was normal Continue Statin Continue lasix, low salt diet, monitor renal function - increase dose as tolerated to achieve control of Leg edema, patient deferred compression stockings, consider adding metolazone for a few days if edema not improved on higher doses of lasix, alternative change lasix to torsemide and bumex for stronger effect Continue enalapril Continue coreg Add aspirin Continue breathing treatments, steroids, pulmonary rehab Subjective Cardiovascular: Reports: no symptoms Gastrointestinal/Abdominal: Reports: no symptoms Genitourinary: Reports: no symptoms Subjective Breathing has improved, no distress, no CP Patient had outpatient stress that that was normal. patient complain of ecchymosis over arms and leg edema Objective Last 24 Hour Vital Signs Date Time Temp Pulse Resp B/P (MAP) Pulse Ox O2 Delivery O2 Flow Rate FiO2 11/04/17 16:00 116 11/04/17 16:00 97.3 96 20 125/82 (96) 96 97.3 11/04/17 15:47 98 20 99 Nasal Cannula 2.0 11/04/17 15:35 94 20 98 Nasal Cannula 2.0 11/04/17 12:38 86 20 98 Nasal Cannula 2.0 11/04/17 12:29 87 20 94 Nasal Cannula 2.0 11/04/17 12:00 97.0 85 20 111/75 (87) 94 97.0 11/04/17 12:00 102 11/04/17 09:30 128/76 11/04/17 09:30 93 128/76 11/04/17 09:15 93 20 98 Nasal Cannula 2.0 11/04/17 09:00 Nasal Cannula 2.0 Nasal Cannula 2.0 11/04/17 08:53 93 20 96 Nasal Cannula 2.0 11/04/17 08:53 96 Nasal Cannula 2.0 11/04/17 08:53 Nasal Cannula 2.0 11/04/17 08:00 97.8 100 20 128/76 (93) 96 97.8 11/04/17 08:00 97 11/04/17 04:00 97.0 85 20 98/58 (71) 96 97.0 11/04/17 04:00 83 11/04/17 03:46 85 20 98 Room Air 21 11/04/17 03:36 88 20 96 Room Air 11/04/17 00:00 97.0 87 20 121/72 (88) 94 97.0 11/04/17 00:00 91 11/03/17 23:47 79 20 99 Room Air 21 11/03/17 23:37 97 20 95 Room Air 11/03/17 21:00 Room Air 11/03/17 20:38 121/73 11/03/17 20:37 96 121/73 11/03/17 20:00 98.0 96 20 121/73 (89) 97 98.0 11/03/17 20:00 99 General Appearance: no apparent distress EENT: PERRL/EOMI Neck: non-tender, normal alignment, supple, no JVD Rhythm: NSR Cardiovascular: normal peripheral pulses, normal rate Respiratory/Chest: chest wall non-tender Abdomen: normal bowel sounds, non tender Extremities: normal range of motion, non-tender, moderate edema 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, no motor/sensory deficits Intake and Output 11/03/17 11/04/17 19:00 07:00 Intake Total 1060 ml 240 ml Output Total 600 ml Balance 1060 ml -360 ml Intake Oral 960 ml 240 ml IV Total 100 ml Output Urine Total 600 ml # Voids 5 3 # Bowel Movements 1 Laboratory Tests Test 11/04/17 07:25 White Blood Count 11.7 K/UL (4.8-10.8) H Red Blood Count 4.89 M/UL (4.70-6.10) Hemoglobin 16.1 G/DL (14.2-18.0) Hematocrit 47.4 % (42.0-52.0) Mean Corpuscular Volume 97 FL (80-99) Mean Corpuscular Hemoglobin 33.0 PG (27.0-31.0) H Mean Corpuscular Hemoglobin Concent 34.0 G/DL (32.0-36.0) Red Cell Distribution Width 12.6 % (11.6-14.8) Platelet Count 174 K/UL (150-450) Mean Platelet Volume 9.5 FL (6.5-10.1) Neutrophils (%) (Auto) % (45.0-75.0) Lymphocytes (%) (Auto) % (20.0-45.0) Monocytes (%) (Auto) % (1.0-10.0) Eosinophils (%) (Auto) % (0.0-3.0) Basophils (%) (Auto) % (0.0-2.0) Differential Total Cells Counted 100 Neutrophils % (Manual) 91 % (45-75) H Lymphocytes % (Manual) 5 % (20-45) L Monocytes % (Manual) 4 % (1-10) Eosinophils % (Manual) 0 % (0-3) Basophils % (Manual) 0 % (0-2) Band Neutrophils 0 % (0-8) Platelet Estimate Adequate Platelet Morphology Normal Sodium Level 136 MMOL/L (136-145) Potassium Level 4.2 MMOL/L (3.5-5.1) Chloride Level 92 MMOL/L (98-107) L Carbon Dioxide Level 44 MMOL/L (21-32) *H Anion Gap 1 mmol/L (5-15) L Blood Urea Nitrogen 34 mg/dL (7-18) H Creatinine 1.1 MG/DL (0.55-1.30) Estimat Glomerular Filtration Rate mL/min (>60) Glucose Level 337 MG/DL (74-106) H Calcium Level 9.3 MG/DL (8.5-10.1) Troponin I 0.089 ng/mL (0.000-0.056) Cy Choi M.D. Nov 04, 2017 19:57
[2017-11-04 20:00] VITALS: BP 122/77
[2017-11-05] VITALS: BP 93/52
[2017-11-05] MEDS: Albuterol/Ipratropium 3ml neb HHN SCH ×6 (03:26→23:00)
[2017-11-05 04:00] VITALS: BP 111/74
[2017-11-05] MEDS: Solu-MEDROL 125mg Inj IV SCH (05:55)
[2017-11-05] MEDS: NovoLOG Insulin Flexpen SUBQ SCH ×4 (06:06→20:53)
--- NOTE | 2017-11-05 07:03 | Pulmonology Progress Note ---
Assessment/Plan Assessment/Plan ASSESSMENT Acute respiratory failure COPD exacerbation CHF with diastolic dysfunction Coronary artery disease Abnormal cardiac enzymes Current smoker Hypertension Diabetes mellitus not well controlled Major depressive disorder Anxiety disorder PLAN OF CARE 02 titrate HHN and CPT Taper steroids Trial of theophylline Antitussive. 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, declined nicotine patch antiplatelet therapy and statin continue BB blood pressure monitoring and management Troponin levels minimally elevated and flat, no cardiac complaints, mild elevation in troponin probably secondary to CHF and COPD, troponin trending down ischemia eval recently done and was negative BS not controlled, add Levemir, check hemoglobin A1c Psych follow psych meds as per psychiatrist case discussed and evaluated by supervising physician Subjective Allergies: Coded Allergies: PENICILLINS (Verified Allergy, Unknown, 04/08/17) Subjective no chest pain, no SOB pulse ox stable on o2 via NC Objective Last 24 Hour Vital Signs Date Time Temp Pulse Resp B/P (MAP) Pulse Ox O2 Delivery O2 Flow Rate FiO2 11/05/17 04:00 98.1 86 18 111/74 (86) 96 98.1 11/05/17 04:00 83 11/05/17 03:41 93 20 98 Nasal Cannula 2.0 11/05/17 03:28 89 20 93 Nasal Cannula 2.0 11/05/17 00:00 97.9 91 19 93/52 (66) 99 97.9 11/05/17 00:00 95 11/04/17 23:26 96 20 98 Nasal Cannula 2.0 11/04/17 23:22 90 20 94 Nasal Cannula 2.0 11/04/17 21:15 122/77 11/04/17 21:15 96 122/77 11/04/17 21:00 Nasal Cannula 2.0 Nasal Cannula 2.0 11/04/17 20:04 96 20 99 Nasal Cannula 2.0 11/04/17 20:03 98 Nasal Cannula 2.0 11/04/17 20:03 Nasal Cannula 2.0 11/04/17 20:00 97.5 93 20 122/77 (92) 93 97.5 11/04/17 20:00 97 11/04/17 20:00 91 20 98 Nasal Cannula 2.0 11/04/17 16:00 116 11/04/17 16:00 97.3 96 20 125/82 (96) 96 97.3 11/04/17 15:47 98 20 99 Nasal Cannula 2.0 11/04/17 15:35 94 20 98 Nasal Cannula 2.0 11/04/17 12:38 86 20 98 Nasal Cannula 2.0 11/04/17 12:29 87 20 94 Nasal Cannula 2.0 11/04/17 12:00 97.0 85 20 111/75 (87) 94 97.0 11/04/17 12:00 102 11/04/17 09:30 128/76 11/04/17 09:30 93 128/76 11/04/17 09:15 93 20 98 Nasal Cannula 2.0 11/04/17 09:00 Nasal Cannula 2.0 Nasal Cannula 2.0 11/04/17 08:53 93 20 96 Nasal Cannula 2.0 11/04/17 08:53 96 Nasal Cannula 2.0 11/04/17 08:53 Nasal Cannula 2.0 11/04/17 08:00 97.8 100 20 128/76 (93) 96 97.8 11/04/17 08:00 97 Intake and Output 11/04/17 11/05/17 19:00 07:00 Intake Total 730 ml 480 ml Output Total 900 ml 1000 ml Balance -170 ml -520 ml Intake Oral 730 ml 480 ml Output Urine Total 900 ml 1000 ml # Bowel Movements 1 General Appearance: no acute distress HEENT: normocephalic, atraumatic, anicteric, mucous membranes moist Respiratory/Chest: expiratory wheezing Cardiovascular: normal rate - SR on tele, regular rhythm Abdomen: soft, non tender Extremities: no edema, pedal pulses normal Neurologic/Psychiatric: alert, responsive Laboratory Tests 11/04/17 07:25: White Blood Count 11.7H, Red Blood Count 4.89, Hemoglobin 16.1, Hematocrit 47.4 , Mean Corpuscular Volume 97, Mean Corpuscular Hemoglobin 33.0H, Mean Corpuscular Hemoglobin Concent 34.0, Red Cell Distribution Width 12.6, Platelet Count 174, Mean Platelet Volume 9.5, Neutrophils (%) (Auto) , Lymphocytes (%) ( Auto) , Monocytes (%) (Auto) , Eosinophils (%) (Auto) , Basophils (%) (Auto) , Differential Total Cells Counted 100, Neutrophils % (Manual) 91H, Lymphocytes % (Manual) 5L, Monocytes % (Manual) 4, Eosinophils % (Manual) 0, Basophils % ( Manual) 0, Band Neutrophils 0, Platelet Estimate Adequate, Platelet Morphology Normal, Sodium Level 136, Potassium Level 4.2, Chloride Level 92L, Carbon Dioxide Level 44*H, Anion Gap 1L, Blood Urea Nitrogen 34H, Creatinine 1.1, Estimat Glomerular Filtration Rate , Glucose Level 337H, Calcium Level 9.3, Troponin I 0.089H 11/05/17 06:25: White Blood Count [Pending], Red Blood Count [Pending], Hemoglobin [Pending], Hematocrit [Pending], Mean Corpuscular Volume [Pending], Mean Corpuscular Hemoglobin [Pending], Mean Corpuscular Hemoglobin Concent [Pending], Red Cell Distribution Width [Pending], Platelet Count [Pending], Mean Platelet Volume [ Pending], Neutrophils (%) (Auto) [Pending], Lymphocytes (%) (Auto) [Pending], Monocytes (%) (Auto) [Pending], Eosinophils (%) (Auto) [Pending], Basophils (%) (Auto) [Pending], Sodium Level [Pending], Potassium Level [Pending], Chloride Level [Pending], Carbon Dioxide Level [Pending], Blood Urea Nitrogen [Pending], Creatinine [Pending], Estimat Glomerular Filtration Rate [Pending], Glucose Level [Pending], Calcium Level [Pending] Current Medications Medications (Trade) Dose Ordered Sig/Evi Route PRN Reason Start Time Stop Time Status Last Admin Dose Admin Acetaminophen (Tylenol) 650 mg Q4H PRN ORAL fever 11/01/17 19:00 12/01/17 18:59 Albuterol/ Ipratropium (Albuterol/ Ipratropium) 3 ml Q4HRT HHN 11/04/17 15:00 11/07/17 10:59 11/05/17 03:26 Aspirin (ASA) 81 mg DAILY NG 11/03/17 09:00 12/03/17 08:59 11/04/17 09:30 Carvedilol (Coreg) 6.25 mg EVERY 12 HOURS ORAL 11/01/17 21:00 12/01/17 20:59 11/04/17 21:15 Clonidine HCl (Catapres Tab) 0.1 mg Q4H PRN ORAL sbp more than 160 11/01/17 19:00 12/01/17 18:59 Dextrose (Dextrose 50%) 25 ml STAT PRN IV Hypoglycemia 11/01/17 19:00 12/01/17 18:59 Enalapril Maleate (Vasotec) 5 mg EVERY 12 HOURS ORAL 11/01/17 21:00 12/01/17 20:59 11/04/17 21:15 Escitalopram Oxalate (Lexapro) 10 mg DAILY ORAL 11/04/17 12:15 12/04/17 12:14 11/04/17 12:47 Furosemide (Lasix) 40 mg Q8H IV 11/04/17 12:00 12/04/17 11:59 11/05/17 04:24 Heparin Sodium (Porcine) (Heparin 5000 units/ml) 5,000 units EVERY 12 HOURS SUBQ 11/02/17 09:00 12/02/17 08:59 11/04/17 21:17 Insulin Aspart (NovoLOG) BEFORE MEALS AND HS SUBQ 11/01/17 21:00 12/01/17 20:59 11/05/17 06:06 Levofloxacin 100 ml @ 100 mls/hr Q24H IVPB 11/02/17 12:00 11/09/17 11:59 11/04/17 12:45 Methylprednisolone Sodium Succinate (Solu-MEDROL) 60 mg EVERY 6 HOURS IV 11/02/17 00:00 12/02/17 00:00 11/05/17 05:55 Nitroglycerin (Ntg) 0.4 mg Q5M X 3 DOSES PRN SL Prn Chest Pain 11/01/17 19:00 12/01/17 18:59 Ondansetron HCl (Zofran) 4 mg Q6H PRN IVP Nausea & Vomiting 11/01/17 19:00 12/01/17 18:59 Promethazine HCl/ Codeine (Phenergan with Codeine) 5 ml Q6H PRN ORAL cough 11/01/17 19:00 12/01/17 18:59 Temazepam (Restoril) 15 mg HSPRN PRN ORAL Insomnia 11/01/17 19:00 11/08/17 18:59 11/04/17 21:31 Theophylline (Zafar-Dur) 100 mg EVERY 12 HOURS ORAL 11/01/17 21:00 12/01/17 20:59 11/04/17 21:15 Mayi Rosa LICENSED ACUPUNCTURIST Nov 05, 2017 07:03
[2017-11-05 07:07] LABS: HEMATOCRIT 45.4 % (42.0-52.0); HEMOGLOBIN 16.4 G/DL (14.2-18.0); MEAN CORPUSCULAR VOLUME 95 FL (80-99); PLATELET COUNT 170 K/UL (150-450); RED BLOOD COUNT 4.75 M/UL (4.70-6.10); RED CELL DISTRIBUTION WIDTH 12.4 % (11.6-14.8); WHITE BLOOD COUNT 11.8 K/UL (4.8-10.8)
[2017-11-05 07:15] LABS: ANION GAP 5 mmol/L (5-15); BLOOD UREA NITROGEN 35 mg/dL (7-18); CALCIUM 8.7 MG/DL (8.5-10.1); CARBON DIOXIDE 39 MMOL/L (21-32); CHLORIDE 90 MMOL/L (98-107); CREATININE 0.9 MG/DL (0.55-1.30); POTASSIUM 3.7 MMOL/L (3.5-5.1); SODIUM 134 MMOL/L (136-145)
[2017-11-05 08:00] VITALS: BP 151/82
[2017-11-05] MEDS: Aspirin Baby 81mg NG SCH (08:39)
[2017-11-05] MEDS: Enalapril 5mg tab ORAL SCH ×2 (08:40→20:50)
[2017-11-05] MEDS: Theophylline ER 100mg ORAL SCH ×2 (08:41→20:49)
[2017-11-05] MEDS: Carvedilol 6.25mg Tab ORAL SCH ×2 (08:41→20:49)
[2017-11-05] MEDS: Heparin 5000 units/ml inj SUBQ SCH ×2 (08:42→20:53)
[2017-11-05] MEDS ORDERED: Levemir Flexpen SUBQ SCH (10:00)
--- NOTE | 2017-11-05 10:27 | Cardiology Progress Note ---
Assessment/Plan Status: stable, progressing Assessment/Plan Assessment CHF - diastolic dysfunction CAD LE edema COPD Smoking history Diabetes Plan: Echocardiogram reviewed; normal LV function, no WMA, no valve issues, grade 1 diastolic dysfunction Patient had recent ischemia evaluation that was normal Continue Statin Continue lasix, low salt diet, monitor renal function - increase dose as tolerated to achieve control of Leg edema, patient deferred compression stockings, consider adding metolazone for a few days if edema not improved on higher doses of lasix, alternative change lasix to torsemide and bumex for stronger effect Continue enalapril Continue coreg Add aspirin Continue breathing treatments, steroids, pulmonary rehab Insulin, strict glucose control due to chronic steroid use Subjective Cardiovascular: Reports: no symptoms Respiratory: Reports: no symptoms Gastrointestinal/Abdominal: Reports: no symptoms Genitourinary: Reports: no symptoms Subjective Breathing has improved, no distress, no CP Patient had outpatient stress that that was normal. patient complain of ecchymosis over arms and leg edema Leg edema improving with lasix Sugars high today, levimir added Objective Last 24 Hour Vital Signs Date Time Temp Pulse Resp B/P (MAP) Pulse Ox O2 Delivery O2 Flow Rate FiO2 11/05/17 10:01 92 20 99 Nasal Cannula 2.0 11/05/17 09:54 89 20 98 Nasal Cannula 2.0 11/05/17 09:54 Nasal Cannula 2.0 11/05/17 09:54 98 Nasal Cannula 2.0 11/05/17 08:41 98 151/82 11/05/17 08:40 151/82 11/05/17 08:00 97.9 98 20 151/82 (105) 95 97.9 11/05/17 04:00 98.1 86 18 111/74 (86) 96 98.1 11/05/17 04:00 83 11/05/17 03:41 93 20 98 Nasal Cannula 2.0 11/05/17 03:28 89 20 93 Nasal Cannula 2.0 11/05/17 00:00 97.9 91 19 93/52 (66) 99 97.9 11/05/17 00:00 95 11/04/17 23:26 96 20 98 Nasal Cannula 2.0 11/04/17 23:22 90 20 94 Nasal Cannula 2.0 11/04/17 21:15 122/77 11/04/17 21:15 96 122/77 11/04/17 21:00 Nasal Cannula 2.0 Nasal Cannula 2.0 11/04/17 20:04 96 20 99 Nasal Cannula 2.0 11/04/17 20:03 98 Nasal Cannula 2.0 11/04/17 20:03 Nasal Cannula 2.0 11/04/17 20:00 97.5 93 20 122/77 (92) 93 97.5 11/04/17 20:00 97 11/04/17 20:00 91 20 98 Nasal Cannula 2.0 11/04/17 16:00 116 11/04/17 16:00 97.3 96 20 125/82 (96) 96 97.3 11/04/17 15:47 98 20 99 Nasal Cannula 2.0 11/04/17 15:35 94 20 98 Nasal Cannula 2.0 11/04/17 12:38 86 20 98 Nasal Cannula 2.0 11/04/17 12:29 87 20 94 Nasal Cannula 2.0 11/04/17 12:00 97.0 85 20 111/75 (87) 94 97.0 11/04/17 12:00 102 General Appearance: no apparent distress, alert EENT: PERRL/EOMI, normal ENT inspection Neck: non-tender, normal alignment Rhythm: NSR Cardiovascular: normal peripheral pulses, normal rate, regular rhythm, regularly irregular Respiratory/Chest: chest wall non-tender, lungs clear Abdomen: normal bowel sounds, non tender Extremities: normal range of motion, non-tender 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 Intake and Output 11/04/17 11/05/17 19:00 07:00 Intake Total 730 ml 480 ml Output Total 900 ml 1000 ml Balance -170 ml -520 ml Intake Oral 730 ml 480 ml Output Urine Total 900 ml 1000 ml # Bowel Movements 1 Laboratory Tests Test 11/05/17 06:25 White Blood Count 11.8 K/UL (4.8-10.8) H Red Blood Count 4.75 M/UL (4.70-6.10) Hemoglobin 16.4 G/DL (14.2-18.0) Hematocrit 45.4 % (42.0-52.0) Mean Corpuscular Volume 95 FL (80-99) Mean Corpuscular Hemoglobin 34.6 PG (27.0-31.0) H Mean Corpuscular Hemoglobin Concent 36.2 G/DL (32.0-36.0) H Red Cell Distribution Width 12.4 % (11.6-14.8) Platelet Count 170 K/UL (150-450) Mean Platelet Volume 8.7 FL (6.5-10.1) Neutrophils (%) (Auto) % (45.0-75.0) Lymphocytes (%) (Auto) % (20.0-45.0) Monocytes (%) (Auto) % (1.0-10.0) Eosinophils (%) (Auto) % (0.0-3.0) Basophils (%) (Auto) % (0.0-2.0) Differential Total Cells Counted 100 Neutrophils % (Manual) 94 % (45-75) H Lymphocytes % (Manual) 4 % (20-45) L Monocytes % (Manual) 2 % (1-10) Eosinophils % (Manual) 0 % (0-3) Basophils % (Manual) 0 % (0-2) Band Neutrophils 0 % (0-8) Platelet Estimate Adequate Platelet Morphology Normal Red Blood Cell Morphology Normal Sodium Level 134 MMOL/L (136-145) L Potassium Level 3.7 MMOL/L (3.5-5.1) Chloride Level 90 MMOL/L (98-107) L Carbon Dioxide Level 39 MMOL/L (21-32) H Anion Gap 5 mmol/L (5-15) Blood Urea Nitrogen 35 mg/dL (7-18) H Creatinine 0.9 MG/DL (0.55-1.30) Estimat Glomerular Filtration Rate mL/min (>60) Glucose Level 337 MG/DL (74-106) H Calcium Level 8.7 MG/DL (8.5-10.1) Cy Choi M.D. Nov 05, 2017 10:27
[2017-11-05 12:00] VITALS: BP 124/62
[2017-11-05] MEDS: Solu-MEDROL 40mg Inj IVP SCH ×2 (12:25→15:29)
--- NOTE | 2017-11-05 13:28 | Internal Med Progress Note ---
Subjective Date of Service: Nov 05, 2017 Physician Name Danielito Thomas Attending Physician Gadiel Ramírez MD Current Medications Medications (Trade) Dose Ordered Sig/Evi Route PRN Reason Start Time Stop Time Status Last Admin Dose Admin Acetaminophen (Tylenol) 650 mg Q4H PRN ORAL fever 11/01/17 19:00 12/01/17 18:59 Albuterol/ Ipratropium (Albuterol/ Ipratropium) 3 ml Q4HRT HHN 11/04/17 15:00 11/07/17 10:59 11/05/17 12:54 Aspirin (ASA) 81 mg DAILY NG 11/03/17 09:00 12/03/17 08:59 11/05/17 08:39 Carvedilol (Coreg) 6.25 mg EVERY 12 HOURS ORAL 11/01/17 21:00 12/01/17 20:59 11/05/17 08:41 Clonidine HCl (Catapres Tab) 0.1 mg Q4H PRN ORAL sbp more than 160 11/01/17 19:00 12/01/17 18:59 Dextrose (Dextrose 50%) 25 ml STAT PRN IV Hypoglycemia 11/01/17 19:00 12/01/17 18:59 Enalapril Maleate (Vasotec) 5 mg EVERY 12 HOURS ORAL 11/01/17 21:00 12/01/17 20:59 11/05/17 08:40 Escitalopram Oxalate (Lexapro) 10 mg DAILY ORAL 11/04/17 12:15 12/04/17 12:14 11/05/17 08:40 Furosemide (Lasix) 40 mg Q8H IV 11/04/17 12:00 12/04/17 11:59 11/05/17 12:40 Heparin Sodium (Porcine) (Heparin 5000 units/ml) 5,000 units EVERY 12 HOURS SUBQ 11/02/17 09:00 12/02/17 08:59 11/05/17 08:42 Insulin Aspart (NovoLOG) BEFORE MEALS AND HS SUBQ 11/01/17 21:00 12/01/17 20:59 11/05/17 12:21 Insulin Detemir (Levemir) 10 units DAILY SUBQ 11/05/17 10:00 12/05/17 09:59 11/05/17 12:22 Levofloxacin 100 ml @ 100 mls/hr Q24H IVPB 11/02/17 12:00 11/09/17 11:59 11/05/17 12:40 Methylprednisolone Sodium Succinate (Solu-MEDROL) 40 mg EVERY 8 HOURS IVP 11/05/17 09:30 12/05/17 09:29 11/05/17 12:25 Nitroglycerin (Ntg) 0.4 mg Q5M X 3 DOSES PRN SL Prn Chest Pain 11/01/17 19:00 12/01/17 18:59 Ondansetron HCl (Zofran) 4 mg Q6H PRN IVP Nausea & Vomiting 11/01/17 19:00 12/01/17 18:59 Promethazine HCl/ Codeine (Phenergan with Codeine) 5 ml Q6H PRN ORAL cough 11/01/17 19:00 12/01/17 18:59 Temazepam (Restoril) 15 mg HSPRN PRN ORAL Insomnia 11/01/17 19:00 11/08/17 18:59 11/04/17 21:31 Theophylline (Zafar-Dur) 100 mg EVERY 12 HOURS ORAL 11/01/17 21:00 12/01/17 20:59 11/05/17 08:41 Allergies: Coded Allergies: PENICILLINS (Verified Allergy, Unknown, 04/08/17) ROS Limited/Unobtainable: No Constitutional: Reports: no symptoms HEENT: Reports: no symptoms Cardiovascular: Reports: no symptoms Respiratory: Reports: shortness of breath Gastrointestinal/Abdominal: Reports: no symptoms Genitourinary: Reports: no symptoms Neurologic/Psychiatric: Reports: no symptoms Subjective 72 YO M admitted with chief complaint of shortness of breath. Now COPD exacerbation and elevated troponin. Still tachycardia. Cover for Int Derrick-Dr Ramírez. Objective Last Vital Signs Date Time Temp Pulse Resp B/P (MAP) Pulse Ox O2 Delivery O2 Flow Rate FiO2 11/05/17 12:54 94 20 98 Nasal Cannula 2.0 11/05/17 08:41 151/82 11/05/17 08:00 97.9 97.9 Laboratory Tests Test 11/05/17 06:25 White Blood Count 11.8 K/UL (4.8-10.8) H Red Blood Count 4.75 M/UL (4.70-6.10) Hemoglobin 16.4 G/DL (14.2-18.0) Hematocrit 45.4 % (42.0-52.0) Mean Corpuscular Volume 95 FL (80-99) Mean Corpuscular Hemoglobin 34.6 PG (27.0-31.0) H Mean Corpuscular Hemoglobin Concent 36.2 G/DL (32.0-36.0) H Red Cell Distribution Width 12.4 % (11.6-14.8) Platelet Count 170 K/UL (150-450) Mean Platelet Volume 8.7 FL (6.5-10.1) Neutrophils (%) (Auto) % (45.0-75.0) Lymphocytes (%) (Auto) % (20.0-45.0) Monocytes (%) (Auto) % (1.0-10.0) Eosinophils (%) (Auto) % (0.0-3.0) Basophils (%) (Auto) % (0.0-2.0) Differential Total Cells Counted 100 Neutrophils % (Manual) 94 % (45-75) H Lymphocytes % (Manual) 4 % (20-45) L Monocytes % (Manual) 2 % (1-10) Eosinophils % (Manual) 0 % (0-3) Basophils % (Manual) 0 % (0-2) Band Neutrophils 0 % (0-8) Platelet Estimate Adequate Platelet Morphology Normal Red Blood Cell Morphology Normal Sodium Level 134 MMOL/L (136-145) L Potassium Level 3.7 MMOL/L (3.5-5.1) Chloride Level 90 MMOL/L (98-107) L Carbon Dioxide Level 39 MMOL/L (21-32) H Anion Gap 5 mmol/L (5-15) Blood Urea Nitrogen 35 mg/dL (7-18) H Creatinine 0.9 MG/DL (0.55-1.30) Estimat Glomerular Filtration Rate mL/min (>60) Glucose Level 337 MG/DL (74-106) H Calcium Level 8.7 MG/DL (8.5-10.1) Intake and Output 11/04/17 11/05/17 19:00 07:00 Intake Total 730 ml 480 ml Output Total 900 ml 1000 ml Balance -170 ml -520 ml Intake Oral 730 ml 480 ml Output Urine Total 900 ml 1000 ml # Bowel Movements 1 Objective General Appearance: WD/WN, no apparent distress, alert EENT: PERRL/EOMI, normal ENT inspection Neck: non-tender, normal alignment, supple Cardiovascular: normal peripheral pulses, normal rate, regular rhythm, no gallop/murmur, no JVD Respiratory/Chest: chest wall non-tender, lungs clear, normal breath sounds, no respiratory distress, no accessory muscle use Abdomen: normal bowel sounds, non tender, soft, no organomegaly, no mass Extremities: normal range of motion, non-tender Edema: mild edema 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 Continue IV solumedrol and albuterol nebs- see pulmonary note. Increase IV lasix-see cardiology note. (3) Hypercholesterolemia (4) Irritable bowel syndrome (5) Hypertension Assessment & Plan: Continue coreg (6) COPD exacerbation (7) Edema Assessment & Plan: ?CHF? echo=55-60% Increase lasix (8) Diabetes mellitus Assessment & Plan: Continue novolog sliding scale. (9) Bronchitis Assessment & Plan: Continue levaquin Status: progressing Danielito Thomas MD Nov 05, 2017 13:28
[2017-11-05 16:00] VITALS: BP 128/71
[2017-11-05 20:00] VITALS: BP 115/76
[2017-11-06] VITALS (7 sets, daily range): BP systolic 94–129; BP diastolic 63–79
[2017-11-06] MEDS: Albuterol/Ipratropium 3ml neb HHN SCH ×5 (03:28→23:12)
[2017-11-06] MEDS: NovoLOG Insulin Flexpen SUBQ SCH ×4 (06:20→21:33)
[2017-11-06 07:13] LABS: BASOPHILS % (AUTO) 0.6 % (0.0-2.0); EOSINOPHILS % (AUTO) 0.1 % (0.0-3.0); HEMATOCRIT 48.1 % (42.0-52.0); HEMOGLOBIN 16.6 G/DL (14.2-18.0); LYMPHOCYTES % (AUTO) 10.7 % (20.0-45.0); MEAN CORPUSCULAR VOLUME 95 FL (80-99); MONOCYTES % (AUTO) 4.2 % (1.0-10.0); NEUTROPHILS % (AUTO) 84.4 % (45.0-75.0); PLATELET COUNT 167 K/UL (150-450); RED BLOOD COUNT 5.04 M/UL (4.70-6.10); RED CELL DISTRIBUTION WIDTH 12.3 % (11.6-14.8); WHITE BLOOD COUNT 13.4 K/UL (4.8-10.8)
[2017-11-06 07:34] LABS: ANION GAP 6 mmol/L (5-15); BLOOD UREA NITROGEN 35 mg/dL (7-18); CALCIUM 9.2 MG/DL (8.5-10.1); CARBON DIOXIDE 39 MMOL/L (21-32); CHLORIDE 90 MMOL/L (98-107); POTASSIUM 3.1 MMOL/L (3.5-5.1); SODIUM 135 MMOL/L (136-145)
--- NOTE | 2017-11-06 08:11 | Pulmonology Progress Note ---
Assessment/Plan Assessment/Plan ASSESSMENT Acute respiratory failure COPD exacerbation CHF with diastolic dysfunction Coronary artery disease Abnormal cardiac enzymes Current smoker Hypertension Diabetes mellitus out of control Major depressive disorder Anxiety disorder Hypokalemia PLAN OF CARE tele 02 titrate to keep sat above 90% HHN and CPT off steroids Trial of theophylline Antitussive. Empiric antibiotic sputum culture CXR no acute cardiopulmonary pathology ECHO with pEF 55-60%, no WMA, grade 1 diastolic dysfunction, RVSP-30 IV diuresis monitor volumes and cardiorenal parameters counsellors on smoking cessation, declined nicotine patch antiplatelet therapy and statin continue BB blood pressure monitoring and management Troponin levels minimally elevated and flat, no cardiac complaints, mild elevation in troponin probably secondary to CHF and COPD, troponin trending down ischemia eval recently done and was negative- as pr cardio BS not controlled, increase Levemir, hemoglobin A1c-8.2 not at goal Psych follow psych meds as per psychiatrist replace K today with 40 KCL, check K and Mg in am and from am 11/07 start daily KCL while on Lasix case discussed and evaluated by supervising physician Subjective Allergies: Coded Allergies: PENICILLINS (Verified Allergy, Unknown, 04/08/17) Subjective no chest pain, no SOB pulse ox stable on O2 via NC K-3.1 mild leukocytosis, afebrile Objective Last 24 Hour Vital Signs Date Time Temp Pulse Resp B/P (MAP) Pulse Ox O2 Delivery O2 Flow Rate FiO2 11/06/17 07:44 115 18 100 Nasal Cannula 2.0 11/06/17 07:36 Nasal Cannula 2.0 11/06/17 07:36 98 Nasal Cannula 2.0 11/06/17 07:36 118 18 98 Nasal Cannula 2.0 11/06/17 04:00 97.1 96 22 109/73 (85) 94 97.1 11/06/17 04:00 96 11/06/17 03:29 109 18 95 Nasal Cannula 2.0 11/06/17 03:29 105 20 92 Nasal Cannula 2.0 11/06/17 01:42 Nasal Cannula 2.0 11/06/17 01:42 Nasal Cannula 2.0 11/06/17 00:00 105 11/06/17 00:00 97.6 107 20 109/63 (78) 91 97.6 11/05/17 21:00 Nasal Cannula 2.0 Nasal Cannula 2.0 11/05/17 20:50 115/76 11/05/17 20:49 109 115/76 11/05/17 20:00 97.6 109 20 115/76 (89) 93 97.6 11/05/17 20:00 109 11/05/17 20:00 108 20 92 Nasal Cannula 2.0 11/05/17 20:00 110 18 94 Nasal Cannula 2.0 11/05/17 19:59 Nasal Cannula 2.0 11/05/17 19:59 92 Nasal Cannula 2.0 11/05/17 16:00 97.0 111 20 128/71 (90) 93 97.0 11/05/17 16:00 103 11/05/17 15:29 91 18 100 Nasal Cannula 2.0 11/05/17 15:23 89 20 98 Nasal Cannula 2.0 11/05/17 12:54 94 20 98 Nasal Cannula 2.0 11/05/17 12:00 104 11/05/17 12:00 97.6 90 20 124/62 (82) 94 97.6 11/05/17 10:01 92 20 99 Nasal Cannula 2.0 11/05/17 09:54 89 20 98 Nasal Cannula 2.0 11/05/17 09:54 Nasal Cannula 2.0 11/05/17 09:54 98 Nasal Cannula 2.0 11/05/17 09:00 Nasal Cannula 2.0 Nasal Cannula 2.0 11/05/17 08:41 98 151/82 11/05/17 08:40 151/82 Intake and Output 11/05/17 11/06/17 19:00 07:00 Intake Total 580 ml 120 ml Output Total 550 ml 1250 ml Balance 30 ml -1130 ml Intake Oral 480 ml 120 ml IV Total 100 ml Output Urine Total 550 ml 1250 ml # Voids 5 Objective General Appearance: no acute distress HEENT: normocephalic, atraumatic, anicteric, mucous membranes moist Respiratory/Chest: few scattered expiratory wheezes Cardio: regular rhythm, ST on tele Abdomen: soft, non tender Extremities: no edema, pedal pulses normal Neurologic/Psychiatric: alert, responsive Laboratory Tests 11/06/17 05:50: White Blood Count 13.4H, Red Blood Count 5.04, Hemoglobin 16.6, Hematocrit 48.1 , Mean Corpuscular Volume 95, Mean Corpuscular Hemoglobin 32.9H, Mean Corpuscular Hemoglobin Concent 34.5, Red Cell Distribution Width 12.3, Platelet Count 167, Mean Platelet Volume 9.4, Neutrophils (%) (Auto) 84.4H, Lymphocytes ( %) (Auto) 10.7L, Monocytes (%) (Auto) 4.2, Eosinophils (%) (Auto) 0.1, Basophils (%) (Auto) 0.6, Sodium Level 135L, Potassium Level 3.1L, Chloride Level 90L, Carbon Dioxide Level 39H, Anion Gap 6, Blood Urea Nitrogen 35H, Creatinine 1.0, Estimat Glomerular Filtration Rate , Glucose Level 222#H, Hemoglobin A1c 8.2H, Calcium Level 9.2 Current Medications Medications (Trade) Dose Ordered Sig/Evi Route PRN Reason Start Time Stop Time Status Last Admin Dose Admin Acetaminophen (Tylenol) 650 mg Q4H PRN ORAL fever 11/01/17 19:00 12/01/17 18:59 Albuterol/ Ipratropium (Albuterol/ Ipratropium) 3 ml Q4HRT HHN 11/04/17 15:00 11/07/17 10:59 11/06/17 07:38 Aspirin (ASA) 81 mg DAILY NG 11/03/17 09:00 12/03/17 08:59 11/05/17 08:39 Carvedilol (Coreg) 6.25 mg EVERY 12 HOURS ORAL 11/01/17 21:00 12/01/17 20:59 11/05/17 20:49 Clonidine HCl (Catapres Tab) 0.1 mg Q4H PRN ORAL sbp more than 160 11/01/17 19:00 12/01/17 18:59 Dextrose (Dextrose 50%) 25 ml STAT PRN IV Hypoglycemia 11/01/17 19:00 12/01/17 18:59 Enalapril Maleate (Vasotec) 5 mg EVERY 12 HOURS ORAL 11/01/17 21:00 12/01/17 20:59 11/05/17 20:50 Escitalopram Oxalate (Lexapro) 10 mg DAILY ORAL 11/04/17 12:15 12/04/17 12:14 11/05/17 08:40 Furosemide (Lasix) 40 mg Q8H IV 11/04/17 12:00 12/04/17 11:59 11/06/17 03:44 Heparin Sodium (Porcine) (Heparin 5000 units/ml) 5,000 units EVERY 12 HOURS SUBQ 11/02/17 09:00 12/02/17 08:59 11/05/17 20:53 Insulin Aspart (NovoLOG) BEFORE MEALS AND HS SUBQ 11/01/17 21:00 12/01/17 20:59 11/06/17 06:20 Insulin Detemir (Levemir) 10 units DAILY SUBQ 11/05/17 10:00 12/05/17 09:59 11/05/17 12:22 Levofloxacin 100 ml @ 100 mls/hr Q24H IVPB 11/02/17 12:00 11/09/17 11:59 11/05/17 12:40 Nitroglycerin (Ntg) 0.4 mg Q5M X 3 DOSES PRN SL Prn Chest Pain 11/01/17 19:00 12/01/17 18:59 Ondansetron HCl (Zofran) 4 mg Q6H PRN IVP Nausea & Vomiting 11/01/17 19:00 12/01/17 18:59 Promethazine HCl/ Codeine (Phenergan with Codeine) 5 ml Q6H PRN ORAL cough 11/01/17 19:00 12/01/17 18:59 Temazepam (Restoril) 15 mg HSPRN PRN ORAL Insomnia 11/01/17 19:00 11/08/17 18:59 11/05/17 20:55 Theophylline (Zafar-Dur) 100 mg EVERY 12 HOURS ORAL 11/01/17 21:00 12/01/17 20:59 11/05/17 20:49 Mayi Rosa PUBLIC HEALTH ENGINEER Nov 06, 2017 08:11
[2017-11-06] MEDS: Heparin 5000 units/ml inj SUBQ SCH ×2 (08:42→20:52)
[2017-11-06] MEDS: Carvedilol 6.25mg Tab ORAL SCH (08:43)
[2017-11-06] MEDS: Theophylline ER 100mg ORAL SCH ×2 (08:43→20:52)
[2017-11-06] MEDS: Aspirin Baby 81mg NG SCH (08:43)
[2017-11-06] MEDS: Enalapril 5mg tab ORAL SCH (08:44)
[2017-11-06] MEDS ORDERED: Levemir Flexpen SUBQ SCH (09:00)
[2017-11-06] MEDS ORDERED: Albuterol/Ipratropium 3ml neb HHN SCH (11:00)
[2017-11-06] MEDS ORDERED: Nitroglycerin Subl 0.4mg tab SL PRN (13:10)
[2017-11-06] MEDS ORDERED: Promethazine/Codeine 5ml UD ORAL PRN (13:10)
[2017-11-06] MEDS ORDERED: Tubing IV Secondary IV ONE (16:02)
[2017-11-06] MEDS ORDERED: NS 275ml ONE (16:02)
--- NOTE | 2017-11-06 16:52 | Internal Med Progress Note ---
Subjective Date of Service: Nov 06, 2017 Physician Name Danielito Thomas Attending Physician Gadiel Ramírez MD Current Medications Medications (Trade) Dose Ordered Sig/Evi Route PRN Reason Start Time Stop Time Status Last Admin Dose Admin Acetaminophen (Tylenol) 650 mg Q4H PRN ORAL fever 11/06/17 13:05 12/01/17 13:04 Albuterol/ Ipratropium (Albuterol/ Ipratropium) 3 ml Q4HRT HHN 11/06/17 15:00 11/09/17 06:59 11/06/17 15:38 Aspirin (ASA) 81 mg DAILY NG 11/07/17 09:00 12/03/17 08:59 Carvedilol (Coreg) 6.25 mg EVERY 12 HOURS ORAL 11/06/17 21:00 12/01/17 20:59 Clonidine HCl (Catapres Tab) 0.1 mg Q4H PRN ORAL sbp more than 160 11/06/17 13:08 12/01/17 13:07 Dextrose (Dextrose 50%) 25 ml STAT PRN IV Hypoglycemia 11/06/17 13:08 12/01/17 13:07 Enalapril Maleate (Vasotec) 5 mg EVERY 12 HOURS ORAL 11/06/17 21:00 12/01/17 20:59 Escitalopram Oxalate (Lexapro) 10 mg DAILY ORAL 11/07/17 09:00 12/04/17 12:14 Furosemide (Lasix) 40 mg Q8H IV 11/06/17 20:00 12/04/17 11:59 Heparin Sodium (Porcine) (Heparin 5000 units/ml) 5,000 units EVERY 12 HOURS SUBQ 11/06/17 21:00 12/02/17 08:59 Insulin Aspart (NovoLOG) BEFORE MEALS AND HS SUBQ 11/06/17 16:30 12/01/17 20:59 Insulin Detemir (Levemir) 15 units DAILY SUBQ 11/07/17 09:00 12/05/17 09:59 Levofloxacin 100 ml @ 100 mls/hr Q24H IVPB 11/07/17 12:00 11/09/17 11:59 Nitroglycerin (Ntg) 0.4 mg Q5M X 3 DOSES PRN SL Prn Chest Pain 11/06/17 13:10 12/01/17 13:09 Ondansetron HCl (Zofran) 4 mg Q6H PRN IVP Nausea & Vomiting 11/06/17 13:10 12/01/17 13:09 Promethazine HCl/ Codeine (Phenergan with Codeine) 5 ml Q6H PRN ORAL cough 11/06/17 13:10 12/01/17 13:09 Temazepam (Restoril) 15 mg HSPRN PRN ORAL Insomnia 11/06/17 19:00 11/08/17 18:59 Theophylline (Zafar-Dur) 100 mg EVERY 12 HOURS ORAL 11/06/17 21:00 12/01/17 20:59 Allergies: Coded Allergies: PENICILLINS (Verified Allergy, Unknown, 04/08/17) ROS Limited/Unobtainable: No Constitutional: Reports: no symptoms HEENT: Reports: no symptoms Cardiovascular: Reports: no symptoms Respiratory: Reports: cough, shortness of breath, wheezing Gastrointestinal/Abdominal: Reports: no symptoms Genitourinary: Reports: no symptoms Neurologic/Psychiatric: Reports: no symptoms Subjective 72 YO M admitted with chief complaint of shortness of breath. Now COPD exacerbation and elevated troponin. Still tachycardia. Cover for Int Med-Dr Ramírez. Objective Last Vital Signs Date Time Temp Pulse Resp B/P (MAP) Pulse Ox O2 Delivery O2 Flow Rate FiO2 11/06/17 16:00 97.6 116 22 98/66 (77) 96 97.6 11/06/17 15:42 Nasal Cannula 2.0 28 Laboratory Tests Test 11/06/17 05:50 White Blood Count 13.4 K/UL (4.8-10.8) H Red Blood Count 5.04 M/UL (4.70-6.10) Hemoglobin 16.6 G/DL (14.2-18.0) Hematocrit 48.1 % (42.0-52.0) Mean Corpuscular Volume 95 FL (80-99) Mean Corpuscular Hemoglobin 32.9 PG (27.0-31.0) H Mean Corpuscular Hemoglobin Concent 34.5 G/DL (32.0-36.0) Red Cell Distribution Width 12.3 % (11.6-14.8) Platelet Count 167 K/UL (150-450) Mean Platelet Volume 9.4 FL (6.5-10.1) Neutrophils (%) (Auto) 84.4 % (45.0-75.0) H Lymphocytes (%) (Auto) 10.7 % (20.0-45.0) L Monocytes (%) (Auto) 4.2 % (1.0-10.0) Eosinophils (%) (Auto) 0.1 % (0.0-3.0) Basophils (%) (Auto) 0.6 % (0.0-2.0) Sodium Level 135 MMOL/L (136-145) L Potassium Level 3.1 MMOL/L (3.5-5.1) L Chloride Level 90 MMOL/L (98-107) L Carbon Dioxide Level 39 MMOL/L (21-32) H Anion Gap 6 mmol/L (5-15) Blood Urea Nitrogen 35 mg/dL (7-18) H Creatinine 1.0 MG/DL (0.55-1.30) Estimat Glomerular Filtration Rate mL/min (>60) Glucose Level 222 MG/DL (74-106) #H Hemoglobin A1c 8.2 % (4.3-6.0) H Calcium Level 9.2 MG/DL (8.5-10.1) Intake and Output 11/05/17 11/06/17 19:00 07:00 Intake Total 580 ml 120 ml Output Total 550 ml 1250 ml Balance 30 ml -1130 ml Intake Oral 480 ml 120 ml IV Total 100 ml Output Urine Total 550 ml 1250 ml # Voids 5 Objective General Appearance: WD/WN, no apparent distress, alert EENT: PERRL/EOMI, normal ENT inspection Neck: non-tender, normal alignment, supple Cardiovascular: normal peripheral pulses, normal rate, regular rhythm, no gallop/murmur, no JVD Respiratory/Chest: chest wall non-tender, lungs clear, normal breath sounds, no respiratory distress, no accessory muscle use Abdomen: normal bowel sounds, non tender, soft, no organomegaly, no mass Extremities: normal range of motion, non-tender Edema: mild edema 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 Continue IV solumedrol and albuterol nebs- see pulmonary note. Increase IV lasix-see cardiology note. (3) Hypercholesterolemia (4) Irritable bowel syndrome (5) Hypertension Assessment & Plan: Continue coreg (6) COPD exacerbation (7) Edema Assessment & Plan: ?CHF? echo=55-60% Increase lasix (8) Diabetes mellitus Assessment & Plan: Continue novolog sliding scale. (9) Bronchitis Assessment & Plan: Continue levaquin Status: stable Danielito Thomas MD Nov 06, 2017 16:52
--- NOTE | 2017-11-06 17:52 | Cardiology Progress Note ---
Assessment/Plan Status: stable Assessment/Plan Assessment CHF - diastolic dysfunction CAD LE edema COPD Smoking history Diabetes Plan: Echocardiogram reviewed; normal LV function, no WMA, no valve issues, grade 1 diastolic dysfunction Patient had recent ischemia evaluation that was normal Continue Statin Continue lasix, low salt diet, monitor renal function - increase dose as tolerated to achieve control of Leg edema, patient deferred compression stockings, consider adding metolazone for a few days if edema not improved on higher doses of lasix, alternative change lasix to torsemide and bumex for stronger effect Potassium supplementation while on lasix Continue enalapril Monitor renal function while on enalapril and lasix Ambulate Continue coreg Add aspirin Continue breathing treatments, steroids, pulmonary rehab Insulin, strict glucose control due to chronic steroid use Subjective Cardiovascular: Reports: no symptoms Respiratory: Reports: no symptoms Gastrointestinal/Abdominal: Reports: no symptoms Genitourinary: Reports: no symptoms Subjective Breathing has improved, no distress, no CP Patient had outpatient stress that that was normal. patient complain of ecchymosis over arms and leg edema Leg edema improving with lasix Objective Last 24 Hour Vital Signs Date Time Temp Pulse Resp B/P (MAP) Pulse Ox O2 Delivery O2 Flow Rate FiO2 11/06/17 16:00 97.6 116 22 98/66 (77) 96 97.6 11/06/17 15:42 108 18 100 Nasal Cannula 2.0 11/06/17 15:33 106 18 98 Nasal Cannula 2.0 11/06/17 13:00 97.6 114 20 102/66 (78) 97 97.6 11/06/17 12:00 97 11/06/17 12:00 97.0 100 20 111/77 (88) 96 97.0 11/06/17 11:28 112 18 100 Nasal Cannula 2.0 11/06/17 11:20 109 18 98 Nasal Cannula 2.0 11/06/17 09:00 Nasal Cannula 2.0 Nasal Cannula 2.0 11/06/17 08:44 129/79 11/06/17 08:43 112 129/79 11/06/17 08:00 97.0 112 20 129/79 (96) 96 97.0 11/06/17 08:00 112 11/06/17 07:44 115 18 100 Nasal Cannula 2.0 11/06/17 07:36 Nasal Cannula 2.0 11/06/17 07:36 98 Nasal Cannula 2.0 11/06/17 07:36 118 18 98 Nasal Cannula 2.0 11/06/17 04:00 97.1 96 22 109/73 (85) 94 97.1 11/06/17 04:00 96 11/06/17 03:29 109 18 95 Nasal Cannula 2.0 11/06/17 03:29 105 20 92 Nasal Cannula 2.0 11/06/17 01:42 Nasal Cannula 2.0 11/06/17 01:42 Nasal Cannula 2.0 11/06/17 00:00 105 11/06/17 00:00 97.6 107 20 109/63 (78) 91 97.6 11/05/17 21:00 Nasal Cannula 2.0 Nasal Cannula 2.0 11/05/17 20:50 115/76 11/05/17 20:49 109 115/76 11/05/17 20:00 97.6 109 20 115/76 (89) 93 97.6 11/05/17 20:00 109 11/05/17 20:00 108 20 92 Nasal Cannula 2.0 11/05/17 20:00 110 18 94 Nasal Cannula 2.0 11/05/17 19:59 Nasal Cannula 2.0 11/05/17 19:59 92 Nasal Cannula 2.0 28 General Appearance: no apparent distress, alert EENT: PERRL/EOMI, normal ENT inspection Neck: non-tender, normal alignment Rhythm: NSR Cardiovascular: normal peripheral pulses Respiratory/Chest: chest wall non-tender, lungs clear Abdomen: normal bowel sounds, non tender Extremities: normal range of motion 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, no motor/sensory deficits Intake and Output 11/05/17 11/06/17 19:00 07:00 Intake Total 580 ml 120 ml Output Total 550 ml 1250 ml Balance 30 ml -1130 ml Intake Oral 480 ml 120 ml IV Total 100 ml Output Urine Total 550 ml 1250 ml # Voids 5 Laboratory Tests Test 11/06/17 05:50 White Blood Count 13.4 K/UL (4.8-10.8) H Red Blood Count 5.04 M/UL (4.70-6.10) Hemoglobin 16.6 G/DL (14.2-18.0) Hematocrit 48.1 % (42.0-52.0) Mean Corpuscular Volume 95 FL (80-99) Mean Corpuscular Hemoglobin 32.9 PG (27.0-31.0) H Mean Corpuscular Hemoglobin Concent 34.5 G/DL (32.0-36.0) Red Cell Distribution Width 12.3 % (11.6-14.8) Platelet Count 167 K/UL (150-450) Mean Platelet Volume 9.4 FL (6.5-10.1) Neutrophils (%) (Auto) 84.4 % (45.0-75.0) H Lymphocytes (%) (Auto) 10.7 % (20.0-45.0) L Monocytes (%) (Auto) 4.2 % (1.0-10.0) Eosinophils (%) (Auto) 0.1 % (0.0-3.0) Basophils (%) (Auto) 0.6 % (0.0-2.0) Sodium Level 135 MMOL/L (136-145) L Potassium Level 3.1 MMOL/L (3.5-5.1) L Chloride Level 90 MMOL/L (98-107) L Carbon Dioxide Level 39 MMOL/L (21-32) H Anion Gap 6 mmol/L (5-15) Blood Urea Nitrogen 35 mg/dL (7-18) H Creatinine 1.0 MG/DL (0.55-1.30) Estimat Glomerular Filtration Rate mL/min (>60) Glucose Level 222 MG/DL (74-106) #H Hemoglobin A1c 8.2 % (4.3-6.0) H Calcium Level 9.2 MG/DL (8.5-10.1) Cy Choi M.D. Nov 06, 2017 17:52
[2017-11-06] MEDS ORDERED: Sodium Chloride 500ML 500 ML IV ONE (18:50)
[2017-11-06] MEDS ORDERED: Carvedilol 6.25mg Tab ORAL SCH (21:00)
[2017-11-06] MEDS ORDERED: Enalapril 5mg tab ORAL SCH (21:00)
[2017-11-07] VITALS (10 sets, daily range): BP systolic 92–142; BP diastolic 53–91
[2017-11-07] MEDS: Albuterol/Ipratropium 3ml neb HHN SCH ×5 (03:38→19:21)
[2017-11-07] MEDS: NovoLOG Insulin Flexpen SUBQ SCH ×4 (06:04→21:12)
[2017-11-07 07:09] LABS: EOSINOPHILS % (AUTO) 0.5 % (0.0-3.0); HEMATOCRIT 45.1 % (42.0-52.0); HEMOGLOBIN 15.5 G/DL (14.2-18.0); LYMPHOCYTES % (AUTO) 22.4 % (20.0-45.0); MEAN CORPUSCULAR VOLUME 97 FL (80-99); NEUTROPHILS % (AUTO) 72.2 % (45.0-75.0); PLATELET COUNT 135 K/UL (150-450); RED BLOOD COUNT 4.67 M/UL (4.70-6.10); RED CELL DISTRIBUTION WIDTH 12.7 % (11.6-14.8); WHITE BLOOD COUNT 9.8 K/UL (4.8-10.8)
[2017-11-07 07:49] LABS: ANION GAP 5 mmol/L (5-15); BLOOD UREA NITROGEN 34 mg/dL (7-18); CALCIUM 8.7 MG/DL (8.5-10.1); CARBON DIOXIDE 36 MMOL/L (21-32); CHLORIDE 94 MMOL/L (98-107); CREATININE 0.7 MG/DL (0.55-1.30); POTASSIUM 3.1 MMOL/L (3.5-5.1); SODIUM 135 MMOL/L (136-145)
[2017-11-07] MEDS ORDERED: Furosemide 40mg tab ORAL SCH (09:00)
[2017-11-07] MEDS ORDERED: Levemir Flexpen SUBQ SCH (09:00)
[2017-11-07] MEDS ORDERED: Aspirin Baby 81mg NG SCH (09:00)
[2017-11-07] MEDS: Heparin 5000 units/ml inj SUBQ SCH (09:00)
--- NOTE | 2017-11-07 10:03 | Internal Med Progress Note ---
Subjective Date of Service: Nov 07, 2017 Physician Name Danielito Thomas Attending Physician Gadiel Ramírez MD Current Medications Medications (Trade) Dose Ordered Sig/Evi Route PRN Reason Start Time Stop Time Status Last Admin Dose Admin Acetaminophen (Tylenol) 650 mg Q4H PRN ORAL fever 11/06/17 13:05 12/01/17 13:04 Albuterol/ Ipratropium (Albuterol/ Ipratropium) 3 ml Q4HRT HHN 11/06/17 15:00 11/09/17 06:59 11/07/17 07:56 Aspirin (ASA) 81 mg DAILY NG 11/07/17 09:00 12/03/17 08:59 Carvedilol (Coreg) 6.25 mg EVERY 12 HOURS ORAL 11/06/17 21:00 12/01/17 20:59 Clonidine HCl (Catapres Tab) 0.1 mg Q4H PRN ORAL sbp more than 160 11/06/17 13:08 12/01/17 13:07 Dextrose (Dextrose 50%) 25 ml STAT PRN IV Hypoglycemia 11/06/17 13:08 12/01/17 13:07 Enalapril Maleate (Vasotec) 5 mg EVERY 12 HOURS ORAL 11/06/17 21:00 12/01/17 20:59 Escitalopram Oxalate (Lexapro) 10 mg DAILY ORAL 11/07/17 09:00 12/04/17 12:14 Furosemide (Lasix) 40 mg DAILY ORAL 11/07/17 09:00 12/07/17 08:59 Heparin Sodium (Porcine) (Heparin 5000 units/ml) 5,000 units EVERY 12 HOURS SUBQ 11/06/17 21:00 12/02/17 08:59 11/06/17 20:52 Insulin Aspart (NovoLOG) BEFORE MEALS AND HS SUBQ 11/06/17 16:30 12/01/17 20:59 11/07/17 06:04 Insulin Detemir (Levemir) 15 units DAILY SUBQ 11/07/17 09:00 12/05/17 09:59 Levofloxacin 100 ml @ 100 mls/hr Q24H IVPB 11/07/17 12:00 11/09/17 11:59 Nitroglycerin (Ntg) 0.4 mg Q5M X 3 DOSES PRN SL Prn Chest Pain 11/06/17 13:10 12/01/17 13:09 Ondansetron HCl (Zofran) 4 mg Q6H PRN IVP Nausea & Vomiting 11/06/17 13:10 12/01/17 13:09 Promethazine HCl/ Codeine (Phenergan with Codeine) 5 ml Q6H PRN ORAL cough 11/06/17 13:10 12/01/17 13:09 Temazepam (Restoril) 15 mg HSPRN PRN ORAL Insomnia 11/06/17 19:00 11/08/17 18:59 Theophylline (Zafar-Dur) 100 mg EVERY 12 HOURS ORAL 11/06/17 21:00 12/01/17 20:59 11/06/17 20:52 Allergies: Coded Allergies: PENICILLINS (Verified Allergy, Unknown, 04/08/17) ROS Limited/Unobtainable: No Constitutional: Reports: no symptoms HEENT: Reports: no symptoms Cardiovascular: Reports: no symptoms Respiratory: Reports: shortness of breath Gastrointestinal/Abdominal: Reports: no symptoms Genitourinary: Reports: no symptoms Neurologic/Psychiatric: Reports: no symptoms Subjective 72 YO M admitted with chief complaint of shortness of breath- COPD exacerbation. Now Tachycardic and hypotensive-atrial flutter. Cover for Int Med-Dr Ramírez. Objective Last Vital Signs Date Time Temp Pulse Resp B/P (MAP) Pulse Ox O2 Delivery O2 Flow Rate FiO2 11/07/17 09:09 98.7 106 20 92/53 (66) 100 98.7 11/07/17 07:59 Nasal Cannula 3.0 32 Laboratory Tests Test 11/07/17 05:50 White Blood Count 9.8 K/UL (4.8-10.8) Red Blood Count 4.67 M/UL (4.70-6.10) L Hemoglobin 15.5 G/DL (14.2-18.0) Hematocrit 45.1 % (42.0-52.0) Mean Corpuscular Volume 97 FL (80-99) Mean Corpuscular Hemoglobin 33.2 PG (27.0-31.0) H Mean Corpuscular Hemoglobin Concent 34.3 G/DL (32.0-36.0) Red Cell Distribution Width 12.7 % (11.6-14.8) Platelet Count 135 K/UL (150-450) L Mean Platelet Volume 9.4 FL (6.5-10.1) Neutrophils (%) (Auto) 72.2 % (45.0-75.0) Lymphocytes (%) (Auto) 22.4 % (20.0-45.0) Monocytes (%) (Auto) 4.0 % (1.0-10.0) Eosinophils (%) (Auto) 0.5 % (0.0-3.0) Basophils (%) (Auto) 1.0 % (0.0-2.0) Sodium Level 135 MMOL/L (136-145) L Potassium Level 3.1 MMOL/L (3.5-5.1) L Chloride Level 94 MMOL/L (98-107) L Carbon Dioxide Level 36 MMOL/L (21-32) H Anion Gap 5 mmol/L (5-15) Blood Urea Nitrogen 34 mg/dL (7-18) H Creatinine 0.7 MG/DL (0.55-1.30) Estimat Glomerular Filtration Rate mL/min (>60) Glucose Level 198 MG/DL (74-106) H Calcium Level 8.7 MG/DL (8.5-10.1) Magnesium Level 2.1 MG/DL (1.8-2.4) Troponin I 0.166 ng/mL (0.000-0.056) Intake and Output 11/06/17 11/07/17 19:00 07:00 Intake Total 390 ml 620 ml Output Total 1020 ml 370 ml Balance -630 ml 250 ml Intake Oral 390 ml 120 ml IV Total 500 ml Output Urine Total 1020 ml 370 ml Objective General Appearance: WD/WN, no apparent distress, alert EENT: PERRL/EOMI, normal ENT inspection Neck: non-tender, normal alignment, supple Cardiovascular: Tachycardia; normal peripheral pulses, regular rhythm, no gallop/murmur, no JVD Respiratory/Chest: chest wall non-tender, lungs clear, normal breath sounds, no respiratory distress, no accessory muscle use Abdomen: normal bowel sounds, non tender, soft, no organomegaly, no mass Extremities: normal range of motion, non-tender Edema: mild edema 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 Continue IV solumedrol and albuterol nebs- see pulmonary note. Increase IV lasix-see cardiology note. (3) Hypercholesterolemia (4) Irritable bowel syndrome (5) Hypertension Assessment & Plan: Continue coreg (6) COPD exacerbation (7) Edema Assessment & Plan: ?CHF? echo=55-60% Increase lasix (8) Diabetes mellitus Assessment & Plan: Continue novolog sliding scale. (9) Bronchitis Assessment & Plan: Continue levaquin (10) Atrial flutter with rapid ventricular response Assessment & Plan: [id number]. Status: deteriorating Danielito Thomas MD Nov 07, 2017 10:03
[2017-11-07] MEDS: Theophylline ER 100mg ORAL SCH (10:09)
--- NOTE | 2017-11-07 10:50 | Diagnostic Imaging Report ---
Indication: Cough Technique: One view of the chest Comparison: 11/01/2017 Findings: Lungs are hyperinflated. The lungs are clear. The heart size is normal Impression: Hyperinflation, consistent with COPD. No acute process
[2017-11-07] MEDS ORDERED: Nitroglycerin Subl 0.4mg tab SL PRN (11:15)
[2017-11-07] MEDS ORDERED: Promethazine/Codeine 5ml UD ORAL PRN (12:00)
--- NOTE | 2017-11-07 12:27 | Pulmonology Progress Note ---
Assessment/Plan Problems: (1) Atrial flutter with rapid ventricular response (2) Acute respiratory failure Assessment & Plan: better (3) COPD exacerbation (4) NSTEMI (non-ST elevated myocardial infarction) (5) Diabetes mellitus (6) Hypertension Assessment/Plan not feeling well ( no more specifics) monitor heart rate in teli dc Theophylline f/u troponin respiratory treatment less cough on lasix to 40 daily echo reviewed sliding scale diabetic diet Subjective Interval Events: transferred to telemetry for rapid heart rate. Allergies: Coded Allergies: PENICILLINS (Verified Allergy, Unknown, 04/08/17) Objective Last 24 Hour Vital Signs Date Time Temp Pulse Resp B/P (MAP) Pulse Ox O2 Delivery O2 Flow Rate FiO2 11/07/17 10:24 107 22 95 Nasal Cannula 3.0 32 11/07/17 10:13 107 24 92 Nasal Cannula 3.0 32 11/07/17 09:40 113 20 118/76 (90) 95 11/07/17 09:09 98.7 106 20 92/53 (66) 100 98.7 11/07/17 09:00 Nasal Cannula 2.0 Nasal Cannula 2.0 11/07/17 08:30 115 20 102/67 (79) 95 11/07/17 08:00 98.7 106 20 92/53 (66) 100 98.7 11/07/17 07:59 113 22 97 Nasal Cannula 3.0 32 11/07/17 07:50 95 Nasal Cannula 3.0 32 11/07/17 07:50 111 24 95 Nasal Cannula 3.0 32 11/07/17 07:50 Nasal Cannula 3.0 32 11/07/17 07:50 111 24 Nasal Cannula 3.0 32 11/07/17 06:00 97.6 110 20 100/65 (77) 98 97.6 11/07/17 03:28 101 20 99 Nasal Cannula 2.0 28 11/07/17 03:20 102 20 96 Nasal Cannula 2.0 28 11/07/17 00:00 97.7 107 18 114/61 (78) 94 97.7 11/06/17 23:12 105 22 99 Nasal Cannula 2.0 28 11/06/17 23:04 107 22 97 Nasal Cannula 2.0 28 11/06/17 21:00 Nasal Cannula 2.0 Nasal Cannula 2.0 7/29/18 20:53 94/69 11/06/17 20:53 112 94/69 11/06/17 20:00 98.6 112 20 94/69 (77) 96 98.6 11/06/17 19:10 103 20 100 Nasal Cannula 2.0 11/06/17 19:05 99 20 97 Nasal Cannula 2.0 11/06/17 19:04 Nasal Cannula 2.0 11/06/17 19:04 97 Nasal Cannula 2.0 11/06/17 16:00 97.6 116 22 98/66 (77) 96 97.6 11/06/17 15:42 108 18 100 Nasal Cannula 2.0 11/06/17 15:33 106 18 98 Nasal Cannula 2.0 11/06/17 13:00 97.6 114 20 102/66 (78) 97 97.6 Intake and Output 11/06/17 11/07/17 19:00 07:00 Intake Total 390 ml 620 ml Output Total 1020 ml 370 ml Balance -630 ml 250 ml Intake Oral 390 ml 120 ml IV Total 500 ml Output Urine Total 1020 ml 370 ml General Appearance: WD/WN HEENT: normocephalic, atraumatic Respiratory/Chest: chest wall non-tender, normal breath sounds Cardiovascular: normal peripheral pulses, regular rhythm Abdomen: normal bowel sounds, soft, non tender Extremities: no clubbing 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, no motor/sensory deficits Laboratory Tests 11/07/17 05:50: White Blood Count 9.8, Red Blood Count 4.67L, Hemoglobin 15.5, Hematocrit 45.1, Mean Corpuscular Volume 97, Mean Corpuscular Hemoglobin 33.2H, Mean Corpuscular Hemoglobin Concent 34.3, Red Cell Distribution Width 12.7, Platelet Count 135L, Mean Platelet Volume 9.4, Neutrophils (%) (Auto) 72.2, Lymphocytes (%) (Auto) 22.4, Monocytes (%) (Auto) 4.0, Eosinophils (%) (Auto) 0.5, Basophils (%) (Auto ) 1.0, Sodium Level 135L, Potassium Level 3.1L, Chloride Level 94L, Carbon Dioxide Level 36H, Anion Gap 5, Blood Urea Nitrogen 34H, Creatinine 0.7, Estimat Glomerular Filtration Rate , Glucose Level 198H, Calcium Level 8.7, Magnesium Level 2.1, Troponin I 0.166H Current Medications Medications (Trade) Dose Ordered Sig/Evi Route PRN Reason Start Time Stop Time Status Last Admin Dose Admin Acetaminophen (Tylenol) 650 mg Q4H PRN ORAL fever 11/07/17 12:00 12/01/17 11:59 Albuterol/ Ipratropium (Albuterol/ Ipratropium) 3 ml Q4HRT HHN 11/07/17 15:00 11/09/17 06:59 Aspirin (ASA) 81 mg DAILY NG 11/08/17 09:00 12/03/17 08:59 Carvedilol (Coreg) 6.25 mg EVERY 12 HOURS ORAL 11/07/17 21:00 12/01/17 20:59 Clonidine HCl (Catapres Tab) 0.1 mg Q4H PRN ORAL sbp more than 160 11/07/17 12:00 12/01/17 11:59 Dextrose (Dextrose 50%) 25 ml STAT PRN IV Hypoglycemia 11/07/17 12:00 12/01/17 11:59 Enalapril Maleate (Vasotec) 5 mg EVERY 12 HOURS ORAL 11/07/17 21:00 12/01/17 20:59 Escitalopram Oxalate (Lexapro) 10 mg DAILY ORAL 11/08/17 09:00 12/04/17 12:14 Furosemide (Lasix) 40 mg DAILY ORAL 11/08/17 09:00 12/07/17 08:59 Heparin Sodium (Porcine) (Heparin 5000 units/ml) 5,000 units EVERY 12 HOURS SUBQ 11/07/17 21:00 12/02/17 08:59 Insulin Aspart (NovoLOG) BEFORE MEALS AND HS SUBQ 11/07/17 11:30 12/01/17 20:59 11/07/17 12:19 Insulin Detemir (Levemir) 15 units DAILY SUBQ 11/08/17 09:00 12/05/17 09:59 Levofloxacin 100 ml @ 100 mls/hr Q24H IVPB 11/07/17 12:00 11/09/17 11:59 11/07/17 11:53 Nitroglycerin (Ntg) 0.4 mg Q5M X 3 DOSES PRN SL Prn Chest Pain 11/07/17 11:15 8/23/18 13:09 Ondansetron HCl (Zofran) 4 mg Q6H PRN IVP Nausea & Vomiting 11/07/17 12:15 12/01/17 12:14 Prednisone (predniSONE) 40 mg DAILY ORAL 11/08/17 09:00 12/07/17 10:14 Promethazine HCl/ Codeine (Phenergan with Codeine) 5 ml Q6H PRN ORAL cough 11/07/17 12:00 12/01/17 11:59 Temazepam (Restoril) 15 mg HSPRN PRN ORAL Insomnia 11/07/17 21:00 11/08/17 20:59 Theophylline (Zafar-Dur) 100 mg EVERY 12 HOURS ORAL 11/07/17 21:00 12/01/17 20:59 Mikie Gray MD Nov 07, 2017 12:27
[2017-11-07] MEDS ORDERED: NS 275ml ONE (16:16)
[2017-11-07] MEDS ORDERED: Tubing IV Secondary IV ONE (16:16)
[2017-11-07] MEDS ORDERED: Xarelto 10mg tab ORAL SCH (16:30)
--- NOTE | 2017-11-07 19:32 | Cardiology Report ---
APPROVED REPORT EKG Measurement Heart [id number] Atrial tachycardia with variable AV block Left axis deviation Pulmonary disease pattern Marked ST abnormality, possible inferior subendocardial injury Abnormal ECG
[2017-11-07] MEDS ORDERED: Theophylline ER 100mg ORAL SCH (21:00)
[2017-11-07] MEDS ORDERED: Heparin 5000 units/ml inj SUBQ SCH ×2 (21:00)
[2017-11-07] MEDS ORDERED: Carvedilol 6.25mg Tab ORAL SCH (21:00)
[2017-11-07] MEDS ORDERED: Enalapril 5mg tab ORAL SCH (21:00)
[2017-11-07] MEDS: Enalapril 5mg tab ORAL SCH (21:09)
[2017-11-07] MEDS: Metoprolol Tartrate 50mg tab ORAL SCH (21:09)
[2017-11-07] MEDS: Carvedilol 6.25mg Tab ORAL SCH (21:09)
--- NOTE | 2017-11-07 22:13 | Cardiology Progress Note ---
Assessment/Plan Status: stable Assessment/Plan Assessment CHF - diastolic dysfunction CAD LE edema COPD Smoking history Diabetes Atrial flutter Plan: Echocardiogram reviewed; normal LV function, no WMA, no valve issues, grade 1 diastolic dysfunction Patient had recent ischemia evaluation that was normal Continue Statin Continue lasix,patient responding well Potassium supplementation while on lasix Continue enalapril Monitor renal function while on enalapril and lasix Ambulate Continue coreg for rate control and hypertension Continue aspirin Continue breathing treatments, steroids, pulmonary rehab Insulin, strict glucose control due to chronic steroid use Physical therapy Subjective Cardiovascular: Reports: no symptoms Respiratory: Reports: no symptoms Gastrointestinal/Abdominal: Reports: no symptoms Genitourinary: Reports: no symptoms Subjective Breathing has improved, no distress, no CP Patient had outpatient stress that that was normal. patient complain of ecchymosis over arms and leg edema Leg edema improving with lasix Patient had atrial flutter rates 110-130 today Objective Last 24 Hour Vital Signs Date Time Temp Pulse Resp B/P (MAP) Pulse Ox O2 Delivery O2 Flow Rate FiO2 11/07/17 21:09 99 112/71 11/07/17 21:09 112/71 11/07/17 21:09 99 112/71 11/07/17 21:00 Nasal Cannula 2.0 11/07/17 20:00 99 11/07/17 20:00 98.6 99 18 112/71 (85) 97 98.6 11/07/17 19:31 108 22 97 Nasal Cannula 3.0 32 11/07/17 19:21 Nasal Cannula 3.0 32 11/07/17 19:21 99 24 95 Nasal Cannula 3.0 32 11/07/17 19:21 95 Nasal Cannula 3.0 32 11/07/17 16:00 105 11/07/17 15:56 98.4 116 21 142/91 (108) 97 98.4 11/07/17 15:32 110 22 96 Nasal Cannula 3.0 32 11/07/17 15:24 109 24 94 Nasal Cannula 3.0 32 11/07/17 12:00 103 11/07/17 12:00 98.1 111 20 110/77 (88) 95 98.1 11/07/17 10:24 107 22 95 Nasal Cannula 3.0 32 11/07/17 10:13 107 24 92 Nasal Cannula 3.0 32 11/07/17 09:40 113 20 118/76 (90) 95 11/07/17 09:09 98.7 106 20 92/53 (66) 100 98.7 11/07/17 09:00 Nasal Cannula 2.0 Nasal Cannula 2.0 11/07/17 08:30 115 20 102/67 (79) 95 11/07/17 08:00 98.7 106 20 92/53 (66) 100 98.7 11/07/17 07:59 113 22 97 Nasal Cannula 3.0 32 11/07/17 07:50 95 Nasal Cannula 3.0 32 11/07/17 07:50 111 24 95 Nasal Cannula 3.0 32 11/07/17 07:50 Nasal Cannula 3.0 32 11/07/17 07:50 111 24 Nasal Cannula 3.0 32 11/07/17 06:00 97.6 110 20 100/65 (77) 98 97.6 11/07/17 03:28 101 20 99 Nasal Cannula 2.0 28 11/07/17 03:20 102 20 96 Nasal Cannula 2.0 28 11/07/17 00:00 97.7 107 18 114/61 (78) 94 97.7 11/06/17 23:12 105 22 99 Nasal Cannula 2.0 28 11/06/17 23:04 107 22 97 Nasal Cannula 2.0 28 General Appearance: no apparent distress EENT: PERRL/EOMI, normal ENT inspection Neck: non-tender, normal alignment, supple, no JVD Rhythm: Afib, SVT Cardiovascular: normal peripheral pulses, regular rhythm, tachycardia, arrhythmia Respiratory/Chest: chest wall non-tender, lungs clear, no respiratory distress Abdomen: normal bowel sounds, non tender, soft, no organomegaly, no mass Extremities: normal range of motion, non-tender 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6-14.8) Platelet Count 135 K/UL (150-450) L Mean Platelet Volume 9.4 FL (6.5-10.1) Neutrophils (%) (Auto) 72.2 % (45.0-75.0) Lymphocytes (%) (Auto) 22.4 % (20.0-45.0) Monocytes (%) (Auto) 4.0 % (1.0-10.0) Eosinophils (%) (Auto) 0.5 % (0.0-3.0) Basophils (%) (Auto) 1.0 % (0.0-2.0) Sodium Level 135 MMOL/L (136-145) L Potassium Level 3.1 MMOL/L (3.5-5.1) L Chloride Level 94 MMOL/L (98-107) L Carbon Dioxide Level 36 MMOL/L (21-32) H Anion Gap 5 mmol/L (5-15) Blood Urea Nitrogen 34 mg/dL (7-18) H Creatinine 0.7 MG/DL (0.55-1.30) Estimat Glomerular Filtration Rate mL/min (>60) Glucose Level 198 MG/DL (74-106) H Calcium Level 8.7 MG/DL (8.5-10.1) Magnesium Level 2.1 MG/DL (1.8-2.4) Troponin I 0.166 ng/mL (0.000-0.056) Cy Choi M.D. Nov 07, 2017 22:12
--- NOTE | 2017-11-08 00:01 | General Progress Note ---
Assessment/Plan Assessment/Plan MDD Anxiety d/o depakote 1000mg qhs provided ro/st Subjective Date patient seen: Nov 07, 2017 Allergies: Coded Allergies: PENICILLINS (Verified Allergy, Unknown, 04/08/17) Subjective the pt is irritable Objective Last 24 Hour Vital Signs Date Time Temp Pulse Resp B/P (MAP) Pulse Ox O2 Delivery O2 Flow Rate FiO2 11/07/17 23:42 98.4 95 18 119/67 (84) 97 98.4 11/07/17 21:09 99 112/71 11/07/17 21:09 112/71 11/07/17 21:09 99 112/71 11/07/17 21:00 Nasal Cannula 2.0 11/07/17 20:00 99 11/07/17 20:00 98.6 99 18 112/71 (85) 97 98.6 11/07/17 19:31 108 22 97 Nasal Cannula 3.0 32 11/07/17 19:21 Nasal Cannula 3.0 32 11/07/17 19:21 99 24 95 Nasal Cannula 3.0 32 11/07/17 19:21 95 Nasal Cannula 3.0 32 11/07/17 16:00 105 11/07/17 15:56 98.4 116 21 142/91 (108) 97 98.4 11/07/17 15:32 110 22 96 Nasal Cannula 3.0 32 11/07/17 15:24 109 24 94 Nasal Cannula 3.0 32 11/07/17 12:00 103 11/07/17 12:00 98.1 111 20 110/77 (88) 95 98.1 11/07/17 10:24 107 22 95 Nasal Cannula 3.0 32 11/07/17 10:13 107 24 92 Nasal Cannula 3.0 32 11/07/17 09:40 113 20 118/76 (90) 95 11/07/17 09:09 98.7 106 20 92/53 (66) 100 98.7 11/07/17 09:00 Nasal Cannula 2.0 Nasal Cannula 2.0 11/07/17 08:30 115 20 102/67 (79) 95 11/07/17 08:00 98.7 106 20 92/53 (66) 100 98.7 11/07/17 07:59 113 22 97 Nasal Cannula 3.0 32 11/07/17 07:50 95 Nasal Cannula 3.0 32 11/07/17 07:50 111 24 95 Nasal Cannula 3.0 32 11/07/17 07:50 Nasal Cannula 3.0 32 11/07/17 07:50 111 24 Nasal Cannula 3.0 32 11/07/17 06:00 97.6 110 20 100/65 (77) 98 97.6 11/07/17 03:28 101 20 99 Nasal Cannula 2.0 28 11/07/17 03:20 102 20 96 Nasal Cannula 2.0 28 Intake and Output 11/07/17 11/08/17 19:00 07:00 Intake Total 800 ml Output Total 650 ml 150 ml Balance 150 ml -150 ml Intake Oral 700 ml IV Total 100 ml Output Urine Total 650 ml 150 ml # Voids 2 1 Laboratory Tests 11/07/17 05:50: White Blood Count 9.8, Red Blood Count 4.67L, Hemoglobin 15.5, Hematocrit 45.1, Mean Corpuscular Volume 97, Mean Corpuscular Hemoglobin 33.2H, Mean Corpuscular Hemoglobin Concent 34.3, Red Cell Distribution Width 12.7, Platelet Count 135L, Mean Platelet Volume 9.4, Neutrophils (%) (Auto) 72.2, Lymphocytes (%) (Auto) 22.4, Monocytes (%) (Auto) 4.0, Eosinophils (%) (Auto) 0.5, Basophils (%) (Auto ) 1.0, Sodium Level 135L, Potassium Level 3.1L, Chloride Level 94L, Carbon Dioxide Level 36H, Anion Gap 5, Blood Urea Nitrogen 34H, Creatinine 0.7, Estimat Glomerular Filtration Rate , Glucose Level 198H, Calcium Level 8.7, Magnesium Level 2.1, Troponin I 0.166H Height (Feet): 6 Height (Inches): 0.00 Weight (Pounds): 178 Carley Rangel MD Nov 08, 2017 00:01
[2017-11-08] MEDS: Albuterol/Ipratropium 3ml neb HHN SCH ×7 (00:18→23:37)
[2017-11-08 04:00] VITALS: BP 96/50
[2017-11-08] MEDS: NovoLOG Insulin Flexpen SUBQ SCH ×4 (06:22→22:08)
[2017-11-08 08:00] VITALS: BP 99/65
[2017-11-08 08:05] LABS: ANION GAP 4 mmol/L (5-15); BLOOD UREA NITROGEN 23 mg/dL (7-18); CALCIUM 8.8 MG/DL (8.5-10.1); CARBON DIOXIDE 32 MMOL/L (21-32); CHLORIDE 100 MMOL/L (98-107); CREATININE 0.5 MG/DL (0.55-1.30); SODIUM 136 MMOL/L (136-145)
[2017-11-08 08:31] LABS: BASOPHILS % (AUTO) 1.1 % (0.0-2.0); EOSINOPHILS % (AUTO) 0.6 % (0.0-3.0); HEMATOCRIT 43.4 % (42.0-52.0); HEMOGLOBIN 14.9 G/DL (14.2-18.0); LYMPHOCYTES % (AUTO) 22.2 % (20.0-45.0); MEAN CORPUSCULAR VOLUME 97 FL (80-99); MONOCYTES % (AUTO) 3.6 % (1.0-10.0); NEUTROPHILS % (AUTO) 72.5 % (45.0-75.0); PLATELET COUNT 115 K/UL (150-450); RED BLOOD COUNT 4.46 M/UL (4.70-6.10); RED CELL DISTRIBUTION WIDTH 12.5 % (11.6-14.8); WHITE BLOOD COUNT 10.8 K/UL (4.8-10.8)
[2017-11-08] MEDS ORDERED: Levemir Flexpen SUBQ SCH (09:00)
[2017-11-08] MEDS: Carvedilol 6.25mg Tab ORAL SCH ×2 (09:00→21:00)
[2017-11-08] MEDS ORDERED: Furosemide 40mg tab ORAL SCH (09:00)
[2017-11-08] MEDS ORDERED: Aspirin Baby 81mg NG SCH (09:00)
[2017-11-08] MEDS: Metoprolol Tartrate 50mg tab ORAL SCH ×2 (09:31→21:00)
[2017-11-08] MEDS: Enalapril 5mg tab ORAL SCH ×2 (09:33→21:00)
--- NOTE | 2017-11-08 11:28 | Pulmonology Progress Note ---
Assessment/Plan Problems: (1) Atrial flutter with rapid ventricular response (2) Acute respiratory failure Assessment & Plan: better (3) COPD exacerbation (4) NSTEMI (non-ST elevated myocardial infarction) (5) Diabetes mellitus (6) Hypertension Assessment/Plan feeling better monitor heart rate in teli ( heart rate controlled) dc Theophylline f/u troponin respiratory treatment less cough on lasix to 40 daily echo reviewed sliding scale diabetic diet pt wants short term rehab. Subjective ROS Limited/Unobtainable: No Constitutional: Reports: no symptoms HEENT: Repors: no symptoms Respiratory: Reports: no symptoms Allergies: Coded Allergies: PENICILLINS (Verified Allergy, Unknown, 04/08/17) Objective Last 24 Hour Vital Signs Date Time Temp Pulse Resp B/P (MAP) Pulse Ox O2 Delivery O2 Flow Rate FiO2 11/08/17 10:56 80 20 100 Nasal Cannula 3.0 32 11/08/17 10:47 75 20 98 Nasal Cannula 3.0 32 11/08/17 09:33 99/65 11/08/17 09:31 66 96/65 11/08/17 09:00 66 99/65 11/08/17 08:00 97.7 66 20 99/65 (76) 97 97.7 11/08/17 08:00 66 11/08/17 07:59 78 24 100 Nasal Cannula 3.0 32 11/08/17 07:50 78 24 98 Nasal Cannula 3.0 32 11/08/17 07:49 98 Nasal Cannula 3.0 32 11/08/17 07:49 Nasal Cannula 3.0 32 11/08/17 04:00 64 11/08/17 04:00 98.3 66 18 96/50 (65) 97 98.3 11/08/17 02:40 92 24 95 Nasal Cannula 3.0 32 11/08/17 02:40 92 24 95 Nasal Cannula 3.0 32 11/08/17 00:28 89 22 95 Nasal Cannula 3.0 32 11/08/17 00:18 87 24 91 Room Air 21 11/08/17 00:00 87 11/07/17 23:42 98.4 95 18 119/67 (84) 97 98.4 11/07/17 21:09 99 112/71 11/07/17 21:09 112/71 11/07/17 21:09 99 112/71 11/07/17 21:00 Nasal Cannula 2.0 11/07/17 20:00 99 11/07/17 20:00 98.6 99 18 112/71 (85) 97 98.6 11/07/17 19:31 108 22 97 Nasal Cannula 3.0 32 11/07/17 19:21 Nasal Cannula 3.0 32 11/07/17 19:21 99 24 95 Nasal Cannula 3.0 32 11/07/17 19:21 95 Nasal Cannula 3.0 32 11/07/17 16:00 105 11/07/17 15:56 98.4 116 21 142/91 (108) 97 98.4 11/07/17 15:32 110 22 96 Nasal Cannula 3.0 32 11/07/17 15:24 109 24 94 Nasal Cannula 3.0 32 11/07/17 12:00 103 11/07/17 12:00 98.1 111 20 110/77 (88) 95 98.1 Intake and Output 11/07/17 11/08/17 19:00 07:00 Intake Total 800 ml 360 ml Output Total 650 ml 150 ml Balance 150 ml 210 ml Intake Oral 700 ml 360 ml IV Total 100 ml Output Urine Total 650 ml 150 ml # Voids 2 5 General Appearance: WD/WN HEENT: normocephalic, anicteric Respiratory/Chest: chest wall non-tender, normal breath sounds Cardiovascular: normal peripheral pulses, normal rate Abdomen: normal bowel sounds, soft, non tender Laboratory Tests 11/08/17 07:38: White Blood Count 10.8, Red Blood Count 4.46L, Hemoglobin 14.9, Hematocrit 43.4 , Mean Corpuscular Volume 97, Mean Corpuscular Hemoglobin 33.3H, Mean Corpuscular Hemoglobin Concent 34.2, Red Cell Distribution Width 12.5, Platelet Count 115L, Mean Platelet Volume 9.3, Neutrophils (%) (Auto) 72.5, Lymphocytes ( %) (Auto) 22.2, Monocytes (%) (Auto) 3.6, Eosinophils (%) (Auto) 0.6, Basophils (%) (Auto) 1.1, Sodium Level 136, Potassium Level 4.0, Chloride Level 100, Carbon Dioxide Level 32, Anion Gap 4L, Blood Urea Nitrogen 23H, Creatinine 0.5L , Estimat Glomerular Filtration Rate , Glucose Level 126H, Calcium Level 8.8 Current Medications Medications (Trade) Dose Ordered Sig/Evi Route PRN Reason Start Time Stop Time Status Last Admin Dose Admin Acetaminophen (Tylenol) 650 mg Q4H PRN ORAL fever 11/07/17 12:00 12/01/17 11:59 Albuterol/ Ipratropium (Albuterol/ Ipratropium) 3 ml Q4HRT HHN 11/07/17 15:00 11/09/17 06:59 11/08/17 10:47 Aspirin (ASA) 81 mg DAILY NG 11/08/17 09:00 12/03/17 08:59 11/08/17 09:32 Carvedilol (Coreg) 6.25 mg EVERY 12 HOURS ORAL 11/07/17 21:00 12/01/17 20:59 11/07/17 21:09 Clonidine HCl (Catapres Tab) 0.1 mg Q4H PRN ORAL sbp more than 160 11/07/17 12:00 12/01/17 11:59 Dextrose (Dextrose 50%) 25 ml STAT PRN IV Hypoglycemia 11/07/17 12:00 12/01/17 11:59 Enalapril Maleate (Vasotec) 5 mg EVERY 12 HOURS ORAL 11/07/17 21:00 12/01/17 20:59 11/08/17 09:33 Escitalopram Oxalate (Lexapro) 10 mg DAILY ORAL 11/08/17 09:00 12/04/17 12:14 11/08/17 09:32 Furosemide (Lasix) 40 mg DAILY ORAL 11/08/17 09:00 12/07/17 08:59 11/08/17 09:34 Heparin Sodium (Porcine) (Heparin 5000 units/ml) 5,000 units EVERY 12 HOURS SUBQ 11/08/17 21:00 12/08/17 20:59 Insulin Aspart (NovoLOG) BEFORE MEALS AND HS SUBQ 11/07/17 11:30 12/01/17 20:59 11/08/17 06:22 Insulin Detemir (Levemir) 15 units DAILY SUBQ 11/08/17 09:00 12/05/17 09:59 11/08/17 09:45 Levofloxacin 100 ml @ 100 mls/hr Q24H IVPB 11/07/17 12:00 11/09/17 11:59 11/07/17 11:53 Metoprolol Tartrate (Lopressor) 50 mg Q12HR ORAL 11/07/17 21:00 12/07/17 20:59 11/08/17 09:31 Nitroglycerin (Ntg) 0.4 mg Q5M X 3 DOSES PRN SL Prn Chest Pain 11/07/17 11:15 12/01/17 13:09 Ondansetron HCl (Zofran) 4 mg Q6H PRN IVP Nausea & Vomiting 11/07/17 12:15 12/01/17 12:14 Prednisone (predniSONE) 20 mg DAILY ORAL 11/08/17 09:00 12/07/17 10:14 11/08/17 09:31 Promethazine HCl/ Codeine (Phenergan with Codeine) 5 ml Q6H PRN ORAL cough 11/07/17 12:00 12/01/17 11:59 Temazepam (Restoril) 15 mg HSPRN PRN ORAL Insomnia 11/07/17 21:00 11/08/17 20:59 11/07/17 21:15 Mikie Gray MD Nov 08, 2017 11:28
[2017-11-08] MEDS ORDERED: FUROSEMIDE40 MG ORAL (11:30)
[2017-11-08] MEDS ORDERED: RESTORIL15 MG ORAL (11:30)
[2017-11-08] MEDS ORDERED: METOPROLOL TART50 MG ORAL (11:30)
--- NOTE | 2017-11-08 11:56 | General Progress Note ---
Assessment/Plan Status: stable Assessment/Plan MDD Anxiety d/o depakote 1000mg qhs provided ro/st Subjective Date patient seen: Nov 08, 2017 Neurologic/Psychiatric: Reports: anxiety, depressed Allergies: Coded Allergies: PENICILLINS (Verified Allergy, Unknown, 04/08/17) Subjective the pt is less irritable.napping. he still wants to go to [facility] "my doctors are there." Objective Last 24 Hour Vital Signs Date Time Temp Pulse Resp B/P (MAP) Pulse Ox O2 Delivery O2 Flow Rate FiO2 11/08/17 10:56 80 20 100 Nasal Cannula 3.0 32 11/08/17 10:47 75 20 98 Nasal Cannula 3.0 32 11/08/17 09:33 99/65 11/08/17 09:31 66 96/65 11/08/17 09:00 Nasal Cannula 2.0 11/08/17 09:00 66 99/65 11/08/17 08:00 97.7 66 20 99/65 (76) 97 97.7 11/08/17 08:00 66 11/08/17 07:59 78 24 100 Nasal Cannula 3.0 32 11/08/17 07:50 78 24 98 Nasal Cannula 3.0 32 11/08/17 07:49 98 Nasal Cannula 3.0 32 11/08/17 07:49 Nasal Cannula 3.0 32 11/08/17 04:00 64 11/08/17 04:00 98.3 66 18 96/50 (65) 97 98.3 11/08/17 02:40 92 24 95 Nasal Cannula 3.0 32 11/08/17 02:40 92 24 95 Nasal Cannula 3.0 32 11/08/17 00:28 89 22 95 Nasal Cannula 3.0 32 11/08/17 00:18 87 24 91 Room Air 21 11/08/17 00:00 87 11/07/17 23:42 98.4 95 18 119/67 (84) 97 98.4 11/07/17 21:09 99 112/71 11/07/17 21:09 112/71 11/07/17 21:09 99 112/71 11/07/17 21:00 Nasal Cannula 2.0 11/07/17 20:00 99 11/07/17 20:00 98.6 99 18 112/71 (85) 97 98.6 11/07/17 19:31 108 22 97 Nasal Cannula 3.0 32 11/07/17 19:21 Nasal Cannula 3.0 32 11/07/17 19:21 99 24 95 Nasal Cannula 3.0 32 11/07/17 19:21 95 Nasal Cannula 3.0 32 11/07/17 16:00 105 11/07/17 15:56 98.4 116 21 142/91 (108) 97 98.4 11/07/17 15:32 110 22 96 Nasal Cannula 3.0 32 11/07/17 15:24 109 24 94 Nasal Cannula 3.0 32 11/07/17 12:00 103 11/07/17 12:00 98.1 111 20 110/77 (88) 95 98.1 Intake and Output 11/07/17 11/08/17 19:00 07:00 Intake Total 800 ml 360 ml Output Total 650 ml 150 ml Balance 150 ml 210 ml Intake Oral 700 ml 360 ml IV Total 100 ml Output Urine Total 650 ml 150 ml # Voids 2 5 Laboratory Tests 11/08/17 07:38: White Blood Count 10.8, Red Blood Count 4.46L, Hemoglobin 14.9, Hematocrit 43.4 , Mean Corpuscular Volume 97, Mean Corpuscular Hemoglobin 33.3H, Mean Corpuscular Hemoglobin Concent 34.2, Red Cell Distribution Width 12.5, Platelet Count 115L, Mean Platelet Volume 9.3, Neutrophils (%) (Auto) 72.5, Lymphocytes ( %) (Auto) 22.2, Monocytes (%) (Auto) 3.6, Eosinophils (%) (Auto) 0.6, Basophils (%) (Auto) 1.1, Sodium Level 136, Potassium Level 4.0, Chloride Level 100, Carbon Dioxide Level 32, Anion Gap 4L, Blood Urea Nitrogen 23H, Creatinine 0.5L , Estimat Glomerular Filtration Rate , Glucose Level 126H, Calcium Level 8.8 Height (Feet): 6 Height (Inches): 0.00 Weight (Pounds): 179 General Appearance: no apparent distress, alert Neurologic: oriented x 3, responsive, depressed affect Carley Rangel MD Nov 08, 2017 11:56
[2017-11-08 12:00] VITALS: BP 98/71
--- NOTE | 2017-11-08 15:43 | Cardiology Progress Note ---
Assessment/Plan Status: stable Assessment/Plan Assessment CHF - diastolic dysfunction CAD LE edema COPD Smoking history Diabetes Atrial flutter Plan: Echocardiogram reviewed; normal LV function, no WMA, no valve issues, grade 1 diastolic dysfunction Patient had recent ischemia evaluation that was normal Continue Statin Continue lasix,patient responding well Potassium supplementation while on lasix Continue enalapril Monitor renal function while on enalapril and lasix Ambulate Continue coreg for rate control and hypertension Continue aspirin Continue breathing treatments, steroids, pulmonary rehab Insulin, strict glucose control due to chronic steroid use Physical therapy Discharge today Subjective Cardiovascular: Reports: no symptoms Respiratory: Reports: no symptoms Gastrointestinal/Abdominal: Reports: no symptoms Genitourinary: Reports: no symptoms Subjective Breathing has improved, no distress, no CP Patient had outpatient stress that that was normal. patient complain of ecchymosis over arms and leg edema Leg edema improving with lasix Patient had atrial flutter rates 110-130 but now in NSR No complaints feeling better Objective Last 24 Hour Vital Signs Date Time Temp Pulse Resp B/P (MAP) Pulse Ox O2 Delivery O2 Flow Rate FiO2 11/08/17 15:27 Nasal Cannula 11/08/17 15:26 Nasal Cannula 11/08/17 12:00 98.4 67 20 98/71 (80) 99 98.4 11/08/17 12:00 60 11/08/17 10:56 80 20 100 Nasal Cannula 3.0 32 11/08/17 10:47 75 20 98 Nasal Cannula 3.0 32 11/08/17 09:33 99/65 11/08/17 09:31 66 96/65 11/08/17 09:00 Nasal Cannula 2.0 11/08/17 09:00 66 99/65 11/08/17 08:00 97.7 66 20 99/65 (76) 97 97.7 11/08/17 08:00 66 11/08/17 07:59 78 24 100 Nasal Cannula 3.0 32 11/08/17 07:50 78 24 98 Nasal Cannula 3.0 32 11/08/17 07:49 98 Nasal Cannula 3.0 32 11/08/17 07:49 Nasal Cannula 3.0 32 11/08/17 04:00 64 11/08/17 04:00 98.3 66 18 96/50 (65) 97 98.3 11/08/17 02:40 92 24 95 Nasal Cannula 3.0 32 11/08/17 02:40 92 24 95 Nasal Cannula 3.0 32 11/08/17 00:28 89 22 95 Nasal Cannula 3.0 32 11/08/17 00:18 87 24 91 Room Air 21 11/08/17 00:00 87 11/07/17 23:42 98.4 95 18 119/67 (84) 97 98.4 11/07/17 21:09 99 112/71 11/07/17 21:09 112/71 11/07/17 21:09 99 112/71 11/07/17 21:00 Nasal Cannula 2.0 11/07/17 20:00 99 11/07/17 20:00 98.6 99 18 112/71 (85) 97 98.6 11/07/17 19:31 108 22 97 Nasal Cannula 3.0 32 11/07/17 19:21 Nasal Cannula 3.0 32 11/07/17 19:21 99 24 95 Nasal Cannula 3.0 32 11/07/17 19:21 95 Nasal Cannula 3.0 32 11/07/17 16:00 105 11/07/17 15:56 98.4 116 21 142/91 (108) 97 98.4 General Appearance: no apparent distress, alert, mild distress EENT: normal ENT inspection Neck: non-tender, normal alignment, supple Rhythm: NSR Cardiovascular: normal peripheral pulses, normal rate Respiratory/Chest: chest wall non-tender, lungs clear, normal breath sounds Abdomen: normal bowel sounds, non tender Extremities: normal range of motion, non-tender 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 Intake and Output 11/07/17 11/08/17 19:00 07:00 Intake Total 800 ml 360 ml Output Total 650 ml 150 ml Balance 150 ml 210 ml Intake Oral 700 ml 360 ml IV Total 100 ml Output Urine Total 650 ml 150 ml # Voids 2 5 Laboratory Tests Test 11/08/17 07:38 White Blood Count 10.8 K/UL (4.8-10.8) Red Blood Count 4.46 M/UL (4.70-6.10) L Hemoglobin 14.9 G/DL (14.2-18.0) Hematocrit 43.4 % (42.0-52.0) Mean Corpuscular Volume 97 FL (80-99) Mean Corpuscular Hemoglobin 33.3 PG (27.0-31.0) H Mean Corpuscular Hemoglobin Concent 34.2 G/DL (32.0-36.0) Red Cell Distribution Width 12.5 % (11.6-14.8) Platelet Count 115 K/UL (150-450) L Mean Platelet Volume 9.3 FL (6.5-10.1) Neutrophils (%) (Auto) 72.5 % (45.0-75.0) Lymphocytes (%) (Auto) 22.2 % (20.0-45.0) Monocytes (%) (Auto) 3.6 % (1.0-10.0) Eosinophils (%) (Auto) 0.6 % (0.0-3.0) Basophils (%) (Auto) 1.1 % (0.0-2.0) Sodium Level 136 MMOL/L (136-145) Potassium Level 4.0 MMOL/L (3.5-5.1) Chloride Level 100 MMOL/L (98-107) Carbon Dioxide Level 32 MMOL/L (21-32) Anion Gap 4 mmol/L (5-15) L Blood Urea Nitrogen 23 mg/dL (7-18) H Creatinine 0.5 MG/DL (0.55-1.30) L Estimat Glomerular Filtration Rate mL/min (>60) Glucose Level 126 MG/DL (74-106) H Calcium Level 8.8 MG/DL (8.5-10.1) Cy Choi M.D. Nov 08, 2017 15:43
[2017-11-08 16:00] VITALS: BP 110/69
--- NOTE | 2017-11-08 16:33 | Internal Med Progress Note ---
Subjective Date of Service: Nov 08, 2017 Physician Name Danielito Thomas Attending Physician Gadiel Ramírez MD Current Medications Medications (Trade) Dose Ordered Sig/Evi Route PRN Reason Start Time Stop Time Status Last Admin Dose Admin Acetaminophen (Tylenol) 650 mg Q4H PRN ORAL fever 11/07/17 12:00 12/01/17 11:59 Albuterol/ Ipratropium (Albuterol/ Ipratropium) 3 ml Q4HRT HHN 11/07/17 15:00 11/09/17 06:59 11/08/17 10:47 Aspirin (ASA) 81 mg DAILY NG 11/08/17 09:00 12/03/17 08:59 11/08/17 09:32 Carvedilol (Coreg) 6.25 mg EVERY 12 HOURS ORAL 11/07/17 21:00 12/01/17 20:59 11/07/17 21:09 Clonidine HCl (Catapres Tab) 0.1 mg Q4H PRN ORAL sbp more than 160 11/07/17 12:00 12/01/17 11:59 Dextrose (Dextrose 50%) 25 ml STAT PRN IV Hypoglycemia 11/07/17 12:00 12/01/17 11:59 Enalapril Maleate (Vasotec) 5 mg EVERY 12 HOURS ORAL 11/07/17 21:00 12/01/17 20:59 11/08/17 09:33 Escitalopram Oxalate (Lexapro) 10 mg DAILY ORAL 11/08/17 09:00 12/04/17 12:14 11/08/17 09:32 Furosemide (Lasix) 40 mg DAILY ORAL 11/08/17 09:00 12/07/17 08:59 11/08/17 09:34 Heparin Sodium (Porcine) (Heparin 5000 units/ml) 5,000 units EVERY 12 HOURS SUBQ 11/08/17 21:00 12/08/17 20:59 Insulin Aspart (NovoLOG) BEFORE MEALS AND HS SUBQ 11/07/17 11:30 12/01/17 20:59 11/08/17 12:46 Insulin Detemir (Levemir) 15 units DAILY SUBQ 11/08/17 09:00 12/05/17 09:59 11/08/17 09:45 Levofloxacin 100 ml @ 100 mls/hr Q24H IVPB 11/07/17 12:00 8/1/18 11:59 11/08/17 13:26 Metoprolol Tartrate (Lopressor) 50 mg Q12HR ORAL 11/07/17 21:00 12/07/17 20:59 11/08/17 09:31 Nitroglycerin (Ntg) 0.4 mg Q5M X 3 DOSES PRN SL Prn Chest Pain 11/07/17 11:15 12/01/17 13:09 Ondansetron HCl (Zofran) 4 mg Q6H PRN IVP Nausea & Vomiting 11/07/17 12:15 12/01/17 12:14 Prednisone (predniSONE) 20 mg DAILY ORAL 11/08/17 09:00 12/07/17 10:14 11/08/17 09:31 Promethazine HCl/ Codeine (Phenergan with Codeine) 5 ml Q6H PRN ORAL cough 11/07/17 12:00 12/01/17 11:59 Temazepam (Restoril) 15 mg HSPRN PRN ORAL Insomnia 11/07/17 21:00 11/08/17 20:59 11/07/17 21:15 Allergies: Coded Allergies: PENICILLINS (Verified Allergy, Unknown, 04/08/17) ROS Limited/Unobtainable: No Constitutional: Reports: no symptoms HEENT: Reports: no symptoms Cardiovascular: Reports: no symptoms Respiratory: Reports: no symptoms Gastrointestinal/Abdominal: Reports: no symptoms Genitourinary: Reports: no symptoms Neurologic/Psychiatric: Reports: no symptoms Subjective 72 YO M admitted with chief complaint of shortness of breath- COPD exacerbation. Now atrial flutter. Cover for Int Med-Dr Ramírez. Await discharge to SNF today Objective Last Vital Signs Date Time Temp Pulse Resp B/P (MAP) Pulse Ox O2 Delivery O2 Flow Rate FiO2 11/08/17 15:27 Nasal Cannula 11/08/17 12:00 98.4 67 20 98/71 (80) 99 98.4 11/08/17 10:56 3.0 32 Laboratory Tests Test 11/08/17 07:38 White Blood Count 10.8 K/UL (4.8-10.8) Red Blood Count 4.46 M/UL (4.70-6.10) L Hemoglobin 14.9 G/DL (14.2-18.0) Hematocrit 43.4 % (42.0-52.0) Mean Corpuscular Volume 97 FL (80-99) Mean Corpuscular Hemoglobin 33.3 PG (27.0-31.0) H Mean Corpuscular Hemoglobin Concent 34.2 G/DL (32.0-36.0) Red Cell Distribution Width 12.5 % (11.6-14.8) Platelet Count 115 K/UL (150-450) L Mean Platelet Volume 9.3 FL (6.5-10.1) Neutrophils (%) (Auto) 72.5 % (45.0-75.0) Lymphocytes (%) (Auto) 22.2 % (20.0-45.0) Monocytes (%) (Auto) 3.6 % (1.0-10.0) Eosinophils (%) (Auto) 0.6 % (0.0-3.0) Basophils (%) (Auto) 1.1 % (0.0-2.0) Sodium Level 136 MMOL/L (136-145) Potassium Level 4.0 MMOL/L (3.5-5.1) Chloride Level 100 MMOL/L (98-107) Carbon Dioxide Level 32 MMOL/L (21-32) Anion Gap 4 mmol/L (5-15) L Blood Urea Nitrogen 23 mg/dL (7-18) H Creatinine 0.5 MG/DL (0.55-1.30) L Estimat Glomerular Filtration Rate mL/min (>60) Glucose Level 126 MG/DL (74-106) H Calcium Level 8.8 MG/DL (8.5-10.1) Intake and Output 11/07/17 11/08/17 19:00 07:00 Intake Total 800 ml 360 ml Output Total 650 ml 150 ml Balance 150 ml 210 ml Intake Oral 700 ml 360 ml IV Total 100 ml Output Urine Total 650 ml 150 ml # Voids 2 5 Objective General Appearance: WD/WN, no apparent distress, alert EENT: PERRL/EOMI, normal ENT inspection Neck: non-tender, normal alignment, supple Cardiovascular: Tachycardia; normal peripheral pulses, regular rhythm, no gallop/murmur, no JVD Respiratory/Chest: chest wall non-tender, lungs clear, normal breath sounds, no respiratory distress, no accessory muscle use Abdomen: normal bowel sounds, non tender, soft, no organomegaly, no mass Extremities: normal range of motion, non-tender Edema: mild edema 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 Continue IV solumedrol and albuterol nebs- see pulmonary note. Increase IV lasix-see cardiology note. (3) Hypercholesterolemia (4) Irritable bowel syndrome (5) Hypertension Assessment & Plan: Continue coreg (6) COPD exacerbation (7) Edema Assessment & Plan: ?CHF? echo=55-60% Increase lasix (8) Diabetes mellitus Assessment & Plan: Continue novolog sliding scale. (9) Bronchitis Assessment & Plan: Continue levaquin (10) Atrial flutter with rapid ventricular response Assessment & Plan: Transfer to [id number]. Status: stable Assessment/Plan Discharge to [facility] fac today Danielito Thomas MD Nov 08, 2017 16:33
[2017-11-08 20:00] VITALS: BP 107/60
[2017-11-08] MEDS ORDERED: Heparin 5000 units/ml inj SUBQ SCH (21:00)
[2017-11-08] MEDS ORDERED: Albuterol/Ipratropium 3ml neb ONE (23:32)
[2017-11-09] VITALS: BP 84/51
[2017-11-09] MEDS ORDERED: Promethazine/Codeine 5ml UD ORAL PRN (00:30)
[2017-11-09] MEDS ORDERED: Nitroglycerin Subl 0.4mg tab SL PRN (00:30)
[2017-11-09] MEDS: Albuterol/Ipratropium 3ml neb HHN SCH ×6 (02:43→23:40)
[2017-11-09 04:00] VITALS: BP 94/54
[2017-11-09] MEDS: NovoLOG Insulin Flexpen SUBQ SCH ×4 (06:30→21:35)
[2017-11-09 08:00] VITALS: BP 103/69
[2017-11-09] MEDS: Enalapril 5mg tab ORAL SCH ×2 (09:00→21:00)
[2017-11-09] MEDS: Carvedilol 6.25mg Tab ORAL SCH ×2 (09:00→21:00)
[2017-11-09] MEDS: Metoprolol Tartrate 50mg tab ORAL SCH ×2 (09:00→21:34)
[2017-11-09] MEDS: Aspirin Baby 81mg ORAL SCH (10:31)
[2017-11-09] MEDS: Furosemide 40mg tab ORAL SCH (10:31)
[2017-11-09] MEDS: Levemir Flexpen SUBQ SCH (10:37)
--- NOTE | 2017-11-09 11:17 | Internal Med Progress Note ---
Subjective Date of Service: Nov 09, 2017 Physician Name MarthaDanielito Attending Physician Gadiel Ramírez MD Current Medications Medications (Trade) Dose Ordered Sig/Evi Route PRN Reason Start Time Stop Time Status Last Admin Dose Admin Acetaminophen (Tylenol) 650 mg Q4H PRN ORAL Mild Pain/Temp > 100.5 11/09/17 00:30 12/09/17 00:29 11/09/17 06:13 Albuterol/ Ipratropium (Albuterol/ Ipratropium) 3 ml Q4HRT HHN 11/09/17 03:00 11/14/17 02:59 Aspirin (ASA) 81 mg DAILY ORAL 11/09/17 09:00 12/09/17 08:59 11/09/17 10:31 Carvedilol (Coreg) 6.25 mg EVERY 12 HOURS ORAL 11/09/17 09:00 12/09/17 08:59 Clonidine HCl (Catapres Tab) 0.1 mg Q4H PRN ORAL For High Blood Pressure 11/09/17 00:30 12/09/17 00:29 Dextrose (Dextrose 50%) 25 ml STAT PRN IV Hypoglycemia 11/09/17 00:30 12/09/17 00:29 Dextrose (Dextrose 50%) 50 ml STAT PRN IV Hypoglycemia 11/09/17 00:30 12/09/17 00:29 Enalapril Maleate (Vasotec) 5 mg EVERY 12 HOURS ORAL 11/09/17 09:00 12/09/17 08:59 Escitalopram Oxalate (Lexapro) 10 mg DAILY ORAL 11/09/17 09:00 12/09/17 08:59 11/09/17 10:30 Furosemide (Lasix) 40 mg DAILY ORAL 11/09/17 09:00 12/09/17 08:59 11/09/17 10:31 Heparin Sodium (Porcine) (Heparin 5000 units/ml) 5,000 units EVERY 12 HOURS SUBQ 11/09/17 09:00 12/09/17 08:59 UNV Insulin Aspart (NovoLOG) BEFORE MEALS AND HS SUBQ 11/09/17 06:30 12/09/17 06:29 Insulin Detemir (Levemir) 15 units DAILY SUBQ 11/09/17 09:00 12/09/17 08:59 11/09/17 10:37 Levofloxacin 100 ml @ 100 mls/hr Q24H IVPB 11/09/17 12:00 11/13/17 11:59 Metoprolol Tartrate (Lopressor) 50 mg Q12HR ORAL 11/09/17 09:00 12/09/17 08:59 Nitroglycerin (Ntg) 0.4 mg Q5M PRN SL Prn Chest Pain 11/09/17 00:30 12/09/17 00:29 Ondansetron HCl (Zofran) 4 mg Q6H PRN IVP Nausea & Vomiting 11/09/17 00:30 12/09/17 00:29 Prednisone (predniSONE) 20 mg DAILY ORAL 11/09/17 09:00 12/09/17 08:59 11/09/17 10:31 Promethazine HCl/ Codeine (Phenergan with Codeine) 5 ml Q6HR PRN ORAL For Cough 11/09/17 00:30 12/09/17 00:29 Temazepam (Restoril) 15 mg HSPRN PRN ORAL Insomnia 11/08/17 23:45 11/15/17 23:44 11/09/17 00:20 Allergies: Coded Allergies: PENICILLINS (Verified Allergy, Unknown, 04/08/17) ROS Limited/Unobtainable: No Constitutional: Reports: no symptoms HEENT: Reports: no symptoms Cardiovascular: Reports: no symptoms Respiratory: Reports: shortness of breath Gastrointestinal/Abdominal: Reports: no symptoms Genitourinary: Reports: no symptoms Subjective 72 YO M admitted with chief complaint of shortness of breath- COPD exacerbation. Now atrial flutter. Cover for [facility]-Dr Ramírez. Patient discharged to [facility] yesterday. Patient requested transfer back to [facility]. Now awaiting transfer to [facility]. Objective Last Vital Signs Date Time Temp Pulse Resp B/P (MAP) Pulse Ox O2 Delivery O2 Flow Rate FiO2 11/09/17 08:00 97.0 69 20 103/69 (80) 99 97.0 11/09/17 07:39 Nasal Cannula 11/09/17 07:39 2.0 28 Intake and Output 11/08/17 11/09/17 19:00 07:00 Intake Total 720 ml 120 ml Balance 720 ml 120 ml Intake Oral 720 ml 120 ml Objective General Appearance: WD/WN, no apparent distress, alert EENT: PERRL/EOMI, normal ENT inspection Neck: non-tender, normal alignment, supple Cardiovascular: Tachycardia; normal peripheral pulses, regular rhythm, no gallop/murmur, no JVD Respiratory/Chest: chest wall non-tender, lungs clear, normal breath sounds, no respiratory distress, no accessory muscle use Abdomen: normal bowel sounds, non tender, soft, no organomegaly, no mass Extremities: normal range of motion, non-tender Edema: mild edema 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 Continue IV solumedrol and albuterol nebs- see pulmonary note. Increase IV lasix-see cardiology note. (3) Hypercholesterolemia (4) Irritable bowel syndrome (5) Hypertension Assessment & Plan: Continue coreg (6) COPD exacerbation (7) Edema Assessment & Plan: ?CHF? echo=55-60% Increase lasix (8) Diabetes mellitus Assessment & Plan: Continue novolog sliding scale. (9) Bronchitis Assessment & Plan: Continue levaquin (10) Atrial flutter with rapid ventricular response Assessment & Plan: Transfer to [id number]. Status: stable Assessment/Plan Discharge plan: Discharge to [facility] when bed available. D /W case management Danielito Thomas MD Nov 09, 2017 11:17
--- NOTE | 2017-11-09 11:25 | Pulmonology Progress Note ---
Assessment/Plan Problems: (1) Atrial flutter with rapid ventricular response (2) Acute respiratory failure Assessment & Plan: better (3) COPD exacerbation (4) NSTEMI (non-ST elevated myocardial infarction) (5) Diabetes mellitus (6) Hypertension Assessment/Plan feeling better monitor heart rate in teli ( heart rate controlled) f/u troponin respiratory treatment less cough on lasix to 40 daily echo reviewed sliding scale diabetic diet pt wants short term rehab. Subjective ROS Limited/Unobtainable: No Interval Events: pt was discharged to [facility] yesterday and came back Constitutional: Reports: no symptoms HEENT: Repors: no symptoms Respiratory: Reports: no symptoms Allergies: Coded Allergies: PENICILLINS (Verified Allergy, Unknown, 04/08/17) Objective Last 24 Hour Vital Signs Date Time Temp Pulse Resp B/P (MAP) Pulse Ox O2 Delivery O2 Flow Rate FiO2 11/09/17 08:00 97.0 69 20 103/69 (80) 99 97.0 11/09/17 07:39 Nasal Cannula 11/09/17 07:39 Nasal Cannula 2.0 28 11/09/17 07:39 Nasal Cannula 11/09/17 07:37 98 Nasal Cannula 2.0 28 11/09/17 04:00 97.6 74 20 94/54 (67) 94 97.6 11/09/17 04:00 69 11/09/17 02:44 Nasal Cannula 11/09/17 02:43 Nasal Cannula 11/09/17 00:00 68 11/09/17 00:00 97.5 75 20 84/51 (62) 98 97.5 11/08/17 23:46 60 18 98 Nasal Cannula 2.0 28 11/08/17 23:38 62 20 98 Nasal Cannula 2.0 28 11/08/17 23:37 Nasal Cannula 2.0 28 11/08/17 23:37 98 Nasal Cannula 2.0 28 11/08/17 21:00 82 107/60 11/08/17 21:00 107/60 11/08/17 21:00 82 107/60 11/08/17 21:00 Nasal Cannula 2.0 11/08/17 20:00 Nasal Cannula 2.0 11/08/17 20:00 96.8 82 20 107/60 (76) 96 96.8 11/08/17 20:00 81 11/08/17 16:00 71 11/08/17 16:00 97.3 65 20 110/69 (83) 97 97.3 11/08/17 15:27 Nasal Cannula 11/08/17 15:26 Nasal Cannula 11/08/17 12:00 98.4 67 20 98/71 (80) 99 98.4 11/08/17 12:00 60 Intake and Output 11/08/17 11/09/17 19:00 07:00 Intake Total 720 ml 120 ml Balance 720 ml 120 ml Intake Oral 720 ml 120 ml General Appearance: WD/WN HEENT: normocephalic, atraumatic, anicteric Respiratory/Chest: chest wall non-tender, normal breath sounds Cardiovascular: normal peripheral pulses, normal rate Abdomen: normal bowel sounds, soft, non tender Genitourinary: normal external genitalia Skin: no rash 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 Lymphatic: no neck adenopathy Current Medications Medications (Trade) Dose Ordered Sig/Evi Route PRN Reason Start Time Stop Time Status Last Admin Dose Admin Acetaminophen (Tylenol) 650 mg Q4H PRN ORAL Mild Pain/Temp > 100.5 11/09/17 00:30 12/09/17 00:29 11/09/17 06:13 Albuterol/ Ipratropium (Albuterol/ Ipratropium) 3 ml Q4HRT HHN 11/09/17 03:00 11/14/17 02:59 Aspirin (ASA) 81 mg DAILY ORAL 11/09/17 09:00 12/09/17 08:59 11/09/17 10:31 Carvedilol (Coreg) 6.25 mg EVERY 12 HOURS ORAL 11/09/17 09:00 12/09/17 08:59 Clonidine HCl (Catapres Tab) 0.1 mg Q4H PRN ORAL For High Blood Pressure 11/09/17 00:30 12/09/17 00:29 Dextrose (Dextrose 50%) 25 ml STAT PRN IV Hypoglycemia 11/09/17 00:30 12/09/17 00:29 Dextrose (Dextrose 50%) 50 ml STAT PRN IV Hypoglycemia 11/09/17 00:30 12/09/17 00:29 Enalapril Maleate (Vasotec) 5 mg EVERY 12 HOURS ORAL 11/09/17 09:00 12/09/17 08:59 Escitalopram Oxalate (Lexapro) 10 mg DAILY ORAL 11/09/17 09:00 12/09/17 08:59 11/09/17 10:30 Furosemide (Lasix) 40 mg DAILY ORAL 11/09/17 09:00 12/09/17 08:59 11/09/17 10:31 Heparin Sodium (Porcine) (Heparin 5000 units/ml) 5,000 units EVERY 12 HOURS SUBQ 11/09/17 09:00 12/09/17 08:59 UNV Insulin Aspart (NovoLOG) BEFORE MEALS AND HS SUBQ 11/09/17 06:30 12/09/17 06:29 Insulin Detemir (Levemir) 15 units DAILY SUBQ 11/09/17 09:00 12/09/17 08:59 11/09/17 10:37 Levofloxacin 100 ml @ 100 mls/hr Q24H IVPB 11/09/17 12:00 11/13/17 11:59 Metoprolol Tartrate (Lopressor) 50 mg Q12HR ORAL 11/09/17 09:00 12/09/17 08:59 Nitroglycerin (Ntg) 0.4 mg Q5M PRN SL Prn Chest Pain 11/09/17 00:30 12/09/17 00:29 Ondansetron HCl (Zofran) 4 mg Q6H PRN IVP Nausea & Vomiting 11/09/17 00:30 12/09/17 00:29 Prednisone (predniSONE) 20 mg DAILY ORAL 11/09/17 09:00 12/09/17 08:59 11/09/17 10:31 Promethazine HCl/ Codeine (Phenergan with Codeine) 5 ml Q6HR PRN ORAL For Cough 11/09/17 00:30 12/09/17 00:29 Temazepam (Restoril) 15 mg HSPRN PRN ORAL Insomnia 11/08/17 23:45 11/15/17 23:44 11/09/17 00:20 Mikie Gray MD Nov 09, 2017 11:25
[2017-11-09 12:00] VITALS: BP 99/77
--- NOTE | 2017-11-09 12:51 | General Progress Note ---
Assessment/Plan Status: stable, progressing Assessment/Plan MDD Anxiety d/o depakote 1000mg qhs provided ro/st Subjective Date patient seen: Nov 09, 2017 Neurologic/Psychiatric: Reports: anxiety, depressed, emotional problems Allergies: Coded Allergies: PENICILLINS (Verified Allergy, Unknown, 04/08/17) Subjective the pt is irritable and complains about food Objective Last 24 Hour Vital Signs Date Time Temp Pulse Resp B/P (MAP) Pulse Ox O2 Delivery O2 Flow Rate FiO2 11/09/17 11:19 Nasal Cannula 11/09/17 11:19 Nasal Cannula 11/09/17 09:00 76 103/69 11/09/17 09:00 103/69 11/09/17 09:00 76 103/69 11/09/17 08:00 76 11/09/17 08:00 97.0 69 20 103/69 (80) 99 97.0 11/09/17 07:39 Nasal Cannula 11/09/17 07:39 Nasal Cannula 2.0 28 11/09/17 07:39 Nasal Cannula 11/09/17 07:37 98 Nasal Cannula 2.0 28 11/09/17 04:00 97.6 74 20 94/54 (67) 94 97.6 11/09/17 04:00 69 11/09/17 02:44 Nasal Cannula 11/09/17 02:43 Nasal Cannula 11/09/17 00:00 68 11/09/17 00:00 97.5 75 20 84/51 (62) 98 97.5 11/08/17 23:46 60 18 98 Nasal Cannula 2.0 28 11/08/17 23:38 62 20 98 Nasal Cannula 2.0 28 11/08/17 23:37 Nasal Cannula 2.0 28 11/08/17 23:37 98 Nasal Cannula 2.0 28 11/08/17 21:00 82 107/60 11/08/17 21:00 107/60 11/08/17 21:00 82 107/60 11/08/17 21:00 Nasal Cannula 2.0 11/08/17 20:00 Nasal Cannula 2.0 11/08/17 20:00 96.8 82 20 107/60 (76) 96 96.8 11/08/17 20:00 81 11/08/17 16:00 71 11/08/17 16:00 97.3 65 20 110/69 (83) 97 97.3 11/08/17 15:27 Nasal Cannula 11/08/17 15:26 Nasal Cannula Intake and Output 11/08/17 11/09/17 19:00 07:00 Intake Total 720 ml 120 ml Balance 720 ml 120 ml Intake Oral 720 ml 120 ml Height (Feet): 6 Height (Inches): 0.00 Weight (Pounds): 178 General Appearance: no apparent distress, alert Neurologic: oriented x 3, responsive, depressed affect Carley Rangel MD Nov 09, 2017 12:51
[2017-11-09 16:00] VITALS: BP 104/80
[2017-11-09 20:00] VITALS: BP 115/74
[2017-11-10] VITALS: BP 95/54
[2017-11-10] MEDS: Albuterol/Ipratropium 3ml neb HHN SCH ×4 (03:40→15:39)
[2017-11-10 04:00] VITALS: BP 97/50
[2017-11-10 05:33] LABS: BASOPHILS % (AUTO) 0.4 % (0.0-2.0); EOSINOPHILS % (AUTO) 0.4 % (0.0-3.0); HEMATOCRIT 37.8 % (42.0-52.0); HEMOGLOBIN 12.7 G/DL (14.2-18.0); LYMPHOCYTES % (AUTO) 28.6 % (20.0-45.0); MEAN CORPUSCULAR VOLUME 98 FL (80-99); MONOCYTES % (AUTO) 5.6 % (1.0-10.0); NEUTROPHILS % (AUTO) 64.9 % (45.0-75.0); PLATELET COUNT 128 K/UL (150-450); RED BLOOD COUNT 3.85 M/UL (4.70-6.10); RED CELL DISTRIBUTION WIDTH 12.8 % (11.6-14.8); WHITE BLOOD COUNT 8.6 K/UL (4.8-10.8)
[2017-11-10 05:50] LABS: ANION GAP 2 mmol/L (5-15); BLOOD UREA NITROGEN 22 mg/dL (7-18); CALCIUM 8.3 MG/DL (8.5-10.1); CARBON DIOXIDE 36 MMOL/L (21-32); CHLORIDE 104 MMOL/L (98-107); CREATININE 0.7 MG/DL (0.55-1.30); POTASSIUM 3.6 MMOL/L (3.5-5.1); SODIUM 142 MMOL/L (136-145)
[2017-11-10] MEDS: NovoLOG Insulin Flexpen SUBQ SCH ×3 (06:30→16:36)
[2017-11-10 08:00] VITALS: BP 110/73
[2017-11-10] MEDS: Aspirin Baby 81mg ORAL SCH (08:26)
[2017-11-10] MEDS: Enalapril 5mg tab ORAL SCH (08:26)
[2017-11-10] MEDS: Furosemide 40mg tab ORAL SCH (08:26)
[2017-11-10] MEDS: Metoprolol Tartrate 50mg tab ORAL SCH (08:26)
[2017-11-10] MEDS: Carvedilol 6.25mg Tab ORAL SCH (08:27)
[2017-11-10] MEDS: Levemir Flexpen SUBQ SCH (08:29)
[2017-11-10] MEDS ORDERED: Heparin 5000 units/ml inj SUBQ SCH (09:00)
[2017-11-10 12:00] VITALS: BP 92/56
--- NOTE | 2017-11-10 12:04 | Pulmonology Progress Note ---
Assessment/Plan Problems: (1) COPD exacerbation (2) Acute respiratory failure Assessment & Plan: better (3) NSTEMI (non-ST elevated myocardial infarction) (4) Diabetes mellitus (5) Hypertension Assessment/Plan feeling better, in better spirit monitor heart rate in teli ( heart rate controlled) respiratory treatment less cough on lasix to 40 daily echo reviewed sliding scale diabetic diet pt wants short term rehab. Subjective ROS Limited/Unobtainable: No Constitutional: Reports: no symptoms HEENT: Repors: no symptoms Allergies: Coded Allergies: PENICILLINS (Verified Allergy, Unknown, 04/08/17) Objective Last 24 Hour Vital Signs Date Time Temp Pulse Resp B/P (MAP) Pulse Ox O2 Delivery O2 Flow Rate FiO2 11/10/17 11:53 Nasal Cannula 11/10/17 11:50 Room Air 11/10/17 08:54 Room Air 11/10/17 08:27 69 110/73 11/10/17 08:26 69 110/73 11/10/17 08:26 110/73 11/10/17 08:18 98 Nasal Cannula 2.0 28 11/10/17 08:17 73 18 98 Room Air 21 11/10/17 08:17 74 18 99 Nasal Cannula 2.0 28 11/10/17 08:17 Nasal Cannula 2.0 28 11/10/17 08:00 58 11/10/17 08:00 98.1 69 20 110/73 (85) 98 98.1 11/10/17 04:00 97.5 60 20 97/50 (66) 98 97.5 11/10/17 04:00 61 11/10/17 03:41 Nasal Cannula 2.0 28 11/10/17 03:41 Nasal Cannula 2.0 28 11/10/17 00:00 97.0 67 22 95/54 (68) 98 97.0 11/10/17 00:00 85 11/09/17 23:50 76 20 99 Nasal Cannula 2.0 28 11/09/17 23:40 89 20 95 Room Air 21 11/09/17 21:34 100 99/60 11/09/17 21:00 Room Air 11/09/17 21:00 99/60 11/09/17 21:00 100 99/60 11/09/17 20:22 72 18 98 Room Air 21 11/09/17 20:12 71 18 95 Room Air 21 11/09/17 20:12 95 Room Air 21 11/09/17 20:12 Nasal Cannula 2.0 28 11/09/17 20:00 100 11/09/17 20:00 97.0 100 23 115/74 (88) 100 97.0 11/09/17 16:00 97.9 90 20 104/80 (88) 98 97.9 11/09/17 16:00 82 11/09/17 15:43 66 18 98 Nasal Cannula 2.0 28 11/09/17 15:40 67 18 97 Nasal Cannula 2.0 28 Intake and Output 11/09/17 11/10/17 19:00 07:00 Intake Total 600 ml Output Total 600 ml 300 ml Balance 0 ml -300 ml Intake Oral 600 ml Output Urine Total 600 ml 300 ml General Appearance: WD/WN HEENT: normocephalic Respiratory/Chest: chest wall non-tender, lungs clear Cardiovascular: normal peripheral pulses, normal rate Abdomen: normal bowel sounds, soft, non tender Genitourinary: normal external genitalia Extremities: no cyanosis Laboratory Tests 11/10/17 04:50: White Blood Count 8.6, Red Blood Count 3.85L, Hemoglobin 12.7L, Hematocrit 37.8L , Mean Corpuscular Volume 98, Mean Corpuscular Hemoglobin 33.0H, Mean Corpuscular Hemoglobin Concent 33.6, Red Cell Distribution Width 12.8, Platelet Count 128L, Mean Platelet Volume 9.3, Neutrophils (%) (Auto) 64.9, Lymphocytes ( %) (Auto) 28.6, Monocytes (%) (Auto) 5.6, Eosinophils (%) (Auto) 0.4, Basophils (%) (Auto) 0.4, Sodium Level 142, Potassium Level 3.6, Chloride Level 104, Carbon Dioxide Level 36H, Anion Gap 2L, Blood Urea Nitrogen 22H, Creatinine 0.7 , Estimat Glomerular Filtration Rate , Glucose Level 109H, Calcium Level 8.3L Current Medications Medications (Trade) Dose Ordered Sig/Evi Route PRN Reason Start Time Stop Time Status Last Admin Dose Admin Acetaminophen (Tylenol) 650 mg Q4H PRN ORAL Mild Pain/Temp > 100.5 11/09/17 00:30 12/09/17 00:29 11/09/17 06:13 Albuterol/ Ipratropium (Albuterol/ Ipratropium) 3 ml Q4HRT HHN 11/09/17 03:00 11/14/17 02:59 11/10/17 08:17 Aspirin (ASA) 81 mg DAILY ORAL 11/09/17 09:00 12/09/17 08:59 11/10/17 08:26 Carvedilol (Coreg) 6.25 mg EVERY 12 HOURS ORAL 11/09/17 09:00 12/09/17 08:59 11/10/17 08:27 Clonidine HCl (Catapres Tab) 0.1 mg Q4H PRN ORAL For High Blood Pressure 11/09/17 00:30 12/09/17 00:29 Dextrose (Dextrose 50%) 25 ml STAT PRN IV Hypoglycemia 11/09/17 00:30 12/09/17 00:29 Dextrose (Dextrose 50%) 50 ml STAT PRN IV Hypoglycemia 11/09/17 00:30 12/09/17 00:29 Enalapril Maleate (Vasotec) 5 mg EVERY 12 HOURS ORAL 11/09/17 09:00 12/09/17 08:59 11/10/17 08:26 Escitalopram Oxalate (Lexapro) 10 mg DAILY ORAL 11/09/17 09:00 12/09/17 08:59 11/10/17 08:27 Furosemide (Lasix) 40 mg DAILY ORAL 11/09/17 09:00 12/09/17 08:59 11/10/17 08:26 Heparin Sodium (Porcine) (Heparin 5000 units/ml) 5,000 units EVERY 12 HOURS SUBQ 11/10/17 09:00 12/10/17 08:59 Insulin Aspart (NovoLOG) BEFORE MEALS AND HS SUBQ 11/09/17 06:30 12/09/17 06:29 11/10/17 11:55 Insulin Detemir (Levemir) 15 units DAILY SUBQ 11/09/17 09:00 12/09/17 08:59 11/10/17 08:29 Levofloxacin 100 ml @ 100 mls/hr Q24H IVPB 11/09/17 12:00 11/13/17 11:59 11/10/17 11:54 Metoprolol Tartrate (Lopressor) 50 mg Q12HR ORAL 11/09/17 09:00 12/09/17 08:59 11/10/17 08:26 Nicotine (Nicoderm) 1 patch Q24H TDERMAL 11/09/17 20:00 12/09/17 19:59 11/09/17 21:34 Nitroglycerin (Ntg) 0.4 mg Q5M PRN SL Prn Chest Pain 11/09/17 00:30 12/09/17 00:29 Ondansetron HCl (Zofran) 4 mg Q6H PRN IVP Nausea & Vomiting 11/09/17 00:30 12/09/17 00:29 Prednisone (predniSONE) 20 mg DAILY ORAL 11/09/17 09:00 12/09/17 08:59 11/10/17 08:26 Promethazine HCl/ Codeine (Phenergan with Codeine) 5 ml Q6HR PRN ORAL For Cough 11/09/17 00:30 12/09/17 00:29 Temazepam (Restoril) 15 mg HSPRN PRN ORAL Insomnia 11/08/17 23:45 11/15/17 23:44 11/09/17 00:20 Mikie Gray MD Nov 10, 2017 12:04
--- NOTE | 2017-11-10 12:23 | General Progress Note ---
Assessment/Plan Assessment/Plan MDD Anxiety d/o depakote 1000mg qhs provided ro/st Subjective Date patient seen: Nov 10, 2017 Neurologic/Psychiatric: Reports: anxiety, depressed, emotional problems Allergies: Coded Allergies: PENICILLINS (Verified Allergy, Unknown, 04/08/17) Subjective the pt is irritable Objective Last 24 Hour Vital Signs Date Time Temp Pulse Resp B/P (MAP) Pulse Ox O2 Delivery O2 Flow Rate FiO2 11/10/17 11:53 Nasal Cannula 11/10/17 11:50 Room Air 11/10/17 08:54 Room Air 11/10/17 08:27 69 110/73 11/10/17 08:26 69 110/73 11/10/17 08:26 110/73 11/10/17 08:18 98 Nasal Cannula 2.0 28 11/10/17 08:17 73 18 98 Room Air 21 11/10/17 08:17 74 18 99 Nasal Cannula 2.0 28 11/10/17 08:17 Nasal Cannula 2.0 28 11/10/17 08:00 58 11/10/17 08:00 98.1 69 20 110/73 (85) 98 98.1 11/10/17 04:00 97.5 60 20 97/50 (66) 98 97.5 11/10/17 04:00 61 11/10/17 03:41 Nasal Cannula 2.0 28 11/10/17 03:41 Nasal Cannula 2.0 28 11/10/17 00:00 97.0 67 22 95/54 (68) 98 97.0 11/10/17 00:00 85 11/09/17 23:50 76 20 99 Nasal Cannula 2.0 28 11/09/17 23:40 89 20 95 Room Air 21 11/09/17 21:34 100 99/60 11/09/17 21:00 Room Air 11/09/17 21:00 99/60 11/09/17 21:00 100 99/60 11/09/17 20:22 72 18 98 Room Air 21 11/09/17 20:12 71 18 95 Room Air 21 11/09/17 20:12 95 Room Air 21 11/09/17 20:12 Nasal Cannula 2.0 28 11/09/17 20:00 100 11/09/17 20:00 97.0 100 23 115/74 (88) 100 97.0 11/09/17 16:00 97.9 90 20 104/80 (88) 98 97.9 11/09/17 16:00 82 11/09/17 15:43 66 18 98 Nasal Cannula 2.0 28 11/09/17 15:40 67 18 97 Nasal Cannula 2.0 28 Intake and Output 11/09/17 11/10/17 19:00 07:00 Intake Total 600 ml Output Total 600 ml 300 ml Balance 0 ml -300 ml Intake Oral 600 ml Output Urine Total 600 ml 300 ml Laboratory Tests 11/10/17 04:50: White Blood Count 8.6, Red Blood Count 3.85L, Hemoglobin 12.7L, Hematocrit 37.8L , Mean Corpuscular Volume 98, Mean Corpuscular Hemoglobin 33.0H, Mean Corpuscular Hemoglobin Concent 33.6, Red Cell Distribution Width 12.8, Platelet Count 128L, Mean Platelet Volume 9.3, Neutrophils (%) (Auto) 64.9, Lymphocytes ( %) (Auto) 28.6, Monocytes (%) (Auto) 5.6, Eosinophils (%) (Auto) 0.4, Basophils (%) (Auto) 0.4, Sodium Level 142, Potassium Level 3.6, Chloride Level 104, Carbon Dioxide Level 36H, Anion Gap 2L, Blood Urea Nitrogen 22H, Creatinine 0.7 , Estimat Glomerular Filtration Rate , Glucose Level 109H, Calcium Level 8.3L Height (Feet): 6 Height (Inches): 0.00 Weight (Pounds): 187 General Appearance: no apparent distress, alert Neurologic: oriented x 3, responsive, depressed affect Carley Rangel MD Nov 10, 2017 12:23
--- NOTE | 2017-11-10 13:43 | Cardiology Progress Note ---
Assessment/Plan Status: stable Assessment/Plan Assessment CHF - diastolic dysfunction CAD LE edema COPD Smoking history Diabetes Atrial flutter Plan: Echocardiogram reviewed; normal LV function, no WMA, no valve issues, grade 1 diastolic dysfunction Patient had recent ischemia evaluation that was normal Continue Statin Continue lasix,patient responding well Potassium supplementation while on lasix Continue enalapril Monitor renal function while on enalapril and lasix Ambulate Continue coreg for rate control and hypertension Continue aspirin Continue breathing treatments, steroids, pulmonary rehab Insulin, strict glucose control due to chronic steroid use Physical therapy Discharge to [facility] Subjective Cardiovascular: Reports: no symptoms Respiratory: Reports: no symptoms Gastrointestinal/Abdominal: Reports: no symptoms Genitourinary: Reports: no symptoms Subjective Breathing has improved, no distress, no CP Patient had outpatient stress that that was normal. patient complain of ecchymosis over arms and leg edema Leg edema improving with lasix Patient had atrial flutter rates 110-130 but now in NSR No complaints feeling better Objective Last 24 Hour Vital Signs Date Time Temp Pulse Resp B/P (MAP) Pulse Ox O2 Delivery O2 Flow Rate FiO2 11/10/17 11:53 Nasal Cannula 11/10/17 11:50 Room Air 11/10/17 08:54 Room Air 11/10/17 08:27 69 110/73 11/10/17 08:26 69 110/73 11/10/17 08:26 110/73 11/10/17 08:18 98 Nasal Cannula 2.0 28 11/10/17 08:17 73 18 98 Room Air 21 11/10/17 08:17 74 18 99 Nasal Cannula 2.0 28 11/10/17 08:17 Nasal Cannula 2.0 28 11/10/17 08:00 58 11/10/17 08:00 98.1 69 20 110/73 (85) 98 98.1 11/10/17 04:00 97.5 60 20 97/50 (66) 98 97.5 11/10/17 04:00 61 11/10/17 03:41 Nasal Cannula 2.0 28 11/10/17 03:41 Nasal Cannula 2.0 28 11/10/17 00:00 97.0 67 22 95/54 (68) 98 97.0 11/10/17 00:00 85 11/09/17 23:50 76 20 99 Nasal Cannula 2.0 28 11/09/17 23:40 89 20 95 Room Air 21 11/09/17 21:34 100 99/60 11/09/17 21:00 Room Air 11/09/17 21:00 99/60 11/09/17 21:00 100 99/60 11/09/17 20:22 72 18 98 Room Air 21 11/09/17 20:12 71 18 95 Room Air 21 11/09/17 20:12 95 Room Air 21 11/09/17 20:12 Nasal Cannula 2.0 28 11/09/17 20:00 100 11/09/17 20:00 97.0 100 23 115/74 (88) 100 97.0 11/09/17 16:00 97.9 90 20 104/80 (88) 98 97.9 11/09/17 16:00 82 11/09/17 15:43 66 18 98 Nasal Cannula 2.0 28 11/09/17 15:40 67 18 97 Nasal Cannula 2.0 28 General Appearance: no apparent distress EENT: PERRL/EOMI, normal ENT inspection Neck: non-tender, normal alignment, supple Rhythm: NSR Cardiovascular: normal peripheral pulses, normal rate, regular rhythm, no gallop/murmur Respiratory/Chest: chest wall non-tender, lungs clear, normal breath sounds Abdomen: normal bowel sounds, non tender Extremities: normal range of motion 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 Intake and Output 11/09/17 11/10/17 19:00 07:00 Intake Total 600 ml Output Total 600 ml 300 ml Balance 0 ml -300 ml Intake Oral 600 ml Output Urine Total 600 ml 300 ml Laboratory Tests Test 11/10/17 04:50 White Blood Count 8.6 K/UL (4.8-10.8) Red Blood Count 3.85 M/UL (4.70-6.10) L Hemoglobin 12.7 G/DL (14.2-18.0) L Hematocrit 37.8 % (42.0-52.0) L Mean Corpuscular Volume 98 FL (80-99) Mean Corpuscular Hemoglobin 33.0 PG (27.0-31.0) H Mean Corpuscular Hemoglobin Concent 33.6 G/DL (32.0-36.0) Red Cell Distribution Width 12.8 % (11.6-14.8) Platelet Count 128 K/UL (150-450) L Mean Platelet Volume 9.3 FL (6.5-10.1) Neutrophils (%) (Auto) 64.9 % (45.0-75.0) Lymphocytes (%) (Auto) 28.6 % (20.0-45.0) Monocytes (%) (Auto) 5.6 % (1.0-10.0) Eosinophils (%) (Auto) 0.4 % (0.0-3.0) Basophils (%) (Auto) 0.4 % (0.0-2.0) Sodium Level 142 MMOL/L (136-145) Potassium Level 3.6 MMOL/L (3.5-5.1) Chloride Level 104 MMOL/L (98-107) Carbon Dioxide Level 36 MMOL/L (21-32) H Anion Gap 2 mmol/L (5-15) L Blood Urea Nitrogen 22 mg/dL (7-18) H Creatinine 0.7 MG/DL (0.55-1.30) Estimat Glomerular Filtration Rate mL/min (>60) Glucose Level 109 MG/DL (74-106) H Calcium Level 8.3 MG/DL (8.5-10.1) L Cy Choi M.D. Nov 10, 2017 13:43
[2017-11-10 16:00] VITALS: BP 93/50
--- NOTE | 2017-11-10 18:06 | Internal Med Progress Note ---
Subjective Date of Service: Nov 10, 2017 Physician Name MarthaDanielito Attending Physician Gadiel Ramírez MD Current Medications Medications (Trade) Dose Ordered Sig/Evi Route PRN Reason Start Time Stop Time Status Last Admin Dose Admin Acetaminophen (Tylenol) 650 mg Q4H PRN ORAL Mild Pain/Temp > 100.5 11/09/17 00:30 12/09/17 00:29 11/09/17 06:13 Albuterol/ Ipratropium (Albuterol/ Ipratropium) 3 ml Q4HRT HHN 11/09/17 03:00 11/14/17 02:59 11/10/17 15:39 Aspirin (ASA) 81 mg DAILY ORAL 11/09/17 09:00 12/09/17 08:59 11/10/17 08:26 Carvedilol (Coreg) 6.25 mg EVERY 12 HOURS ORAL 11/09/17 09:00 12/09/17 08:59 11/10/17 08:27 Clonidine HCl (Catapres Tab) 0.1 mg Q4H PRN ORAL For High Blood Pressure 11/09/17 00:30 12/09/17 00:29 Dextrose (Dextrose 50%) 25 ml STAT PRN IV Hypoglycemia 11/09/17 00:30 12/09/17 00:29 Dextrose (Dextrose 50%) 50 ml STAT PRN IV Hypoglycemia 11/09/17 00:30 12/09/17 00:29 Enalapril Maleate (Vasotec) 5 mg EVERY 12 HOURS ORAL 11/09/17 09:00 12/09/17 08:59 11/10/17 08:26 Escitalopram Oxalate (Lexapro) 10 mg DAILY ORAL 11/09/17 09:00 12/09/17 08:59 11/10/17 08:27 Furosemide (Lasix) 40 mg DAILY ORAL 11/09/17 09:00 12/09/17 08:59 11/10/17 08:26 Heparin Sodium (Porcine) (Heparin 5000 units/ml) 5,000 units EVERY 12 HOURS SUBQ 11/10/17 09:00 12/10/17 08:59 Insulin Aspart (NovoLOG) BEFORE MEALS AND HS SUBQ 11/09/17 06:30 12/09/17 06:29 11/10/17 16:36 Insulin Detemir (Levemir) 15 units DAILY SUBQ 11/09/17 09:00 12/09/17 08:59 11/10/17 08:29 Levofloxacin 100 ml @ 100 mls/hr Q24H IVPB 11/09/17 12:00 11/13/17 11:59 11/10/17 11:54 Metoprolol Tartrate (Lopressor) 50 mg Q12HR ORAL 11/09/17 09:00 12/09/17 08:59 11/10/17 08:26 Nicotine (Nicoderm) 1 patch Q24H TDERMAL 11/09/17 20:00 12/09/17 19:59 11/09/17 21:34 Nitroglycerin (Ntg) 0.4 mg Q5M PRN SL Prn Chest Pain 11/09/17 00:30 12/09/17 00:29 Ondansetron HCl (Zofran) 4 mg Q6H PRN IVP Nausea & Vomiting 11/09/17 00:30 12/09/17 00:29 Prednisone (predniSONE) 20 mg DAILY ORAL 11/09/17 09:00 12/09/17 08:59 11/10/17 08:26 Promethazine HCl/ Codeine (Phenergan with Codeine) 5 ml Q6HR PRN ORAL For Cough 11/09/17 00:30 12/09/17 00:29 Temazepam (Restoril) 15 mg HSPRN PRN ORAL Insomnia 11/08/17 23:45 11/15/17 23:44 11/09/17 00:20 Allergies: Coded Allergies: PENICILLINS (Verified Allergy, Unknown, 04/08/17) ROS Limited/Unobtainable: No Constitutional: Reports: no symptoms HEENT: Reports: no symptoms Cardiovascular: Reports: no symptoms Respiratory: Reports: no symptoms Gastrointestinal/Abdominal: Reports: no symptoms Genitourinary: Reports: no symptoms Neurologic/Psychiatric: Reports: no symptoms Subjective 72 YO M admitted with chief complaint of shortness of breath- COPD exacerbation. Now atrial flutter. Cover for Int Med-Dr Ramírez. Patient discharged to [facility] yesterday. Awaiting transfer to [facility]. Objective Last Vital Signs Date Time Temp Pulse Resp B/P (MAP) Pulse Ox O2 Delivery O2 Flow Rate FiO2 11/10/17 16:00 79 11/10/17 16:00 97.0 20 93/50 (64) 98 97.0 11/10/17 15:49 Nasal Cannula 2.0 28 Laboratory Tests Test 11/10/17 04:50 White Blood Count 8.6 K/UL (4.8-10.8) Red Blood Count 3.85 M/UL (4.70-6.10) L Hemoglobin 12.7 G/DL (14.2-18.0) L Hematocrit 37.8 % (42.0-52.0) L Mean Corpuscular Volume 98 FL (80-99) Mean Corpuscular Hemoglobin 33.0 PG (27.0-31.0) H Mean Corpuscular Hemoglobin Concent 33.6 G/DL (32.0-36.0) Red Cell Distribution Width 12.8 % (11.6-14.8) Platelet Count 128 K/UL (150-450) L Mean Platelet Volume 9.3 FL (6.5-10.1) Neutrophils (%) (Auto) 64.9 % (45.0-75.0) Lymphocytes (%) (Auto) 28.6 % (20.0-45.0) Monocytes (%) (Auto) 5.6 % (1.0-10.0) Eosinophils (%) (Auto) 0.4 % (0.0-3.0) Basophils (%) (Auto) 0.4 % (0.0-2.0) Sodium Level 142 MMOL/L (136-145) Potassium Level 3.6 MMOL/L (3.5-5.1) Chloride Level 104 MMOL/L (98-107) Carbon Dioxide Level 36 MMOL/L (21-32) H Anion Gap 2 mmol/L (5-15) L Blood Urea Nitrogen 22 mg/dL (7-18) H Creatinine 0.7 MG/DL (0.55-1.30) Estimat Glomerular Filtration Rate mL/min (>60) Glucose Level 109 MG/DL (74-106) H Calcium Level 8.3 MG/DL (8.5-10.1) L Intake and Output 11/09/17 11/10/17 19:00 07:00 Intake Total 600 ml Output Total 600 ml 300 ml Balance 0 ml -300 ml Intake Oral 600 ml Output Urine Total 600 ml 300 ml Objective General Appearance: WD/WN, no apparent distress, alert EENT: PERRL/EOMI, normal ENT inspection Neck: non-tender, normal alignment, supple Cardiovascular: Tachycardia; normal peripheral pulses, regular rhythm, no gallop/murmur, no JVD Respiratory/Chest: chest wall non-tender, lungs clear, normal breath sounds, no respiratory distress, no accessory muscle use Abdomen: normal bowel sounds, non tender, soft, no organomegaly, no mass Extremities: normal range of motion, non-tender Edema: mild edema 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 Continue IV solumedrol and albuterol nebs- see pulmonary note. Increase IV lasix-see cardiology note. (3) Hypercholesterolemia (4) Irritable bowel syndrome (5) Hypertension Assessment & Plan: Continue coreg (6) COPD exacerbation (7) Edema Assessment & Plan: ?CHF? echo=55-60% Increase lasix (8) Diabetes mellitus Assessment & Plan: Continue novolog sliding scale. (9) Bronchitis Assessment & Plan: Continue levaquin (10) Atrial flutter with rapid ventricular response Assessment & Plan: [id number] [facility]. Assessment/Plan Discharge plan: Discharge to [facility] when bed available. D /W case management Danielito Thomas MD Nov 10, 2017 18:06
--- NOTE | 2017-11-11 08:31 | Discharge Summary ---
Discharge Summary Discharge Summary _ DATE OF ADMISSION: 11/01/2017 DATE OF DISCHARGE: 11/10/2017 CONSULTANTS: Dr. Carley Choi BRIEF HOSPITAL COURSE: Patient is a 72-year-old white male, who presented to ED complaining of shortness of breath. History of present illness started approximately a week prior when he began to experience swelling of bilateral ankles. 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 His feet continued to swell and he experienced shortness of breath. He complained of cough which was essentially nonproductive although has some sputum production which is yellow in color. He was admitted to [facility] in March 2017 for acute COPD exacerbation. On evaluation at ED, blood pressure was elevated, O2 saturation was 97% on 5 L mask. He was given nebulizer treatment and Atrovent and albuterol. He was started on prednisone by mouth. Blood work showed leukocytosis, WBC 13. Troponin was mildly elevated at 0.115. EKG showed sinus tachycardia with diffuse ST segment depression. BNP was 245. He was given aspirin. Chest x- ray showed no acute disease. He was then admitted for evaluation. He underwent cardiac and pulmonary evaluation. He was continued on nebulizer treatments and po steroid. He was given Levaquin. He underwent echocardiogram that showed normal left ventricular function, no wall motion abnormalities, no valvular issues, there was grade 1 diastolic dysfunction. He was given aspirin and statin. He was placed on enalapril and Coreg. He was given Lasix for diuresis. Blood glucose was monitored. Patient was placed on strict glucose control due to chronic steroid use. Levemir dose was increased. A1c was 8.6. He has history of depression and anxiety. He was seen by psychiatrist. She was given Depakote 1000 mg daily at bedtime. He had episodes of hypokalemia and was given potassium replacements. He underwent physical therapy. He was strongly counseled against smoking. He was eventually discharged to rehabilitation center. FINAL DIAGNOSES: Acute respiratory failure Acute diastolic CHF Acute COPD exacerbation Acute bronchitis Coronary artery disease Diabetes mellitus out of control Current smoker Atrial flutter with RVR Hypertension Hypercholesterolemia Irritable bowel syndrome Elevated cardiac enzymes Anxiety disorder Major depressive disorder Hypokalemia DISPOSITION: Patient was discharged to [facility] rehabilitation. DISCHARGE MEDICATIONS: Refer to Discharge Medication List. I have been assigned to dictate discharge summary on this account, and I was not involved in the patient's management. Twila Regalado NP Nov 11, 2017 08:31
== END 2017-11-10 18:02 | DRG 190 ==
LOC: EDBD 15:26 → EMR 16:03 → 2E 16:25 → EDBEDREQ 16:43 → 3E 11-06 12:50 → 2E 11-07 11:00 → UNDODISIN 11-08 17:08
DX: J44.0 Chronic obstructive pulmonary disease with (acute) lower respiratory infection (principal); J96.00 Acute respiratory failure, unspecified whether with hypoxia or hypercapnia; I50.31 Acute diastolic (congestive) heart failure; I48.92 Unspecified atrial flutter; J44.1 Chronic obstructive pulmonary disease with (acute) exacerbation; K58.9 Irritable bowel syndrome, unspecified; E78.00 Pure hypercholesterolemia, unspecified; Z79.4 Long term (current) use of insulin; Z88.0 Allergy status to penicillin; F17.200 Nicotine dependence, unspecified, uncomplicated; E87.6 Hypokalemia; I11.0 Hypertensive heart disease with heart failure; J20.9 Acute bronchitis, unspecified; I25.10 Atherosclerotic heart disease of native coronary artery without angina pectoris; E11.65 Type 2 diabetes mellitus with hyperglycemia; R74.9 Abnormal serum enzyme level, unspecified; F41.9 Anxiety disorder, unspecified; F32.9 Major depressive disorder, single episode, unspecified
CPT/HCPCS: 36415; 71045; 80048; 80053; 80307; 81003; 82550; 82553; 82962; 83036; 83735; 83880; 84484; 85007; 85025; 85610; 85730; 87081; 93005; 93306; 94640; 94664; 94760; 99285; J1815; J2785; J7620; J8499; S5561

== ENCOUNTER 2018-06-10 00:23 | Inpatient (IN) | payer MEDICARE, BC ==
[2018-06-10] VITALS (7 sets, daily range): BP systolic 121–149; BP diastolic 64–87
[~2018-06-10] VITALS: Ht 185.4 cm; Wt 77.6 kg
[~2018-06-10 00:23] MED LIST changes: +CARVEDILOL6.25 MG ORAL; +CRESTOR10 M2 ORAL; +ENALAPRIL MALEAT5 MG ORAL; +FUROSEMIDE20 M1 ORAL; +FUROSEMIDE40 MG ORAL; +HUMALOG100 UNIT/1 SUBQ; +KLOR-CON M2020 MEQ ORAL; +LANTUS SOL100 UNIT/1 SUBQ; +LEXAPRO10 MG ORAL; +METOPROLOL TART50 MG ORAL; +RESTORIL15 MG ORAL; +SPIRIVA18 MCG INH; +SYMBICORT 16010.2 G1 IH; +VENTOLIN HFA18 GM INH
[2018-06-10] MEDS ORDERED: TAMSULOSIN HCL0.4 MG ORAL (00:39)
[2018-06-10] MEDS ORDERED: VERAPAMIL ER120 MG PO (00:39)
[2018-06-10] MEDS ORDERED: LISINOPRIL5 MG ORAL (00:39)
[2018-06-10] MEDS ORDERED: PHENAZOPYRIDIN100 MG ORAL (00:39)
--- NOTE | 2018-06-10 01:00 | NUR ---
ED Nurse Note: Patient BIBGabby RA 61 from home c/o shortness of breath for several hours. Patient SPO2 on scene was 88% on RA, now SPO2 at 99% on 12L/min non rebreather. Patient given 0.8 NTG.
[2018-06-10] MEDS ORDERED: Ipratropium 0.02% Inh Soln 2.5ml UD HHN ONE (01:15)
[2018-06-10] MEDS ORDERED: Albuterol ud Inhalation HHN ONE (01:15)
[2018-06-10] MEDS ORDERED: Solu-MEDROL 125mg Inj IVP ONE (01:15)
--- NOTE | 2018-06-10 02:14 | Emergency Room Report ---
History of Present Illness General Chief Complaint: Dyspnea/Respdistress Source: Patient Present Illness HPI Patient with dyspnea 2 days. Recent d/c from [facility]. H/O COPD. He denies purulent sputum. He has been wheezing. Denies chest pain. He is on prednisone at this time. He does receive reading treatments. He is not noted fevers or chills. [facility] Paramedics arrived they measured his oxygen on room air which was 87% saturated. On 2 L he was 92% saturated. They placed him on 100% nonrebreather mask. Rash in groin. Patient denies dysuria. No nausea vomiting diarrhea. No joint pain. Patient has a history of congestive heart failure and does have edema his legs. He denies calf pain. Patient has easy bruising and multiple areas of bruising that he states is related to being on prednisone. No headache, depression, joint pain. Allergies: Coded Allergies: PENICILLINS (Verified Allergy, Unknown, 04/08/17) Patient History Past Medical History: see triage record Social History: Denies: smoking - distant Social History Narrative SNF Reviewed Nursing Documentation: PMH: Agreed; PSxH: Agreed Nursing Documentation-PMH Hx Cardiac Problems: Yes - CHF Hx Hypertension: Yes Hx Asthma: Yes Hx COPD: Yes Hx Diabetes: Yes Hx Cancer: Yes - abdominal Hx Gastrointestinal Problems: No Hx Neurological Problems: No Review of Systems All Other Systems: negative except mentioned in HPI Physical Exam Vital Signs Date Time Temp Pulse Resp B/P (MAP) Pulse Ox O2 Delivery O2 Flow Rate FiO2 06/10/18 00:31 98.2 116 18 134/87 98 Simple Mask 10.0 Sp02 EP Interpretation: reviewed, normal General Appearance: no apparent distress, GCS 15, non-toxic, Chronically Ill Head: normocephalic, atraumatic Eyes: bilateral eye normal inspection, bilateral eye PERRL ENT: moist mucus membranes Neck: supple Respiratory: no respiratory distress, no retraction, wheezing, expiration Cardiovascular #1: normal peripheral pulses, regular rate, rhythm, edema - 2+ pitting Cardiovascular #2: 2+ radial (R) Gastrointestinal: normal inspection, normal bowel sounds, non tender, no mass, non-distended Genitourinary: no CVA tenderness, other - Erythema from the groin and penis including scrotum Musculoskeletal: back normal, digits/nails normal, normal range of motion, no calf tenderness Neurologic: alert, oriented x3, grossly normal Psychiatric: mood/affect normal Skin: warm/dry, other - ecchumoses Medical Decision Making Diagnostic Impression: Primary Impression: COPD exacerbation Additional Impressions: Intertrigo UTI (urinary tract infection) Qualified Codes: N39.0 - Urinary tract infection, site not specified Leukocytosis Qualified Codes: D72.828 - Other elevated white blood cell count ER Course Patient presents with dyspnea. Differential includes acute myocardial infarction, COPD exacerbation, pneumonia, other occult infection amongst others. Evaluation will be with EKG, chest x-ray and labs including lactate and blood cultures. The patient will be treated with IV hydration, methylprednisolone, breathing treatments. Patient is placed on a rouge sifter. Patient has multisystem disease and is on prednisone at this time. Infection in his groin is significant in name. Treatment with antibiotics. EKG without injury. Chest x-ray COPD. Holding fluid resuscitation because of history of congestive heart failure and edema. Patient has elevated white count, and pyuria. Elevated BUN and bicarbonate. Rocephin and Levaquin are begun. Also a fluid bolus and dehydration are ordered. Patient's BNP is 215. Improved with breathing treatments. Admit med Dr. Ramírez. Laboratory Tests Test 06/10/18 01:30 06/10/18 02:15 White Blood Count 19.5 K/UL (4.8-10.8) H Red Blood Count 4.66 M/UL (4.70-6.10) L Hemoglobin 14.4 G/DL (14.2-18.0) Hematocrit 45.1 % (42.0-52.0) Mean Corpuscular Volume 97 FL (80-99) Mean Corpuscular Hemoglobin 31.0 PG (27.0-31.0) Mean Corpuscular Hemoglobin Concent 32.0 G/DL (32.0-36.0) Red Cell Distribution Width 15.7 % (11.6-14.8) H Platelet Count 230 K/UL (150-450) Mean Platelet Volume 8.9 FL (6.5-10.1) Neutrophils (%) (Auto) % (45.0-75.0) Lymphocytes (%) (Auto) % (20.0-45.0) Monocytes (%) (Auto) % (1.0-10.0) Eosinophils (%) (Auto) % (0.0-3.0) Basophils (%) (Auto) % (0.0-2.0) Differential Total Cells Counted 100 Neutrophils % (Manual) 93 % (45-75) H Lymphocytes % (Manual) 2 % (20-45) L Monocytes % (Manual) 4 % (1-10) Eosinophils % (Manual) 0 % (0-3) Basophils % (Manual) 0 % (0-2) Band Neutrophils 1 % (0-8) Platelet Estimate Adequate Platelet Morphology Normal Polychromasia 1+ Anisocytosis 1+ Macrocytosis 1+ Prothrombin Time 10.7 SEC (9.30-11.50) Prothrombin Time INR 1.0 (0.9-1.1) PTT 24 SEC (23-33) Sodium Level 140 MMOL/L (136-145) Potassium Level 5.1 MMOL/L (3.5-5.1) Chloride Level 101 MMOL/L (98-107) Carbon Dioxide Level 37 MMOL/L (21-32) H Anion Gap 2 mmol/L (5-15) L Blood Urea Nitrogen 33 mg/dL (7-18) H Creatinine 0.7 MG/DL (0.55-1.30) Estimate Glomerular Filtration Rate mL/min (>60) Glucose Level 239 MG/DL (74-106) H Lactic Acid Level 2.00 mmol/L (0.4-2.0) Calcium Level 9.5 MG/DL (8.5-10.1) Total Bilirubin 0.3 MG/DL (0.2-1.0) Aspartate Amino Transferase (AST) 12 U/L (15-37) L Alanine Aminotransferase (ALT) 41 U/L (12-78) Alkaline Phosphatase 90 U/L (46-116) Total Creatine Kinase 44 U/L (26-308) Troponin I 0.021 ng/mL (0.000-0.056) Pro-B-Type Natriuretic Peptide 217 pg/mL (0-125) H Total Protein 7.1 G/DL (6.4-8.2) Albumin 3.4 G/DL (3.4-5.0) Globulin 3.7 g/dL Albumin/Globulin Ratio 0.9 (1.0-2.7) L Urine Color Pale yellow Urine Appearance Cloudy Urine pH 5 (4.5-8.0) Urine Specific [place] 1.020 (1.005-1.035) Urine Protein 2+ (NEGATIVE) H Urine Glucose (UA) 3+ (NEGATIVE) H Urine Ketones Negative (NEGATIVE) Urine Blood 4+ (NEGATIVE) H Urine Nitrite Negative (NEGATIVE) Urine Bilirubin Negative (NEGATIVE) Urine Urobilinogen Normal MG/DL (0.0-1.0) Urine Leukocyte Esterase 3+ (NEGATIVE) H Urine RBC 2-4 /HPF (0 - 0) H Urine WBC Tntc /HPF (0 - 0) H Urine Squamous Epithelial Cells None /LPF (NONE/OCC) Urine Bacteria Few /HPF (NONE) Urine Yeast Moderate /HPF (NONE) H Microbiology Date/Time Source Procedure Growth Status 06/10/18 02:15 Nasal Nares Influenza Types A,B Antigen (UNIQUE) - Final Complete EKG Diagnostic Results Rate: normal Rhythm: NSR ST Segments: no acute changes - Left axis deviation and nonspecific ST-T wave inversions inferiorly Rhythm Strip Diag. Results EP Interpretation: yes Rhythm: NSR, no PVC's, no ectopy Chest X-Ray Diagnostic Results Chest X-Ray Diagnostic Results : Chest X-Ray Ordered: Yes # of Views/Limited/Complete: 2 View Indication: Other EP Interpretation: Yes Interpretation: no consolidation, no effusion, no pneumothorax, other - COPD Impression: Other Last Vital Signs Date Time Temp Pulse Resp B/P (MAP) Pulse Ox O2 Delivery O2 Flow Rate FiO2 06/10/18 11:29 96 16 98 Nasal Cannula 3.0 32 06/10/18 06:40 98.0 121/64 Status: improved Disposition: ADMITTED INPATIENT Condition: Serious Cy Aiken MD Jun 10, 2018 02:14
[2018-06-10] MEDS ORDERED: Bacitracin Oint UD TOPIC ONE (02:15)
[2018-06-10 02:26] LABS: HEMATOCRIT 45.1 % (42.0-52.0); HEMOGLOBIN 14.4 G/DL (14.2-18.0); MEAN CORPUSCULAR VOLUME 97 FL (80-99); PLATELET COUNT 230 K/UL (150-450); RED BLOOD COUNT 4.66 M/UL (4.70-6.10); RED CELL DISTRIBUTION WIDTH 15.7 % (11.6-14.8); WHITE BLOOD COUNT 19.5 K/UL (4.8-10.8)
[2018-06-10 02:29] LABS: ANION GAP 2 mmol/L (5-15); BLOOD UREA NITROGEN 33 mg/dL (7-18); CALCIUM 9.5 MG/DL (8.5-10.1); CARBON DIOXIDE 37 MMOL/L (21-32); CHLORIDE 101 MMOL/L (98-107); CREATININE 0.7 MG/DL (0.55-1.30); POTASSIUM 5.1 MMOL/L (3.5-5.1); SODIUM 140 MMOL/L (136-145)
[2018-06-10 02:31] LABS: APPEARANCE,URINE CLOUDY; BILIRUBIN, URINE NEGATIVE (NEGATIVE); COLOR,URINE PALE YELLOW; GLUCOSE, URINE (UA) 3+ (NEGATIVE); KETONES,URINE NEGATIVE (NEGATIVE); LEUKOCYTE ESTERASE ,URINE 3+ (NEGATIVE); NITRITE,URINE NEGATIVE (NEGATIVE); PH,URINE 5 (4.5-8.0); PROTEIN,URINE 2+ (NEGATIVE); UROBILINOGEN,URINE NORMAL MG/DL (0.0-1.0)
[2018-06-10 02:41] LABS: ALANINE AMINOTRANSFERASE 41 U/L (12-78); ALBUMIN 3.4 G/DL (3.4-5.0); ALBUMIN/GLOBULIN RATIO 0.9 (1.0-2.7); ALKALINE PHOSPHATASE 90 U/L (46-116); ASPARTATE AMINO TRANSFERASE 12 U/L (15-37); BILIRUBIN,TOTAL 0.3 MG/DL (0.2-1.0); CREATINE KINASE 44 U/L (26-308)
--- NOTE | 2018-06-10 03:23 | Diagnostic Imaging Report ---
EXAM: XR Chest, 1 View CLINICAL HISTORY: DYSPNEA TECHNIQUE: Frontal view of the chest. COMPARISON: Chest radiograph dated 11/07/17. FINDINGS: Lungs: Central pulmonary vessels are prominent similar to the previous exam. Pleural space: Unremarkable. No pneumothorax. Heart: Unremarkable. No cardiomegaly. Mediastinum: Unremarkable. Bones/joints: Unremarkable. IMPRESSION: No interval change. No radiographic evidence of acute cardiopulmonary disease.
[2018-06-10] MEDS ORDERED: cefTRIAXone 1 GM in NS 55 ML IVPB ONE (04:45)
--- NOTE | 2018-06-10 05:11 | NUR ---
ED Nurse Note: pt is admitted to the hospital, report given to blayne castillo. will continue to monitor.
--- NOTE | 2018-06-10 05:14 | NUR ---
NURSE NOTES: Received report from ED nurse JACOB Burton via phone. Awaiting arrival of patient.
--- NOTE | 2018-06-10 06:40 | NUR ---
ED Nurse Note: pt was tranfered to med surg 318 with stable vitals signs.
--- NOTE | 2018-06-10 07:45 | NUR ---
NURSE NOTES: Received report from Lisa JAMES. During rounds patient is asleep but arousable to voice. Alert and oriented, on 2L NC. SOB with exertion noted. Per report patient arrived to the floor approximately 0700 from ED, no admission ordered received yet, will follow up with MD for orders. IV intact and asymptomatic. Side rails upx3, bed low and locked, call light in reach. Will continue to monitor.
--- NOTE | 2018-06-10 07:46 | NUR ---
NURSE NOTES: Received patient 0655 from ED. In stable condition. 2 L nasal cannula. No pain noted. Scabs noted bilateral upper arms. 3+ pitting edema noted bilateral feet. Erythema bilateral legs and upper back. Bed low, call light within reach. Endorsed to JACOB Grace.
--- NOTE | 2018-06-10 07:54 | NUR ---
HAND-OFF: Report given to JACOB Grace. Patient stable.
--- NOTE | 2018-06-10 09:00 | NUR ---
NURSE NOTES: Calazime applied to sacrum and bilateral buttock for skin protection.
[2018-06-10] MEDS ORDERED: Albuterol/Ipratropium 3ml neb HHN PRN (10:30)
--- NOTE | 2018-06-10 10:40 | NUR ---
NURSE NOTES: Called Dr. Ramírez for admission orders at 0902. Received callback from with admission orders. Orders entered, will carry out. Will continue to monitor.
[2018-06-10] MEDS: NovoLOG Insulin Flexpen SUBQ SCH ×3 (12:22→21:15)
[2018-06-10] MEDS: Solu-MEDROL 40mg Inj IVP SCH ×2 (14:14→21:07)
[2018-06-10] MEDS: Heparin 5000 units/ml inj SUBQ SCH ×2 (14:14→21:14)
[2018-06-10] MEDS ORDERED: Albuterol/Ipratropium 3ml neb HHN SCH (15:00)
--- NOTE | 2018-06-10 17:17 | History & Physical ---
History and Physical History & Physicial Dictrated for Int Med-DR Ramírez no. [id number] Danielito Thomas MD Jun 10, 2018 17:17
--- NOTE | 2018-06-10 18:54 | NUR ---
NURSE NOTES: Patient remained stable during my shift. Reported less SOB following breathing treatments. Will endorse to nightshift nurse.
--- NOTE | 2018-06-10 19:23 | NUR ---
NURSE NOTES: Received report from JACOB Grace.
--- NOTE | 2018-06-10 19:24 | NUR ---
HAND-OFF: Report given to Lisa JAMES. Patient is in stable condition.
[2018-06-10] MEDS: Albuterol/Ipratropium 3ml neb HHN SCH ×2 (20:27→23:59)
[2018-06-10] MEDS: Enalapril 5mg tab ORAL SCH (21:05)
[2018-06-10] MEDS: Atorvastatin 20mg tab ORAL SCH (21:06)
[2018-06-10] MEDS: Carvedilol 6.25mg Tab ORAL SCH (21:06)
--- NOTE | 2018-06-10 21:33 | NUR ---
NURSE NOTES: Patient's evening blood sugar is 425. 14 units of sliding scale insulin given. Dr. Ramírez called. Left message. Awaiting call back.
--- NOTE | 2018-06-10 21:34 | NUR ---
NURSE NOTES: Patient is in bed, aox4. Vss, mild SOB noted. Patient congested, coughing and deep breathing encouraged. 02 sat 91 percent on 2L nasal cannula. No pain noted. Incontinent x2. Due meds given, needs attended to. Bed low, bed alarm on, call light within reach.
--- NOTE | 2018-06-10 21:47 | NUR ---
NURSE NOTES: Dr. Thomas made aware patient's blood sugar 425 with 14 units given, per sliding scale. No new orders placed.
--- NOTE | 2018-06-10 22:26 | NUR ---
NURSE NOTES: Dr. Ramírez called, ordered solu-medrol dose reduced to 60 mg BID.
[2018-06-11] VITALS (7 sets, daily range): BP systolic 126–150; BP diastolic 68–74
--- NOTE | 2018-06-11 02:00 | History and Physical Report ---
DATE OF ADMISSION: 06/10/2018 CHIEF COMPLAINT: The patient is a 73-year-old white male with history of chronic obstructive pulmonary disease who is admitted with cough for one day. HISTORY OF PRESENT ILLNESS: Began on Saturday, June 09, 2018. The patient began to experience cough. This is productive of a whitish sputum. The patient denies fevers or chills. The patient then became shortness of breath. EMS was called. The patient was transported to [facility]. The patient is admitted with chronic obstructive pulmonary disease, acute exacerbation. REVIEW OF SYSTEMS: CONSTITUTIONAL: The patient denies weight loss or gain. The patient denies fevers or chills. HEENT: The patient denies ear or throat pain. The patient denies headache. CARDIOVASCULAR: The patient denies palpitations or chest pain. CHEST: The patient complains of wheezes and shortness of breath as above. The patient complains of cough as above. The patient denies seizures or generalized weakness. PAST MEDICAL HISTORY: Significant for: 1. Diabetes, steroid-induced. 2. Chronic obstructive pulmonary disease. 3. Hypertension. 4. Irritable bowel syndrome. 5. Hypercholesterolemia. 6. Recently diagnosed "stomach cancer." PAST SURGICAL HISTORY: Significant for lumbar laminectomy. CURRENT MEDICATIONS: 1. Albuterol metered-dose inhaler two puffs p.o. q.i.d. p.r.n. 2. Symbicort 160/4.5 mcg two puffs p.o. twice daily. 3. Carvedilol 6.25 mg p.o. q.12 h. 4. Enalapril 5 mg p.o. twice daily. 5. Lexapro 10 mg p.o. daily. 6. Furosemide 20 mg p.o. daily. 7. Metoprolol 50 mg p.o. twice daily. 8. Potassium chloride 20 mEq p.o. daily. 9. Prednisone 20 mg p.o. daily. 10. Crestor 10 mg p.o. daily. 11. Temazepam 15 mg p.o. at bedtime. 12. Spiriva two puffs daily. ALLERGIES: Penicillin. SOCIAL HISTORY: The patient is single and lives alone. The patient admits to tobacco use of one pack per day for 40 years. 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 The patient denies alcohol use. PHYSICAL EXAMINATION: VITAL SIGNS: Temperature 98.0, respirations 19, pulse 80, and blood pressure 121/64. GENERAL: The patient is thin-appearing white male, who is in moderate respiratory distress. HEENT: Eyes, pupils are equal and responsive to light and accommodation. Extraocular movements are intact. NECK: Supple without lymphadenopathy. CHEST: Diffuse wheezes in bilateral lung amaya with crackles at the bases. Otherwise, clear to auscultation bilaterally without rhonchi. CARDIOVASCULAR: Regular rhythm and rate. S1 and S2 are normal without murmurs, rubs, or gallops. ABDOMEN: Soft, nontender, and nondistended. Positive bowel sounds. No evidence of hepatosplenomegaly. Currently, no rebound or guarding noted. EXTREMITIES: Negative for clubbing, cyanosis, or edema. RECTAL/GENITAL: Refused. NEUROLOGIC: Cranial nerves II through XII are grossly intact without focal deficits. Motor strength is 5/5 bilaterally. Deep tendon reflexes are 2+ plantar. LABORATORY AND DIAGNOSTIC DATA: WBC 19.5, hemoglobin 14.4, hematocrit 45.1, and platelets 230,000. Sodium 140, potassium 5.1, chloride 101, CO2 37, BUN 33, creatinine 0.7, and glucose 239. Troponin 0.021. Chest x-ray was reported as no acute disease. ASSESSMENT: This is a 73-year-old white male. 1. Chronic obstructive pulmonary disease, acute exacerbation. 2. Diabetes, steroid-induced. 3. Newly diagnosed abdominal cancer. 4. Hypertension. 5. Irritable bowel syndrome. 6. Hypercholesterolemia. TREATMENT: 1. Chronic obstructive pulmonary disease, acute exacerbation. A Pulmonary consultation has been obtained with Dr. Mikie Gray. We will follow recommendation of Pulmonary. The patient has been started on albuterol nebulized q.4 h. and intravenous Solu-Medrol. 2. Diabetes type 2. A NovoLog sliding scale has been instituted. 3. Newly diagnosed abdominal cancer. The patient does not know what kind of cancer he has. The patient is scheduled for resection of stage I cancer on June 22, 2018 at [facility]. 4. Hypertension. Continue Coreg as above. 5. Irritable bowel syndrome. 6. Hypercholesterolemia. Danielito Thomas M.D. DR: KEREN JOB#: [id number] CC:
[2018-06-11] MEDS: Albuterol/Ipratropium 3ml neb HHN SCH ×6 (03:45→23:15)
[2018-06-11] MEDS: NovoLOG Insulin Flexpen SUBQ SCH ×4 (05:47→20:58)
[2018-06-11] MEDS: Heparin 5000 units/ml inj SUBQ SCH ×3 (05:48→21:04)
--- NOTE | 2018-06-11 07:21 | NUR ---
HAND-OFF: Report given to JACOB Garcia.Patient stable.
[2018-06-11 07:44] LABS: HEMATOCRIT 37.3 % (42.0-52.0); HEMOGLOBIN 11.8 G/DL (14.2-18.0); MEAN CORPUSCULAR VOLUME 97 FL (80-99); PLATELET COUNT 179 K/UL (150-450); RED BLOOD COUNT 3.86 M/UL (4.70-6.10); RED CELL DISTRIBUTION WIDTH 15.4 % (11.6-14.8); WHITE BLOOD COUNT 13.4 K/UL (4.8-10.8)
--- NOTE | 2018-06-11 07:46 | NUR ---
HAND-OFF: Report given to JACOB Ramesh. Patient stable.
--- NOTE | 2018-06-11 08:00 | NUR ---
NURSE NOTES: Seen pt for initial rounding. Pt is resting in bed, AAOX3, resp even, no distress noted. c/o IV site right hand with bloody dressing and leaking. IV removed by JACOB Ramesh otherwise, VS stable. Call light with in reach.
[2018-06-11 08:06] LABS: ANION GAP 4 mmol/L (5-15); BLOOD UREA NITROGEN 22 mg/dL (7-18); CALCIUM 9.1 MG/DL (8.5-10.1); CARBON DIOXIDE 37 MMOL/L (21-32); CHLORIDE 102 MMOL/L (98-107); CREATININE 0.6 MG/DL (0.55-1.30); PHOSPHORUS 3.9 MG/DL (2.5-4.9); POTASSIUM 4.2 MMOL/L (3.5-5.1); SODIUM 143 MMOL/L (136-145)
[2018-06-11] MEDS: Carvedilol 6.25mg Tab ORAL SCH ×2 (09:03→20:56)
[2018-06-11] MEDS: Solu-MEDROL 40mg Inj IVP SCH ×2 (09:04→17:46)
[2018-06-11] MEDS: cefTRIAXone 1 GM in D5W 55 ML IVPB SCH (09:05)
[2018-06-11] MEDS: Enalapril 5mg tab ORAL SCH ×2 (09:07→20:56)
--- NOTE | 2018-06-11 10:00 | NUR ---
NURSE NOTES: Received patient from JACOB Gonzalez patient alert awake with out no distress, IV site bloody not flushing new IV inserted patient tolerated well. Multiple skin excoriation, discoloration, and scabs noted bilateral arm, redness and some rashes noted in perineal area ordered antifungal cream applied and skin barrier cream applied the rest of the skin in the buttocks. will continue to monitor.
--- NOTE | 2018-06-11 12:58 | NUR ---
NURSE NOTES: Received report from Domitila JAMES. Patient is awake alert and oriented x4, no 2L NC. No acute distress noted. IV intact. Side rails upx3, bed low and locked, call light in reach. Will continue to monitor. Addendum: 06/11/18 at 1352 by Lesly Otero RN Edit: ON 2L NC
--- NOTE | 2018-06-11 13:31 | NUR ---
HAND-OFF: Report given to JACOB Grace patient stable condition.
--- NOTE | 2018-06-11 14:02 | NUR ---
CASE MANAGEMENT: INITIAL REVIEW 73 YO M JANIYA FROM HOME CC: DYSPNEA PMHx: COPD. CHF. DM. CHF. SI:COPD EXACERBATION T 98.2 HR 116 RR 18 B/P 134/87 SATS 98% ON 10L/SIMPLE MASK WBC 19.5 CO2 37 BUN 33 GLU 239 AST 12 BNP 217 IS: IZABEL NEB HHN X1 SOLU MEDROL IV X1 LOTRIMIN TOP X1 PATIENT ADMITTED TO MED/SURG 06/10/2018 @ 0256 DCP: PATIENT TO BE DISCHARGED TO HOME ONCE MEDICALLY CLEARED. PLAN OF CARE: VENOUS DUPLEX TRANSFER TO [facility] Addendum: 06/12/18 at 2031 by Erin Peterson CM [employer]
--- NOTE | 2018-06-11 14:07 | NUR ---
DISCHARGE PLANNING: NOTE CLINICALS FAXED TO [facility] FOR REVIEW. CM TO F/U ON TUESDAY
--- NOTE | 2018-06-11 15:25 | Consultation ---
History of Present Illness General Date patient seen: Jun 11, 2018 Chief Complaint: Dyspnea/Respdistress Present Illness HPI 73 year old male with hx of COPD, smoking, CHF, CAD, DM presented to ER with CC of shortness of breath for a few days. He just got discharged from [facility] for the same symptoms. He denies chest pain. He denies abdominal pain. He denies nausea or vomiting. C/o increasing pedal edema. He is admitted for exacerbation of his underlying COPD with bronchitis. Allergies: Coded Allergies: PENICILLINS (Verified Allergy, Unknown, 04/08/17) Medication History Scheduled Albuterol Sulfate (Ventolin Hfa), 2 PUFFS INH Q12HR, (Reported) Budesonide/Formoterol Fumarate (Symbicort 160-4.5 Mcg Inhaler), 2 PUFFS IH BID, (Reported) Carvedilol* (Carvedilol*), 6.25 MG ORAL EVERY 12 HOURS, (Reported) Enalapril Maleate* (Enalapril Maleate*), 5 MG ORAL EVERY 12 HOURS, (Reported) Escitalopram Oxalate* (Lexapro*), 10 MG ORAL DAILY, (Reported) Furosemide* (Lasix*), 20 MG ORAL DAILY, (Reported) Metoprolol Tartrate* (Metoprolol Tartrate*), 50 MG ORAL Q12HR Potassium Chloride (Klor-Con M20), 20 MEQ ORAL DAILY, (Reported) Prednisone* (Prednisone*), 20 MG ORAL DAILY, (Reported) Rosuvastatin Calcium* (Crestor*), 10 MG ORAL DAILY, (Reported) Tiotropium Hawi* (Spiriva*), 2 PUFF INH DAILY, (Reported) Scheduled PRN Temazepam* (Restoril*), 15 MG ORAL HSPRN PRN Discontinued Medications Furosemide* (Lasix*), 40 MG ORAL DAILY Discontinued Reason: Pt stopped taking med Insulin Glargine (Lantus), 25 UNITS SUBQ BEFORE BREAKFAST, (Reported) Discontinued Reason: Pt stopped taking med Insulin Lispro (Humalog), 10 UNITS SUBQ AC, (Reported) Discontinued Reason: Pt stopped taking med Lisinopril (Lisinopril*), Unknown Dose ORAL DAILY, (Reported) Discontinued Reason: Pt stopped taking med Phenazopyridine Hcl* (Pyridium*), Unknown Dose ORAL THREE TIMES A DAY, (Reported ) Discontinued Reason: Pt stopped taking med Tamsulosin Hcl (Tamsulosin Hcl*), Unknown Dose ORAL BEDTIME, (Reported) Discontinued Reason: Pt stopped taking med Verapamil Hcl (Verapamil Er), Unknown Dose PO, (Reported) Discontinued Reason: Pt stopped taking med Patient History Healthcare decision maker Resuscitation status Full Code Advanced Directive on File Past Medical/Surgical History Past Medical/Surgical History: (1) Irritable bowel syndrome (2) Hypertension (3) Diabetes mellitus (4) COPD (chronic obstructive pulmonary disease) Review of Systems All Other Systems: negative except mentioned in HPI Physical Exam General Appearance: WD/WN Lines, tubes and drains: peripheral HEENT: normocephalic, atraumatic Respiratory/Chest: chest wall non-tender, lungs clear, normal breath sounds, rhonchi - left, rhonchi - right Cardiovascular/Chest: normal peripheral pulses, regular rhythm Abdomen: normal bowel sounds, non tender Genitourinary/Rectal: normal genital exam, normal rectal exam Extremities: normal range of motion, non-tender Last 24 Hour Vital Signs Date Time Temp Pulse Resp B/P (MAP) Pulse Ox O2 Delivery O2 Flow Rate FiO2 06/11/18 12:31 98.0 78 20 130/69 (89) 98 78 06/11/18 12:03 74 18 99 Nasal Cannula 2.0 28 06/11/18 11:53 67 20 94 Nasal Cannula 2.0 06/11/18 09:07 132/70 06/11/18 09:03 73 132/70 06/11/18 08:29 76 20 99 Nasal Cannula 2.0 28 06/11/18 08:19 63 16 94 Nasal Cannula 2.0 06/11/18 08:00 98.1 73 20 132/70 (90) 96 73 06/11/18 08:00 Nasal Cannula 2.0 06/11/18 04:00 97.7 82 20 131/74 (93) 95 06/11/18 03:56 73 20 98 Nasal Cannula 2.0 28 06/11/18 03:47 70 20 96 Nasal Cannula 2.0 06/11/18 00:29 75 20 98 Nasal Cannula 4.0 36 06/11/18 00:20 103 20 96 Nasal Cannula 4.0 06/11/18 00:00 97.8 74 21 150/68 (95) 95 06/10/18 21:06 106 149/74 06/10/18 21:05 149/74 06/10/18 21:00 Nasal Cannula 2.0 06/10/18 20:47 83 20 97 Nasal Cannula 4.0 36 06/10/18 20:38 81 20 95 Nasal Cannula 4.0 06/10/18 20:00 97.6 105 20 149/74 (99) 94 06/10/18 16:00 98.5 99 20 142/69 (93) 94 Intake and Output 06/10/18 06/11/18 19:00 07:00 Intake Total 600 ml Balance 600 ml Intake Oral 600 ml # Voids 5 # Bowel Movements 3 1 Laboratory Tests Test 06/11/18 05:45 White Blood Count 13.4 K/UL (4.8-10.8) H Red Blood Count 3.86 M/UL (4.70-6.10) L Hemoglobin 11.8 G/DL (14.2-18.0) L Hematocrit 37.3 % (42.0-52.0) L Mean Corpuscular Volume 97 FL (80-99) Mean Corpuscular Hemoglobin 30.5 PG (27.0-31.0) Mean Corpuscular Hemoglobin Concent 31.6 G/DL (32.0-36.0) L Red Cell Distribution Width 15.4 % (11.6-14.8) H Platelet Count 179 K/UL (150-450) Mean Platelet Volume 8.1 FL (6.5-10.1) Neutrophils (%) (Auto) % (45.0-75.0) Lymphocytes (%) (Auto) % (20.0-45.0) Monocytes (%) (Auto) % (1.0-10.0) Eosinophils (%) (Auto) % (0.0-3.0) Basophils (%) (Auto) % (0.0-2.0) Differential Total Cells Counted 100 Neutrophils % (Manual) 87 % (45-75) H Lymphocytes % (Manual) 12 % (20-45) L Monocytes % (Manual) 1 % (1-10) Eosinophils % (Manual) 0 % (0-3) Basophils % (Manual) 0 % (0-2) Band Neutrophils 0 % (0-8) Platelet Estimate Adequate Platelet Morphology Normal Hypochromasia 1+ Anisocytosis 1+ Sodium Level 143 MMOL/L (136-145) Potassium Level 4.2 MMOL/L (3.5-5.1) Chloride Level 102 MMOL/L (98-107) Carbon Dioxide Level 37 MMOL/L (21-32) H Anion Gap 4 mmol/L (5-15) L Blood Urea Nitrogen 22 mg/dL (7-18) H Creatinine 0.6 MG/DL (0.55-1.30) Estimat Glomerular Filtration Rate mL/min (>60) Glucose Level 202 MG/DL (74-106) H Calcium Level 9.1 MG/DL (8.5-10.1) Phosphorus Level 3.9 MG/DL (2.5-4.9) Magnesium Level 2.1 MG/DL (1.8-2.4) Height (Feet): 6 Height (Inches): 1.00 Weight (Pounds): 171 Medications Current Medications Medications (Trade) Dose Ordered Sig/Evi Route PRN Reason Start Time Stop Time Status Last Admin Dose Admin Albuterol/ Ipratropium (Albuterol/ Ipratropium) 3 ml EVERY 4 HOURS HHN 06/10/18 21:00 06/15/18 14:59 06/11/18 11:53 Albuterol/ Ipratropium (Albuterol/ Ipratropium) 3 ml Q4H PRN HHN Shortness of Breath 06/10/18 10:30 06/15/18 10:29 06/10/18 11:22 Atorvastatin Calcium (Lipitor) 40 mg BEDTIME ORAL 06/10/18 21:00 07/10/18 20:59 06/10/18 21:06 Carvedilol (Coreg) 6.25 mg EVERY 12 HOURS ORAL 06/10/18 21:00 07/10/18 20:59 06/11/18 09:03 Ceftriaxone Sodium 1 gm/ Dextrose 55 ml @ 110 mls/hr Q24H IVPB 06/11/18 09:00 06/18/18 08:59 06/11/18 09:05 Clotrimazole (Lotrimin) 1 applic DAILY TOPIC 06/11/18 09:00 07/11/18 08:59 06/11/18 09:05 Dextrose (Dextrose 50%) 25 ml Q30M PRN IV Hypoglycemia 06/10/18 10:30 07/10/18 10:29 Dextrose (Dextrose 50%) 50 ml Q30M PRN IV Hypoglycemia 06/10/18 10:30 07/10/18 10:29 Enalapril Maleate (Vasotec) 5 mg EVERY 12 HOURS ORAL 06/10/18 21:00 07/10/18 20:59 06/11/18 09:07 Escitalopram Oxalate (Lexapro) 10 mg DAILY ORAL 06/11/18 09:00 07/11/18 08:59 06/11/18 09:03 Furosemide (Lasix) 20 mg DAILY ORAL 06/11/18 09:00 07/11/18 08:59 06/11/18 09:03 Heparin Sodium (Porcine) (Heparin 5000 units/ml) 5,000 units EVERY 8 HOURS SUBQ 06/10/18 14:00 07/10/18 13:59 06/11/18 13:58 Insulin Aspart (NovoLOG) BEFORE MEALS AND HS SUBQ 06/10/18 11:30 07/10/18 11:29 06/11/18 11:52 Methylprednisolone Sodium Succinate (Solu-MEDROL) 60 mg TWICE A DAY IVP 06/11/18 09:00 07/10/18 13:59 06/11/18 09:04 Promethazine HCl/ Codeine (Phenergan with Codeine) 5 ml Q4H PRN ORAL For Cough 06/11/18 15:30 07/11/18 15:29 UNV Theophylline (Zafar-Dur) 100 mg EVERY 12 HOURS ORAL 06/11/18 21:00 07/11/18 20:59 UNV Assessment/Plan Problem List: (1) COPD exacerbation ICD Codes: J44.1 - Chronic obstructive pulmonary disease with (acute) exacerbation SNOMED: 388640397841885 (2) Bronchitis ICD Codes: J40 - Bronchitis, not specified as acute or chronic SNOMED: 77200649 (3) Hypertension ICD Codes: I10 - Essential (primary) hypertension SNOMED: 02270736 (4) Diabetes mellitus ICD Codes: E11.9 - Type 2 diabetes mellitus without complications SNOMED: 26806770 (5) Irritable bowel syndrome ICD Codes: K58.9 - Irritable bowel syndrome without diarrhea SNOMED: 19752534 Assessment/Plan respiratory treatment check sputum iv abx titrate fio2 to sat of 92% check electrolytes dvt prophylaxis. Mikie Gray MD Jun 11, 2018 15:25
[2018-06-11] MEDS ORDERED: Promethazine/Codeine 5ml UD ORAL PRN (15:30)
--- NOTE | 2018-06-11 17:32 | Internal Med Progress Note ---
Subjective Date of Service: Jun 11, 2018 Physician Name Danielito Thomas Attending Physician Gadiel Ramírez MD Current Medications Medications (Trade) Dose Ordered Sig/Evi Route PRN Reason Start Time Stop Time Status Last Admin Dose Admin Albuterol/ Ipratropium (Albuterol/ Ipratropium) 3 ml EVERY 4 HOURS HHN 06/10/18 21:00 06/15/18 14:59 06/11/18 15:48 Albuterol/ Ipratropium (Albuterol/ Ipratropium) 3 ml Q4H PRN HHN Shortness of Breath 06/10/18 10:30 06/15/18 10:29 06/10/18 11:22 Atorvastatin Calcium (Lipitor) 40 mg BEDTIME ORAL 06/10/18 21:00 07/10/18 20:59 06/10/18 21:06 Carvedilol (Coreg) 6.25 mg EVERY 12 HOURS ORAL 06/10/18 21:00 07/10/18 20:59 06/11/18 09:03 Ceftriaxone Sodium 1 gm/ Dextrose 55 ml @ 110 mls/hr Q24H IVPB 06/11/18 09:00 06/18/18 08:59 06/11/18 09:05 Clotrimazole (Lotrimin) 1 applic DAILY TOPIC 06/11/18 09:00 07/11/18 08:59 06/11/18 09:05 Dextrose (Dextrose 50%) 25 ml Q30M PRN IV Hypoglycemia 06/10/18 10:30 07/10/18 10:29 Dextrose (Dextrose 50%) 50 ml Q30M PRN IV Hypoglycemia 06/10/18 10:30 07/10/18 10:29 Enalapril Maleate (Vasotec) 5 mg EVERY 12 HOURS ORAL 06/10/18 21:00 07/10/18 20:59 06/11/18 09:07 Escitalopram Oxalate (Lexapro) 10 mg DAILY ORAL 06/11/18 09:00 07/11/18 08:59 06/11/18 09:03 Furosemide (Lasix) 20 mg DAILY ORAL 06/11/18 09:00 07/11/18 08:59 06/11/18 09:03 Heparin Sodium (Porcine) (Heparin 5000 units/ml) 5,000 units EVERY 8 HOURS SUBQ 06/10/18 14:00 07/10/18 13:59 06/11/18 13:58 Insulin Aspart (NovoLOG) BEFORE MEALS AND HS SUBQ 06/10/18 11:30 07/10/18 11:29 06/11/18 16:59 Methylprednisolone Sodium Succinate (Solu-MEDROL) 60 mg TWICE A DAY IVP 06/11/18 09:00 07/10/18 13:59 06/11/18 09:04 Promethazine HCl/ Codeine (Phenergan with Codeine) 5 ml Q4H PRN ORAL For Cough 06/11/18 15:30 07/11/18 15:29 Theophylline (Zafar-Dur) 100 mg EVERY 12 HOURS ORAL 06/11/18 21:00 07/11/18 20:59 Allergies: Coded Allergies: PENICILLINS (Verified Allergy, Unknown, 04/08/17) ROS Limited/Unobtainable: No Constitutional: Reports: no symptoms HEENT: Reports: no symptoms Cardiovascular: Reports: no symptoms Respiratory: Reports: shortness of breath Gastrointestinal/Abdominal: Reports: no symptoms Genitourinary: Reports: no symptoms Neurologic/Psychiatric: Reports: no symptoms Subjective 73 YO M admitted with shortness of breath. Now COPD exacerbation. Cover for [facility] Med-DR Ramírez. Patient requests transfer to [facility] Objective Last Vital Signs Date Time Temp Pulse Resp B/P (MAP) Pulse Ox O2 Delivery O2 Flow Rate FiO2 06/11/18 15:59 97.9 73 19 126/69 (88) 98 06/11/18 15:49 Nasal Cannula 2.0 28 Laboratory Tests Test 06/11/18 05:45 White Blood Count 13.4 K/UL (4.8-10.8) H Red Blood Count 3.86 M/UL (4.70-6.10) L Hemoglobin 11.8 G/DL (14.2-18.0) L Hematocrit 37.3 % (42.0-52.0) L Mean Corpuscular Volume 97 FL (80-99) Mean Corpuscular Hemoglobin 30.5 PG (27.0-31.0) Mean Corpuscular Hemoglobin Concent 31.6 G/DL (32.0-36.0) L Red Cell Distribution Width 15.4 % (11.6-14.8) H Platelet Count 179 K/UL (150-450) Mean Platelet Volume 8.1 FL (6.5-10.1) Neutrophils (%) (Auto) % (45.0-75.0) Lymphocytes (%) (Auto) % (20.0-45.0) Monocytes (%) (Auto) % (1.0-10.0) Eosinophils (%) (Auto) % (0.0-3.0) Basophils (%) (Auto) % (0.0-2.0) Differential Total Cells Counted 100 Neutrophils % (Manual) 87 % (45-75) H Lymphocytes % (Manual) 12 % (20-45) L Monocytes % (Manual) 1 % (1-10) Eosinophils % (Manual) 0 % (0-3) Basophils % (Manual) 0 % (0-2) Band Neutrophils 0 % (0-8) Platelet Estimate Adequate Platelet Morphology Normal Hypochromasia 1+ Anisocytosis 1+ Sodium Level 143 MMOL/L (136-145) Potassium Level 4.2 MMOL/L (3.5-5.1) Chloride Level 102 MMOL/L (98-107) Carbon Dioxide Level 37 MMOL/L (21-32) H Anion Gap 4 mmol/L (5-15) L Blood Urea Nitrogen 22 mg/dL (7-18) H Creatinine 0.6 MG/DL (0.55-1.30) Estimat Glomerular Filtration Rate mL/min (>60) Glucose Level 202 MG/DL (74-106) H Calcium Level 9.1 MG/DL (8.5-10.1) Phosphorus Level 3.9 MG/DL (2.5-4.9) Magnesium Level 2.1 MG/DL (1.8-2.4) Microbiology Date/Time Source Procedure Growth Status 06/10/18 02:15 Nasal Nares Influenza Types A,B Antigen (UNIQUE) - Final Complete 06/10/18 02:15 Urine,Clean Catch Urine Culture - Preliminary Mixed Urogenital Contaminants Resulted Intake and Output 06/10/18 06/11/18 19:00 07:00 Intake Total 600 ml Balance 600 ml Intake Oral 600 ml # Voids 5 # Bowel Movements 3 1 Objective PHYSICAL EXAMINATION: VITAL SIGNS: Temperature 98.0, respirations 19, pulse 80, and blood pressure 121/64. GENERAL: The patient is thin-appearing white male, who is in moderate respiratory distress. HEENT: Eyes, pupils are equal and responsive to light and accommodation. Extraocular movements are intact. NECK: Supple without lymphadenopathy. CHEST: Diffuse wheezes in bilateral lung amaya with crackles at the bases. Otherwise, clear to auscultation bilaterally without rhonchi. CARDIOVASCULAR: Regular rhythm and rate. S1 and S2 are normal without murmurs, rubs, or gallops. ABDOMEN: Soft, nontender, and nondistended. Positive bowel sounds. No evidence of hepatosplenomegaly. Currently, no rebound or guarding noted. EXTREMITIES: Negative for clubbing, cyanosis, or edema. RECTAL/GENITAL: Refused. NEUROLOGIC: Cranial nerves II through XII are grossly intact without focal deficits. Motor strength is 5/5 bilaterally. Deep tendon reflexes are 2+ plantar. Assessment/Plan Assessment/Plan ASSESSMENT: This is a 73-year-old white male. 1. Chronic obstructive pulmonary disease, acute exacerbation. 2. Diabetes, steroid-induced. 3. Newly diagnosed abdominal cancer. 4. Hypertension. 5. Irritable bowel syndrome. 6. Hypercholesterolemia. TREATMENT: 1. Chronic obstructive pulmonary disease, acute exacerbation. A Pulmonary consultation has been obtained with Dr. Mikie Gray. We will follow recommendation of Pulmonary. The patient has been started on albuterol nebulized q.4 h. and intravenous Solu-Medrol. 2. Diabetes type 2. A NovoLog sliding scale has been instituted. 3. Newly diagnosed abdominal cancer. The patient does not know what kind of cancer he has. The patient is scheduled for resection of stage I cancer on June 22, 2018 at [facility]. 4. Hypertension. Continue Coreg as above. 5. Irritable bowel syndrome. 6. Hypercholesterolemia. Danielito Thomas MD Jun 11, 2018 17:32
--- NOTE | 2018-06-11 19:20 | NUR ---
NURSE NOTES: Patient became agitated and reported he wants to be discharged no later than tomorrow. Patient asked to have MD paged for update on when he will be discharged. Called Dr. Thomas and left voicemail with MD informing him of patient's complaint. Will continue to monitor and endorse to night supervisor.
--- NOTE | 2018-06-11 19:59 | NUR ---
HAND-OFF: Report given to Ilya JAMES. Patient is in stable condition.
--- NOTE | 2018-06-11 20:00 | NUR ---
NURSE NOTES: Received report from JACOB Grace. Patient in bed awake with no signs of acute distress. Respiration even and non labored on room air. IV line patent and intact. All needs attended and met. Bed in lowest position. Call light within reach. Will continue plan of care.
[2018-06-11] MEDS: Atorvastatin 20mg tab ORAL SCH (20:56)
[2018-06-11] MEDS: Theophylline ER 100mg ORAL SCH (20:56)
[2018-06-12] VITALS: BP 117/58
[2018-06-12] MEDS: Albuterol/Ipratropium 3ml neb HHN SCH ×3 (03:13→13:57)
[2018-06-12 04:00] VITALS: BP 136/73
[2018-06-12] MEDS: NovoLOG Insulin Flexpen SUBQ SCH ×2 (06:09→12:43)
[2018-06-12] MEDS: Heparin 5000 units/ml inj SUBQ SCH ×2 (06:10→14:00)
[2018-06-12 07:21] LABS: HEMATOCRIT 37.9 % (42.0-52.0); MEAN CORPUSCULAR VOLUME 96 FL (80-99); PLATELET COUNT 163 K/UL (150-450); RED BLOOD COUNT 3.95 M/UL (4.70-6.10); RED CELL DISTRIBUTION WIDTH 15.1 % (11.6-14.8); WHITE BLOOD COUNT 12.5 K/UL (4.8-10.8)
--- NOTE | 2018-06-12 07:41 | NUR ---
HAND-OFF: Report given to JACOB West.
[2018-06-12 07:44] LABS: ANION GAP 3 mmol/L (5-15); BLOOD UREA NITROGEN 24 mg/dL (7-18); CARBON DIOXIDE 37 MMOL/L (21-32); CHLORIDE 101 MMOL/L (98-107); CREATININE 0.6 MG/DL (0.55-1.30); SODIUM 141 MMOL/L (136-145)
[2018-06-12 08:00] VITALS: BP 137/68
--- NOTE | 2018-06-12 08:11 | NUR ---
NURSE NOTES: Patient is alert and oriented. Patient has no reports of discomfort. Patient is on 2 liters oxygen via nasal cannula. Side rails are up X2, bed is locked, in lowest position, and call light is within reach. Will continue to monitor.
[2018-06-12] MEDS: cefTRIAXone 1 GM in D5W 55 ML IVPB SCH (09:09)
[2018-06-12] MEDS: Solu-MEDROL 40mg Inj IVP SCH (09:12)
[2018-06-12] MEDS: Theophylline ER 100mg ORAL SCH (09:12)
[2018-06-12] MEDS: Carvedilol 6.25mg Tab ORAL SCH (09:12)
[2018-06-12] MEDS: Enalapril 5mg tab ORAL SCH (09:13)
[2018-06-12 12:00] VITALS: BP 137/83
--- NOTE | 2018-06-12 13:46 | Pulmonology Progress Note ---
Assessment/Plan Problems: (1) COPD exacerbation (2) Bronchitis (3) Hypertension (4) Diabetes mellitus (5) Irritable bowel syndrome Assessment/Plan improving respiratory treatment check sputum iv abx titrate fio2 to sat of 92% check electrolytes dvt prophylaxis wants to go home Subjective ROS Limited/Unobtainable: No Constitutional: Reports: no symptoms HEENT: Repors: no symptoms Respiratory: Reports: no symptoms Allergies: Coded Allergies: PENICILLINS (Verified Allergy, Unknown, 04/08/17) Objective Last 24 Hour Vital Signs Date Time Temp Pulse Resp B/P (MAP) Pulse Ox O2 Delivery O2 Flow Rate FiO2 06/12/18 09:13 137/68 06/12/18 09:12 89 137/68 06/12/18 08:45 Nasal Cannula 2.0 06/12/18 08:00 98.3 89 20 137/68 (91) 93 89 06/12/18 07:50 88 20 99 Nasal Cannula 2.0 28 06/12/18 07:43 80 16 95 Nasal Cannula 2.0 28 06/12/18 07:43 95 Nasal Cannula 2.0 28 06/12/18 07:43 Nasal Cannula 2.0 28 06/12/18 04:00 97.3 61 18 136/73 (94) 98 06/12/18 03:19 72 20 99 Nasal Cannula 2.0 28 06/12/18 03:09 69 20 97 Nasal Cannula 2.0 06/12/18 00:00 98.0 95 18 117/58 (77) 95 06/11/18 23:14 Nasal Cannula 2.0 28 06/11/18 23:13 Nasal Cannula 2.0 28 06/11/18 21:00 Nasal Cannula 2.0 06/11/18 20:56 134/68 06/11/18 20:56 90 134/68 06/11/18 20:02 79 20 99 Nasal Cannula 2.0 28 06/11/18 20:00 98.0 90 18 134/68 (90) 95 06/11/18 19:47 78 20 95 Nasal Cannula 2.0 06/11/18 19:46 Nasal Cannula 2.0 06/11/18 19:46 95 Nasal Cannula 2.0 28 06/11/18 15:59 97.9 73 19 126/69 (88) 98 06/11/18 15:49 77 18 99 Nasal Cannula 2.0 28 06/11/18 15:49 73 20 97 Nasal Cannula 2.0 Intake and Output 06/11/18 06/12/18 18:59 06:59 Intake Total 636 ml 356 ml Balance 636 ml 356 ml Intake Oral 636 ml 356 ml # Voids 2 2 # Bowel Movements 1 1 General Appearance: WD/WN, no acute distress HEENT: normocephalic Respiratory/Chest: chest wall non-tender, accessory muscle use, crackles/rales Cardiovascular: normal peripheral pulses, normal rate Abdomen: normal bowel sounds, soft, non tender Genitourinary: normal external genitalia Skin: no rash, no lesions Neurologic/Psychiatric: automation lead II-XII grossly normal Microbiology Date/Time Source Procedure Growth Status 06/10/18 16:30 Nasal Nares MRSA Culture - Final Staphylococcus Aureus - Mrsa Complete 06/10/18 02:15 Nasal Nares Influenza Types A,B Antigen (UNIQUE) - Final Complete 06/10/18 02:15 Urine,Clean Catch Urine Culture - Preliminary Gram Negative Bacillus 1 Staphylococcus Aureus Resulted 06/10/18 16:30 Rectal Mucosa VRE Culture - Final NO VANCOMYCIN RESISTANT ENTEROCOCCUS ... Complete 06/10/18 16:30 Rectal Mucosa - Final NO CARBAPENEM-RESISTANT ENTEROBACTERI... Complete Laboratory Tests 06/12/18 05:30: White Blood Count 12.5H, Red Blood Count 3.95L, Hemoglobin 12.0L, Hematocrit 37.9L, Mean Corpuscular Volume 96, Mean Corpuscular Hemoglobin 30.3, Mean Corpuscular Hemoglobin Concent 31.6L, Red Cell Distribution Width 15.1H, Platelet Count 163, Mean Platelet Volume 8.1, Neutrophils (%) (Auto) , Lymphocytes (%) (Auto) , Monocytes (%) (Auto) , Eosinophils (%) (Auto) , Basophils (%) (Auto) , Differential Total Cells Counted 100, Neutrophils % ( Manual) 91H, Lymphocytes % (Manual) 7L, Monocytes % (Manual) 2, Eosinophils % ( Manual) 0, Basophils % (Manual) 0, Band Neutrophils 0, Platelet Estimate Adequate, Platelet Morphology Normal, Red Blood Cell Morphology Normal, Sodium Level 141, Potassium Level 4.0, Chloride Level 101, Carbon Dioxide Level 37H, Anion Gap 3L, Blood Urea Nitrogen 24H, Creatinine 0.6, Estimat Glomerular Filtration Rate , Glucose Level 229H, Calcium Level 9.0 Current Medications Medications (Trade) Dose Ordered Sig/Evi Route PRN Reason Start Time Stop Time Status Last Admin Dose Admin Albuterol/ Ipratropium (Albuterol/ Ipratropium) 3 ml EVERY 4 HOURS HHN 06/10/18 21:00 06/15/18 14:59 06/12/18 07:43 Albuterol/ Ipratropium (Albuterol/ Ipratropium) 3 ml Q4H PRN HHN Shortness of Breath 06/10/18 10:30 06/15/18 10:29 06/10/18 11:22 Atorvastatin Calcium (Lipitor) 40 mg BEDTIME ORAL 06/10/18 21:00 07/10/18 20:59 06/11/18 20:56 Carvedilol (Coreg) 6.25 mg EVERY 12 HOURS ORAL 06/10/18 21:00 07/10/18 20:59 06/12/18 09:12 Ceftriaxone Sodium 1 gm/ Dextrose 55 ml @ 110 mls/hr Q24H IVPB 06/11/18 09:00 06/18/18 08:59 06/12/18 09:09 Clotrimazole (Lotrimin) 1 applic DAILY TOPIC 06/11/18 09:00 07/11/18 08:59 06/12/18 09:09 Dextrose (Dextrose 50%) 25 ml Q30M PRN IV Hypoglycemia 06/10/18 10:30 07/10/18 10:29 Dextrose (Dextrose 50%) 50 ml Q30M PRN IV Hypoglycemia 06/10/18 10:30 07/10/18 10:29 Enalapril Maleate (Vasotec) 5 mg EVERY 12 HOURS ORAL 06/10/18 21:00 07/10/18 20:59 06/12/18 09:13 Escitalopram Oxalate (Lexapro) 10 mg DAILY ORAL 06/11/18 09:00 07/11/18 08:59 06/12/18 09:12 Furosemide (Lasix) 20 mg DAILY ORAL 06/11/18 09:00 07/11/18 08:59 06/12/18 09:12 Heparin Sodium (Porcine) (Heparin 5000 units/ml) 5,000 units EVERY 8 HOURS SUBQ 06/10/18 14:00 07/10/18 13:59 06/12/18 06:10 Insulin Aspart (NovoLOG) BEFORE MEALS AND HS SUBQ 06/10/18 11:30 07/10/18 11:29 06/12/18 12:43 Methylprednisolone Sodium Succinate (Solu-MEDROL) 60 mg TWICE A DAY IVP 06/11/18 09:00 07/10/18 13:59 06/12/18 09:12 Promethazine HCl/ Codeine (Phenergan with Codeine) 5 ml Q4H PRN ORAL For Cough 06/11/18 15:30 07/11/18 15:29 Theophylline (Zafar-Dur) 100 mg EVERY 12 HOURS ORAL 06/11/18 21:00 07/11/18 20:59 06/12/18 09:12 Mikie Gray MD Jun 12, 2018 13:46
[2018-06-12] MEDS ORDERED: THEOPHYLLINE A100 MG ORAL (13:49)
[2018-06-12] MEDS ORDERED: BACTRIM-DS1 EA ORAL (13:49)
[2018-06-12 16:00] VITALS: BP 130/73
--- NOTE | 2018-06-12 17:24 | NUR ---
NURSE NOTES: Patient discharged home via ambulance. Discharge instructions and prescription given to patient. IV removed. Patient stable upon discharge.
--- NOTE | 2018-06-14 01:31 | Cardiology Report ---
APPROVED REPORT EKG Measurement Heart [id number] CO [id number] [id number] Normal sinus rhythm Incomplete RBBB Left anterior fascicular block Nonspecific ST abnormality Abnormal ECG
--- NOTE | 2018-06-14 12:00 | Discharge Summary ---
Discharge Summary Discharge Summary _ Was DATE OF ADMISSION: 06/10/2018 DATE OF DISCHARGE: 06/12/2018 DISCHARGED BY: Dr. Ramírez REASON FOR ADMISSION: 73 years old male with past medical history of COPD/asthma, diabetes mellitus, hypertension, congestive heart failure, presented with complaint of dyspnea for 2 days. Patient [facility] L [facility] Patient received breathing treatment at the facility. Pulse oximetry was 87% per paramedics. Patient was placed by floor installation mechanic nonrebreathing mask and was brought to emergency room for further evaluation. Patient was recently hospitalized at [facility]. Patient denied purulent sputum, but reported wheezing. He denied chest pain. No calf pain. Patient was currently still taking prednisone. Upon evaluation patient was found to be hypoxic and tachycardic. Patient required supplemental oxygen via simple mask. Laboratory workup revealed leukocytosis WBC 19.5, stable hemoglobin and hematocrit. BUN 33 creatinine 0.7. Glucose 239. Lactic acid 2.0. Troponin - 0.021. Pro BNP 217. EKG revealed normal sinus rhythm. Incomplete right bundle branch block. Left anterior fascicular block. Urinalysis revealed pyuria, bacteria, and moderate yeast. Rapid influenza screen test was negative. Chest x-ray revealed sinus rhythm no acute ischemic changes. Chest x-ray revealed evidence of COPD. Patient was admitted for further management. CONSULTANTS: pulmonary Dr. Gray HOSPITAL COURSE: Patient admitted to medical surgical floor. Supplemental oxygen provided to keep pulse oximetry above 90%. Pulmonary toilet provided with nebulizing therapy around the clock and as needed. Patient was started on intravenous steroids with gradual tapering down. Rapid influenza screen test was negative. CXR revealed evidence of COPD. Urine culture revealed growth of E. coli MRSA and [place] Patient was on antibiotic for management of UTI and COPD exacerbation. Trial of theophylline initiated. Antitussive provided as needed. DVT prophylaxis provided. Venous duplex bilateral lower extremity revealed no evidence of UTI. Blood pressure was managed with beta-mitul. Diuresis was continued with maintenance dose of Lasix and close monitoring of volumes and cardiorenal parameters. Blood sugar was managed with sliding scale of insulin as needed. 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 IV steroids were tapering down Leukocytosis was trending down. Patient remained afebrile. Pulse oximetry stable on room air. Renal parameters and electrolytes were closely monitored. Electrolytes corrected as needed, and nephrotoxins were avoided. Prior to discharge BUN from 33 down to 24, creatinine remained stable. Patient apparently had newly diagnosed abdominal cancer. Patient was not aware what kind of cancer was that. Patient was already scheduled for resection of stage I cancer on June 22, 2018 at [facility]. Patient clinically stabilized. Pulse oximetry stable on room air. Patient was stable for discharge home FINAL DIAGNOSES: COPD exacerbation Acute bronchitis Hypertension Diabetes mellitus , steroid induced Irritable bowel syndrome Newly diagnosed abdominal cancer DISCHARGE MEDICATIONS: See Medication Reconciliation list. DISCHARGE INSTRUCTIONS: Patient was discharged home. Follow up with primary care provider in one week. I have been assigned to dictate discharge summary for this account. I was not involved in the patient's management. Mayi Rosa NP Jun 14, 2018 11:59
--- NOTE | 2018-06-15 14:17 | Diagnostic Imaging Report ---
APPROVED REPORT CPT Code: 63165 Present Symptoms Lower Extremity Edema: BILATERAL: Imaging reveals a patent deep venous system bilaterally. There is no evidence of thrombus within the femoral, popliteal or tibial segments. The greater saphenous veins are also within normal limits. Doppler indicates normal spontaneous flow within these segments.
== END 2018-06-12 17:31 | disposition home or self-care (01) | DRG 191 ==
LOC: EDBD 00:23 → EDUNIT# 00:23 → EMR 01:14 → 3E 02:56 → EDBEDREQ 04:26
DX: J44.0 Chronic obstructive pulmonary disease with (acute) lower respiratory infection (principal); N39.0 Urinary tract infection, site not specified; B37.49 Other urogenital candidiasis; J20.9 Acute bronchitis, unspecified; J44.1 Chronic obstructive pulmonary disease with (acute) exacerbation; C76.2 Malignant neoplasm of abdomen; E09.9 Drug or chemical induced diabetes mellitus without complications; T38.0X5A Adverse effect of glucocorticoids and synthetic analogues, initial encounter; I10 Essential (primary) hypertension; K58.9 Irritable bowel syndrome, unspecified; Z88.0 Allergy status to penicillin; Z79.4 Long term (current) use of insulin; E78.00 Pure hypercholesterolemia, unspecified; J40 Bronchitis, not specified as acute or chronic; F17.200 Nicotine dependence, unspecified, uncomplicated; B95.62 Methicillin resistant Staphylococcus aureus infection as the cause of diseases classified elsewhere; B96.20 Unspecified Escherichia coli [E. coli] as the cause of diseases classified elsewhere
CPT/HCPCS: 36415; 71045; 80048; 80053; 81003; 82550; 82962; 83605; 83735; 83880; 84100; 84484; 85007; 85025; 85610; 85730; 86710; 87081; 87086; 87181; 93005; 93970; 94640; 94664; 94760; 96361; 96365; 96367; 96375; 99285; J1815; J7620

== ENCOUNTER 2018-06-15 22:41 | Inpatient (IN) | payer MEDICARE, BC ==
[~2018-06-15] VITALS: Ht 167.6 cm; Wt 75.5 kg
[~2018-06-15 22:41] MED LIST changes: +BACTRIM-DS1 EA ORAL; +LISINOPRIL5 MG ORAL; +PHENAZOPYRIDIN100 MG ORAL; +TAMSULOSIN HCL0.4 MG ORAL; +THEOPHYLLINE A100 MG ORAL; +VERAPAMIL ER120 MG PO
[2018-06-15] MEDS ORDERED: METFORMIN HCL1000 M1 ORAL (22:52)
[2018-06-15 23:35] VITALS: BP 152/74
--- NOTE | 2018-06-15 23:35 | NUR ---
Patient JANIYA RA61 from home c/o SOB for 20 years. Patient was on 2lpm via nc at home and SpO2 was 90%. Patient arrived on 4lpm at 99%. Patient currently sitting on 2lpm via nc at 100% SpO2. Patient was found at home laying in his feces and urine. Patient states he is too weak to get up and use the restroom. Patient AOx4, HR 115 other VSS, no s/s of acute distress noted at this time, patient is non ambulatory due to weakness. Patient seen by HOLGER at bedside.
--- NOTE | 2018-06-15 23:56 | NUR ---
ED Nurse Note: Patient has skin tears, scabs, and other skin integrity problems all over body in various stages of healing. Patient has wound on penis.
[2018-06-15 23:59] LABS: HEMATOCRIT 44.8 % (42.0-52.0); HEMOGLOBIN 14.5 G/DL (14.2-18.0); MEAN CORPUSCULAR VOLUME 96 FL (80-99); RED BLOOD COUNT 4.66 M/UL (4.70-6.10); RED CELL DISTRIBUTION WIDTH 14.9 % (11.6-14.8); WHITE BLOOD COUNT 14.4 K/UL (4.8-10.8)
[2018-06-16 00:12] LABS: ANION GAP 8 mmol/L (5-15); BLOOD UREA NITROGEN 18 mg/dL (7-18); CALCIUM 9.8 MG/DL (8.5-10.1); CARBON DIOXIDE 34 MMOL/L (21-32); CHLORIDE 99 MMOL/L (98-107); CREATININE 0.8 MG/DL (0.55-1.30); POTASSIUM 4.3 MMOL/L (3.5-5.1); SODIUM 141 MMOL/L (136-145)
[2018-06-16 00:25] LABS: ALANINE AMINOTRANSFERASE 67 U/L (12-78); ALBUMIN 3.4 G/DL (3.4-5.0); ALBUMIN/GLOBULIN RATIO 0.8 (1.0-2.7); ALKALINE PHOSPHATASE 106 U/L (46-116); ASPARTATE AMINO TRANSFERASE 14 U/L (15-37); BILIRUBIN,TOTAL 0.6 MG/DL (0.2-1.0); CKMB 2.3 NG/ML (0.0-3.6); CREATINE KINASE 50 U/L (26-308)
--- NOTE | 2018-06-16 00:45 | NUR ---
ED Nurse Note: Patient unable to provide urine sample at this time. Patient refused straight cath.
[2018-06-16 00:47] LABS: PLATELET COUNT 157 K/UL (150-450)
[2018-06-16 01:22] VITALS: BP 142/56
--- NOTE | 2018-06-16 01:49 | NUR ---
ED Nurse Note: Lactic acid reflex collected and sent to lab.
--- NOTE | 2018-06-16 01:51 | Emergency Room Report ---
History of Present Illness General Chief Complaint: Dyspnea/Respdistress Source: Patient, Medical Record Present Illness HPI This is a 73-year-old male with history of COPD and recent abdominal cancer diagnoses. He presents with chief complaint of weakness, shortness of breath. He was just discharged here recently. He called 911 several times today. First couple time refuse transport and treatment. This last time he agreed to be transferred. Per EMS, his been laying in bed and has stool and urine on him. Patient said he is too weak to move around. Denies any nausea vomiting. Chronically short of breath. No fever or chills. No nausea no vomiting. Patient is very poor historian not cooperative. Allergies: Coded Allergies: PENICILLINS (Verified Allergy, Unknown, 04/08/17) Patient History Past Medical History: see triage record, old chart reviewed, DM Past Surgical History: other Pertinent Family History: none Social History: Denies: drug use Immunizations: other Reviewed Nursing Documentation: PMH: Agreed; PSxH: Agreed Nursing Documentation-PMH Past Medical History: No History, Except For Hx Cardiac Problems: Yes Hx Hypertension: Yes Hx Asthma: Yes Hx COPD: Yes - emphysema Hx Diabetes: Yes Hx Cancer: Yes Hx Gastrointestinal Problems: Yes Hx Neurological Problems: No Review of Systems Constitutional: Reports: malaise, weakness Eye: Denies: eye pain, blurred vision ENT: Denies: ear pain, nose congestion, throat swelling Respiratory: Reports: shortness of breath; Denies: cough Cardiovascular: Denies: chest pain, palpitations Gastrointestinal: Denies: abdominal pain, diarrhea, nausea, vomiting Musculoskeletal: Denies: back pain, joint pain Skin: Denies: rash Neurological: Denies: headache, numbness Endocrine: Denies: increased thirst, increased urine Hematologic/Lymphatic: Denies: easy bruising All Other Systems: negative except mentioned in HPI Physical Exam Vital Signs Date Time Temp Pulse Resp B/P (MAP) Pulse Ox O2 Delivery O2 Flow Rate FiO2 06/15/18 22:47 98.8 115 22 152/74 95 Nasal Cannula 4.0 vitals with tachycardia Sp02 EP Interpretation: abnormal General Appearance: well appearing, no apparent distress, Chronically Ill Head: normocephalic, atraumatic Eyes: bilateral eye PERRL, bilateral eye EOMI ENT: hearing grossly normal, dry mucus membranes Neck: full range of motion, supple, no meningismus Respiratory: chest non-tender, lungs clear, normal breath sounds Cardiovascular #1: regular rate, rhythm, no murmur Gastrointestinal: normal bowel sounds, non tender, no mass, no organomegaly, no bruit, non-distended Genitourinary: other - Genital, perineum and buttock area erythematous and macerated. Musculoskeletal: back normal, normal range of motion, other - He has multiple scabs all over his body and extremities Neurologic: alert, oriented x3 Psychiatric: mood/affect normal Skin: warm/dry Medical Decision Making Diagnostic Impression: Primary Impression: COPD (chronic obstructive pulmonary disease) Qualified Codes: J44.9 - Chronic obstructive pulmonary disease, unspecified Additional Impressions: Failure to thrive Qualified Codes: R62.7 - Adult failure to thrive Dehydration Lactic acidosis ER Course Patient presents with failure to thrive and generalize weakness. He does have a lactic acidosis and this is probably secondary to his intra-abdominal pathology and dehydration. He is unable to take care of himself. He may need mcc placement. Admit for further workup. I discussed the case with Dr. Ramírez and Dr. Thomas for admission. Lab Results Impression labs with elevated lactic acid EKG Diagnostic Results Rate: tachycardiac Rhythm: NSR ST Segments: no acute changes Rhythm Strip Diag. Results EP Interpretation: yes Rate: 100 Rhythm: NSR Chest X-Ray Diagnostic Results Chest X-Ray Diagnostic Results : Chest X-Ray Ordered: Yes # of Views/Limited/Complete: 1 View Indication: Shortness of Breath EP Interpretation: Yes Interpretation: no consolidation, no effusion, no pneumothorax, other - copd Impression: No acute disease - copd Electronically Signed by: Marino Solis MD Last Vital Signs Date Time Temp Pulse Resp B/P (MAP) Pulse Ox O2 Delivery O2 Flow Rate FiO2 06/16/18 01:22 98.8 106 20 142/56 98 Nasal Cannula 2.0 Status: improved Disposition: ADMITTED INPATIENT Condition: Serious Referrals: NON PHYSICIAN (PCP) Marino Solis MD Jun 16, 2018 01:51
--- NOTE | 2018-06-16 02:00 | NUR ---
ED Nurse Note: Patient has bilateral pedal edema
--- NOTE | 2018-06-16 02:07 | NUR ---
ED Nurse Note: VRE/CRE swab collected and sent to lab.
[2018-06-16 03:01] VITALS: BP 133/75
--- NOTE | 2018-06-16 03:03 | NUR ---
ED Nurse Note: Patient transferred to telemetry unit, on [facility], connected to outdoor fitness trainer by cvt tech and staff anesthesiologist. Patient report given to Ilya JAMES at bedside. Patient sent with all personal belongings. Patient AOx4, VSS, non ambulatory due to weakness, no s/s of acute distress noted at this time. Patient tolerated transfer well.
--- NOTE | 2018-06-16 03:05 | NUR ---
NURSE NOTES: Received pt. from Lauren RN from ED via gustavo. Patient is awake aox4. On 2L nc. Breathing even and non labored. No Sob. Placed on cylinder dyer showing sinus tach. 106's. Vitals BP 139/72, pulse 106, temp. 96.3, resp. 22. O2 sat. 96%. Oriented to room and unit. Bed in lowest position. Call light within reach. MD notified for admission order. Awaiting call back.
[2018-06-16] MEDS ORDERED: Albuterol/Ipratropium 3ml neb HHN PRN (07:00)
[2018-06-16] MEDS ORDERED: Heparin 5000 units/ml inj SUBQ SCH (07:30)
--- NOTE | 2018-06-16 07:53 | NUR ---
HAND-OFF: Report given to JACOB Kimbrough.
[2018-06-16 08:00] VITALS: BP 132/76
--- NOTE | 2018-06-16 08:00 | NUR ---
NURSE NOTES: Pt awake/alert in bed, breathing easily on 2 lpm nasal cannula, c/o mild SOB but denies pain at this time. Vital signs stable with SR @ 110 on monitor. IV access left a/c flushed with 10 ml NS and locked. Bed left in low position, side rails up x 2 and call light left near pt's hand. Addendum: 06/16/18 at 0942 by FRANCES STARKS RN Pt asking for water, unaware of pitcher/cup right in front of him.
--- NOTE | 2018-06-16 08:19 | NUR ---
CASE MANAGEMENT:REVIEW 73 YR OLD MALE BIBA FROM HOME CC; SOB. SAT 91% ON 2L/NC SI: COPD EXACERBATION. DEHYDRATION. FTT 98.8 115 22 152/74 95% ON 4L/NC WBC+14.4 IS: 1L NS BOLUS CXR BLOOD CX ; TO TELEMETRY INTERQUAL CRITERIA MET
[2018-06-16] MEDS: Carvedilol 6.25mg Tab ORAL SCH ×2 (08:56→20:49)
[2018-06-16] MEDS: Theophylline ER 100mg ORAL SCH ×2 (08:56→20:47)
[2018-06-16] MEDS: Enalapril 5mg tab ORAL SCH ×2 (08:57→20:48)
[2018-06-16] MEDS ORDERED: Metoprolol Tartrate 50mg tab ORAL SCH (09:00)
[2018-06-16] MEDS ORDERED: Bactrim-DS 1 tab ORAL SCH (09:00)
[2018-06-16] MEDS ORDERED: metFORMIN 500mg tab ORAL SCH (09:00)
[2018-06-16] MEDS ORDERED: Albuterol 90mcg Inhaler 8gm INH PRN (09:00)
--- NOTE | 2018-06-16 09:43 | Consultation ---
History of Present Illness General Date patient seen: Jun 16, 2018 Chief Complaint: Dyspnea/Respdistress Present Illness HPI 73 year old male with hx of COPD, smoking, CHF, CAD, DM, recently discharged, presented to ER with CC of shortness of breath for a few days. He just got discharged from [facility] for the same symptoms. He denies chest pain. He denies abdominal pain. He was in bed according to paramedics with feces and urine in bed, he was unable to get out of bed He denies nausea or vomiting. He is admitted for exacerbation of his underlying COPD with bronchitis. Allergies: Coded Allergies: PENICILLINS (Verified Allergy, Unknown, 04/08/17) Medication History Scheduled Albuterol Sulfate (Ventolin Hfa), 2 PUFFS INH Q12HR, (Reported) Budesonide/Formoterol Fumarate (Symbicort 160-4.5 Mcg Inhaler), 2 PUFFS IH BID, (Reported) Carvedilol* (Carvedilol*), 6.25 MG ORAL EVERY 12 HOURS, (Reported) Enalapril Maleate* (Enalapril Maleate*), 5 MG ORAL EVERY 12 HOURS, (Reported) Escitalopram Oxalate* (Lexapro*), 10 MG ORAL DAILY, (Reported) Furosemide* (Lasix*), 20 MG ORAL DAILY, (Reported) Metformin Hcl* (Metformin Hcl*), 1,000 MG ORAL DAILY, (Reported) Metoprolol Tartrate* (Metoprolol Tartrate*), 50 MG ORAL Q12HR Potassium Chloride (Klor-Con M20), 20 MEQ ORAL DAILY, (Reported) Prednisone* (Prednisone*), 20 MG ORAL DAILY, (Reported) Rosuvastatin Calcium* (Crestor*), 10 MG ORAL DAILY, (Reported) Theophylline (Theodur*), 100 MG ORAL EVERY 12 HOURS Tiotropium Kinsman* (Spiriva*), 2 PUFF INH DAILY, (Reported) Trimethoprim/Sulfamethoxazole (Bactrim Ds Tablet), 1 TAB ORAL TWICE A DAY Scheduled PRN Temazepam* (Restoril*), 15 MG ORAL HSPRN PRN Discontinued Medications Furosemide* (Lasix*), 40 MG ORAL DAILY Discontinued Reason: Pt stopped taking med Insulin Glargine (Lantus), 25 UNITS SUBQ BEFORE BREAKFAST, (Reported) Discontinued Reason: Pt stopped taking med Insulin Lispro (Humalog), 10 UNITS SUBQ AC, (Reported) Discontinued Reason: Pt stopped taking med Lisinopril (Lisinopril*), Unknown Dose ORAL DAILY, (Reported) Discontinued Reason: Pt stopped taking med Phenazopyridine Hcl* (Pyridium*), Unknown Dose ORAL THREE TIMES A DAY, (Reported ) Discontinued Reason: Pt stopped taking med Tamsulosin Hcl (Tamsulosin Hcl*), Unknown Dose ORAL BEDTIME, (Reported) Discontinued Reason: Pt stopped taking med Verapamil Hcl (Verapamil Er), Unknown Dose PO, (Reported) Discontinued Reason: Pt stopped taking med Patient History Healthcare decision maker Resuscitation status Full Code Advanced Directive on File Past Medical/Surgical History Past Medical/Surgical History: (1) COPD (chronic obstructive pulmonary disease) (2) Diabetes mellitus (3) Hypertension (4) Irritable bowel syndrome Review of Systems Constitutional: Reports: no symptoms Respiratory: Reports: cough, shortness of breath Cardiovascular: Reports: no symptoms Physical Exam General Appearance: WD/WN Lines, tubes and drains: peripheral HEENT: normocephalic, atraumatic Neck: non-tender, normal alignment Respiratory/Chest: chest wall non-tender, lungs clear Breasts: no masses Cardiovascular/Chest: normal peripheral pulses Abdomen: normal bowel sounds, non tender Extremities: normal range of motion, normal inspection Skin Exam: normal pigmentation Last 24 Hour Vital Signs Date Time Temp Pulse Resp B/P (MAP) Pulse Ox O2 Delivery O2 Flow Rate FiO2 06/16/18 08:57 142/56 06/16/18 08:56 107 142/56 06/16/18 03:21 107 06/16/18 03:02 98.5 101 24 142/56 95 Nasal Cannula 2.0 06/16/18 03:01 98.5 101 24 133/75 95 Nasal Cannula 2.0 06/16/18 02:55 Nasal Cannula 2.0 06/16/18 01:22 98.8 106 20 142/56 98 Nasal Cannula 2.0 06/15/18 23:35 115 22 Nasal Cannula 2.0 06/15/18 23:35 98.8 115 22 152/74 100 Nasal Cannula 2.0 06/15/18 22:47 98.8 115 22 152/74 95 Nasal Cannula 4.0 Intake and Output 06/15/18 06/16/18 19:00 07:00 Intake Total 0 ml Balance 0 ml Intake Oral 0 ml # Voids 2 # Bowel Movements 1 Laboratory Tests Test 06/15/18 23:43 06/16/18 01:45 White Blood Count 14.4 K/UL (4.8-10.8) H Red Blood Count 4.66 M/UL (4.70-6.10) L Hemoglobin 14.5 G/DL (14.2-18.0) Hematocrit 44.8 % (42.0-52.0) Mean Corpuscular Volume 96 FL (80-99) Mean Corpuscular Hemoglobin 31.0 PG (27.0-31.0) Mean Corpuscular Hemoglobin Concent 32.3 G/DL (32.0-36.0) Red Cell Distribution Width 14.9 % (11.6-14.8) H Platelet Count 157 K/UL (150-450) Mean Platelet Volume 11.6 FL (6.5-10.1) H Neutrophils (%) (Auto) % (45.0-75.0) Lymphocytes (%) (Auto) % (20.0-45.0) Monocytes (%) (Auto) % (1.0-10.0) Eosinophils (%) (Auto) % (0.0-3.0) Basophils (%) (Auto) % (0.0-2.0) Differential Total Cells Counted 100 Neutrophils % (Manual) 85 % (45-75) H Lymphocytes % (Manual) 11 % (20-45) L Monocytes % (Manual) 4 % (1-10) Eosinophils % (Manual) 0 % (0-3) Basophils % (Manual) 0 % (0-2) Band Neutrophils 0 % (0-8) Platelet Estimate Adequate Platelet Morphology Normal Red Blood Cell Morphology Normal Sodium Level 141 MMOL/L (136-145) Potassium Level 4.3 MMOL/L (3.5-5.1) Chloride Level 99 MMOL/L (98-107) Carbon Dioxide Level 34 MMOL/L (21-32) H Anion Gap 8 mmol/L (5-15) Blood Urea Nitrogen 18 mg/dL (7-18) Creatinine 0.8 MG/DL (0.55-1.30) Estimat Glomerular Filtration Rate mL/min (>60) Glucose Level 179 MG/DL (74-106) H Lactic Acid Level 2.50 mmol/L (0.4-2.0) H 2.10 mmol/L (0.66-2.22) Calcium Level 9.8 MG/DL (8.5-10.1) Total Bilirubin 0.6 MG/DL (0.2-1.0) Aspartate Amino Transf (AST/SGOT) 14 U/L (15-37) L Alanine Aminotransferase (ALT/SGPT) 67 U/L (12-78) Alkaline Phosphatase 106 U/L (46-116) Total Creatine Kinase 50 U/L (26-308) Creatine Kinase MB 2.3 NG/ML (0.0-3.6) Creatine Kinase MB Relative Index 4.6 Troponin I 0.056 ng/mL (0.000-0.056) Total Protein 7.7 G/DL (6.4-8.2) Albumin 3.4 G/DL (3.4-5.0) Globulin 4.3 g/dL Albumin/Globulin Ratio 0.8 (1.0-2.7) L Height (Feet): 5 Height (Inches): 6.00 Weight (Pounds): 167 Medications Current Medications Medications (Trade) Dose Ordered Sig/Evi Route PRN Reason Start Time Stop Time Status Last Admin Dose Admin Albuterol/ Ipratropium (Albuterol/ Ipratropium) 3 ml Q4H PRN HHN Shortness of Breath 06/16/18 07:00 06/21/18 06:59 Budesonide/ Formoterol Fumarate (Symbicort 160/ 4.5) 2 puff BID INH 06/16/18 09:00 07/16/18 08:59 Carvedilol (Coreg) 6.25 mg EVERY 12 HOURS ORAL 06/16/18 09:00 07/16/18 08:59 06/16/18 08:56 Cefepime HCl 1 gm/ Dextrose 100 ml @ 100 mls/hr EVERY 8 HOURS IV 06/16/18 14:00 06/23/18 13:59 UNV Dextrose (Dextrose 50%) 25 ml Q30M PRN IV Hypoglycemia 06/16/18 07:00 07/16/18 06:59 Dextrose (Dextrose 50%) 50 ml Q30M PRN IV Hypoglycemia 06/16/18 07:00 07/16/18 06:59 Enalapril Maleate (Vasotec) 5 mg EVERY 12 HOURS ORAL 06/16/18 09:00 07/16/18 08:59 06/16/18 08:57 Escitalopram Oxalate (Lexapro) 10 mg DAILY ORAL 06/16/18 09:00 07/16/18 08:59 06/16/18 08:56 Heparin Sodium (Porcine) (Heparin 5000 units/ml) 5,000 units EVERY 8 HOURS SUBQ 06/16/18 14:00 07/16/18 13:59 Insulin Aspart (NovoLOG) BEFORE MEALS AND HS SUBQ 06/16/18 11:30 07/16/18 11:29 Methylprednisolone Sodium Succinate (Solu-MEDROL) 60 mg EVERY 6 HOURS IV 06/16/18 12:00 07/16/18 11:59 UNV Promethazine HCl/ Codeine (Phenergan with Codeine) 5 ml Q4H PRN ORAL For Cough 06/16/18 09:45 07/16/18 09:44 UNV Temazepam (Restoril) 15 mg HSPRN PRN ORAL insomnia 06/16/18 21:00 06/23/18 20:59 Theophylline (Zafar-Dur) 100 mg EVERY 12 HOURS ORAL 06/16/18 09:00 07/16/18 08:59 06/16/18 08:56 Tiotropium Kinsman (Spiriva Inhaler) 2 puff DAILY INH 06/16/18 09:00 07/16/18 08:59 Vancomycin HCl (Vanco rx to dose) 1 ea DAILY PRN MISC Per rx protocol 06/16/18 09:45 07/16/18 09:44 UNV Assessment/Plan Problem List: (1) Acute respiratory failure ICD Codes: J96.00 - Acute respiratory failure, unspecified whether with hypoxia or hypercapnia SNOMED: 95617983 (2) COPD exacerbation ICD Codes: J44.1 - Chronic obstructive pulmonary disease with (acute) exacerbation SNOMED: 568232063040988 (3) Bronchitis ICD Codes: J40 - Bronchitis, not specified as acute or chronic SNOMED: 01687450 (4) Pneumonia ICD Codes: J18.9 - Pneumonia, unspecified organism SNOMED: 796699217 (5) Hypertension ICD Codes: I10 - Essential (primary) hypertension SNOMED: 06983028 (6) Diabetes mellitus ICD Codes: E11.9 - Type 2 diabetes mellitus without complications SNOMED: 18727165 Assessment/Plan respiratory treatment check sputum iv abx pt has hx of MRSA in sputum, therefore I put him on Vancomycin CT of [place] to assess for emphysema and its severity. antitussives titrate fio2 to sat of 92% Mikie Gray MD Jun 16, 2018 09:43
[2018-06-16] MEDS ORDERED: Promethazine/Codeine 5ml UD ORAL PRN (09:45)
[2018-06-16] MEDS ORDERED: Isovue-300 100ml vial INJ PRN (09:45)
--- NOTE | 2018-06-16 11:36 | Diagnostic Imaging Report ---
Indication: Shortness of breath Technique: One view of the chest Comparison: 06/10/2018 Findings: Right hilar vascular prominence is similar to previous exams. The lungs and pleural spaces are clear. The heart size is normal. No significant interim change Impression: No acute process
[2018-06-16 12:00] VITALS: BP 128/75
[2018-06-16] MEDS: Solu-MEDROL 125mg Inj IV SCH ×2 (12:21→17:15)
[2018-06-16] MEDS: Cefepime 1gm/D5W 55ml IVPB SCH ×4 (12:22→21:05)
[2018-06-16] MEDS: Vancomycin 750mg/NS 275ml IVPB SCH ×2 (12:22)
[2018-06-16] MEDS: NovoLOG Insulin Flexpen SUBQ SCH ×3 (12:25→20:58)
--- NOTE | 2018-06-16 12:32 | Diagnostic Imaging Report ---
Clinical Indication: Shortness of breath Technique: IV administration nonionic contrast. Spiral acquisition obtained through the chest. Multiplanar reconstructions generated. Total dose length product 760.79 mGycm. CTDIvol(s) 17.67 mGy. Dose reduction achieved using automated exposure control Comparison: none Findings: There is some image degradation due to respiratory motion artifact. Lungs are somewhat hyperinflated. This is most striking in the left lung. There is a very subtle groundglass opacity in a slightly mosaic distribution. Focal area of reticular opacity is seen peripheral to the right pulmonary hilum in the superior right upper lobe. There is a focal subpleural opacity in the posterior left hemithorax which measures 7 x 2 mm. No infiltrates, effusions, masses, or nodules. The main pulmonary artery is dilated, measuring 43 mm in diameter, and is larger in caliber than the ascending aorta. The right and left pulmonary arteries are also dilated. The heart is normal in size but there is suggestion of left ventricular muscular hypertrophy. No mediastinal or hilar mass or adenopathy. There is a mass in the lower pole of the right thyroid lobe which measures 3.4 x 1.6 cm. It is hypoattenuating. This slightly deviates the trachea to the left and slightly narrows it. No axillary or chest wall mass or adenopathy. The esophagus is unremarkable. The bones demonstrate a questionable old fracture deformities of the right ninth and 10th ribs at the costochondral junctions. There are degenerative changes of the thoracic spine. There is very slight anterior wedge compression fracture deformity of the T7 vertebral body. The included upper abdominal anatomy is remarkable for multiple renal cysts, including a large upper pole left renal cyst. The lowest cut also demonstrates a probable right renal cyst. Impression: Somewhat limited exam, due to respiratory motion artifact. Mild pulmonary parenchymal hyperinflation. Very faint groundglass opacity in a mosaic distribution is probably related to COPD changes No acute pulmonary process Dilated pulmonary artery, consistent with pulmonary arterial hypertension Suspect left ventricular muscular hypertrophy Small area of pleural or subpleural scarring in the right hemithorax 3.4 x 1.6 cm right lower pole thyroid mass. Further evaluation with ultrasound recommended Slight T7 vertebral body wedge compression fracture deformity. Age indeterminate. Consider MRI for better characterization if this is clinically relevant Other findings as noted, including left and probable right renal cysts, degenerative spondylosis, old right ninth and 10th rib fracture deformities The CT scanner at [facility] is accredited by the [employer] and the scans are performed using protocols designed to limit radiation exposure to as low as reasonably achievable to attain images of sufficient resolution adequate for diagnostic evaluation.
[2018-06-16] MEDS: Vancomycin 1.5gm Premix IVPB ONE ×2 (12:38→13:22)
--- NOTE | 2018-06-16 13:11 | Cardiology Report ---
APPROVED REPORT EKG Measurement Heart [id number] Sinus tachycardia Possible Left atrial enlargement Left axis deviation Pulmonary disease pattern Nonspecific ST abnormality Abnormal ECG
[2018-06-16] MEDS: Heparin 5000 units/ml inj SUBQ SCH ×2 (13:25→21:10)
[2018-06-16 16:00] VITALS: BP 130/76
--- NOTE | 2018-06-16 16:35 | History & Physical ---
History and Physical History & Physicial Gadiel Ramírez MD Jun 16, 2018 16:35
--- NOTE | 2018-06-16 19:30 | NUR ---
NURSE NOTES: pt in bed watching tV. no s/s of acute distress no sob and pt denies any pain at this moment. instructed pt to keep NC in place to keep o2sat at 93%, pt verbalized understanding. safety precaution in place instructed pt to use call light if help is needed pt verbalized understanding. will continue to monitor.
[2018-06-16 20:00] VITALS: BP 124/72
--- NOTE | 2018-06-16 21:01 | History and Physical Report ---
DATE OF ADMISSION: 06/16/2018 CHIEF COMPLAINT: Shortness of breath. HISTORY OF PRESENT ILLNESS: This is a 73-year-old gentleman with past medical history significant for chronic smoker, COPD, CHF, coronary artery disease, and diabetes type 2, who was recently discharged from the hospital, presented to emergency room complaining of shortness of breath, progressively worsened over past several days. He just got discharged from [facility] with the same reason. The patient was found by home with paramedics with feces and urine in bed, immobility. The patient denies any nausea or vomiting. Shortly after initial evaluation in the emergency, the patient was admitted to the hospital with shortness of breath, possible due to the acute COPD exacerbation and bronchitis. PAST MEDICAL HISTORY/PAST SURGICAL HISTORY: As above. History of diabetes type 2, hypertension, coronary artery disease, congestive heart failure, COPD, and chronic smoker. MEDICATIONS: Medications at home are significant for albuterol, Symbicort, carvedilol, enalapril, Lexapro, Lasix, metformin, metoprolol, potassium chloride, prednisone, Crestor, theophylline, Spiriva, and Bactrim DS. ALLERGIES: To penicillin. SOCIAL HISTORY: Ex-smoker, quit at this time. No alcohol or substance. FAMILY HISTORY: Noncontributory. REVIEW OF SYSTEMS: Mostly as above. Denies any dysuria or frequency. Complained about weakness and fatigue. Denies any loss of consciousness. Denies any fall or head trauma. Denies any double vision. PHYSICAL EXAMINATION: VITAL SIGNS: Temperature 98.8, pulse of 115, respirations 22, and blood pressure 152/74. GENERAL: The patient is awake, responsive, and in no acute distress, but chronically ill. HEAD AND NECK: Pupils are equal and reactive to light. Extraocular movements are intact. Neck was supple. No JVD. LUNGS: Good air entry. No wheezing or rales. Expiratory, decreased air in bases. HEART: S1 and S2. Distant heart sounds. No murmurs or gallops. ABDOMEN: Soft, nondistended, nontender, and mildly obese. EXTREMITIES: No cyanosis, clubbing, or edema. The patient has ecchymosis in the bilateral upper extremity, has skin tear. GENITOURINARY: The patient has diffuse macular rashes in the sacrum as well as perineum area. NEUROLOGIC: Cranial nerves II through XII grossly intact. The patient moving all extremities. Gait was unsteady. LABORATORY AND DIAGNOSTIC DATA: On admission from the ER, WBC of 14, hemoglobin of 14, hematocrit 44, and platelets is 157,000. Sodium 141, potassium 4.3, chloride 99, bicarb 34, BUN 18, creatinine 0.8, and glucose 179. Lactic acid is 2.50 and repeat one is 2.10. Troponin 0.056. Albumin is 3.4. CT of the chest without contrast noted the patient has mild pulmonary parenchymal hyper-infiltration, very faint ground-glass opacity in the mosaic distribution, probably related to the COPD changes. No acute pulmonary process. Dilated pulmonary artery consisted of pulmonary arterial hypertension, suspected left ventricular and muscular hypertrophy, and a 3 x 4 x 1.6 cm right lower lobe thyroid mass. ASSESSMENT: 1. Acute COPD exacerbation. 2. Failure to thrive. 3. Diabetes type 2. 4. Hypertension. 5. Irregular bowel syndrome. 6. Morbid obesity. 7. Chronic CHF. 8. Bronchitis. PLAN: 1. Admit the patient to telemetry. 2. We will follow up with Dr. Gray, Pulmonary Critical Care recommendation. 3. The patient has MRSA in the sputum, followup with vancomycin. 4. Code status at this time is Full Code. 5. DVT prophylaxis, heparin subcutaneous. 6. Monitor glucose level and we will discuss with forensic social worker regarding the possible placement in a nursing facility. Gadiel Ramírez M.D. DR: ALVINA JOB#: [id number] CC:
[2018-06-17] VITALS: BP 130/56
[2018-06-17] MEDS: Vancomycin 750mg/NS 275ml IVPB SCH ×2 (00:44)
--- NOTE | 2018-06-17 03:00 | NUR ---
pt sleeping comfortable no acute distress noted. will continue to monitor
[2018-06-17 04:00] VITALS: BP 136/72
[2018-06-17] MEDS: Cefepime 1gm/D5W 55ml IVPB SCH ×2 (05:26)
[2018-06-17] MEDS: Heparin 5000 units/ml inj SUBQ SCH ×3 (05:28→21:12)
[2018-06-17] MEDS: NovoLOG Insulin Flexpen SUBQ SCH ×4 (05:29→21:13)
[2018-06-17] MEDS: Solu-MEDROL 125mg Inj IV SCH ×3 (06:00→21:10)
--- NOTE | 2018-06-17 06:51 | NUR ---
NURSE NOTES: pt was transfer to [facility] floor room 420 bed two. pt in stable condition no acute distress noted, gave report to Sandra JAMES. belonging list reviewed and signed by this typewriter aligner and Sandra. left pt in room in stable condition.
--- NOTE | 2018-06-17 06:55 | NUR ---
NURSE NOTES: RECEIVED PATIENT FROM TELE, GOT REPORT FROM JACOB MASTERS. PATIENT IN BED, AWAKE. IV IN PLACE. NO S/S DISTRESS NOTED. REVIEWED PATIENT BELONGINGS - BLUE SHIRT ONLY. BED IN LOW POSITION, CALL LIGHT WITHIN REACH, BED ALARM ON. WILL CONTINUE TO MONITOR.
--- NOTE | 2018-06-17 07:33 | NUR ---
HAND-OFF: Report given to FAMILIA Louise RN.
--- NOTE | 2018-06-17 07:39 | Pulmonology Progress Note ---
Assessment/Plan Assessment/Plan ASSESSMENT Possible sepsis with bacteremia COPD exacerbation Bronchitis Possible PNA Former smoker HTN DM Dehydration Failure to thrive Thyroid mass ( on CT) IBS New diagnosis of abdominal Ca T7 compression fx ( on CT, old) PLAN OF CARE [facility] floor O2 titrate prn pulm toilet CXR and CT chest noted c/w COPD DVT prophylaxis Venous Duplex done 06/10 was negative IV steroids with gradual tapering trial of theophylline empiric abx a/tussive prn continue inhalers: Spiriva and Symbicort stopped smoking few months ago, no cravings BP management with BB/ selective - Coreg blood cx prel GPC , on Vanco IDconsult sputum cx if able BS management with SSI as needed s/p IVF monitor renal parameters, lytes, correct lytes as needed, fall precautions PT eval and Rx case management for placement supportive care bowel regimen case discussed and evaluated by supervising physician Subjective Allergies: Coded Allergies: PENICILLINS (Verified Allergy, Unknown, 04/08/17) Subjective afebrile, no signs of resp distress feeling somewhat better on o2 via NC pulse ox stable denies chest pain Objective Last 24 Hour Vital Signs Date Time Temp Pulse Resp B/P (MAP) Pulse Ox O2 Delivery O2 Flow Rate FiO2 06/17/18 04:00 74 06/17/18 04:00 98.5 94 22 136/72 (93) 95 06/17/18 00:00 76 06/17/18 00:00 97.3 91 20 130/56 (80) 93 06/16/18 21:00 Nasal Cannula 2.0 06/16/18 20:49 96 124/72 06/16/18 20:48 124/72 06/16/18 20:05 94 20 99 Nasal Cannula 2.0 28 06/16/18 20:03 Nasal Cannula 2.0 28 06/16/18 20:03 98 Nasal Cannula 2.0 28 06/16/18 20:01 94 20 99 Nasal Cannula 2.0 28 06/16/18 20:00 91 06/16/18 20:00 98.0 96 22 124/72 (89) 93 06/16/18 19:59 90 20 98 Nasal Cannula 2.0 28 06/16/18 19:58 90 20 Nasal Cannula 2.0 28 06/16/18 19:55 90 20 98 Nasal Cannula 2.0 28 06/16/18 16:00 97.7 108 20 130/76 (94) 96 06/16/18 16:00 92 06/16/18 12:00 103 06/16/18 12:00 98.2 98 20 128/75 (92) 95 06/16/18 11:28 76 16 96 Nasal Cannula 2.0 28 06/16/18 11:28 76 16 96 Nasal Cannula 2.0 28 06/16/18 11:28 75 16 96 Nasal Cannula 2.0 28 06/16/18 11:28 76 16 96 Nasal Cannula 2.0 28 06/16/18 09:00 Nasal Cannula 2.0 06/16/18 08:57 142/56 06/16/18 08:56 107 142/56 06/16/18 08:00 97.7 110 20 132/76 (94) 95 06/16/18 08:00 88 Intake and Output 06/16/18 06/17/18 19:00 07:00 Intake Total 1200 ml Balance 1200 ml Intake Oral 1200 ml # Voids 5 6 # Bowel Movements 1 1 General Appearance: no acute distress HEENT: normocephalic, mucous membranes moist Respiratory/Chest: chest wall non-tender, no respiratory distress, decreased breath sounds Cardiovascular: normal peripheral pulses, normal rate, no JVD Abdomen: normal bowel sounds, soft, non tender, non distended Extremities: no edema, pedal pulses normal Neurologic/Psychiatric: alert, oriented x 3, responsive Musculoskeletal: normal muscle bulk Microbiology Date/Time Source Procedure Growth Status 06/15/18 23:43 Blood Blood Culture - Preliminary NO GROWTH AFTER 24 HOURS Resulted 06/15/18 23:28 Blood Blood Culture - Preliminary NO GROWTH AFTER 24 HOURS Resulted Current Medications Medications (Trade) Dose Ordered Sig/Evi Route PRN Reason Start Time Stop Time Status Last Admin Dose Admin Albuterol/ Ipratropium (Albuterol/ Ipratropium) 3 ml Q4H PRN HHN Shortness of Breath 06/16/18 07:00 06/21/18 06:59 06/16/18 19:58 Budesonide/ Formoterol Fumarate (Symbicort 160/ 4.5) 2 puff BID INH 06/16/18 09:00 07/16/18 08:59 06/16/18 19:57 Carvedilol (Coreg) 6.25 mg EVERY 12 HOURS ORAL 06/16/18 09:00 4/7/19 08:59 06/16/18 20:49 Cefepime HCl 1 gm/ Dextrose 55 ml @ 110 mls/hr Q8HR IVPB 06/16/18 11:00 06/23/18 10:59 06/17/18 05:26 Dextrose (Dextrose 50%) 25 ml Q30M PRN IV Hypoglycemia 06/16/18 07:00 07/16/18 06:59 Dextrose (Dextrose 50%) 50 ml Q30M PRN IV Hypoglycemia 06/16/18 07:00 07/16/18 06:59 Enalapril Maleate (Vasotec) 5 mg EVERY 12 HOURS ORAL 06/16/18 09:00 07/16/18 08:59 06/16/18 20:48 Escitalopram Oxalate (Lexapro) 10 mg DAILY ORAL 06/16/18 09:00 07/16/18 08:59 06/16/18 08:56 Heparin Sodium (Porcine) (Heparin 5000 units/ml) 5,000 units EVERY 8 HOURS SUBQ 06/16/18 14:00 07/16/18 13:59 06/17/18 05:28 Insulin Aspart (NovoLOG) BEFORE MEALS AND HS SUBQ 06/16/18 11:30 07/16/18 11:29 06/17/18 05:29 Iopamidol (Isovue-300 100ml) 100 ml NOW PRN INJ Radiology Procedure 06/16/18 09:45 06/18/18 09:44 Methylprednisolone Sodium Succinate (Solu-MEDROL) 60 mg EVERY 6 HOURS IV 06/16/18 12:00 07/16/18 11:59 06/16/18 17:15 Promethazine HCl/ Codeine (Phenergan with Codeine) 5 ml Q4H PRN ORAL For Cough 06/16/18 09:45 07/16/18 09:44 Temazepam (Restoril) 15 mg HSPRN PRN ORAL insomnia 06/16/18 21:00 06/23/18 20:59 Theophylline (Zafar-Dur) 100 mg EVERY 12 HOURS ORAL 06/16/18 09:00 07/16/18 08:59 06/16/18 20:47 Tiotropium [place] (Spiriva Inhaler) 2 puff DAILY INH 06/16/18 09:00 07/16/18 08:59 06/16/18 11:28 Vancomycin HCl (Vanco rx to dose) 1 ea DAILY PRN MISC Per rx protocol 06/16/18 09:45 07/16/18 09:44 Vancomycin HCl 750 mg/Sodium Chloride 275 ml @ 183.333 mls/hr Q12HR@0000,1200 IVPB 06/17/18 00:00 06/22/18 00:00 06/17/18 00:44 Mayi Rosa NP Jun 17, 2018 07:39
[2018-06-17 08:00] VITALS: BP 129/72
[2018-06-17] MEDS ORDERED: Promethazine/Codeine 5ml UD ORAL PRN (08:05)
[2018-06-17] MEDS: Carvedilol 6.25mg Tab ORAL SCH ×2 (09:26→21:10)
[2018-06-17] MEDS: Theophylline ER 100mg ORAL SCH ×2 (09:27→21:09)
[2018-06-17] MEDS: Enalapril 5mg tab ORAL SCH ×2 (09:27→21:09)
[2018-06-17] MEDS ORDERED: Isovue-300 100ml vial INJ PRN (09:45)
[2018-06-17 12:00] VITALS: BP 101/56
[2018-06-17] MEDS ORDERED: Vancomycin 750 MG in NS 275 ML IVPB SCH (12:00)
[2018-06-17] MEDS ORDERED: Solu-MEDROL 125mg Inj IV SCH (12:00)
[2018-06-17] MEDS: Albuterol/Ipratropium 3ml neb HHN PRN ×2 (12:03→20:19)
[2018-06-17] MEDS: Cefepime HCl 1 GM in D5W 55 ML IVPB SCH ×2 (14:14→21:11)
[2018-06-17 16:00] VITALS: BP 119/63
--- NOTE | 2018-06-17 18:35 | Internal Med Progress Note ---
Subjective Date of Service: Jun 17, 2018 Physician Name Danielito Thomas Attending Physician Gadiel Ramírez MD Current Medications Medications (Trade) Dose Ordered Sig/Evi Route PRN Reason Start Time Stop Time Status Last Admin Dose Admin Albuterol/ Ipratropium (Albuterol/ Ipratropium) 3 ml Q4H PRN HHN Shortness of Breath 06/17/18 08:04 06/21/18 08:03 06/17/18 12:03 Budesonide/ Formoterol Fumarate (Symbicort 160/ 4.5) 2 puff BID INH 06/17/18 09:00 07/16/18 08:59 06/17/18 09:34 Carvedilol (Coreg) 6.25 mg EVERY 12 HOURS ORAL 06/17/18 09:00 07/16/18 08:59 06/17/18 09:26 Cefepime HCl 1 gm/ Dextrose 55 ml @ 110 mls/hr Q8HR IVPB 06/17/18 14:00 06/23/18 10:59 06/17/18 14:14 Dextrose (Dextrose 50%) 25 ml Q30M PRN IV Hypoglycemia 06/17/18 08:30 07/16/18 06:59 Dextrose (Dextrose 50%) 50 ml Q30M PRN IV Hypoglycemia 06/17/18 08:30 07/16/18 06:59 Enalapril Maleate (Vasotec) 5 mg EVERY 12 HOURS ORAL 06/17/18 09:00 07/16/18 08:59 06/17/18 09:27 Escitalopram Oxalate (Lexapro) 10 mg DAILY ORAL 06/17/18 09:00 07/16/18 08:59 06/17/18 09:27 Heparin Sodium (Porcine) (Heparin 5000 units/ml) 5,000 units EVERY 8 HOURS SUBQ 06/17/18 14:00 07/16/18 13:59 06/17/18 14:15 Insulin Aspart (NovoLOG) BEFORE MEALS AND HS SUBQ 06/17/18 11:30 07/16/18 11:29 06/17/18 16:57 Iopamidol (Isovue-300 100ml) 100 ml NOW PRN INJ Radiology Procedure 06/17/18 09:45 06/18/18 09:44 Methylprednisolone Sodium Succinate (Solu-MEDROL) 60 mg Q8H IV 06/17/18 20:00 07/17/18 19:59 Promethazine HCl/ Codeine (Phenergan with Codeine) 5 ml Q4H PRN ORAL For Cough 06/17/18 08:05 07/16/18 08:04 Temazepam (Restoril) 15 mg HSPRN PRN ORAL insomnia 06/17/18 21:00 06/23/18 20:59 Theophylline (Zafar-Dur) 100 mg EVERY 12 HOURS ORAL 06/17/18 09:00 07/16/18 08:59 06/17/18 09:27 Tiotropium [place] (Spiriva Inhaler) 2 puff DAILY INH 06/17/18 09:00 07/16/18 08:59 06/17/18 09:00 Vancomycin HCl (Vanco rx to dose) 1 ea DAILY PRN MISC Per rx protocol 06/17/18 09:00 07/16/18 09:44 Vancomycin HCl 750 mg/Sodium Chloride 275 ml @ 183.333 mls/hr Q12HR@0000,1200 IVPB 06/17/18 12:00 06/22/18 00:00 06/17/18 12:06 Allergies: Coded Allergies: PENICILLINS (Verified Allergy, Unknown, 04/08/17) ROS Limited/Unobtainable: No Constitutional: Reports: no symptoms HEENT: Reports: no symptoms Cardiovascular: Reports: no symptoms Respiratory: Reports: shortness of breath Gastrointestinal/Abdominal: Reports: no symptoms Genitourinary: Reports: no symptoms Neurologic/Psychiatric: Reports: no symptoms Subjective 73 YO M admitted with shortness of breath. Cover for Int Derrick-Dr Ramírez Objective Last Vital Signs Date Time Temp Pulse Resp B/P (MAP) Pulse Ox O2 Delivery O2 Flow Rate FiO2 06/17/18 16:00 97.8 85 18 119/63 (81) 95 06/17/18 12:15 Nasal Cannula 2.0 28 Microbiology Date/Time Source Procedure Growth Status 06/15/18 23:43 Blood Blood Culture - Preliminary Resulted 06/15/18 23:28 Blood Blood Culture - Preliminary Resulted Intake and Output 06/16/18 06/17/18 19:00 07:00 Intake Total 1200 ml Balance 1200 ml Intake Oral 1200 ml # Voids 5 6 # Bowel Movements 1 1 Objective PHYSICAL EXAMINATION: GENERAL: The patient is awake, responsive, and in no acute distress, but chronically ill. HEAD AND NECK: Pupils are equal and reactive to light. Extraocular movements are intact. Neck was supple. No JVD. LUNGS: Good air entry. No wheezing or rales. Expiratory, decreased air in bases. HEART: S1 and S2. Distant heart sounds. No murmurs or gallops. ABDOMEN: Soft, nondistended, nontender, and mildly obese. EXTREMITIES: No cyanosis, clubbing, or edema. The patient has ecchymosis in the bilateral upper extremity, has skin tear. GENITOURINARY: The patient has diffuse macular rashes in the sacrum as well as perineum area. NEUROLOGIC: Cranial nerves II through XII grossly intact. The patient moving all extremities. Gait was unsteady. Assessment/Plan Assessment/Plan ASSESSMENT: 1. Acute COPD exacerbation. 2. Failure to thrive. 3. Diabetes type 2. 4. Hypertension. 5. Irregular bowel syndrome. 6. Morbid obesity. 7. Chronic CHF. 8. Bronchitis. PLAN: 1. Admit the patient to telemetry. 2. We will follow up with Dr. Gray, Pulmonary Critical Care recommendation. 3. The patient has MRSA in the sputum, followup with vancomycin. 4. Code status at this time is Full Code. 5. DVT prophylaxis, heparin subcutaneous. 6. Monitor glucose level and we will discuss with social security benefits interviewer regarding the possible placement in a nursing facility. Danielito Thomas MD Jun 17, 2018 18:35
--- NOTE | 2018-06-17 19:41 | NUR ---
HAND-OFF: Report given to CHRISTOPHER JAMES.
[2018-06-17 20:00] VITALS: BP 118/63
--- NOTE | 2018-06-17 22:45 | NUR ---
NURSE NOTES: Pt is in bed, awake and verbal. No acute distress noted. Vitas stable. No SOB noted. Pt is given a specimen container to collect sputum if possible. Blood sugar 301; NovoLog coverage given per sliding scale. Pt states that he feels ok and would possibly go home tomorrow. Bed low in position,side rails up and call light within reach.
[2018-06-18] VITALS: BP 114/63
[2018-06-18] MEDS: Vancomycin 1 GM in NS 275 ML IVPB SCH ×3 (00:25→23:37)
[2018-06-18 04:00] VITALS: BP 111/70
[2018-06-18] MEDS: Cefepime HCl 1 GM in D5W 55 ML IVPB SCH ×3 (06:03→21:31)
[2018-06-18] MEDS: Heparin 5000 units/ml inj SUBQ SCH ×3 (06:04→20:43)
[2018-06-18] MEDS: Solu-MEDROL 125mg Inj IV SCH ×2 (06:04→21:31)
[2018-06-18] MEDS: NovoLOG Insulin Flexpen SUBQ SCH ×4 (06:05→20:44)
--- NOTE | 2018-06-18 06:30 | NUR ---
NURSE NOTES: Pt is in bed, awake and alert. No acute distress noted. Vitals stable. Pt states that he feels better. Pt wants to go home today. Pt was cleaned 3 times this shit, pt is incontinent. Pt is developing redness in the perineal and sacral region of the body, Calazime is applied to maintain skin integrity.
--- NOTE | 2018-06-18 07:30 | NUR ---
HAND-OFF: Report given to Cy Barrera RN.Informed Cy that pt wants to go home today.
[2018-06-18 07:44] LABS: ANION GAP 5 mmol/L (5-15); BLOOD UREA NITROGEN 21 mg/dL (7-18); CALCIUM 8.4 MG/DL (8.5-10.1); CARBON DIOXIDE 31 MMOL/L (21-32); CHLORIDE 106 MMOL/L (98-107); CREATININE 0.6 MG/DL (0.55-1.30); POTASSIUM 3.7 MMOL/L (3.5-5.1); SODIUM 142 MMOL/L (136-145)
--- NOTE | 2018-06-18 07:45 | NUR ---
NURSE NOTES: Received patient on bed, awake. IV site intact and patent. Bed in low and locked position, call light in reach. Patient denies shortness of breath and pain. Room board updated, will continue to monitor.
[2018-06-18 08:00] VITALS: BP 140/63
[2018-06-18 08:08] LABS: HEMATOCRIT 31.6 % (42.0-52.0); HEMOGLOBIN 10.1 G/DL (14.2-18.0); MEAN CORPUSCULAR VOLUME 96 FL (80-99); PLATELET COUNT 159 K/UL (150-450); RED BLOOD COUNT 3.27 M/UL (4.70-6.10); RED CELL DISTRIBUTION WIDTH 15.4 % (11.6-14.8); WHITE BLOOD COUNT 13.8 K/UL (4.8-10.8)
--- NOTE | 2018-06-18 08:33 | Pulmonology Progress Note ---
Assessment/Plan Assessment/Plan ASSESSMENT Staph bacteremia, possible sepsis COPD exacerbation Bronchitis Possible PNA Former smoker HTN DM Dehydration Failure to thrive Thyroid mass ( on CT) IBS New diagnosis of abdominal Ca T7 compression fx ( on CT, old) PLAN OF CARE [facility] floor O2 titrate prn pulm toilet CXR and CT chest noted c/w COPD DVT prophylaxis Venous Duplex done 06/10 was negative IV steroids with gradual tapering , trial of theophylline empiric abx a/tussive prn continue inhalers: Spiriva and Symbicort stopped smoking few months ago, no cravings BP management with BB/ selective - Coreg blood cx prel Staph species, on Vanco ID consult pending sputum cx if able BS management with SSI as needed , check HgA1c, BS elevated liekyl due to steroids, tapering steroids down, diabetic diet s/p IVF monitor renal parameters, lytes, correct lytes as needed, fall precautions PT eval and Rx case management for placement ( pt wants to go home) supportive care bowel regimen case discussed and evaluated by supervising physician Subjective Allergies: Coded Allergies: PENICILLINS (Verified Allergy, Unknown, 04/08/17) Subjective afebrile, no signs of resp distress, mild leukocytosis feeling somewhat better on o2 via NC pulse ox stable denies chest pain BS elevated, on steroids Objective Last 24 Hour Vital Signs Date Time Temp Pulse Resp B/P (MAP) Pulse Ox O2 Delivery O2 Flow Rate FiO2 06/18/18 07:30 Nasal Cannula 2.0 28 06/18/18 07:30 96 Nasal Cannula 2.0 28 06/18/18 04:00 98.1 77 18 111/70 (84) 95 06/18/18 00:00 98.0 77 18 114/63 (80) 97 06/17/18 21:10 85 118/63 06/17/18 21:09 118/63 06/17/18 21:00 Nasal Cannula 2.0 06/17/18 20:27 95 Nasal Cannula 2.0 28 06/17/18 20:27 Nasal Cannula 2.0 28 06/17/18 20:27 85 20 95 Nasal Cannula 2.0 28 06/17/18 20:19 72 20 98 Nasal Cannula 2.0 28 06/17/18 20:16 73 20 98 Nasal Cannula 2.0 28 06/17/18 20:15 72 18 98 Nasal Cannula 2.0 28 06/17/18 20:00 98.0 81 18 118/63 (81) 96 06/17/18 16:00 97.8 85 18 119/63 (81) 95 06/17/18 12:15 60 20 98 Nasal Cannula 2.0 28 06/17/18 12:03 63 20 98 Nasal Cannula 2.0 28 06/17/18 12:00 97.8 82 21 101/56 (71) 95 06/17/18 10:10 Nasal Cannula 2.0 06/17/18 09:35 97 Nasal Cannula 2.0 28 06/17/18 09:35 78 18 97 Nasal Cannula 2.0 28 06/17/18 09:35 78 18 97 Nasal Cannula 2.0 28 06/17/18 09:35 78 18 97 Nasal Cannula 2.0 28 06/17/18 09:35 Nasal Cannula 2.0 28 06/17/18 09:35 78 18 97 Nasal Cannula 2.0 28 06/17/18 09:27 129/72 06/17/18 09:26 74 129/72 Intake and Output 06/17/18 06/18/18 18:59 06:59 Intake Total 840 ml 1830 ml Balance 840 ml 1830 ml Intake Oral 840 ml 1500 ml IV Total 330 ml # Voids 3 4 # Bowel Movements 2 Objective General Appearance: no acute distress HEENT: normocephalic, mucous membranes moist Respiratory/Chest: chest wall non-tender, no respiratory distress, decreased breath sounds Cardiovascular: normal peripheral pulses, normal rate, no JVD Abdomen: normal bowel sounds, soft, non tender, non distended Extremities: no edema, pedal pulses normal Neurologic/Psychiatric: alert, oriented x 3, responsive Musculoskeletal: normal muscle bulk Microbiology Date/Time Source Procedure Growth Status 06/15/18 23:43 Blood Blood Culture - Preliminary Staphylococcus Species Resulted 06/15/18 23:28 Blood Blood Culture - Preliminary Staphylococcus Species Resulted 06/16/18 02:05 Rectum - Final NO CARBAPENEM-RESISTANT ENTEROBACTERI... Complete 06/16/18 02:05 Rectum VRE Culture - Final NO VANCOMYCIN RESISTANT ENTEROCOCCUS ... Complete Laboratory Tests 06/17/18 22:53: Vancomycin Level Trough 7.1 06/18/18 05:05: White Blood Count 13.8H, Red Blood Count 3.27L, Hemoglobin 10.1L, Hematocrit 31.6L, Mean Corpuscular Volume 96, Mean Corpuscular Hemoglobin 30.7, Mean Corpuscular Hemoglobin Concent 31.8L, Red Cell Distribution Width 15.4H, Platelet Count 159, Mean Platelet Volume 8.9, Neutrophils (%) (Auto) , Lymphocytes (%) (Auto) , Monocytes (%) (Auto) , Eosinophils (%) (Auto) , Basophils (%) (Auto) , Neutrophils % (Manual) [Pending], Lymphocytes % (Manual) [Pending], Platelet Estimate [Pending], Platelet Morphology [Pending], Sodium Level 142, Potassium Level 3.7, Chloride Level 106, Carbon Dioxide Level 31, Anion Gap 5, Blood Urea Nitrogen 21H, Creatinine 0.6, Estimat Glomerular Filtration Rate , Glucose Level 297H, Calcium Level 8.4L Current Medications Medications (Trade) Dose Ordered Sig/Evi Route PRN Reason Start Time Stop Time Status Last Admin Dose Admin Albuterol/ Ipratropium (Albuterol/ Ipratropium) 3 ml Q4H PRN HHN Shortness of Breath 06/17/18 08:04 06/21/18 08:03 06/17/18 20:19 Budesonide/ Formoterol Fumarate (Symbicort 160/ 4.5) 2 puff BID INH 06/17/18 09:00 07/16/18 08:59 06/17/18 20:15 Carvedilol (Coreg) 6.25 mg EVERY 12 HOURS ORAL 06/17/18 09:00 07/16/18 08:59 06/17/18 21:10 Cefepime HCl 1 gm/ Dextrose 55 ml @ 110 mls/hr Q8HR IVPB 06/17/18 14:00 06/23/18 10:59 06/18/18 06:03 Dextrose (Dextrose 50%) 25 ml Q30M PRN IV Hypoglycemia 06/17/18 08:30 07/16/18 06:59 Dextrose (Dextrose 50%) 50 ml Q30M PRN IV Hypoglycemia 06/17/18 08:30 07/16/18 06:59 Enalapril Maleate (Vasotec) 5 mg EVERY 12 HOURS ORAL 06/17/18 09:00 07/16/18 08:59 06/17/18 21:09 Escitalopram Oxalate (Lexapro) 10 mg DAILY ORAL 06/17/18 09:00 07/16/18 08:59 06/17/18 09:27 Heparin Sodium (Porcine) (Heparin 5000 units/ml) 5,000 units EVERY 8 HOURS SUBQ 06/17/18 14:00 07/16/18 13:59 06/18/18 06:04 Insulin Aspart (NovoLOG) BEFORE MEALS AND HS SUBQ 06/17/18 11:30 07/16/18 11:29 06/18/18 06:05 Iopamidol (Isovue-300 100ml) 100 ml NOW PRN INJ Radiology Procedure 06/17/18 09:45 06/18/18 09:44 Methylprednisolone Sodium Succinate (Solu-MEDROL) 60 mg Q8H IV 06/17/18 20:00 07/17/18 19:59 06/18/18 06:04 Promethazine HCl/ Codeine (Phenergan with Codeine) 5 ml Q4H PRN ORAL For Cough 06/17/18 08:05 07/16/18 08:04 Temazepam (Restoril) 15 mg HSPRN PRN ORAL insomnia 06/17/18 21:00 06/23/18 20:59 06/18/18 01:23 Theophylline (Zafar-Dur) 100 mg EVERY 12 HOURS ORAL 06/17/18 09:00 07/16/18 08:59 06/17/18 21:09 Tiotropium [place] (Spiriva Inhaler) 2 puff DAILY INH 06/17/18 09:00 07/16/18 08:59 06/17/18 09:00 Vancomycin HCl (Vanco rx to dose) 1 ea DAILY PRN MISC Per rx protocol 06/17/18 09:00 07/16/18 09:44 Vancomycin HCl 1 gm/Sodium Chloride 275 ml @ 184 mls/hr 0000,1200 IVPB 06/18/18 00:00 06/23/18 00:00 06/18/18 00:25 Mayi Rosa NP Jun 18, 2018 08:33
[2018-06-18] MEDS: Enalapril 5mg tab ORAL SCH ×2 (09:15→20:40)
[2018-06-18] MEDS: Carvedilol 6.25mg Tab ORAL SCH ×2 (09:15→20:41)
[2018-06-18] MEDS: Theophylline ER 100mg ORAL SCH ×2 (09:15→20:40)
[2018-06-18] MEDS: Albuterol/Ipratropium 3ml neb HHN PRN ×2 (09:46→14:54)
[2018-06-18 11:09] LABS: ANION GAP 7 mmol/L (5-15); BLOOD UREA NITROGEN 21 mg/dL (7-18); CALCIUM 8.2 MG/DL (8.5-10.1); CARBON DIOXIDE 30 MMOL/L (21-32); CHLORIDE 106 MMOL/L (98-107); CREATININE 0.7 MG/DL (0.55-1.30); POTASSIUM 3.7 MMOL/L (3.5-5.1); SODIUM 143 MMOL/L (136-145)
[2018-06-18 12:00] VITALS: BP 116/62
--- NOTE | 2018-06-18 15:51 | Internal Med Progress Note ---
Subjective Date of Service: Jun 18, 2018 Physician Name Danielito Thomas Attending Physician Gadiel Ramírez MD Current Medications Medications (Trade) Dose Ordered Sig/Evi Route PRN Reason Start Time Stop Time Status Last Admin Dose Admin Albuterol/ Ipratropium (Albuterol/ Ipratropium) 3 ml Q4H PRN HHN Shortness of Breath 06/17/18 08:04 06/21/18 08:03 06/18/18 14:54 Budesonide/ Formoterol Fumarate (Symbicort 160/ 4.5) 2 puff BID INH 06/17/18 09:00 07/16/18 08:59 06/18/18 09:37 Carvedilol (Coreg) 6.25 mg EVERY 12 HOURS ORAL 06/17/18 09:00 07/16/18 08:59 06/18/18 09:15 Cefepime HCl 1 gm/ Dextrose 55 ml @ 110 mls/hr Q8HR IVPB 06/17/18 14:00 06/23/18 10:59 06/18/18 06:03 Dextrose (Dextrose 50%) 25 ml Q30M PRN IV Hypoglycemia 06/17/18 08:30 07/16/18 06:59 Dextrose (Dextrose 50%) 50 ml Q30M PRN IV Hypoglycemia 06/17/18 08:30 07/16/18 06:59 Enalapril Maleate (Vasotec) 5 mg EVERY 12 HOURS ORAL 06/17/18 09:00 07/16/18 08:59 06/18/18 09:15 Escitalopram Oxalate (Lexapro) 10 mg DAILY ORAL 06/17/18 09:00 07/16/18 08:59 06/18/18 09:15 Heparin Sodium (Porcine) (Heparin 5000 units/ml) 5,000 units EVERY 8 HOURS SUBQ 06/17/18 14:00 07/16/18 13:59 06/18/18 06:04 Insulin Aspart (NovoLOG) BEFORE MEALS AND HS SUBQ 06/17/18 11:30 07/16/18 11:29 06/18/18 12:16 Methylprednisolone Sodium Succinate (Solu-MEDROL) 60 mg Q12HR IV 06/18/18 21:00 07/17/18 19:59 Promethazine HCl/ Codeine (Phenergan with Codeine) 5 ml Q4H PRN ORAL For Cough 06/17/18 08:05 07/16/18 08:04 Temazepam (Restoril) 15 mg HSPRN PRN ORAL insomnia 06/17/18 21:00 06/23/18 20:59 06/18/18 01:23 Theophylline (Zafar-Dur) 100 mg EVERY 12 HOURS ORAL 06/17/18 09:00 07/16/18 08:59 06/18/18 09:15 Tiotropium [place] (Spiriva Inhaler) 2 puff DAILY INH 06/17/18 09:00 07/16/18 08:59 06/18/18 09:38 Vancomycin HCl (Vanco rx to dose) 1 ea DAILY PRN MISC Per rx protocol 06/17/18 09:00 07/16/18 09:44 Vancomycin HCl 1 gm/Sodium Chloride 275 ml @ 184 mls/hr 0000,1200 IVPB 06/18/18 00:00 06/23/18 00:00 06/18/18 13:40 Allergies: Coded Allergies: PENICILLINS (Verified Allergy, Unknown, 04/08/17) ROS Limited/Unobtainable: No Constitutional: Reports: no symptoms HEENT: Reports: no symptoms Cardiovascular: Reports: no symptoms Respiratory: Reports: no symptoms Gastrointestinal/Abdominal: Reports: no symptoms Genitourinary: Reports: no symptoms Neurologic/Psychiatric: Reports: no symptoms Subjective 73 YO M admitted with shortness of breath. Now sepsis. Cover for Int Derrick-Dr Ramírez Objective Last Vital Signs Date Time Temp Pulse Resp B/P (MAP) Pulse Ox O2 Delivery O2 Flow Rate FiO2 06/18/18 15:05 71 19 94 Room Air 21 06/18/18 14:54 2.0 06/18/18 12:00 97.4 116/62 (80) Laboratory Tests Test 06/17/18 22:53 06/18/18 05:05 06/18/18 05:50 Vancomycin Level Trough 7.1 ug/mL (5.0-12.0) White Blood Count 13.8 K/UL (4.8-10.8) H Red Blood Count 3.27 M/UL (4.70-6.10) L Hemoglobin 10.1 G/DL (14.2-18.0) L Hematocrit 31.6 % (42.0-52.0) L Mean Corpuscular Volume 96 FL (80-99) Mean Corpuscular Hemoglobin 30.7 PG (27.0-31.0) Mean Corpuscular Hemoglobin Concent 31.8 G/DL (32.0-36.0) L Red Cell Distribution Width 15.4 % (11.6-14.8) H Platelet Count 159 K/UL (150-450) Mean Platelet Volume 8.9 FL (6.5-10.1) Neutrophils (%) (Auto) % (45.0-75.0) Lymphocytes (%) (Auto) % (20.0-45.0) Monocytes (%) (Auto) % (1.0-10.0) Eosinophils (%) (Auto) % (0.0-3.0) Basophils (%) (Auto) % (0.0-2.0) Differential Total Cells Counted 100 Neutrophils % (Manual) 93 % (45-75) H Lymphocytes % (Manual) 2 % (20-45) L Monocytes % (Manual) 5 % (1-10) Eosinophils % (Manual) 0 % (0-3) Basophils % (Manual) 0 % (0-2) Band Neutrophils 0 % (0-8) Platelet Estimate Adequate Platelet Morphology Normal Anisocytosis 1+ Sodium Level 142 MMOL/L (136-145) 143 MMOL/L (136-145) Potassium Level 3.7 MMOL/L (3.5-5.1) 3.7 MMOL/L (3.5-5.1) Chloride Level 106 MMOL/L (98-107) 106 MMOL/L (98-107) Carbon Dioxide Level 31 MMOL/L (21-32) 30 MMOL/L (21-32) Anion Gap 5 mmol/L (5-15) 7 mmol/L (5-15) Blood Urea Nitrogen 21 mg/dL (7-18) H 21 mg/dL (7-18) H Creatinine 0.6 MG/DL (0.55-1.30) 0.7 MG/DL (0.55-1.30) Estimat Glomerular Filtration Rate mL/min (>60) mL/min (>60) Glucose Level 297 MG/DL (74-106) H 301 MG/DL (74-106) H Calcium Level 8.4 MG/DL (8.5-10.1) L 8.2 MG/DL (8.5-10.1) L Hemoglobin A1c 6.7 % (4.3-6.0) H Microbiology Date/Time Source Procedure Growth Status 06/15/18 23:43 Blood Blood Culture - Preliminary Staphylococcus Species Resulted 06/15/18 23:28 Blood Blood Culture - Preliminary Staphylococcus Species Resulted 06/16/18 02:05 Rectum - Final NO CARBAPENEM-RESISTANT ENTEROBACTERI... Complete 06/16/18 02:05 Rectum VRE Culture - Final NO VANCOMYCIN RESISTANT ENTEROCOCCUS ... Complete Intake and Output 06/17/18 06/18/18 19:00 07:00 Intake Total 840 ml 1830 ml Balance 840 ml 1830 ml Intake Oral 840 ml 1500 ml IV Total 330 ml # Voids 3 4 # Bowel Movements 2 Objective PHYSICAL EXAMINATION: GENERAL: The patient is awake, responsive, and in no acute distress, but chronically ill. HEAD AND NECK: Pupils are equal and reactive to light. Extraocular movements are intact. Neck was supple. No JVD. LUNGS: Good air entry. No wheezing or rales. Expiratory, decreased air in bases. HEART: S1 and S2. Distant heart sounds. No murmurs or gallops. ABDOMEN: Soft, nondistended, nontender, and mildly obese. EXTREMITIES: No cyanosis, clubbing, or edema. The patient has ecchymosis in the bilateral upper extremity, has skin tear. GENITOURINARY: The patient has diffuse macular rashes in the sacrum as well as perineum area. NEUROLOGIC: Cranial nerves II through XII grossly intact. The patient moving all extremities. Gait was unsteady. Assessment/Plan Assessment/Plan ASSESSMENT: 1. Acute COPD exacerbation. 2. Failure to thrive. 3. Diabetes type 2. 4. Hypertension. 5. Irregular bowel syndrome. 6. Morbid obesity. 7. Chronic CHF. 8. Bronchitis. 9. Sepsis-Staph sp PLAN: 1. Admit the patient to telemetry. 2. We will follow up with Dr. Gray, Pulmonary Critical Care recommendation. 3. The patient has MRSA in the sputum, followup with vancomycin. 4. Code status at this time is Full Code. 5. DVT prophylaxis, heparin subcutaneous. 6. Monitor glucose level and we will discuss with licensed master social worker regarding the possible placement in a nursing facility. 7. Pos Blood culture-Await ID and sensitivity of Staph-Continue vanco and cefepime per Inf Dis Danielito Thomas MD Jun 18, 2018 15:51
[2018-06-18 16:00] VITALS: BP 124/67
--- NOTE | 2018-06-18 16:35 | NUR ---
PT Note PT ebenal completed, treatment initiated. Patient's activity tolerance is limited by his c/o pain on his perineal area, which is excoriated. Patient can benefit from Pt services to increase his muscle strength to improve his functional mobility and gait. Addendum: 06/18/18 at 1638 by PADMINI CORBIN PT Amended: Links added.
[2018-06-18] MEDS ORDERED: HYDROcodone/Acetamin 5/325 tab ORAL PRN (19:30)
[2018-06-18] MEDS: Albuterol/Ipratropium 3ml neb HHN SCH ×2 (19:43→23:41)
--- NOTE | 2018-06-18 19:46 | NUR ---
HAND-OFF: Report given to JACOB Guzman.
[2018-06-18 20:00] VITALS: BP 134/65
--- NOTE | 2018-06-18 20:00 | NUR ---
NURSE NOTES: Received patient in bed. On 2L O2 via N/C, no SOB, no acute distress. Bed in lowest position, locked, alarms on. Call light in reach. No IV access, will insert one soon. Patient c/o L leg pain 12/19, will follow up with pain med.
[2018-06-18] MEDS: HYDROcodone/Acetamin 10/325 tab ORAL PRN (20:42)
[2018-06-19] VITALS: BP 130/76
[2018-06-19] MEDS: HYDROcodone/Acetamin 10/325 tab ORAL PRN ×3 (00:47→17:02)
[2018-06-19] MEDS: Albuterol/Ipratropium 3ml neb HHN SCH ×6 (03:29→22:49)
[2018-06-19 04:00] VITALS: BP 112/52
[2018-06-19] MEDS: Cefepime HCl 1 GM in D5W 55 ML IVPB SCH ×3 (05:01→21:10)
[2018-06-19] MEDS: Heparin 5000 units/ml inj SUBQ SCH ×3 (05:01→21:12)
[2018-06-19] MEDS: NovoLOG Insulin Flexpen SUBQ SCH ×4 (05:47→21:11)
[2018-06-19 08:00] VITALS: BP 157/80
[2018-06-19] MEDS: Enalapril 5mg tab ORAL SCH ×2 (08:21→21:10)
[2018-06-19] MEDS: Theophylline ER 100mg ORAL SCH ×2 (08:21→21:10)
[2018-06-19] MEDS: Carvedilol 6.25mg Tab ORAL SCH ×2 (08:21→21:09)
[2018-06-19] MEDS: Solu-MEDROL 125mg Inj IV SCH ×2 (08:22→21:09)
--- NOTE | 2018-06-19 09:15 | NUR ---
NURSE NOTES: pt awake alert, no distress no sob. no c/o pain. bed in lowest position, locked. call light within reach. will monitor.
[2018-06-19 09:39] LABS: MEAN CORPUSCULAR VOLUME 96 FL (80-99); PLATELET COUNT 181 K/UL (150-450); RED BLOOD COUNT 3.53 M/UL (4.70-6.10); WHITE BLOOD COUNT 12.5 K/UL (4.8-10.8)
[2018-06-19 09:48] LABS: ANION GAP 2 mmol/L (5-15); BLOOD UREA NITROGEN 19 mg/dL (7-18); CALCIUM 8.5 MG/DL (8.5-10.1); CARBON DIOXIDE 35 MMOL/L (21-32); CHLORIDE 104 MMOL/L (98-107); CREATININE 0.7 MG/DL (0.55-1.30); POTASSIUM 3.6 MMOL/L (3.5-5.1); SODIUM 141 MMOL/L (136-145)
--- NOTE | 2018-06-19 11:36 | NUR ---
RADIOLOGY DEPT CHEST X-RAY DONE.-P.DYE
[2018-06-19 12:00] VITALS: BP 148/78
--- NOTE | 2018-06-19 12:06 | Consultation ---
History of Present Illness General Date patient seen: Jun 19, 2018 Chief Complaint: Dyspnea/Respdistress Present Illness HPI 73 year old male with hx of COPD, smoking, morbid obesity, CHF, HTN, CAD, DM2, recently discharged, presents to ED on 06/15 with a few days of SOB. Per EMS, patient was found in bed covered in feces and urine. Denied CP, abd pain, n/v, f/c, dysuria Of note, admitted from 06/10-4n for COPD exacerbation and UTI. Ucx grew E.coli, MRSA and eric. Allergies: Coded Allergies: PENICILLINS (Verified Allergy, Unknown, 04/08/17) Medication History Scheduled Albuterol Sulfate (Ventolin Hfa), 2 PUFFS INH Q12HR, (Reported) Budesonide/Formoterol Fumarate (Symbicort 160-4.5 Mcg Inhaler), 2 PUFFS IH BID, (Reported) Carvedilol* (Carvedilol*), 6.25 MG ORAL EVERY 12 HOURS, (Reported) Enalapril Maleate* (Enalapril Maleate*), 5 MG ORAL EVERY 12 HOURS, (Reported) Escitalopram Oxalate* (Lexapro*), 10 MG ORAL DAILY, (Reported) Furosemide* (Lasix*), 20 MG ORAL DAILY, (Reported) Metformin Hcl* (Metformin Hcl*), 1,000 MG ORAL DAILY, (Reported) Metoprolol Tartrate* (Metoprolol Tartrate*), 50 MG ORAL Q12HR Potassium Chloride (Klor-Con M20), 20 MEQ ORAL DAILY, (Reported) Prednisone* (Prednisone*), 20 MG ORAL DAILY, (Reported) Rosuvastatin Calcium* (Crestor*), 10 MG ORAL DAILY, (Reported) Theophylline (Theodur*), 100 MG ORAL EVERY 12 HOURS Tiotropium [place]* (Spiriva*), 2 PUFF INH DAILY, (Reported) Trimethoprim/Sulfamethoxazole (Bactrim Ds Tablet), 1 TAB ORAL TWICE A DAY Scheduled PRN Temazepam* (Restoril*), 15 MG ORAL HSPRN PRN Patient History Healthcare decision maker Resuscitation status Full Code Advanced Directive on File Patient History Narrative Pmhx: as above Shx: Ex-smoker, quit at this time. No alcohol or substance. Fhx: non contributory Review of Systems All Other Systems: negative except mentioned in HPI Physical Exam Physical Exam Narrative GENERAL: The patient is awake, responsive, and in no acute distress, but chronically ill. HEAD AND NECK: Pupils are equal and reactive to light. Extraocular movements are intact. Neck was supple. No JVD. LUNGS: Good air entry. No wheezing or rales. Expiratory, decreased air in bases. HEART: S1 and S2. Distant heart sounds. No murmurs or gallops. ABDOMEN: Soft, nondistended, nontender, and mildly obese. EXTREMITIES: No cyanosis, clubbing, or edema. The patient has ecchymosis in the bilateral upper extremity, has skin tear. GENITOURINARY: The patient has diffuse macular rashes in the sacrum as well as perineum area. NEUROLOGIC: Cranial nerves II through XII grossly intact. The patient moving all extremities. Gait was unsteady. Last 24 Hour Vital Signs Date Time Temp Pulse Resp B/P (MAP) Pulse Ox O2 Delivery O2 Flow Rate FiO2 06/19/18 09:36 70 18 99 Nasal Cannula 2.0 28 06/19/18 09:35 70 19 99 Nasal Cannula 2.0 28 06/19/18 09:27 78 18 97 Nasal Cannula 2.0 28 06/19/18 09:27 68 19 98 Nasal Cannula 2.0 28 06/19/18 09:00 97.9 06/19/18 08:36 Nasal Cannula 2.0 06/19/18 08:21 157/80 06/19/18 08:21 65 157/80 06/19/18 08:07 70 20 99 Nasal Cannula 2.0 28 06/19/18 08:00 97.9 65 19 157/80 (105) 95 06/19/18 07:57 68 20 98 Nasal Cannula 2.0 28 06/19/18 07:56 Nasal Cannula 2.0 28 06/19/18 07:56 98 Nasal Cannula 2.0 28 06/19/18 04:00 97.9 66 19 112/52 (72) 95 06/19/18 03:31 66 20 99 Nasal Cannula 2.0 28 06/19/18 03:20 64 20 98 Nasal Cannula 2.0 28 06/19/18 00:00 98.0 62 20 130/76 (94) 100 06/18/18 23:51 60 16 99 Nasal Cannula 2.0 28 06/18/18 23:41 60 20 98 Nasal Cannula 2.0 28 06/18/18 21:00 Nasal Cannula 2.0 06/18/18 20:41 77 134/65 06/18/18 20:40 134/65 06/18/18 20:00 97.7 77 20 134/65 (88) 98 06/18/18 19:53 78 16 100 Nasal Cannula 2.0 28 06/18/18 19:44 78 18 97 Nasal Cannula 2.0 28 06/18/18 19:43 78 18 97 Nasal Cannula 2.0 28 06/18/18 19:43 78 18 97 Nasal Cannula 2.0 28 06/18/18 19:43 Nasal Cannula 2.0 28 06/18/18 19:43 97 Nasal Cannula 2.0 28 06/18/18 16:00 98.2 93 19 124/67 (86) 98 06/18/18 15:05 71 19 94 Room Air 21 06/18/18 14:54 69 17 97 Nasal Cannula 2.0 28 06/18/18 12:00 97.4 67 18 116/62 (80) 98 Intake and Output 06/18/18 06/19/18 18:59 06:59 Intake Total 1000 ml 1285 ml Balance 1000 ml 1285 ml Intake Oral 1000 ml 900 ml IV Total 385 ml # Voids 3 3 Laboratory Tests Test 06/19/18 09:10 White Blood Count 12.5 K/UL (4.8-10.8) H Red Blood Count 3.53 M/UL (4.70-6.10) L Hemoglobin 11.0 G/DL (14.2-18.0) L Hematocrit 34.0 % (42.0-52.0) L Mean Corpuscular Volume 96 FL (80-99) Mean Corpuscular Hemoglobin 31.1 PG (27.0-31.0) H Mean Corpuscular Hemoglobin Concent 32.3 G/DL (32.0-36.0) Red Cell Distribution Width 15.0 % (11.6-14.8) H Platelet Count 181 K/UL (150-450) Mean Platelet Volume 8.9 FL (6.5-10.1) Neutrophils (%) (Auto) % (45.0-75.0) Lymphocytes (%) (Auto) % (20.0-45.0) Monocytes (%) (Auto) % (1.0-10.0) Eosinophils (%) (Auto) % (0.0-3.0) Basophils (%) (Auto) % (0.0-2.0) Differential Total Cells Counted 100 Neutrophils % (Manual) 90 % (45-75) H Lymphocytes % (Manual) 7 % (20-45) L Monocytes % (Manual) 3 % (1-10) Eosinophils % (Manual) 0 % (0-3) Basophils % (Manual) 0 % (0-2) Band Neutrophils 0 % (0-8) Platelet Estimate Adequate Platelet Morphology Normal Red Blood Cell Morphology Normal Sodium Level 141 MMOL/L (136-145) Potassium Level 3.6 MMOL/L (3.5-5.1) Chloride Level 104 MMOL/L (98-107) Carbon Dioxide Level 35 MMOL/L (21-32) H Anion Gap 2 mmol/L (5-15) L Blood Urea Nitrogen 19 mg/dL (7-18) H Creatinine 0.7 MG/DL (0.55-1.30) Estimat Glomerular Filtration Rate mL/min (>60) Glucose Level 317 MG/DL (74-106) H Calcium Level 8.5 MG/DL (8.5-10.1) Height (Feet): 5 Height (Inches): 6.00 Weight (Pounds): 167 Medications Current Medications Medications (Trade) Dose Ordered Sig/Evi Route PRN Reason Start Time Stop Time Status Last Admin Dose Admin Acetaminophen/ Hydrocodone Bitart ([place] 10/325) 1 tab Q4H PRN ORAL Severe Pain (Pain Scale 7-10) 06/18/18 19:30 06/25/18 19:29 06/19/18 08:30 Acetaminophen/ Hydrocodone Bitart ([place] 5/325) 1 tab Q4H PRN ORAL Moderate Pain (Pain Scale 4-6) 06/18/18 19:30 06/25/18 19:29 Albuterol/ Ipratropium (Albuterol/ Ipratropium) 3 ml Q4HRT HHN 06/18/18 19:00 06/23/18 18:59 06/19/18 07:56 Budesonide/ Formoterol Fumarate (Symbicort 160/ 4.5) 2 puff BID INH 06/17/18 09:00 07/16/18 08:59 06/19/18 09:00 Carvedilol (Coreg) 6.25 mg EVERY 12 HOURS ORAL 06/17/18 09:00 07/16/18 08:59 06/19/18 08:21 Cefepime HCl 1 gm/ Dextrose 55 ml @ 110 mls/hr Q8HR IVPB 06/17/18 14:00 06/23/18 10:59 06/19/18 05:01 Dextrose (Dextrose 50%) 25 ml Q30M PRN IV Hypoglycemia 06/17/18 08:30 07/16/18 06:59 Dextrose (Dextrose 50%) 50 ml Q30M PRN IV Hypoglycemia 06/17/18 08:30 07/16/18 06:59 Enalapril Maleate (Vasotec) 5 mg EVERY 12 HOURS ORAL 06/17/18 09:00 07/16/18 08:59 06/19/18 08:21 Escitalopram Oxalate (Lexapro) 10 mg DAILY ORAL 06/17/18 09:00 07/16/18 08:59 06/19/18 08:21 Heparin Sodium (Porcine) (Heparin 5000 units/ml) 5,000 units EVERY 8 HOURS SUBQ 06/17/18 14:00 07/16/18 13:59 06/19/18 05:01 Insulin Aspart (NovoLOG) BEFORE MEALS AND HS SUBQ 06/17/18 11:30 07/16/18 11:29 06/19/18 05:47 Methylprednisolone Sodium Succinate (Solu-MEDROL) 60 mg Q12HR IV 06/18/18 21:00 07/17/18 19:59 06/19/18 08:22 Promethazine HCl/ Codeine (Phenergan with Codeine) 5 ml Q4H PRN ORAL For Cough 06/17/18 08:05 07/16/18 08:04 Temazepam (Restoril) 15 mg HSPRN PRN ORAL insomnia 06/17/18 21:00 06/23/18 20:59 06/18/18 01:23 Theophylline (Zafar-Dur) 100 mg EVERY 12 HOURS ORAL 06/17/18 09:00 07/16/18 08:59 06/19/18 08:21 Tiotropium [place] (Spiriva Inhaler) 2 puff DAILY INH 06/17/18 09:00 07/16/18 08:59 06/19/18 09:00 Vancomycin HCl (Vanco rx to dose) 1 ea DAILY PRN MISC Per rx protocol 06/17/18 09:00 07/16/18 09:44 Vancomycin HCl 1 gm/Sodium Chloride 275 ml @ 184 mls/hr 0000,1200 IVPB 06/18/18 00:00 06/23/18 00:00 06/18/18 23:37 Assessment/Plan Assessment/Plan Abx: IV Vancomycin 06/16- Cefepime 06/16- Bactrim x1 06/16 Assessment: Probable Sepsis -r/o UTI Dyspnea- COPD exacerbation, no PNA on CT -CXR: no acute disease -CT chest: Somewhat limited exam, due to respiratory motion artifact. Mild pulmonary parenchymal hyperinflation. Very faint groundglass opacity in a mosaic distribution is probably related to COPD changes. No acute pulmonary process. Dilated pulmonary artery, consistent with pulmonary arterial hypertension. Suspect left ventricular muscular hypertrophy. Small area of pleural or subpleural scarring in the right hemithorax. 3.4 x 1.6 cm right lower pole thyroid mass. Further evaluation with ultrasound recommended. Slight T7 vertebral body wedge compression fracture deformity. Age indeterminate. Leukocytosis, improving Afebrile Gram positive bacteremia, likely contaminants -06/16 Bcx 4/4 S. simulans, S. epidermis Eric intertrigo Recent dx of Abd CA hx of UTI -3/2 u/a wbc tnct; ucx 20-30K MRSA, 10-20k E.coli (I Levo, R Bactrim) COPD smoking morbid obesity CHF HTN CAD DM2, Plan: -Continue empiric IV Vancomycin and Cefepime #4 for now pending cultures -f/u cx -Monitor CBC/CMP, temperatures -Bcx x2, u/a w/ , influenza sc -aspiration precautions -nystatin powder Thank you for this consultation. Will continue to follow along with you. Discussed with Rukhsana Watkins M.D. Jun 19, 2018 12:05
[2018-06-19] MEDS: Vancomycin 1 GM in NS 275 ML IVPB SCH (12:25)
--- NOTE | 2018-06-19 12:49 | Diagnostic Imaging Report ---
Indication: Shortness of breath Technique: One view of the chest Comparison: 06/16/2018 Findings: Previously demonstrated right hilar vascular prominence is less evident currently. Lungs and pleural spaces are clear. The heart size is normal. Impression: No acute process
[2018-06-19 15:31] VITALS: BP 144/70
--- NOTE | 2018-06-19 16:24 | Pulmonology Progress Note ---
Assessment/Plan Problems: (1) Acute respiratory failure (2) COPD exacerbation (3) Bronchitis (4) Pneumonia (5) Hypertension (6) Diabetes mellitus Assessment/Plan respiratory treatment iv sterids iv abx titrate fio2 to sat of 92% sliding scale dvt prophylaxis. Subjective Interval Events: still short of breath Allergies: Coded Allergies: PENICILLINS (Verified Allergy, Unknown, 04/08/17) Objective Last 24 Hour Vital Signs Date Time Temp Pulse Resp B/P (MAP) Pulse Ox O2 Delivery O2 Flow Rate FiO2 06/19/18 15:32 68 18 99 Nasal Cannula 2.0 28 06/19/18 15:31 98.0 70 19 144/70 (94) 95 06/19/18 15:22 74 18 98 Nasal Cannula 2.0 28 06/19/18 12:05 73 20 99 Nasal Cannula 2.0 28 06/19/18 12:00 97.9 60 19 148/78 (101) 95 06/19/18 11:55 70 20 97 Nasal Cannula 2.0 28 06/19/18 09:36 70 18 99 Nasal Cannula 2.0 28 06/19/18 09:35 70 19 99 Nasal Cannula 2.0 28 06/19/18 09:27 78 18 97 Nasal Cannula 2.0 28 06/19/18 09:27 68 19 98 Nasal Cannula 2.0 28 06/19/18 09:00 97.9 06/19/18 08:36 Nasal Cannula 2.0 06/19/18 08:21 157/80 06/19/18 08:21 65 157/80 06/19/18 08:07 70 20 99 Nasal Cannula 2.0 28 06/19/18 08:00 97.9 65 19 157/80 (105) 95 06/19/18 07:57 68 20 98 Nasal Cannula 2.0 28 06/19/18 07:56 Nasal Cannula 2.0 28 06/19/18 07:56 98 Nasal Cannula 2.0 28 06/19/18 04:00 97.9 66 19 112/52 (72) 95 06/19/18 03:31 66 20 99 Nasal Cannula 2.0 28 06/19/18 03:20 64 20 98 Nasal Cannula 2.0 28 06/19/18 00:00 98.0 62 20 130/76 (94) 100 06/18/18 23:51 60 16 99 Nasal Cannula 2.0 28 06/18/18 23:41 60 20 98 Nasal Cannula 2.0 28 06/18/18 21:00 Nasal Cannula 2.0 06/18/18 20:41 77 134/65 06/18/18 20:40 134/65 06/18/18 20:00 97.7 77 20 134/65 (88) 98 06/18/18 19:53 78 16 100 Nasal Cannula 2.0 28 06/18/18 19:44 78 18 97 Nasal Cannula 2.0 28 06/18/18 19:43 78 18 97 Nasal Cannula 2.0 28 06/18/18 19:43 78 18 97 Nasal Cannula 2.0 28 06/18/18 19:43 Nasal Cannula 2.0 28 06/18/18 19:43 97 Nasal Cannula 2.0 28 Intake and Output 06/18/18 06/19/18 18:59 06:59 Intake Total 1000 ml 1285 ml Balance 1000 ml 1285 ml Intake Oral 1000 ml 900 ml IV Total 385 ml # Voids 3 3 General Appearance: WD/WN HEENT: normocephalic, anicteric Respiratory/Chest: chest wall non-tender, accessory muscle use, crackles/rales Microbiology Date/Time Source Procedure Growth Status 06/19/18 14:15 Nasopharynx Influenza Types A,B Antigen (UNIQUE) - Final Complete 06/18/18 06:30 Sputum Gram Stain - Final Resulted 06/18/18 06:30 Sputum Sputum Culture Pending Resulted Laboratory Tests 06/19/18 09:10: White Blood Count 12.5H, Red Blood Count 3.53L, Hemoglobin 11.0L, Hematocrit 34.0L, Mean Corpuscular Volume 96, Mean Corpuscular Hemoglobin 31.1H, Mean Corpuscular Hemoglobin Concent 32.3, Red Cell Distribution Width 15.0H, Platelet Count 181, Mean Platelet Volume 8.9, Neutrophils (%) (Auto) , Lymphocytes (%) (Auto) , Monocytes (%) (Auto) , Eosinophils (%) (Auto) , Basophils (%) (Auto) , Differential Total Cells Counted 100, Neutrophils % ( Manual) 90H, Lymphocytes % (Manual) 7L, Monocytes % (Manual) 3, Eosinophils % ( Manual) 0, Basophils % (Manual) 0, Band Neutrophils 0, Platelet Estimate Adequate, Platelet Morphology Normal, Red Blood Cell Morphology Normal, Sodium Level 141, Potassium Level 3.6, Chloride Level 104, Carbon Dioxide Level 35H, Anion Gap 2L, Blood Urea Nitrogen 19H, Creatinine 0.7, Estimat Glomerular Filtration Rate , Glucose Level 317H, Calcium Level 8.5 Current Medications Medications (Trade) Dose Ordered Sig/Evi Route PRN Reason Start Time Stop Time Status Last Admin Dose Admin Acetaminophen/ Hydrocodone Bitart ([place] 10/325) 1 tab Q4H PRN ORAL Severe Pain (Pain Scale 7-10) 06/18/18 19:30 06/25/18 19:29 06/19/18 08:30 Acetaminophen/ Hydrocodone Bitart ([place] 5/325) 1 tab Q4H PRN ORAL Moderate Pain (Pain Scale 4-6) 06/18/18 19:30 06/25/18 19:29 Albuterol/ Ipratropium (Albuterol/ Ipratropium) 3 ml Q4HRT HHN 06/18/18 19:00 06/23/18 18:59 06/19/18 15:23 Budesonide/ Formoterol Fumarate (Symbicort 160/ 4.5) 2 puff BID INH 06/17/18 09:00 07/16/18 08:59 06/19/18 09:00 Carvedilol (Coreg) 6.25 mg EVERY 12 HOURS ORAL 06/17/18 09:00 07/16/18 08:59 06/19/18 08:21 Cefepime HCl 1 gm/ Dextrose 55 ml @ 110 mls/hr Q8HR IVPB 06/17/18 14:00 06/23/18 10:59 06/19/18 13:57 Dextrose (Dextrose 50%) 25 ml Q30M PRN IV Hypoglycemia 06/17/18 08:30 07/16/18 06:59 Dextrose (Dextrose 50%) 50 ml Q30M PRN IV Hypoglycemia 06/17/18 08:30 07/16/18 06:59 Enalapril Maleate (Vasotec) 5 mg EVERY 12 HOURS ORAL 06/17/18 09:00 07/16/18 08:59 06/19/18 08:21 Escitalopram Oxalate (Lexapro) 10 mg DAILY ORAL 06/17/18 09:00 07/16/18 08:59 06/19/18 08:21 Heparin Sodium (Porcine) (Heparin 5000 units/ml) 5,000 units EVERY 8 HOURS SUBQ 06/17/18 14:00 07/16/18 13:59 06/19/18 14:08 Insulin Aspart (NovoLOG) BEFORE MEALS AND HS SUBQ 06/17/18 11:30 07/16/18 11:29 06/19/18 11:58 Methylprednisolone Sodium Succinate (Solu-MEDROL) 60 mg Q12HR IV 06/18/18 21:00 07/17/18 19:59 06/19/18 08:22 Nystatin (Nystop Powder) 1 applic THREE TIMES A DAY TOPIC 06/19/18 15:45 07/19/18 15:44 UNV Promethazine HCl/ Codeine (Phenergan with Codeine) 5 ml Q4H PRN ORAL For Cough 06/17/18 08:05 07/16/18 08:04 Temazepam (Restoril) 15 mg HSPRN PRN ORAL insomnia 06/17/18 21:00 06/23/18 20:59 06/18/18 01:23 Theophylline (Zafar-Dur) 100 mg EVERY 12 HOURS ORAL 06/17/18 09:00 07/16/18 08:59 06/19/18 08:21 Tiotropium [place] (Spiriva Inhaler) 2 puff DAILY INH 06/17/18 09:00 07/16/18 08:59 06/19/18 09:00 Vancomycin HCl (Vanco rx to dose) 1 ea DAILY PRN MISC Per rx protocol 06/17/18 09:00 07/16/18 09:44 Vancomycin HCl 1 gm/Sodium Chloride 275 ml @ 184 mls/hr 0000,1200 IVPB 06/18/18 00:00 06/23/18 00:00 06/19/18 12:25 Mikie Gray MD Jun 19, 2018 16:24
[2018-06-19] MEDS: Nystatin Powder 100,000 units/gm 15gm TOPIC SCH (17:00)
--- NOTE | 2018-06-19 18:02 | NUR ---
CASE MANAGEMENT: REVIEW SI: COPD EXACERBATION . BRONCHITIS T 98.0 HR 70 RR 19 BP 148/78 SAT 95% NC/2L WBC 12.5 BUN 19 IS: VANCO IV CEFEPIME IV SYMBICORT INH VASOTEC PO THEOPHYLLINE PO MED/SURG STATUS DCP: PATIENT IS FROM HOME
--- NOTE | 2018-06-19 19:07 | NUR ---
HAND-OFF: Report given to JERRY JAMES.
[2018-06-19 20:00] VITALS: BP 152/74
--- NOTE | 2018-06-19 20:00 | NUR ---
NURSE NOTES: Received patient awake,verbal,follows simple command,confused and forgetful at times,resting,no SOB noted.
--- NOTE | 2018-06-19 20:04 | Internal Med Progress Note ---
Subjective Date of Service: Jun 19, 2018 Physician Name Danielito Thomas Attending Physician Gadiel Ramírez MD Current Medications Medications (Trade) Dose Ordered Sig/Evi Route PRN Reason Start Time Stop Time Status Last Admin Dose Admin Acetaminophen/ Hydrocodone Bitart ([place] 10/325) 1 tab Q4H PRN ORAL Severe Pain (Pain Scale 7-10) 06/18/18 19:30 06/25/18 19:29 06/19/18 17:02 Acetaminophen/ Hydrocodone Bitart ([place] 5/325) 1 tab Q4H PRN ORAL Moderate Pain (Pain Scale 4-6) 06/18/18 19:30 06/25/18 19:29 Albuterol/ Ipratropium (Albuterol/ Ipratropium) 3 ml Q4HRT HHN 06/18/18 19:00 06/23/18 18:59 06/19/18 19:43 Budesonide/ Formoterol Fumarate (Symbicort 160/ 4.5) 2 puff BID INH 06/17/18 09:00 07/16/18 08:59 06/19/18 19:43 Carvedilol (Coreg) 6.25 mg EVERY 12 HOURS ORAL 06/17/18 09:00 07/16/18 08:59 06/19/18 08:21 Cefepime HCl 1 gm/ Dextrose 55 ml @ 110 mls/hr Q8HR IVPB 06/17/18 14:00 06/23/18 10:59 06/19/18 13:57 Dextrose (Dextrose 50%) 25 ml Q30M PRN IV Hypoglycemia 06/17/18 08:30 07/16/18 06:59 Dextrose (Dextrose 50%) 50 ml Q30M PRN IV Hypoglycemia 06/17/18 08:30 07/16/18 06:59 Enalapril Maleate (Vasotec) 5 mg EVERY 12 HOURS ORAL 06/17/18 09:00 07/16/18 08:59 06/19/18 08:21 Escitalopram Oxalate (Lexapro) 10 mg DAILY ORAL 06/17/18 09:00 07/16/18 08:59 06/19/18 08:21 Heparin Sodium (Porcine) (Heparin 5000 units/ml) 5,000 units EVERY 8 HOURS SUBQ 06/17/18 14:00 4/7/19 13:59 06/19/18 14:08 Insulin Aspart (NovoLOG) BEFORE MEALS AND HS SUBQ 06/17/18 11:30 07/16/18 11:29 06/19/18 16:56 Methylprednisolone Sodium Succinate (Solu-MEDROL) 60 mg Q12HR IV 06/18/18 21:00 07/17/18 19:59 06/19/18 08:22 Nystatin (Nystop Powder) 1 applic THREE TIMES A DAY TOPIC 06/19/18 17:00 07/19/18 16:59 06/19/18 17:00 Promethazine HCl/ Codeine (Phenergan with Codeine) 5 ml Q4H PRN ORAL For Cough 06/17/18 08:05 07/16/18 08:04 Temazepam (Restoril) 15 mg HSPRN PRN ORAL insomnia 06/17/18 21:00 06/23/18 20:59 06/18/18 01:23 Theophylline (Zafar-Dur) 100 mg EVERY 12 HOURS ORAL 06/17/18 09:00 07/16/18 08:59 06/19/18 08:21 Tiotropium [place] (Spiriva Inhaler) 2 puff DAILY INH 06/17/18 09:00 07/16/18 08:59 06/19/18 09:00 Vancomycin HCl (Vanco rx to dose) 1 ea DAILY PRN MISC Per rx protocol 06/17/18 09:00 07/16/18 09:44 Vancomycin HCl 1 gm/Sodium Chloride 275 ml @ 184 mls/hr 0000,1200 IVPB 06/18/18 00:00 06/23/18 00:00 06/19/18 12:25 Allergies: Coded Allergies: PENICILLINS (Verified Allergy, Unknown, 04/08/17) ROS Limited/Unobtainable: No Constitutional: Reports: no symptoms HEENT: Reports: no symptoms Cardiovascular: Reports: no symptoms Respiratory: Reports: shortness of breath Gastrointestinal/Abdominal: Reports: no symptoms Genitourinary: Reports: no symptoms Neurologic/Psychiatric: Reports: no symptoms Subjective 73 YO M admitted with shortness of breath. Now sepsis. Cover for Int Derrick-Dr Ramírez Objective Last Vital Signs Date Time Temp Pulse Resp B/P (MAP) Pulse Ox O2 Delivery O2 Flow Rate FiO2 06/19/18 19:58 83 18 100 Nasal Cannula 2.0 28 06/19/18 17:32 98.0 06/19/18 15:31 144/70 (94) Laboratory Tests Test 06/19/18 09:10 White Blood Count 12.5 K/UL (4.8-10.8) H Red Blood Count 3.53 M/UL (4.70-6.10) L Hemoglobin 11.0 G/DL (14.2-18.0) L Hematocrit 34.0 % (42.0-52.0) L Mean Corpuscular Volume 96 FL (80-99) Mean Corpuscular Hemoglobin 31.1 PG (27.0-31.0) H Mean Corpuscular Hemoglobin Concent 32.3 G/DL (32.0-36.0) Red Cell Distribution Width 15.0 % (11.6-14.8) H Platelet Count 181 K/UL (150-450) Mean Platelet Volume 8.9 FL (6.5-10.1) Neutrophils (%) (Auto) % (45.0-75.0) Lymphocytes (%) (Auto) % (20.0-45.0) Monocytes (%) (Auto) % (1.0-10.0) Eosinophils (%) (Auto) % (0.0-3.0) Basophils (%) (Auto) % (0.0-2.0) Differential Total Cells Counted 100 Neutrophils % (Manual) 90 % (45-75) H Lymphocytes % (Manual) 7 % (20-45) L Monocytes % (Manual) 3 % (1-10) Eosinophils % (Manual) 0 % (0-3) Basophils % (Manual) 0 % (0-2) Band Neutrophils 0 % (0-8) Platelet Estimate Adequate Platelet Morphology Normal Red Blood Cell Morphology Normal Sodium Level 141 MMOL/L (136-145) Potassium Level 3.6 MMOL/L (3.5-5.1) Chloride Level 104 MMOL/L (98-107) Carbon Dioxide Level 35 MMOL/L (21-32) H Anion Gap 2 mmol/L (5-15) L Blood Urea Nitrogen 19 mg/dL (7-18) H Creatinine 0.7 MG/DL (0.55-1.30) Estimat Glomerular Filtration Rate mL/min (>60) Glucose Level 317 MG/DL (74-106) H Calcium Level 8.5 MG/DL (8.5-10.1) Microbiology Date/Time Source Procedure Growth Status 06/19/18 14:15 Nasopharynx Influenza Types A,B Antigen (UNIQUE) - Final Complete 06/18/18 06:30 Sputum Gram Stain - Final Resulted 06/18/18 06:30 Sputum Sputum Culture Pending Resulted Intake and Output 06/18/18 06/19/18 19:00 07:00 Intake Total 1000 ml 1285 ml Balance 1000 ml 1285 ml Intake Oral 1000 ml 900 ml IV Total 385 ml # Voids 3 3 Objective PHYSICAL EXAMINATION: GENERAL: The patient is awake, responsive, and in no acute distress, but chronically ill. HEAD AND NECK: Pupils are equal and reactive to light. Extraocular movements are intact. Neck was supple. No JVD. LUNGS: Good air entry. No wheezing or rales. Expiratory, decreased air in bases. HEART: S1 and S2. Distant heart sounds. No murmurs or gallops. ABDOMEN: Soft, nondistended, nontender, and mildly obese. EXTREMITIES: No cyanosis, clubbing, or edema. The patient has ecchymosis in the bilateral upper extremity, has skin tear. GENITOURINARY: The patient has diffuse macular rashes in the sacrum as well as perineum area. NEUROLOGIC: Cranial nerves II through XII grossly intact. The patient moving all extremities. Gait was unsteady. Assessment/Plan Assessment/Plan ASSESSMENT: 1. Acute COPD exacerbation. 2. Failure to thrive. 3. Diabetes type 2. 4. Hypertension. 5. Irregular bowel syndrome. 6. Morbid obesity. 7. Chronic CHF. 8. Bronchitis. 9. Sepsis-Staph sp 10 newly diagnosed cancer PLAN: 1. Admit the patient to telemetry. 2. We will follow up with Dr. Gray, Pulmonary Critical Care recommendation. 3. The patient has MRSA in the sputum, followup with vancomycin. 4. Code status at this time is Full Code. 5. DVT prophylaxis, heparin subcutaneous. 6. Monitor glucose level and we will discuss with adoption social worker regarding the possible placement in a nursing facility. 7. Pos Blood culture-Await ID and sensitivity of Staph-Continue vanco and cefepime per Inf Dis 8. Onc and surgery consult Danielito Thomas MD Jun 19, 2018 20:04
[2018-06-20] VITALS (7 sets, daily range): BP systolic 106–162; BP diastolic 64–85
[2018-06-20] MEDS ORDERED: Vancomycin 1.25 GM in NS 275 ML IVPB SCH ×2
[2018-06-20] MEDS: Albuterol/Ipratropium 3ml neb HHN SCH ×5 (02:37→20:34)
[2018-06-20] MEDS: Cefepime HCl 1 GM in D5W 55 ML IVPB SCH ×3 (05:05→21:45)
[2018-06-20] MEDS: NovoLOG Insulin Flexpen SUBQ SCH ×4 (05:49→21:48)
[2018-06-20] MEDS: Heparin 5000 units/ml inj SUBQ SCH ×3 (05:50→21:47)
[2018-06-20 07:39] LABS: ANION GAP 5 mmol/L (5-15); BLOOD UREA NITROGEN 24 mg/dL (7-18); CALCIUM 8.7 MG/DL (8.5-10.1); CARBON DIOXIDE 33 MMOL/L (21-32); CHLORIDE 105 MMOL/L (98-107); CREATININE 0.6 MG/DL (0.55-1.30); POTASSIUM 4.3 MMOL/L (3.5-5.1); SODIUM 143 MMOL/L (136-145)
[2018-06-20 07:41] LABS: HEMATOCRIT 33.7 % (42.0-52.0); HEMOGLOBIN 10.8 G/DL (14.2-18.0); MEAN CORPUSCULAR VOLUME 96 FL (80-99); PLATELET COUNT 184 K/UL (150-450); RED BLOOD COUNT 3.53 M/UL (4.70-6.10); WHITE BLOOD COUNT 10.4 K/UL (4.8-10.8)
--- NOTE | 2018-06-20 07:42 | NUR ---
HAND-OFF: Report given to Anna Holder RN.
--- NOTE | 2018-06-20 08:05 | NUR ---
NURSE NOTES: Patient is awake and alert,up to the bathroom able to do AM Care,no acute distress noted ,patient ate breakfast,call light within reach.
[2018-06-20] MEDS: Solu-MEDROL 125mg Inj IV SCH ×2 (09:53→21:46)
[2018-06-20] MEDS: Theophylline ER 100mg ORAL SCH ×2 (09:54→21:45)
[2018-06-20] MEDS: Enalapril 5mg tab ORAL SCH ×2 (09:54→21:46)
[2018-06-20] MEDS: Carvedilol 6.25mg Tab ORAL SCH ×2 (09:54→21:46)
[2018-06-20] MEDS: Nystatin Powder 100,000 units/gm 15gm TOPIC SCH ×3 (09:59→18:49)
--- NOTE | 2018-06-20 11:52 | Infectious Diseases Prog Note ---
Assessment/Plan Assessment/Plan Abx: IV Vancomycin 06/16- Cefepime 06/16- Bactrim x1 06/16 Assessment: Probable Sepsis, SP -r/o UTI Dyspnea- COPD exacerbation, no PNA on CT -CXR: no acute disease -CT chest: Somewhat limited exam, due to respiratory motion artifact. Mild pulmonary parenchymal hyperinflation. Very faint groundglass opacity in a mosaic distribution is probably related to COPD changes. No acute pulmonary process. Dilated pulmonary artery, consistent with pulmonary arterial hypertension. Suspect left ventricular muscular hypertrophy. Small area of pleural or subpleural scarring in the right hemithorax. 3.4 x 1.6 cm right lower pole thyroid mass. Further evaluation with ultrasound recommended. Slight T7 vertebral body wedge compression fracture deformity. Age indeterminate. -Influenza sc neg Leukocytosis, SP Afebrile Gram positive bacteremia, likely contaminants -06/16 Bcx 07/13 S. simulans, S. epidermis; 06/19 Bcx p [place]iana intertrigo Recent dx of Abd CA hx of UTI -06/10 u/a wbc tnct; ucx 20-30K MRSA, 10-20k E.coli (I Levo, R Bactrim) COPD smoking morbid obesity CHF HTN CAD DM2, Plan: -Continue empiric IV Vancomycin and Cefepime #5/5 -f/u cx -Monitor CBC/CMP, temperatures -f/u Bcx x2, u/a w/ -aspiration precautions -nystatin powder Thank you for this consultation. Will continue to follow along with you. Discussed with RN. Subjective Allergies: Coded Allergies: PENICILLINS (Verified Allergy, Unknown, 04/08/17) Subjective afebrile leukocytosis resolved repeat Bcx p Objective Vital Signs Last 24 Hour Vital Signs Date Time Temp Pulse Resp B/P (MAP) Pulse Ox O2 Delivery O2 Flow Rate FiO2 06/20/18 10:45 76 18 96 Room Air 21 06/20/18 10:34 73 18 93 Room Air 21 06/20/18 09:54 153/67 06/20/18 09:54 73 153/67 06/20/18 09:47 73 153/67 (95) 06/20/18 08:44 72 17 98 Nasal Cannula 2.0 28 06/20/18 08:44 7 17 98 Nasal Cannula 2.0 28 06/20/18 08:42 72 18 97 Nasal Cannula 2.0 28 06/20/18 08:42 72 19 97 Nasal Cannula 2.0 28 06/20/18 08:00 97.5 85 16 130/77 (94) 94 06/20/18 07:30 75 18 99 Nasal Cannula 2.0 28 06/20/18 07:18 95 Nasal Cannula 2.0 28 06/20/18 07:18 78 17 95 Nasal Cannula 2.0 28 06/20/18 07:18 Nasal Cannula 2.0 28 06/20/18 04:00 98.8 88 17 132/79 (96) 96 06/20/18 02:44 76 18 99 Nasal Cannula 2.0 28 06/20/18 02:37 77 18 97 Nasal Cannula 2.0 28 06/20/18 00:00 98.1 73 16 106/64 (78) 94 06/19/18 22:56 79 18 99 Nasal Cannula 2.0 28 06/19/18 22:49 79 18 98 Nasal Cannula 2.0 28 06/19/18 21:10 152/74 06/19/18 21:09 80 152/74 06/19/18 21:00 Nasal Cannula 2.0 06/19/18 20:00 97.9 80 17 152/74 (100) 95 06/19/18 19:58 83 18 100 Nasal Cannula 2.0 28 06/19/18 19:47 90 18 97 Nasal Cannula 2.0 28 06/19/18 19:47 97 Nasal Cannula 2.0 28 06/19/18 19:47 Nasal Cannula 2.0 28 06/19/18 19:46 90 18 97 Nasal Cannula 2.0 28 06/19/18 19:43 90 20 96 Nasal Cannula 2.0 28 06/19/18 17:32 98.0 06/19/18 15:32 68 18 99 Nasal Cannula 2.0 28 06/19/18 15:31 98.0 70 19 144/70 (94) 95 06/19/18 15:22 74 18 98 Nasal Cannula 2.0 28 06/19/18 12:05 73 20 99 Nasal Cannula 2.0 28 06/19/18 12:00 97.9 60 19 148/78 (101) 95 06/19/18 11:55 70 20 97 Nasal Cannula 2.0 28 Height (Feet): 5 Height (Inches): 6.00 Weight (Pounds): 167 Objective GENERAL: The patient is awake, responsive, and in no acute distress, but chronically ill. HEAD AND NECK: Pupils are equal and reactive to light. Extraocular movements are intact. Neck was supple. No JVD. LUNGS: Good air entry. No wheezing or rales. Expiratory, decreased air in bases. HEART: S1 and S2. Distant heart sounds. No murmurs or gallops. ABDOMEN: Soft, nondistended, nontender, and mildly obese. EXTREMITIES: No cyanosis, clubbing, or edema. The patient has ecchymosis in the bilateral upper extremity, has skin tear. GENITOURINARY: The patient has diffuse macular rashes in the sacrum as well as perineum area. NEUROLOGIC: Cranial nerves II through XII grossly intact. The patient moving all extremities. Gait was unsteady. Microbiology Date/Time Source Procedure Growth Status 06/19/18 14:15 Nasopharynx Influenza Types A,B Antigen (UNIQUE) - Final Complete 06/18/18 06:30 Sputum Gram Stain - Final Complete 06/18/18 06:30 Sputum Culture - Final [place] Albicans Usual Respiratory Katherine Complete Laboratory Tests Test 06/19/18 23:00 06/20/18 05:45 Vancomycin Level Trough 11.6 ug/mL (5.0-12.0) White Blood Count 10.4 K/UL (4.8-10.8) Red Blood Count 3.53 M/UL (4.70-6.10) L Hemoglobin 10.8 G/DL (14.2-18.0) L Hematocrit 33.7 % (42.0-52.0) L Mean Corpuscular Volume 96 FL (80-99) Mean Corpuscular Hemoglobin 30.6 PG (27.0-31.0) Mean Corpuscular Hemoglobin Concent 32.0 G/DL (32.0-36.0) Red Cell Distribution Width 15.0 % (11.6-14.8) H Platelet Count 184 K/UL (150-450) Mean Platelet Volume 8.4 FL (6.5-10.1) Neutrophils (%) (Auto) % (45.0-75.0) Lymphocytes (%) (Auto) % (20.0-45.0) Monocytes (%) (Auto) % (1.0-10.0) Eosinophils (%) (Auto) % (0.0-3.0) Basophils (%) (Auto) % (0.0-2.0) Differential Total Cells Counted 100 Neutrophils % (Manual) 92 % (45-75) H Lymphocytes % (Manual) 5 % (20-45) L Monocytes % (Manual) 3 % (1-10) Eosinophils % (Manual) 0 % (0-3) Basophils % (Manual) 0 % (0-2) Band Neutrophils 0 % (0-8) Platelet Estimate Adequate Platelet Morphology Normal Hypochromasia 1+ Sodium Level 143 MMOL/L (136-145) Potassium Level 4.3 MMOL/L (3.5-5.1) Chloride Level 105 MMOL/L (98-107) Carbon Dioxide Level 33 MMOL/L (21-32) H Anion Gap 5 mmol/L (5-15) Blood Urea Nitrogen 24 mg/dL (7-18) H Creatinine 0.6 MG/DL (0.55-1.30) Estimat Glomerular Filtration Rate mL/min (>60) Glucose Level 287 MG/DL (74-106) H Calcium Level 8.7 MG/DL (8.5-10.1) Current Medications Medications (Trade) Dose Ordered Sig/Evi Route PRN Reason Start Time Stop Time Status Last Admin Dose Admin Acetaminophen/ Hydrocodone Bitart ([place] 10/325) 1 tab Q4H PRN ORAL Severe Pain (Pain Scale 7-10) 06/18/18 19:30 06/25/18 19:29 06/19/18 17:02 Acetaminophen/ Hydrocodone Bitart ([place] 5/325) 1 tab Q4H PRN ORAL Moderate Pain (Pain Scale 4-6) 06/18/18 19:30 06/25/18 19:29 Albuterol/ Ipratropium (Albuterol/ Ipratropium) 3 ml Q4HRT HHN 06/18/18 19:00 06/23/18 18:59 06/20/18 10:34 Budesonide/ Formoterol Fumarate (Symbicort 160/ 4.5) 2 puff BID INH 06/17/18 09:00 07/16/18 08:59 06/20/18 08:42 Carvedilol (Coreg) 6.25 mg EVERY 12 HOURS ORAL 06/17/18 09:00 07/16/18 08:59 06/20/18 09:54 Cefepime HCl 1 gm/ Dextrose 55 ml @ 110 mls/hr Q8HR IVPB 06/17/18 14:00 06/23/18 10:59 06/20/18 05:05 Dextrose (Dextrose 50%) 25 ml Q30M PRN IV Hypoglycemia 06/17/18 08:30 07/16/18 06:59 Dextrose (Dextrose 50%) 50 ml Q30M PRN IV Hypoglycemia 06/17/18 08:30 07/16/18 06:59 Enalapril Maleate (Vasotec) 5 mg EVERY 12 HOURS ORAL 06/17/18 09:00 07/16/18 08:59 06/20/18 09:54 Escitalopram Oxalate (Lexapro) 10 mg DAILY ORAL 06/17/18 09:00 07/16/18 08:59 06/20/18 09:54 Heparin Sodium (Porcine) (Heparin 5000 units/ml) 5,000 units EVERY 8 HOURS SUBQ 06/17/18 14:00 07/16/18 13:59 06/20/18 05:50 Insulin Aspart (NovoLOG) BEFORE MEALS AND HS SUBQ 06/17/18 11:30 07/16/18 11:29 06/20/18 05:49 Methylprednisolone Sodium Succinate (Solu-MEDROL) 60 mg Q12HR IV 06/18/18 21:00 07/17/18 19:59 06/20/18 09:53 Nystatin (Nystop Powder) 1 applic THREE TIMES A DAY TOPIC 06/19/18 17:00 07/19/18 16:59 06/20/18 09:59 Promethazine HCl/ Codeine (Phenergan with Codeine) 5 ml Q4H PRN ORAL For Cough 06/17/18 08:05 07/16/18 08:04 Temazepam (Restoril) 15 mg HSPRN PRN ORAL insomnia 06/17/18 21:00 06/23/18 20:59 06/19/18 21:10 Theophylline (Zafar-Dur) 100 mg EVERY 12 HOURS ORAL 06/17/18 09:00 07/16/18 08:59 06/20/18 09:54 Tiotropium [place] (Spiriva Inhaler) 2 puff DAILY INH 06/17/18 09:00 07/16/18 08:59 06/20/18 08:42 Vancomycin HCl (Vanco rx to dose) 1 ea DAILY PRN MISC Per rx protocol 06/17/18 09:00 07/16/18 09:44 Vancomycin HCl/ Dextrose 275 ml @ 184 mls/hr 0000,1200 IVPB 06/20/18 12:00 06/25/18 11:59 Rukhsana Mayfield M.D. Jun 20, 2018 11:52
[2018-06-20] MEDS: Vancomycin 1.25gm Premix 275 ML IVPB SCH (12:32)
--- NOTE | 2018-06-20 16:54 | Internal Med Progress Note ---
Subjective Date of Service: Jun 20, 2018 Physician Name Danielito Thomas Attending Physician Gadiel Ramírez MD Current Medications Medications (Trade) Dose Ordered Sig/Evi Route PRN Reason Start Time Stop Time Status Last Admin Dose Admin Acetaminophen/ Hydrocodone Bitart ([place] 10/325) 1 tab Q4H PRN ORAL Severe Pain (Pain Scale 7-10) 06/18/18 19:30 06/25/18 19:29 06/19/18 17:02 Acetaminophen/ Hydrocodone Bitart ([place] 5/325) 1 tab Q4H PRN ORAL Moderate Pain (Pain Scale 4-6) 06/18/18 19:30 06/25/18 19:29 Albuterol/ Ipratropium (Albuterol/ Ipratropium) 3 ml Q4HRT HHN 06/18/18 19:00 06/23/18 18:59 06/20/18 15:06 Budesonide/ Formoterol Fumarate (Symbicort 160/ 4.5) 2 puff BID INH 06/17/18 09:00 07/16/18 08:59 06/20/18 08:42 Carvedilol (Coreg) 6.25 mg EVERY 12 HOURS ORAL 06/17/18 09:00 07/16/18 08:59 06/20/18 09:54 Cefepime HCl 1 gm/ Dextrose 55 ml @ 110 mls/hr Q8HR IVPB 06/17/18 14:00 06/23/18 10:59 06/20/18 14:11 Dextrose (Dextrose 50%) 25 ml Q30M PRN IV Hypoglycemia 06/17/18 08:30 07/16/18 06:59 Dextrose (Dextrose 50%) 50 ml Q30M PRN IV Hypoglycemia 06/17/18 08:30 07/16/18 06:59 Enalapril Maleate (Vasotec) 5 mg EVERY 12 HOURS ORAL 06/17/18 09:00 07/16/18 08:59 06/20/18 09:54 Escitalopram Oxalate (Lexapro) 10 mg DAILY ORAL 06/17/18 09:00 07/16/18 08:59 06/20/18 09:54 Heparin Sodium (Porcine) (Heparin 5000 units/ml) 5,000 units EVERY 8 HOURS SUBQ 06/17/18 14:00 4/7/19 13:59 06/20/18 14:11 Insulin Aspart (NovoLOG) BEFORE MEALS AND HS SUBQ 06/17/18 11:30 07/16/18 11:29 06/20/18 12:25 Methylprednisolone Sodium Succinate (Solu-MEDROL) 60 mg Q12HR IV 06/18/18 21:00 07/17/18 19:59 06/20/18 09:53 Nystatin (Nystop Powder) 1 applic THREE TIMES A DAY TOPIC 06/19/18 17:00 07/19/18 16:59 06/20/18 14:06 Promethazine HCl/ Codeine (Phenergan with Codeine) 5 ml Q4H PRN ORAL For Cough 06/17/18 08:05 07/16/18 08:04 Temazepam (Restoril) 15 mg HSPRN PRN ORAL insomnia 06/17/18 21:00 06/23/18 20:59 06/19/18 21:10 Theophylline (Zafar-Dur) 100 mg EVERY 12 HOURS ORAL 06/17/18 09:00 07/16/18 08:59 06/20/18 09:54 Tiotropium [place] (Spiriva Inhaler) 2 puff DAILY INH 06/17/18 09:00 07/16/18 08:59 06/20/18 08:42 Vancomycin HCl (Vanco rx to dose) 1 ea DAILY PRN MISC Per rx protocol 06/17/18 09:00 07/16/18 09:44 Vancomycin HCl/ Dextrose 275 ml @ 184 mls/hr 0000,1200 IVPB 06/20/18 12:00 06/25/18 11:59 06/20/18 12:32 Allergies: Coded Allergies: PENICILLINS (Verified Allergy, Unknown, 04/08/17) ROS Limited/Unobtainable: No Constitutional: Reports: no symptoms HEENT: Reports: no symptoms Cardiovascular: Reports: no symptoms Respiratory: Reports: shortness of breath Gastrointestinal/Abdominal: Reports: no symptoms Genitourinary: Reports: no symptoms Neurologic/Psychiatric: Reports: no symptoms Subjective 73 YO M admitted with shortness of breath. Now sepsis. Cover for Int Derrick-Dr Ramírez Objective Last Vital Signs Date Time Temp Pulse Resp B/P (MAP) Pulse Ox O2 Delivery O2 Flow Rate FiO2 06/20/18 15:16 83 18 97 Room Air 21 06/20/18 12:00 97.4 162/77 (105) 06/20/18 09:00 2.0 Laboratory Tests Test 06/19/18 23:00 06/20/18 05:45 Vancomycin Level Trough 11.6 ug/mL (5.0-12.0) White Blood Count 10.4 K/UL (4.8-10.8) Red Blood Count 3.53 M/UL (4.70-6.10) L Hemoglobin 10.8 G/DL (14.2-18.0) L Hematocrit 33.7 % (42.0-52.0) L Mean Corpuscular Volume 96 FL (80-99) Mean Corpuscular Hemoglobin 30.6 PG (27.0-31.0) Mean Corpuscular Hemoglobin Concent 32.0 G/DL (32.0-36.0) Red Cell Distribution Width 15.0 % (11.6-14.8) H Platelet Count 184 K/UL (150-450) Mean Platelet Volume 8.4 FL (6.5-10.1) Neutrophils (%) (Auto) % (45.0-75.0) Lymphocytes (%) (Auto) % (20.0-45.0) Monocytes (%) (Auto) % (1.0-10.0) Eosinophils (%) (Auto) % (0.0-3.0) Basophils (%) (Auto) % (0.0-2.0) Differential Total Cells Counted 100 Neutrophils % (Manual) 92 % (45-75) H Lymphocytes % (Manual) 5 % (20-45) L Monocytes % (Manual) 3 % (1-10) Eosinophils % (Manual) 0 % (0-3) Basophils % (Manual) 0 % (0-2) Band Neutrophils 0 % (0-8) Platelet Estimate Adequate Platelet Morphology Normal Hypochromasia 1+ Sodium Level 143 MMOL/L (136-145) Potassium Level 4.3 MMOL/L (3.5-5.1) Chloride Level 105 MMOL/L (98-107) Carbon Dioxide Level 33 MMOL/L (21-32) H Anion Gap 5 mmol/L (5-15) Blood Urea Nitrogen 24 mg/dL (7-18) H Creatinine 0.6 MG/DL (0.55-1.30) Estimat Glomerular Filtration Rate mL/min (>60) Glucose Level 287 MG/DL (74-106) H Calcium Level 8.7 MG/DL (8.5-10.1) Microbiology Date/Time Source Procedure Growth Status 06/19/18 14:15 Nasopharynx Influenza Types A,B Antigen (UNIQUE) - Final Complete 06/18/18 06:30 Sputum Gram Stain - Final Complete 06/18/18 06:30 Sputum Culture - Final Mariana Albicans Usual Respiratory Katherine Complete Intake and Output 06/19/18 06/20/18 19:00 07:00 Intake Total 1278 ml 865 ml Balance 1278 ml 865 ml Intake Oral 800 ml 480 ml IV Total 478 ml 385 ml # Voids 3 3 Objective PHYSICAL EXAMINATION: GENERAL: The patient is awake, responsive, and in no acute distress, but chronically ill. HEAD AND NECK: Pupils are equal and reactive to light. Extraocular movements are intact. Neck was supple. No JVD. LUNGS: Good air entry. No wheezing or rales. Expiratory, decreased air in bases. HEART: S1 and S2. Distant heart sounds. No murmurs or gallops. ABDOMEN: Soft, nondistended, nontender, and mildly obese. EXTREMITIES: No cyanosis, clubbing, or edema. The patient has ecchymosis in the bilateral upper extremity, has skin tear. GENITOURINARY: The patient has diffuse macular rashes in the sacrum as well as perineum area. NEUROLOGIC: Cranial nerves II through XII grossly intact. The patient moving all extremities. Gait was unsteady. Assessment/Plan Assessment/Plan ASSESSMENT: 1. Acute COPD exacerbation. 2. Failure to thrive. 3. Diabetes type 2. 4. Hypertension. 5. Irregular bowel syndrome. 6. Morbid obesity. 7. Chronic CHF. 8. Bronchitis. 9. Sepsis-Staph sp 10 newly diagnosed cancer PLAN: 1. Admit the patient to telemetry. 2. We will follow up with Dr. Gray, Pulmonary Critical Care recommendation. 3. The patient has MRSA in the sputum, followup with vancomycin. 4. Code status at this time is Full Code. 5. DVT prophylaxis, heparin subcutaneous. 6. Monitor glucose level and we will discuss with social insurance administrator regarding the possible placement in a nursing facility. 7. Pos Blood culture-Await ID and sensitivity of Staph-Continue vanco and cefepime per Inf Dis 8. transfer to [facility] for ?TURP on 06/22/18 Danielito Thomas MD Jun 20, 2018 16:54
--- NOTE | 2018-06-20 18:00 | Consultation ---
History of Present Illness General Chief Complaint: Dyspnea/Respdistress Present Illness Allergies: Coded Allergies: PENICILLINS (Verified Allergy, Unknown, 04/08/17) Medication History Scheduled Albuterol Sulfate (Ventolin Hfa), 2 PUFFS INH Q12HR, (Reported) Budesonide/Formoterol Fumarate (Symbicort 160-4.5 Mcg Inhaler), 2 PUFFS IH BID, (Reported) Carvedilol* (Carvedilol*), 6.25 MG ORAL EVERY 12 HOURS, (Reported) Enalapril Maleate* (Enalapril Maleate*), 5 MG ORAL EVERY 12 HOURS, (Reported) Escitalopram Oxalate* (Lexapro*), 10 MG ORAL DAILY, (Reported) Furosemide* (Lasix*), 20 MG ORAL DAILY, (Reported) Metformin Hcl* (Metformin Hcl*), 1,000 MG ORAL DAILY, (Reported) Metoprolol Tartrate* (Metoprolol Tartrate*), 50 MG ORAL Q12HR Potassium Chloride (Klor-Con M20), 20 MEQ ORAL DAILY, (Reported) Prednisone* (Prednisone*), 20 MG ORAL DAILY, (Reported) Rosuvastatin Calcium* (Crestor*), 10 MG ORAL DAILY, (Reported) Theophylline (Theodur*), 100 MG ORAL EVERY 12 HOURS Tiotropium Matthews* (Spiriva*), 2 PUFF INH DAILY, (Reported) Trimethoprim/Sulfamethoxazole (Bactrim Ds Tablet), 1 TAB ORAL TWICE A DAY Scheduled PRN Temazepam* (Restoril*), 15 MG ORAL HSPRN PRN Patient History Healthcare decision maker Resuscitation status Full Code Advanced Directive on File Physical Exam Last 24 Hour Vital Signs Date Time Temp Pulse Resp B/P (MAP) Pulse Ox O2 Delivery O2 Flow Rate FiO2 06/20/18 15:16 83 18 97 Room Air 21 06/20/18 15:06 82 18 92 Room Air 21 06/20/18 12:00 97.4 70 20 162/77 (105) 94 06/20/18 10:45 76 18 96 Room Air 21 06/20/18 10:34 73 18 93 Room Air 21 06/20/18 09:54 153/67 06/20/18 09:54 73 153/67 06/20/18 09:47 73 153/67 (95) 06/20/18 09:00 Nasal Cannula 2.0 06/20/18 08:44 72 17 98 Nasal Cannula 2.0 28 06/20/18 08:44 7 17 98 Nasal Cannula 2.0 28 06/20/18 08:42 72 18 97 Nasal Cannula 2.0 28 06/20/18 08:42 72 19 97 Nasal Cannula 2.0 28 06/20/18 08:00 97.5 85 16 130/77 (94) 94 06/20/18 07:30 75 18 99 Nasal Cannula 2.0 28 06/20/18 07:18 95 Nasal Cannula 2.0 28 06/20/18 07:18 78 17 95 Nasal Cannula 2.0 28 06/20/18 07:18 Nasal Cannula 2.0 28 06/20/18 04:00 98.8 88 17 132/79 (96) 96 06/20/18 02:44 76 18 99 Nasal Cannula 2.0 28 06/20/18 02:37 77 18 97 Nasal Cannula 2.0 28 06/20/18 00:00 98.1 73 16 106/64 (78) 94 06/19/18 22:56 79 18 99 Nasal Cannula 2.0 28 06/19/18 22:49 79 18 98 Nasal Cannula 2.0 28 06/19/18 21:10 152/74 06/19/18 21:09 80 152/74 06/19/18 21:00 Nasal Cannula 2.0 06/19/18 20:00 97.9 80 17 152/74 (100) 95 06/19/18 19:58 83 18 100 Nasal Cannula 2.0 28 06/19/18 19:47 90 18 97 Nasal Cannula 2.0 28 06/19/18 19:47 97 Nasal Cannula 2.0 28 06/19/18 19:47 Nasal Cannula 2.0 28 06/19/18 19:46 90 18 97 Nasal Cannula 2.0 28 06/19/18 19:43 90 20 96 Nasal Cannula 2.0 28 Intake and Output 06/19/18 06/20/18 19:00 07:00 Intake Total 1278 ml 865 ml Balance 1278 ml 865 ml Intake Oral 800 ml 480 ml IV Total 478 ml 385 ml # Voids 3 3 Laboratory Tests Test 06/19/18 23:00 06/20/18 05:45 Vancomycin Level Trough 11.6 ug/mL (5.0-12.0) White Blood Count 10.4 K/UL (4.8-10.8) Red Blood Count 3.53 M/UL (4.70-6.10) L Hemoglobin 10.8 G/DL (14.2-18.0) L Hematocrit 33.7 % (42.0-52.0) L Mean Corpuscular Volume 96 FL (80-99) Mean Corpuscular Hemoglobin 30.6 PG (27.0-31.0) Mean Corpuscular Hemoglobin Concent 32.0 G/DL (32.0-36.0) Red Cell Distribution Width 15.0 % (11.6-14.8) H Platelet Count 184 K/UL (150-450) Mean Platelet Volume 8.4 FL (6.5-10.1) Neutrophils (%) (Auto) % (45.0-75.0) Lymphocytes (%) (Auto) % (20.0-45.0) Monocytes (%) (Auto) % (1.0-10.0) Eosinophils (%) (Auto) % (0.0-3.0) Basophils (%) (Auto) % (0.0-2.0) Differential Total Cells Counted 100 Neutrophils % (Manual) 92 % (45-75) H Lymphocytes % (Manual) 5 % (20-45) L Monocytes % (Manual) 3 % (1-10) Eosinophils % (Manual) 0 % (0-3) Basophils % (Manual) 0 % (0-2) Band Neutrophils 0 % (0-8) Platelet Estimate Adequate Platelet Morphology Normal Hypochromasia 1+ Sodium Level 143 MMOL/L (136-145) Potassium Level 4.3 MMOL/L (3.5-5.1) Chloride Level 105 MMOL/L (98-107) Carbon Dioxide Level 33 MMOL/L (21-32) H Anion Gap 5 mmol/L (5-15) Blood Urea Nitrogen 24 mg/dL (7-18) H Creatinine 0.6 MG/DL (0.55-1.30) Estimat Glomerular Filtration Rate mL/min (>60) Glucose Level 287 MG/DL (74-106) H Calcium Level 8.7 MG/DL (8.5-10.1) Height (Feet): 5 Height (Inches): 6.00 Weight (Pounds): 167 Medications Current Medications Medications (Trade) Dose Ordered Sig/Evi Route PRN Reason Start Time Stop Time Status Last Admin Dose Admin Acetaminophen/ Hydrocodone Bitart ([place] 10/325) 1 tab Q4H PRN ORAL Severe Pain (Pain Scale 7-10) 06/18/18 19:30 06/25/18 19:29 06/19/18 17:02 Acetaminophen/ Hydrocodone Bitart ([place] 5/325) 1 tab Q4H PRN ORAL Moderate Pain (Pain Scale 4-6) 06/18/18 19:30 06/25/18 19:29 Albuterol/ Ipratropium (Albuterol/ Ipratropium) 3 ml Q4HRT HHN 06/18/18 19:00 06/23/18 18:59 06/20/18 15:06 Budesonide/ Formoterol Fumarate (Symbicort 160/ 4.5) 2 puff BID INH 06/17/18 09:00 07/16/18 08:59 06/20/18 08:42 Carvedilol (Coreg) 6.25 mg EVERY 12 HOURS ORAL 06/17/18 09:00 07/16/18 08:59 06/20/18 09:54 Cefepime HCl 1 gm/ Dextrose 55 ml @ 110 mls/hr Q8HR IVPB 06/17/18 14:00 06/23/18 10:59 06/20/18 14:11 Dextrose (Dextrose 50%) 25 ml Q30M PRN IV Hypoglycemia 06/17/18 08:30 07/16/18 06:59 Dextrose (Dextrose 50%) 50 ml Q30M PRN IV Hypoglycemia 06/17/18 08:30 07/16/18 06:59 Enalapril Maleate (Vasotec) 5 mg EVERY 12 HOURS ORAL 06/17/18 09:00 07/16/18 08:59 06/20/18 09:54 Escitalopram Oxalate (Lexapro) 10 mg DAILY ORAL 06/17/18 09:00 07/16/18 08:59 06/20/18 09:54 Heparin Sodium (Porcine) (Heparin 5000 units/ml) 5,000 units EVERY 8 HOURS SUBQ 06/17/18 14:00 07/16/18 13:59 06/20/18 14:11 Insulin Aspart (NovoLOG) BEFORE MEALS AND HS SUBQ 06/17/18 11:30 07/16/18 11:29 06/20/18 17:36 Methylprednisolone Sodium Succinate (Solu-MEDROL) 60 mg Q12HR IV 06/18/18 21:00 07/17/18 19:59 06/20/18 09:53 Nystatin (Nystop Powder) 1 applic THREE TIMES A DAY TOPIC 06/19/18 17:00 07/19/18 16:59 06/20/18 14:06 Promethazine HCl/ Codeine (Phenergan with Codeine) 5 ml Q4H PRN ORAL For Cough 06/17/18 08:05 07/16/18 08:04 Temazepam (Restoril) 15 mg HSPRN PRN ORAL insomnia 06/17/18 21:00 06/23/18 20:59 06/19/18 21:10 Theophylline (Zafar-Dur) 100 mg EVERY 12 HOURS ORAL 06/17/18 09:00 07/16/18 08:59 06/20/18 09:54 Tiotropium [place] (Spiriva Inhaler) 2 puff DAILY INH 06/17/18 09:00 07/16/18 08:59 06/20/18 08:42 Vancomycin HCl (Vanco rx to dose) 1 ea DAILY PRN MISC Per rx protocol 06/17/18 09:00 07/16/18 09:44 Vancomycin HCl/ Dextrose 275 ml @ 184 mls/hr 0000,1200 IVPB 06/20/18 12:00 06/25/18 11:59 06/20/18 12:32 Assessment/Plan Assessment/Plan Hematology Consultation Date patient seen: Jun 20, 2018 Chief Complaint: Dyspnea/Respdistress RFC: Abdominal ca eval HPI 73 year old male with hx of COPD, smoking, morbid obesity, CHF, HTN, CAD, DM2, recently discharged, presents to ED on 06/15 with a few days of SOB. Per EMS, patient was found in bed covered in feces and urine. Denied CP, abd pain, n/v, f/c, dysuria Of note, admitted from 06/10-4n for COPD exacerbation and UTI. Ucx grew E.coli, MRSA and eric. Allergies: Coded Allergies: PENICILLINS (Verified Allergy, Unknown, 04/08/17) Medication History Scheduled Albuterol Sulfate (Ventolin Hfa), 2 PUFFS INH Q12HR, (Reported) Budesonide/Formoterol Fumarate (Symbicort 160-4.5 Mcg Inhaler), 2 PUFFS IH BID, (Reported) Carvedilol* (Carvedilol*), 6.25 MG ORAL EVERY 12 HOURS, (Reported) Enalapril Maleate* (Enalapril Maleate*), 5 MG ORAL EVERY 12 HOURS, (Reported) Escitalopram Oxalate* (Lexapro*), 10 MG ORAL DAILY, (Reported) Furosemide* (Lasix*), 20 MG ORAL DAILY, (Reported) Metformin Hcl* (Metformin Hcl*), 1,000 MG ORAL DAILY, (Reported) Metoprolol Tartrate* (Metoprolol Tartrate*), 50 MG ORAL Q12HR Potassium Chloride (Klor-Con M20), 20 MEQ ORAL DAILY, (Reported) Prednisone* (Prednisone*), 20 MG ORAL DAILY, (Reported) Rosuvastatin Calcium* (Crestor*), 10 MG ORAL DAILY, (Reported) Theophylline (Theodur*), 100 MG ORAL EVERY 12 HOURS Tiotropium [place]* (Spiriva*), 2 PUFF INH DAILY, (Reported) Trimethoprim/Sulfamethoxazole (Bactrim Ds Tablet), 1 TAB ORAL TWICE A DAY Scheduled PRN Temazepam* (Restoril*), 15 MG ORAL HSPRN PRN Patient History Healthcare decision maker Resuscitation status Full Code Advanced Directive on File Patient History Narrative Pmhx: as above Shx: Ex-smoker, quit at this time. No alcohol or substance. Fhx: non contributory ROS Review of Systems All Other Systems: negative except mentioned in HPI Physical Exam GENERAL: The patient is awake, responsive, but chronically ill. HEAD AND NECK: Pupils are equal and reactive to light. LUNGS: Good air entry. No wheezing or rales HEART: S1 and S2. Distant heart sounds. No murmurs or gallops. ABDOMEN: Soft, nondistended, nontender, and mildly obese. EXTREMITIES: No cyanosis, clubbing, or edema. GENITOURINARY: The patient has diffuse macular rashes NEUROLOGIC: Cranial nerves II through XII grossly intact Last 24 Hour Vital Signs Laboratory Tests Test 06/19/18 23:00 06/20/18 05:45 Vancomycin Level Trough 11.6 ug/mL (5.0-12.0) White Blood Count 10.4 K/UL (4.8-10.8) Red Blood Count 3.53 M/UL (4.70-6.10) L Hemoglobin 10.8 G/DL (14.2-18.0) L Hematocrit 33.7 % (42.0-52.0) L Mean Corpuscular Volume 96 FL (80-99) Mean Corpuscular Hemoglobin 30.6 PG (27.0-31.0) Mean Corpuscular Hemoglobin Concent 32.0 G/DL (32.0-36.0) Red Cell Distribution Width 15.0 % (11.6-14.8) H Platelet Count 184 K/UL (150-450) Mean Platelet Volume 8.4 FL (6.5-10.1) Neutrophils (%) (Auto) % (45.0-75.0) Lymphocytes (%) (Auto) % (20.0-45.0) Monocytes (%) (Auto) % (1.0-10.0) Eosinophils (%) (Auto) % (0.0-3.0) Basophils (%) (Auto) % (0.0-2.0) Differential Total Cells Counted 100 Neutrophils % (Manual) 92 % (45-75) H Lymphocytes % (Manual) 5 % (20-45) L Monocytes % (Manual) 3 % (1-10) Eosinophils % (Manual) 0 % (0-3) Basophils % (Manual) 0 % (0-2) Band Neutrophils 0 % (0-8) Platelet Estimate Adequate Platelet Morphology Normal Hypochromasia 1+ Sodium Level 143 MMOL/L (136-145) Potassium Level 4.3 MMOL/L (3.5-5.1) Chloride Level 105 MMOL/L (98-107) Carbon Dioxide Level 33 MMOL/L (21-32) H Anion Gap 5 mmol/L (5-15) Blood Urea Nitrogen 24 mg/dL (7-18) H Creatinine 0.6 MG/DL (0.55-1.30) Estimat Glomerular Filtration Rate mL/min (>60) Glucose Level 287 MG/DL (74-106) H Calcium Level 8.7 MG/DL (8.5-10.1) Current Medications Medications (Trade) Dose Ordered Sig/Evi Route PRN Reason Start Time Stop Time Status Last Admin Dose Admin Acetaminophen/ Hydrocodone Bitart ([place] 10/325) 1 tab Q4H PRN ORAL Severe Pain (Pain Scale 7-10) 06/18/18 19:30 06/25/18 19:29 06/19/18 17:02 Acetaminophen/ Hydrocodone Bitart ([place] 5/325) 1 tab Q4H PRN ORAL Moderate Pain (Pain Scale 4-6) 06/18/18 19:30 06/25/18 19:29 Albuterol/ Ipratropium (Albuterol/ Ipratropium) 3 ml Q4HRT HHN 06/18/18 19:00 06/23/18 18:59 06/20/18 15:06 Budesonide/ Formoterol Fumarate (Symbicort 160/ 4.5) 2 puff BID INH 06/17/18 09:00 07/16/18 08:59 06/20/18 08:42 Carvedilol (Coreg) 6.25 mg EVERY 12 HOURS ORAL 06/17/18 09:00 07/16/18 08:59 06/20/18 09:54 Cefepime HCl 1 gm/ Dextrose 55 ml @ 110 mls/hr Q8HR IVPB 06/17/18 14:00 06/23/18 10:59 06/20/18 14:11 Dextrose (Dextrose 50%) 25 ml Q30M PRN IV Hypoglycemia 06/17/18 08:30 07/16/18 06:59 Dextrose (Dextrose 50%) 50 ml Q30M PRN IV Hypoglycemia 06/17/18 08:30 07/16/18 06:59 Enalapril Maleate (Vasotec) 5 mg EVERY 12 HOURS ORAL 06/17/18 09:00 07/16/18 08:59 06/20/18 09:54 Escitalopram Oxalate (Lexapro) 10 mg DAILY ORAL 06/17/18 09:00 07/16/18 08:59 06/20/18 09:54 Heparin Sodium (Porcine) (Heparin 5000 units/ml) 5,000 units EVERY 8 HOURS SUBQ 06/17/18 14:00 07/16/18 13:59 06/20/18 14:11 Insulin Aspart (NovoLOG) BEFORE MEALS AND HS SUBQ 06/17/18 11:30 07/16/18 11:29 06/20/18 17:36 Methylprednisolone Sodium Succinate (Solu-MEDROL) 60 mg Q12HR IV 06/18/18 21:00 07/17/18 19:59 06/20/18 09:53 Nystatin (Nystop Powder) 1 applic THREE TIMES A DAY TOPIC 06/19/18 17:00 07/19/18 16:59 06/20/18 14:06 Promethazine HCl/ Codeine (Phenergan with Codeine) 5 ml Q4H PRN ORAL For Cough 06/17/18 08:05 07/16/18 08:04 Temazepam (Restoril) 15 mg HSPRN PRN ORAL insomnia 06/17/18 21:00 06/23/18 20:59 06/19/18 21:10 Theophylline (Zafar-Dur) 100 mg EVERY 12 HOURS ORAL 06/17/18 09:00 07/16/18 08:59 06/20/18 09:54 Tiotropium [place] (Spiriva Inhaler) 2 puff DAILY INH 06/17/18 09:00 07/16/18 08:59 06/20/18 08:42 Vancomycin HCl (Vanco rx to dose) 1 ea DAILY PRN MISC Per rx protocol 06/17/18 09:00 07/16/18 09:44 Vancomycin HCl/ Dextrose 275 ml @ 184 mls/hr 0000,1200 IVPB 06/20/18 12:00 06/25/18 11:59 06/20/18 12:32 Assessment/Plan # Malginancy of the stomach -- 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 --> Hgb goal >7. Transfuse prn. --> Epogen or iron at this time is not particularly indicated --> Medications have been reviewed # Leukocytosis rule out infection is on broad spectrum abx, also steriods --> antibiotics as per ID recs --> r/o infection, could be also related to steriods # Dyspnea- COPD exacerbation, no PNA on CT, his CXR: no acute disease --> per pulm recs # Gram positive bacteremia, likely contaminants # Smoking The timing of this note does not necessarily reflect the time of the patient was seen. Greatly appreciate consultation! Ignacio Portillo MD Jun 20, 2018 18:00
--- NOTE | 2018-06-20 18:53 | Pulmonology Progress Note ---
Assessment/Plan Problems: (1) Acute respiratory failure (2) COPD exacerbation (3) Bronchitis (4) Pneumonia (5) Hypertension (6) Diabetes mellitus Assessment/Plan feeling better respiratory treatment iv sterids iv abx titrate fio2 to sat of 92% dvt prophylaxis. Subjective ROS Limited/Unobtainable: No Interval Events: slightly better Allergies: Coded Allergies: PENICILLINS (Verified Allergy, Unknown, 04/08/17) Objective Last 24 Hour Vital Signs Date Time Temp Pulse Resp B/P (MAP) Pulse Ox O2 Delivery O2 Flow Rate FiO2 06/20/18 16:00 97.8 73 20 154/85 (108) 93 06/20/18 15:16 83 18 97 Room Air 21 06/20/18 15:06 82 18 92 Room Air 21 06/20/18 12:00 97.4 70 20 162/77 (105) 94 06/20/18 10:45 76 18 96 Room Air 21 06/20/18 10:34 73 18 93 Room Air 21 06/20/18 09:54 153/67 06/20/18 09:54 73 153/67 06/20/18 09:47 73 153/67 (95) 06/20/18 09:00 Nasal Cannula 2.0 06/20/18 08:44 72 17 98 Nasal Cannula 2.0 28 06/20/18 08:44 7 17 98 Nasal Cannula 2.0 28 06/20/18 08:42 72 18 97 Nasal Cannula 2.0 28 06/20/18 08:42 72 19 97 Nasal Cannula 2.0 28 06/20/18 08:00 97.5 85 16 130/77 (94) 94 06/20/18 07:30 75 18 99 Nasal Cannula 2.0 28 06/20/18 07:18 95 Nasal Cannula 2.0 28 06/20/18 07:18 78 17 95 Nasal Cannula 2.0 28 06/20/18 07:18 Nasal Cannula 2.0 28 06/20/18 04:00 98.8 88 17 132/79 (96) 96 06/20/18 02:44 76 18 99 Nasal Cannula 2.0 28 06/20/18 02:37 77 18 97 Nasal Cannula 2.0 28 06/20/18 00:00 98.1 73 16 106/64 (78) 94 06/19/18 22:56 79 18 99 Nasal Cannula 2.0 28 06/19/18 22:49 79 18 98 Nasal Cannula 2.0 28 06/19/18 21:10 152/74 06/19/18 21:09 80 152/74 06/19/18 21:00 Nasal Cannula 2.0 06/19/18 20:00 97.9 80 17 152/74 (100) 95 06/19/18 19:58 83 18 100 Nasal Cannula 2.0 28 06/19/18 19:47 90 18 97 Nasal Cannula 2.0 28 06/19/18 19:47 97 Nasal Cannula 2.0 28 06/19/18 19:47 Nasal Cannula 2.0 28 06/19/18 19:46 90 18 97 Nasal Cannula 2.0 28 06/19/18 19:43 90 20 96 Nasal Cannula 2.0 28 Intake and Output 06/19/18 06/20/18 19:00 07:00 Intake Total 1278 ml 865 ml Balance 1278 ml 865 ml Intake Oral 800 ml 480 ml IV Total 478 ml 385 ml # Voids 3 3 General Appearance: WD/WN HEENT: normocephalic, anicteric Respiratory/Chest: chest wall non-tender, normal breath sounds Cardiovascular: normal peripheral pulses, regularly irregular Abdomen: normal bowel sounds, soft, non tender Extremities: no clubbing Skin: no lesions Microbiology Date/Time Source Procedure Growth Status 06/19/18 14:15 Nasopharynx Influenza Types A,B Antigen (UNIQUE) - Final Complete 06/18/18 06:30 Sputum Gram Stain - Final Complete 06/18/18 06:30 Sputum Culture - Final Mairana Albicans Usual Respiratory Katherine Complete Laboratory Tests 06/19/18 23:00: Vancomycin Level Trough 11.6 06/20/18 05:45: White Blood Count 10.4, Red Blood Count 3.53L, Hemoglobin 10.8L, Hematocrit 33.7L, Mean Corpuscular Volume 96, Mean Corpuscular Hemoglobin 30.6, Mean Corpuscular Hemoglobin Concent 32.0, Red Cell Distribution Width 15.0H, Platelet Count 184, Mean Platelet Volume 8.4, Neutrophils (%) (Auto) , Lymphocytes (%) (Auto) , Monocytes (%) (Auto) , Eosinophils (%) (Auto) , Basophils (%) (Auto) , Differential Total Cells Counted 100, Neutrophils % ( Manual) 92H, Lymphocytes % (Manual) 5L, Monocytes % (Manual) 3, Eosinophils % ( Manual) 0, Basophils % (Manual) 0, Band Neutrophils 0, Platelet Estimate Adequate, Platelet Morphology Normal, Hypochromasia 1+, Sodium Level 143, Potassium Level 4.3, Chloride Level 105, Carbon Dioxide Level 33H, Anion Gap 5, Blood Urea Nitrogen 24H, Creatinine 0.6, Estimat Glomerular Filtration Rate , Glucose Level 287H, Calcium Level 8.7, Iron Level [Pending], Unsaturated Iron Binding [Pending], Ferritin [Pending], Vitamin B12 Level [Pending], Folate [ Pending], Thyroid Stimulating Hormone (TSH) [Pending] Current Medications Medications (Trade) Dose Ordered Sig/Evi Route PRN Reason Start Time Stop Time Status Last Admin Dose Admin Acetaminophen/ Hydrocodone Bitart ([place] 10/325) 1 tab Q4H PRN ORAL Severe Pain (Pain Scale 7-10) 06/18/18 19:30 06/25/18 19:29 06/19/18 17:02 Acetaminophen/ Hydrocodone Bitart ([place] 5/325) 1 tab Q4H PRN ORAL Moderate Pain (Pain Scale 4-6) 06/18/18 19:30 06/25/18 19:29 Albuterol/ Ipratropium (Albuterol/ Ipratropium) 3 ml Q4HRT HHN 06/18/18 19:00 06/23/18 18:59 06/20/18 15:06 Budesonide/ Formoterol Fumarate (Symbicort 160/ 4.5) 2 puff BID INH 06/17/18 09:00 07/16/18 08:59 06/20/18 08:42 Carvedilol (Coreg) 6.25 mg EVERY 12 HOURS ORAL 06/17/18 09:00 07/16/18 08:59 06/20/18 09:54 Cefepime HCl 1 gm/ Dextrose 55 ml @ 110 mls/hr Q8HR IVPB 06/17/18 14:00 06/23/18 10:59 06/20/18 14:11 Dextrose (Dextrose 50%) 25 ml Q30M PRN IV Hypoglycemia 06/17/18 08:30 07/16/18 06:59 Dextrose (Dextrose 50%) 50 ml Q30M PRN IV Hypoglycemia 06/17/18 08:30 4/7/19 06:59 Enalapril Maleate (Vasotec) 5 mg EVERY 12 HOURS ORAL 06/17/18 09:00 07/16/18 08:59 06/20/18 09:54 Escitalopram Oxalate (Lexapro) 10 mg DAILY ORAL 06/17/18 09:00 07/16/18 08:59 06/20/18 09:54 Heparin Sodium (Porcine) (Heparin 5000 units/ml) 5,000 units EVERY 8 HOURS SUBQ 06/17/18 14:00 07/16/18 13:59 06/20/18 14:11 Insulin Aspart (NovoLOG) BEFORE MEALS AND HS SUBQ 06/17/18 11:30 07/16/18 11:29 06/20/18 17:36 Methylprednisolone Sodium Succinate (Solu-MEDROL) 60 mg Q12HR IV 06/18/18 21:00 07/17/18 19:59 06/20/18 09:53 Nystatin (Nystop Powder) 1 applic THREE TIMES A DAY TOPIC 06/19/18 17:00 07/19/18 16:59 06/20/18 18:49 Promethazine HCl/ Codeine (Phenergan with Codeine) 5 ml Q4H PRN ORAL For Cough 06/17/18 08:05 07/16/18 08:04 Temazepam (Restoril) 15 mg HSPRN PRN ORAL insomnia 06/17/18 21:00 06/23/18 20:59 06/19/18 21:10 Theophylline (Zafar-Dur) 100 mg EVERY 12 HOURS ORAL 06/17/18 09:00 07/16/18 08:59 06/20/18 09:54 Tiotropium [place] (Spiriva Inhaler) 2 puff DAILY INH 06/17/18 09:00 07/16/18 08:59 06/20/18 08:42 Vancomycin HCl (Vanco rx to dose) 1 ea DAILY PRN MISC Per rx protocol 06/17/18 09:00 07/16/18 09:44 Vancomycin HCl/ Dextrose 275 ml @ 184 mls/hr 0000,1200 IVPB 06/20/18 12:00 06/25/18 11:59 06/20/18 12:32 Mikie Gray MD Jun 20, 2018 18:53
--- NOTE | 2018-06-20 19:00 | NUR ---
NURSE NOTES: Patient resting,respirations unlabored,call light within reach.
[2018-06-20 19:13] LABS: FERRITIN 189 NG/ML (8-388)
[2018-06-20 19:27] LABS: % IRON SATURATION 19 % (15-50); IRON 54 ug/dL (50-175); TOTAL IRON BINDING CAPACITY 283 ug/dL (250-450)
--- NOTE | 2018-06-20 19:55 | NUR ---
HAND-OFF: Report given to LJ JAMES.
--- NOTE | 2018-06-20 19:58 | NUR ---
NURSE NOTES: Pt is in bed, awake and verbal. NO SOB. No acute distress noted. Pt is ordered to be discharged tomorrow. Bed low in position,side rails up and call light within reach. Pt will be cleaned and linen will be changed frequently as patient is incontinent.
[2018-06-20] MEDS: HYDROcodone/Acetamin 10/325 tab ORAL PRN (21:46)
[2018-06-21] VITALS: BP 152/79
[2018-06-21] MEDS: Albuterol/Ipratropium 3ml neb HHN SCH ×7 (00:11→22:14)
[2018-06-21] MEDS: Vancomycin 1.25gm Premix 275 ML IVPB SCH (03:42)
[2018-06-21 04:00] VITALS: BP 155/89
--- NOTE | 2018-06-21 04:26 | NUR ---
NURSE NOTES: Pt is in bed, awake and alert. No acute distress noted. Pt is due for discharge this morning.
[2018-06-21] MEDS: HYDROcodone/Acetamin 10/325 tab ORAL PRN (06:06)
[2018-06-21] MEDS: Cefepime HCl 1 GM in D5W 55 ML IVPB SCH (06:06)
[2018-06-21] MEDS: Heparin 5000 units/ml inj SUBQ SCH ×3 (06:07→22:01)
[2018-06-21] MEDS: NovoLOG Insulin Flexpen SUBQ SCH ×4 (06:11→22:10)
--- NOTE | 2018-06-21 07:25 | NUR ---
HAND-OFF: Report given to JACOB Castillo.Informed Anna that pt is due for discharge today.
[2018-06-21 08:00] VITALS: BP 155/88
--- NOTE | 2018-06-21 08:00 | NUR ---
NURSE NOTES: Patient sitting up in bed and eating breakfast,on on by N/C,no complaints at this time,no sob noted at this time,will monitor.
[2018-06-21 08:27] LABS: HEMATOCRIT 36.3 % (42.0-52.0); HEMOGLOBIN 11.8 G/DL (14.2-18.0); MEAN CORPUSCULAR VOLUME 96 FL (80-99); PLATELET COUNT 202 K/UL (150-450); RED BLOOD COUNT 3.77 M/UL (4.70-6.10); RED CELL DISTRIBUTION WIDTH 15.6 % (11.6-14.8); WHITE BLOOD COUNT 13.6 K/UL (4.8-10.8)
[2018-06-21 08:51] LABS: ANION GAP 3 mmol/L (5-15); BLOOD UREA NITROGEN 20 mg/dL (7-18); CALCIUM 8.8 MG/DL (8.5-10.1); CARBON DIOXIDE 34 MMOL/L (21-32); CHLORIDE 105 MMOL/L (98-107); CREATININE 0.7 MG/DL (0.55-1.30); POTASSIUM 3.9 MMOL/L (3.5-5.1); SODIUM 142 MMOL/L (136-145)
[2018-06-21] MEDS: Nystatin Powder 100,000 units/gm 15gm TOPIC SCH ×3 (09:14→18:30)
[2018-06-21] MEDS: Carvedilol 6.25mg Tab ORAL SCH ×2 (09:20→22:00)
[2018-06-21] MEDS: Theophylline ER 100mg ORAL SCH ×2 (09:21→22:00)
[2018-06-21] MEDS: Enalapril 5mg tab ORAL SCH ×2 (09:21→22:01)
--- NOTE | 2018-06-21 10:44 | NUR ---
DISCHARGE PLAN PATIENT IS DISCHARGING HOME TODAY HE WILL KEEP HIS SCHEDULED APPOINTMENT AT [facility] ~ SURGERY SCHEDULED FOR TOMORROW
[2018-06-21 12:00] VITALS: BP 156/88
--- NOTE | 2018-06-21 12:00 | NUR ---
NURSE NOTES: Patient IV out,patient does not restart,patient anticipating discharge today,will notify MD.
--- NOTE | 2018-06-21 12:42 | Internal Med Progress Note ---
Subjective Date of Service: Jun 21, 2018 Physician Name Danielito Thomas Attending Physician Gadiel Ramírez MD Current Medications Medications (Trade) Dose Ordered Sig/Evi Route PRN Reason Start Time Stop Time Status Last Admin Dose Admin Acetaminophen/ Hydrocodone Bitart ([place] 10/325) 1 tab Q4H PRN ORAL Severe Pain (Pain Scale 7-10) 06/18/18 19:30 06/25/18 19:29 06/21/18 06:06 Acetaminophen/ Hydrocodone Bitart ([place] 5/325) 1 tab Q4H PRN ORAL Moderate Pain (Pain Scale 4-6) 06/18/18 19:30 06/25/18 19:29 Albuterol/ Ipratropium (Albuterol/ Ipratropium) 3 ml Q4HRT HHN 06/18/18 19:00 06/23/18 18:59 06/21/18 03:04 Budesonide/ Formoterol Fumarate (Symbicort 160/ 4.5) 2 puff BID INH 06/17/18 09:00 07/16/18 08:59 06/20/18 20:34 Carvedilol (Coreg) 6.25 mg EVERY 12 HOURS ORAL 06/17/18 09:00 07/16/18 08:59 06/21/18 09:20 Cefepime HCl 1 gm/ Dextrose 55 ml @ 110 mls/hr Q8HR IVPB 06/17/18 14:00 06/23/18 10:59 06/21/18 06:06 Dextrose (Dextrose 50%) 25 ml Q30M PRN IV Hypoglycemia 06/17/18 08:30 07/16/18 06:59 Dextrose (Dextrose 50%) 50 ml Q30M PRN IV Hypoglycemia 06/17/18 08:30 07/16/18 06:59 Enalapril Maleate (Vasotec) 5 mg EVERY 12 HOURS ORAL 06/17/18 09:00 07/16/18 08:59 06/21/18 09:21 Escitalopram Oxalate (Lexapro) 10 mg DAILY ORAL 06/17/18 09:00 07/16/18 08:59 06/21/18 09:21 Heparin Sodium (Porcine) (Heparin 5000 units/ml) 5,000 units EVERY 8 HOURS SUBQ 06/17/18 14:00 4/7/19 13:59 06/21/18 06:07 Insulin Aspart (NovoLOG) BEFORE MEALS AND HS SUBQ 06/17/18 11:30 07/16/18 11:29 06/21/18 12:36 Methylprednisolone Sodium Succinate (Solu-MEDROL) 60 mg Q12HR IV 06/18/18 21:00 07/17/18 19:59 06/20/18 21:46 Nystatin (Nystop Powder) 1 applic THREE TIMES A DAY TOPIC 06/19/18 17:00 07/19/18 16:59 06/21/18 09:14 Promethazine HCl/ Codeine (Phenergan with Codeine) 5 ml Q4H PRN ORAL For Cough 06/17/18 08:05 07/16/18 08:04 Temazepam (Restoril) 15 mg HSPRN PRN ORAL insomnia 06/17/18 21:00 06/23/18 20:59 06/20/18 21:45 Theophylline (Zafar-Dur) 100 mg EVERY 12 HOURS ORAL 06/17/18 09:00 07/16/18 08:59 06/21/18 09:21 Tiotropium [place] (Spiriva Inhaler) 2 puff DAILY INH 06/17/18 09:00 07/16/18 08:59 06/20/18 08:42 Vancomycin HCl (Vanco rx to dose) 1 ea DAILY PRN MISC Per rx protocol 06/17/18 09:00 07/16/18 09:44 Vancomycin HCl/ Dextrose 275 ml @ 184 mls/hr 0000,1200 IVPB 06/20/18 12:00 06/25/18 11:59 06/21/18 03:42 Allergies: Coded Allergies: PENICILLINS (Verified Allergy, Unknown, 04/08/17) Subjective 73 YO M admitted with shortness of breath. Now sepsis. Cover for Int Derrick-Dr Ramírez Objective Last Vital Signs Date Time Temp Pulse Resp B/P (MAP) Pulse Ox O2 Delivery O2 Flow Rate FiO2 06/21/18 12:00 98.5 69 12 156/88 (110) 100 06/21/18 11:00 Room Air 06/21/18 08:59 21 06/21/18 03:04 2.0 Laboratory Tests Test 06/21/18 08:00 White Blood Count 13.6 K/UL (4.8-10.8) H Red Blood Count 3.77 M/UL (4.70-6.10) L Hemoglobin 11.8 G/DL (14.2-18.0) L Hematocrit 36.3 % (42.0-52.0) L Mean Corpuscular Volume 96 FL (80-99) Mean Corpuscular Hemoglobin 31.3 PG (27.0-31.0) H Mean Corpuscular Hemoglobin Concent 32.5 G/DL (32.0-36.0) Red Cell Distribution Width 15.6 % (11.6-14.8) H Platelet Count 202 K/UL (150-450) Mean Platelet Volume 8.0 FL (6.5-10.1) Neutrophils (%) (Auto) % (45.0-75.0) Lymphocytes (%) (Auto) % (20.0-45.0) Monocytes (%) (Auto) % (1.0-10.0) Eosinophils (%) (Auto) % (0.0-3.0) Basophils (%) (Auto) % (0.0-2.0) Differential Total Cells Counted 100 Neutrophils % (Manual) 83 % (45-75) H Lymphocytes % (Manual) 7 % (20-45) L Monocytes % (Manual) 10 % (1-10) Eosinophils % (Manual) 0 % (0-3) Basophils % (Manual) 0 % (0-2) Band Neutrophils 0 % (0-8) Nucleated Red Blood Cells /100 WBC Platelet Estimate Adequate Platelet Morphology Normal Polychromasia 1+ Anisocytosis 1+ Sodium Level 142 MMOL/L (136-145) Potassium Level 3.9 MMOL/L (3.5-5.1) Chloride Level 105 MMOL/L (98-107) Carbon Dioxide Level 34 MMOL/L (21-32) H Anion Gap 3 mmol/L (5-15) L Blood Urea Nitrogen 20 mg/dL (7-18) H Creatinine 0.7 MG/DL (0.55-1.30) Estimat Glomerular Filtration Rate mL/min (>60) Glucose Level 387 MG/DL (74-106) #H Calcium Level 8.8 MG/DL (8.5-10.1) Microbiology Date/Time Source Procedure Growth Status 06/19/18 13:13 Blood Blood Culture - Preliminary NO GROWTH AFTER 24 HOURS Resulted 06/19/18 13:00 Blood Blood Culture - Preliminary NO GROWTH AFTER 24 HOURS Resulted 06/19/18 14:15 Nasopharynx Influenza Types A,B Antigen (UNIQUE) - Final Complete Intake and Output 06/20/18 06/21/18 18:59 06:59 Intake Total 840 ml 865 ml Balance 840 ml 865 ml Intake Oral 840 ml 480 ml IV Total 385 ml # Voids 5 5 Objective PHYSICAL EXAMINATION: GENERAL: The patient is awake, responsive, and in no acute distress, but chronically ill. HEAD AND NECK: Pupils are equal and reactive to light. Extraocular movements are intact. Neck was supple. No JVD. LUNGS: Good air entry. No wheezing or rales. Expiratory, decreased air in bases. HEART: S1 and S2. Distant heart sounds. No murmurs or gallops. ABDOMEN: Soft, nondistended, nontender, and mildly obese. EXTREMITIES: No cyanosis, clubbing, or edema. The patient has ecchymosis in the bilateral upper extremity, has skin tear. GENITOURINARY: The patient has diffuse macular rashes in the sacrum as well as perineum area. NEUROLOGIC: Cranial nerves II through XII grossly intact. The patient moving all extremities. Gait was unsteady. Assessment/Plan Assessment/Plan ASSESSMENT: 1. Acute COPD exacerbation. 2. Failure to thrive. 3. Diabetes type 2. 4. Hypertension. 5. Irregular bowel syndrome. 6. Morbid obesity. 7. Chronic CHF. 8. Bronchitis. 9. Sepsis-Staph sp 10 newly diagnosed cancer PLAN: 1. Admit the patient to telemetry. 2. We will follow up with Dr. Gray, Pulmonary Critical Care recommendation. 3. The patient has MRSA in the sputum, followup with vancomycin. 4. Code status at this time is Full Code. 5. DVT prophylaxis, heparin subcutaneous. 6. Monitor glucose level and we will discuss with social service assistant regarding the possible placement in a nursing facility. 7. Pos Blood culture-Await ID and sensitivity of Staph-Continue vanco and cefepime per Inf Dis 8. Patient requests discharge home today; has appointment at [facility] for ? TURP on 06/22/18 Danielito Thomas MD Jun 21, 2018 12:42
--- NOTE | 2018-06-21 13:45 | Pulmonology Progress Note ---
Assessment/Plan Problems: (1) Acute respiratory failure (2) COPD exacerbation (3) Bronchitis (4) Pneumonia (5) Hypertension (6) Diabetes mellitus Assessment/Plan pt wants to go home instead of waiting for [place] feeling better respiratory treatment iv sterids iv abx titrate fio2 to sat of 92% dvt prophylaxis. Subjective ROS Limited/Unobtainable: No Constitutional: Reports: no symptoms HEENT: Repors: no symptoms Respiratory: Reports: no symptoms Allergies: Coded Allergies: PENICILLINS (Verified Allergy, Unknown, 04/08/17) Objective Last 24 Hour Vital Signs Date Time Temp Pulse Resp B/P (MAP) Pulse Ox O2 Delivery O2 Flow Rate FiO2 06/21/18 12:00 98.5 69 12 156/88 (110) 100 06/21/18 11:00 Room Air 06/21/18 11:00 Room Air 06/21/18 09:21 156/86 06/21/18 09:20 93 156/86 06/21/18 08:59 Room Air 21 06/21/18 08:59 Room Air 06/21/18 08:57 Room Air 21 06/21/18 08:57 Room Air 21 06/21/18 08:00 97.0 101 20 155/88 (110) 97 06/21/18 07:59 Room Air 21 06/21/18 07:59 Room Air 21 06/21/18 07:59 96 Room Air 21 06/21/18 07:59 Room Air 21 06/21/18 04:00 98.0 70 18 155/89 (111) 99 06/21/18 03:04 84 18 92 Room Air 06/21/18 03:04 86 18 97 Nasal Cannula 2.0 06/21/18 00:21 94 20 98 Room Air 06/21/18 00:11 93 18 93 Room Air 06/21/18 00:00 97.9 88 19 152/79 (103) 93 06/20/18 21:46 158/84 06/20/18 21:46 76 158/84 06/20/18 21:00 Nasal Cannula 2.0 06/20/18 20:46 76 18 98 Room Air 21 06/20/18 20:34 Nasal Cannula 2.0 28 06/20/18 20:34 94 Nasal Cannula 2.0 28 06/20/18 20:34 75 18 94 Room Air 21 06/20/18 20:34 75 18 94 Nasal Cannula 2.0 28 06/20/18 20:34 75 18 94 Nasal Cannula 2.0 28 06/20/18 20:00 97.5 85 17 158/84 (108) 93 06/20/18 16:00 97.8 73 20 154/85 (108) 93 06/20/18 15:16 83 18 97 Room Air 21 06/20/18 15:06 82 18 92 Room Air 21 Intake and Output 06/20/18 06/21/18 18:59 06:59 Intake Total 840 ml 865 ml Balance 840 ml 865 ml Intake Oral 840 ml 480 ml IV Total 385 ml # Voids 5 5 General Appearance: WD/WN HEENT: normocephalic Respiratory/Chest: chest wall non-tender, normal breath sounds Cardiovascular: normal rate Abdomen: normal bowel sounds, no organomegaly Genitourinary: normal external genitalia Microbiology Date/Time Source Procedure Growth Status 06/19/18 13:13 Blood Blood Culture - Preliminary NO GROWTH AFTER 24 HOURS Resulted 06/19/18 13:00 Blood Blood Culture - Preliminary NO GROWTH AFTER 24 HOURS Resulted 06/19/18 14:15 Nasopharynx Influenza Types A,B Antigen (UNIQUE) - Final Complete Laboratory Tests 06/21/18 08:00: White Blood Count 13.6H, Red Blood Count 3.77L, Hemoglobin 11.8L, Hematocrit 36.3L, Mean Corpuscular Volume 96, Mean Corpuscular Hemoglobin 31.3H, Mean Corpuscular Hemoglobin Concent 32.5, Red Cell Distribution Width 15.6H, Platelet Count 202, Mean Platelet Volume 8.0, Neutrophils (%) (Auto) , Lymphocytes (%) (Auto) , Monocytes (%) (Auto) , Eosinophils (%) (Auto) , Basophils (%) (Auto) , Differential Total Cells Counted 100, Neutrophils % ( Manual) 83H, Lymphocytes % (Manual) 7L, Monocytes % (Manual) 10, Eosinophils % ( Manual) 0, Basophils % (Manual) 0, Band Neutrophils 0, Nucleated Red Blood Cells , Platelet Estimate Adequate, Platelet Morphology Normal, Polychromasia 1+ , Anisocytosis 1+, Sodium Level 142, Potassium Level 3.9, Chloride Level 105, Carbon Dioxide Level 34H, Anion Gap 3L, Blood Urea Nitrogen 20H, Creatinine 0.7 , Estimat Glomerular Filtration Rate , Glucose Level 387#H, Calcium Level 8.8 Current Medications Medications (Trade) Dose Ordered Sig/Evi Route PRN Reason Start Time Stop Time Status Last Admin Dose Admin Acetaminophen/ Hydrocodone Bitart ([place] 10/325) 1 tab Q4H PRN ORAL Severe Pain (Pain Scale 7-10) 06/18/18 19:30 06/25/18 19:29 06/21/18 06:06 Acetaminophen/ Hydrocodone Bitart ([place] 5/325) 1 tab Q4H PRN ORAL Moderate Pain (Pain Scale 4-6) 06/18/18 19:30 06/25/18 19:29 Albuterol/ Ipratropium (Albuterol/ Ipratropium) 3 ml Q4HRT HHN 06/18/18 19:00 06/23/18 18:59 06/21/18 03:04 Budesonide/ Formoterol Fumarate (Symbicort 160/ 4.5) 2 puff BID INH 06/17/18 09:00 07/16/18 08:59 06/20/18 20:34 Carvedilol (Coreg) 6.25 mg EVERY 12 HOURS ORAL 06/17/18 09:00 07/16/18 08:59 06/21/18 09:20 Cefepime HCl 1 gm/ Dextrose 55 ml @ 110 mls/hr Q8HR IVPB 06/17/18 14:00 06/23/18 10:59 06/21/18 06:06 Dextrose (Dextrose 50%) 25 ml Q30M PRN IV Hypoglycemia 06/17/18 08:30 07/16/18 06:59 Dextrose (Dextrose 50%) 50 ml Q30M PRN IV Hypoglycemia 06/17/18 08:30 07/16/18 06:59 Enalapril Maleate (Vasotec) 5 mg EVERY 12 HOURS ORAL 06/17/18 09:00 07/16/18 08:59 06/21/18 09:21 Escitalopram Oxalate (Lexapro) 10 mg DAILY ORAL 06/17/18 09:00 07/16/18 08:59 06/21/18 09:21 Heparin Sodium (Porcine) (Heparin 5000 units/ml) 5,000 units EVERY 8 HOURS SUBQ 06/17/18 14:00 07/16/18 13:59 06/21/18 06:07 Insulin Aspart (NovoLOG) BEFORE MEALS AND HS SUBQ 06/17/18 11:30 07/16/18 11:29 06/21/18 12:36 Methylprednisolone Sodium Succinate (Solu-MEDROL) 60 mg Q12HR IV 06/18/18 21:00 07/17/18 19:59 06/20/18 21:46 Nystatin (Nystop Powder) 1 applic THREE TIMES A DAY TOPIC 06/19/18 17:00 07/19/18 16:59 06/21/18 13:21 Promethazine HCl/ Codeine (Phenergan with Codeine) 5 ml Q4H PRN ORAL For Cough 06/17/18 08:05 07/16/18 08:04 Temazepam (Restoril) 15 mg HSPRN PRN ORAL insomnia 06/17/18 21:00 06/23/18 20:59 06/20/18 21:45 Theophylline (Zafar-Dur) 100 mg EVERY 12 HOURS ORAL 06/17/18 09:00 07/16/18 08:59 06/21/18 09:21 Tiotropium [place] (Spiriva Inhaler) 2 puff DAILY INH 06/17/18 09:00 07/16/18 08:59 06/20/18 08:42 Vancomycin HCl (Vanco rx to dose) 1 ea DAILY PRN MISC Per rx protocol 06/17/18 09:00 07/16/18 09:44 Vancomycin HCl/ Dextrose 275 ml @ 184 mls/hr 0000,1200 IVPB 06/20/18 12:00 06/25/18 11:59 06/21/18 03:42 Mikie Gray MD Jun 21, 2018 13:45
--- NOTE | 2018-06-21 14:06 | NUR ---
PT NOTE: Pt refused to participate in PT treatment session due to frustrating afternoon with discharge planning. Pt expressed understanding of therapeutic exercises and knowing the importance of performing them. Pt did not want to perform therapeutic exercises. Left nurse call light within easy reach and notified nurse.
--- NOTE | 2018-06-21 14:42 | Infectious Diseases Prog Note ---
Assessment/Plan Assessment/Plan Assessment: Probable Sepsis, SP -u/a, ucx never done Dyspnea- COPD exacerbation, no PNA on CT -CXR: no acute disease -CT chest: Somewhat limited exam, due to respiratory motion artifact. Mild pulmonary parenchymal hyperinflation. Very faint groundglass opacity in a mosaic distribution is probably related to COPD changes. No acute pulmonary process. Dilated pulmonary artery, consistent with pulmonary arterial hypertension. Suspect left ventricular muscular hypertrophy. Small area of pleural or subpleural scarring in the right hemithorax. 3.4 x 1.6 cm right lower pole thyroid mass. Further evaluation with ultrasound recommended. Slight T7 vertebral body wedge compression fracture deformity. Age indeterminate. -Influenza sc neg Leukocytosis, mild recurrent- ?2ry to malignancy Afebrile Gram positive bacteremia, likely contaminants -06/16 Bcx 07/13 S. simulans, S. epidermis; 06/19 Bcx NTD [place] intertrigo Recent dx of Abd CA hx of UTI -06/10 u/a wbc tnct; ucx 20-30K MRSA, 10-20k E.coli (I Levo, R Bactrim) COPD smoking morbid obesity CHF HTN CAD DM2, Plan: -D/c empiric IV Vancomycin and Cefepime #6/5 and monitor off abx -06/16 SP Bactrim x1 -f/u cx -Monitor CBC/CMP, temperatures -f/u Bcx x2, u/a w/ -aspiration precautions -nystatin powder Thank you for this consultation. Will continue to follow along with you. Discussed with RN. Subjective Allergies: Coded Allergies: PENICILLINS (Verified Allergy, Unknown, 04/08/17) Subjective afebrile mild leukocytosis repeat Bcx NTD u/a w/ reflex never collected ?? Objective Vital Signs Last 24 Hour Vital Signs Date Time Temp Pulse Resp B/P (MAP) Pulse Ox O2 Delivery O2 Flow Rate FiO2 06/21/18 12:00 98.5 69 12 156/88 (110) 100 06/21/18 11:00 Room Air 06/21/18 11:00 Room Air 06/21/18 09:21 156/86 06/21/18 09:20 93 156/86 06/21/18 08:59 Room Air 21 06/21/18 08:59 Room Air 21 06/21/18 08:57 Room Air 21 06/21/18 08:57 Room Air 21 06/21/18 08:00 97.0 101 20 155/88 (110) 97 06/21/18 07:59 Room Air 21 06/21/18 07:59 Room Air 21 06/21/18 07:59 96 Room Air 21 06/21/18 07:59 Room Air 21 06/21/18 04:00 98.0 70 18 155/89 (111) 99 06/21/18 03:04 84 18 92 Room Air 21 06/21/18 03:04 86 18 97 Nasal Cannula 2.0 28 06/21/18 00:21 94 20 98 Room Air 21 06/21/18 00:11 93 18 93 Room Air 21 06/21/18 00:00 97.9 88 19 152/79 (103) 93 06/20/18 21:46 158/84 06/20/18 21:46 76 158/84 06/20/18 21:00 Nasal Cannula 2.0 06/20/18 20:46 76 18 98 Room Air 21 06/20/18 20:34 Nasal Cannula 2.0 28 06/20/18 20:34 94 Nasal Cannula 2.0 28 06/20/18 20:34 75 18 94 Room Air 21 06/20/18 20:34 75 18 94 Nasal Cannula 2.0 28 06/20/18 20:34 75 18 94 Nasal Cannula 2.0 28 06/20/18 20:00 97.5 85 17 158/84 (108) 93 06/20/18 16:00 97.8 73 20 154/85 (108) 93 06/20/18 15:16 83 18 97 Room Air 21 06/20/18 15:06 82 18 92 Room Air 21 Height (Feet): 5 Height (Inches): 6.00 Weight (Pounds): 166 Objective GENERAL: The patient is awake, responsive, and in no acute distress, but chronically ill. HEAD AND NECK: Pupils are equal and reactive to light. Extraocular movements are intact. Neck was supple. No JVD. LUNGS: Good air entry. No wheezing or rales. Expiratory, decreased air in bases. HEART: S1 and S2. Distant heart sounds. No murmurs or gallops. ABDOMEN: Soft, nondistended, nontender, and mildly obese. EXTREMITIES: No cyanosis, clubbing, or edema. The patient has ecchymosis in the bilateral upper extremity, has skin tear. GENITOURINARY: The patient has diffuse macular rashes in the sacrum as well as perineum area. NEUROLOGIC: Cranial nerves II through XII grossly intact. The patient moving all extremities. Gait was unsteady. Microbiology Date/Time Source Procedure Growth Status 06/19/18 13:13 Blood Blood Culture - Preliminary NO GROWTH AFTER 24 HOURS Resulted 06/19/18 13:00 Blood Blood Culture - Preliminary NO GROWTH AFTER 24 HOURS Resulted 06/19/18 14:15 Nasopharynx Influenza Types A,B Antigen (UNIQUE) - Final Complete Laboratory Tests Test 06/21/18 08:00 White Blood Count 13.6 K/UL (4.8-10.8) H Red Blood Count 3.77 M/UL (4.70-6.10) L Hemoglobin 11.8 G/DL (14.2-18.0) L Hematocrit 36.3 % (42.0-52.0) L Mean Corpuscular Volume 96 FL (80-99) Mean Corpuscular Hemoglobin 31.3 PG (27.0-31.0) H Mean Corpuscular Hemoglobin Concent 32.5 G/DL (32.0-36.0) Red Cell Distribution Width 15.6 % (11.6-14.8) H Platelet Count 202 K/UL (150-450) Mean Platelet Volume 8.0 FL (6.5-10.1) Neutrophils (%) (Auto) % (45.0-75.0) Lymphocytes (%) (Auto) % (20.0-45.0) Monocytes (%) (Auto) % (1.0-10.0) Eosinophils (%) (Auto) % (0.0-3.0) Basophils (%) (Auto) % (0.0-2.0) Differential Total Cells Counted 100 Neutrophils % (Manual) 83 % (45-75) H Lymphocytes % (Manual) 7 % (20-45) L Monocytes % (Manual) 10 % (1-10) Eosinophils % (Manual) 0 % (0-3) Basophils % (Manual) 0 % (0-2) Band Neutrophils 0 % (0-8) Nucleated Red Blood Cells /100 WBC Platelet Estimate Adequate Platelet Morphology Normal Polychromasia 1+ Anisocytosis 1+ Sodium Level 142 MMOL/L (136-145) Potassium Level 3.9 MMOL/L (3.5-5.1) Chloride Level 105 MMOL/L (98-107) Carbon Dioxide Level 34 MMOL/L (21-32) H Anion Gap 3 mmol/L (5-15) L Blood Urea Nitrogen 20 mg/dL (7-18) H Creatinine 0.7 MG/DL (0.55-1.30) Estimat Glomerular Filtration Rate mL/min (>60) Glucose Level 387 MG/DL (74-106) #H Calcium Level 8.8 MG/DL (8.5-10.1) Current Medications Medications (Trade) Dose Ordered Sig/Evi Route PRN Reason Start Time Stop Time Status Last Admin Dose Admin Acetaminophen/ Hydrocodone Bitart ([place] 10/325) 1 tab Q4H PRN ORAL Severe Pain (Pain Scale 7-10) 06/18/18 19:30 06/25/18 19:29 06/21/18 06:06 Acetaminophen/ Hydrocodone Bitart ([place] 5/325) 1 tab Q4H PRN ORAL Moderate Pain (Pain Scale 4-6) 06/18/18 19:30 06/25/18 19:29 Albuterol/ Ipratropium (Albuterol/ Ipratropium) 3 ml Q4HRT HHN 06/18/18 19:00 06/23/18 18:59 06/21/18 03:04 Budesonide/ Formoterol Fumarate (Symbicort 160/ 4.5) 2 puff BID INH 06/17/18 09:00 07/16/18 08:59 06/20/18 20:34 Carvedilol (Coreg) 6.25 mg EVERY 12 HOURS ORAL 06/17/18 09:00 07/16/18 08:59 06/21/18 09:20 Cefepime HCl 1 gm/ Dextrose 55 ml @ 110 mls/hr Q8HR IVPB 06/17/18 14:00 06/23/18 10:59 06/21/18 06:06 Dextrose (Dextrose 50%) 25 ml Q30M PRN IV Hypoglycemia 06/17/18 08:30 07/16/18 06:59 Dextrose (Dextrose 50%) 50 ml Q30M PRN IV Hypoglycemia 06/17/18 08:30 07/16/18 06:59 Enalapril Maleate (Vasotec) 5 mg EVERY 12 HOURS ORAL 06/17/18 09:00 07/16/18 08:59 06/21/18 09:21 Escitalopram Oxalate (Lexapro) 10 mg DAILY ORAL 06/17/18 09:00 07/16/18 08:59 06/21/18 09:21 Heparin Sodium (Porcine) (Heparin 5000 units/ml) 5,000 units EVERY 8 HOURS SUBQ 06/17/18 14:00 07/16/18 13:59 06/21/18 06:07 Insulin Aspart (NovoLOG) BEFORE MEALS AND HS SUBQ 06/17/18 11:30 07/16/18 11:29 06/21/18 12:36 Nystatin (Nystop Powder) 1 applic THREE TIMES A DAY TOPIC 06/19/18 17:00 07/19/18 16:59 06/21/18 13:21 Prednisone (predniSONE) 40 mg DAILY ORAL 06/22/18 09:00 07/22/18 08:59 Prednisone (predniSONE) 40 mg ONCE ORAL 06/21/18 15:30 06/21/18 16:30 Promethazine HCl/ Codeine (Phenergan with Codeine) 5 ml Q4H PRN ORAL For Cough 06/17/18 08:05 07/16/18 08:04 Temazepam (Restoril) 15 mg HSPRN PRN ORAL insomnia 06/17/18 21:00 06/23/18 20:59 06/20/18 21:45 Theophylline (Zafar-Dur) 100 mg EVERY 12 HOURS ORAL 06/17/18 09:00 07/16/18 08:59 06/21/18 09:21 Tiotropium [place] (Spiriva Inhaler) 2 puff DAILY INH 06/17/18 09:00 07/16/18 08:59 06/20/18 08:42 Vancomycin HCl (Vanco rx to dose) 1 ea DAILY PRN MISC Per rx protocol 06/17/18 09:00 07/16/18 09:44 Vancomycin HCl/ Dextrose 275 ml @ 184 mls/hr 0000,1200 IVPB 06/20/18 12:00 06/25/18 11:59 06/21/18 03:42 Rukhsana Mayfield M.D. Jun 21, 2018 14:42
--- NOTE | 2018-06-21 15:00 | NUR ---
NURSE NOTES: Pt is ready to be discharge home. Taxi voucher is obtained from the nursing supervisor [employer]. Called and order the car. Pt is refused to leave and wants to be transfer to [facility] for the procedure he has tomorrow. Explain that we can not transfer Pt and informed that based on the Dr's note , he is to be discharged home. Pt refused to leave. Dr Gray talked to the Pt. Per Dr Gray, Pt is to be discharged in the morning. Informed Dr Gray that Pt will be discharged home in am. BOB Proctor is notified.
[2018-06-21 16:00] VITALS: BP_SYST 120; BP_SYST 137; BP_DIAS 57; BP_DIAS 83
--- NOTE | 2018-06-21 16:37 | General Progress Note ---
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 --> Hgb goal >7. Transfuse prn. --> Epogen or iron at this time is not particularly indicated --> folic acid 1mg po daily has been ordered --> Medications have been reviewed # Leukocytosis rule out infection is on broad spectrum abx, also steriods --> antibiotics as per ID recs --> r/o infection, could be also related to steriods # Dyspnea- COPD exacerbation, no PNA on CT, his CXR: no acute disease --> per pulm recs # Gram positive bacteremia, likely contaminants # Smoking The timing of this note does not necessarily reflect the time of the patient was seen. Greatly appreciate consultation! Subjective Constitutional: Denies: no symptoms, chills, diaphoresis, fever, malaise, weakness, other HEENT: Denies: no symptoms, eye pain, blurred vision, tearing, double vision, ear pain, ear discharge, nose pain, nose congestion, throat pain, throat swelling, mouth pain, mouth swelling, other Cardiovascular: Denies: no symptoms, chest pain, edema, irregular heart rate, lightheadedness, palpitations, syncope, other Respiratory: Denies: no symptoms, cough, orthopnea, shortness of breath, SOB with excertion, SOB at rest, sputum, stridor, wheezing, other Gastrointestinal/Abdominal: Denies: no symptoms, abdomen distended, abdominal pain, black stools, tarry stools, blood in stool, constipated, diarrhea, difficulty swallowing, nausea, poor appetite, poor fluid intake, rectal bleeding , vomiting, other Genitourinary: Denies: no symptoms, burning, discharge, frequency, flank pain, hematuria, incontinence, pain, urgency, other Neurologic/Psychiatric: Denies: no symptoms, anxiety, depressed, emotional problems, headache, numbness, paresthesia, pre-existing deficit, seizure, tingling, tremors, weakness, other Hematologic/Lymphatic: Denies: no symptoms, anemia, easy bleeding, easy bruising, other Allergies: Coded Allergies: PENICILLINS (Verified Allergy, Unknown, 04/08/17) Subjective 06/21: seen by bedside, awake, comfortable, no events reported Objective Last 24 Hour Vital Signs Date Time Temp Pulse Resp B/P (MAP) Pulse Ox O2 Delivery O2 Flow Rate FiO2 06/21/18 15:18 Room Air 06/21/18 15:18 Room Air 06/21/18 12:00 98.5 69 12 156/88 (110) 100 06/21/18 11:00 Room Air 06/21/18 11:00 Room Air 06/21/18 09:21 156/86 06/21/18 09:20 93 156/86 06/21/18 09:00 Nasal Cannula 2.0 06/21/18 08:59 Room Air 21 06/21/18 08:59 Room Air 21 06/21/18 08:57 Room Air 21 06/21/18 08:57 Room Air 21 06/21/18 08:00 97.0 101 20 155/88 (110) 97 06/21/18 07:59 Room Air 21 06/21/18 07:59 Room Air 21 06/21/18 07:59 96 Room Air 21 06/21/18 07:59 Room Air 21 06/21/18 04:00 98.0 70 18 155/89 (111) 99 06/21/18 03:04 84 18 92 Room Air 06/21/18 03:04 86 18 97 Nasal Cannula 2.0 06/21/18 00:21 94 20 98 Room Air 06/21/18 00:11 93 18 93 Room Air 06/21/18 00:00 97.9 88 19 152/79 (103) 93 06/20/18 21:46 158/84 06/20/18 21:46 76 158/84 06/20/18 21:00 Nasal Cannula 2.0 06/20/18 20:46 76 18 98 Room Air 21 06/20/18 20:34 Nasal Cannula 2.0 28 06/20/18 20:34 94 Nasal Cannula 2.0 28 06/20/18 20:34 75 18 94 Room Air 21 06/20/18 20:34 75 18 94 Nasal Cannula 2.0 28 06/20/18 20:34 75 18 94 Nasal Cannula 2.0 28 06/20/18 20:00 97.5 85 17 158/84 (108) 93 Intake and Output 06/20/18 06/21/18 18:59 06:59 Intake Total 840 ml 865 ml Balance 840 ml 865 ml Intake Oral 840 ml 480 ml IV Total 385 ml # Voids 5 5 Laboratory Tests 06/21/18 08:00: White Blood Count 13.6H, Red Blood Count 3.77L, Hemoglobin 11.8L, Hematocrit 36.3L, Mean Corpuscular Volume 96, Mean Corpuscular Hemoglobin 31.3H, Mean Corpuscular Hemoglobin Concent 32.5, Red Cell Distribution Width 15.6H, Platelet Count 202, Mean Platelet Volume 8.0, Neutrophils (%) (Auto) , Lymphocytes (%) (Auto) , Monocytes (%) (Auto) , Eosinophils (%) (Auto) , Basophils (%) (Auto) , Differential Total Cells Counted 100, Neutrophils % ( Manual) 83H, Lymphocytes % (Manual) 7L, Monocytes % (Manual) 10, Eosinophils % ( Manual) 0, Basophils % (Manual) 0, Band Neutrophils 0, Nucleated Red Blood Cells , Platelet Estimate Adequate, Platelet Morphology Normal, Polychromasia 1+ , Anisocytosis 1+, Sodium Level 142, Potassium Level 3.9, Chloride Level 105, Carbon Dioxide Level 34H, Anion Gap 3L, Blood Urea Nitrogen 20H, Creatinine 0.7 , Estimat Glomerular Filtration Rate , Glucose Level 387#H, Calcium Level 8.8 Height (Feet): 5 Height (Inches): 6.00 Weight (Pounds): 166 Objective Physical Exam GENERAL: The patient is awake, responsive, but chronically ill. HEAD AND NECK: Pupils are equal and reactive to light. LUNGS: Good air entry. No wheezing or rales HEART: S1 and S2. Distant heart sounds. No murmurs or gallops. ABDOMEN: Soft, nondistended, nontender, and mildly obese. EXTREMITIES: No cyanosis, clubbing, or edema. GENITOURINARY: The patient has diffuse macular rashes NEUROLOGIC: Cranial nerves II through XII grossly intact Ignacio Portillo MD Jun 21, 2018 16:37
--- NOTE | 2018-06-21 19:00 | NUR ---
NURSE NOTES: Patient resting at respirations unlabored per DR Gray,patient will discharge early AM.
--- NOTE | 2018-06-21 19:30 | NUR ---
NURSE NOTES: Received patient in bed, awake, alert, oriented, no acute distress noted, VSS, call light is within reach, bed is in low position, locked and alarm is on. Will continue to monitor for safety and comfort.
--- NOTE | 2018-06-21 19:36 | NUR ---
HAND-OFF: Report given to Shanice JAMES.
[2018-06-21 20:00] VITALS: BP 132/76
--- NOTE | 2018-06-21 23:03 | NUR ---
NURSE NOTES: Patients BS is 450 at 2200, was made aware, gave 14 units of Novolog, per MD recheck BS in one hour.
--- NOTE | 2018-06-21 23:46 | NUR ---
BS is 389, will notify
[2018-06-22] VITALS: BP 138/77
[2018-06-22] MEDS: Albuterol/Ipratropium 3ml neb HHN SCH ×3 (02:54→11:00)
[2018-06-22 04:00] VITALS: BP 141/73
[2018-06-22] MEDS: Heparin 5000 units/ml inj SUBQ SCH (06:29)
[2018-06-22] MEDS: NovoLOG Insulin Flexpen SUBQ SCH ×2 (06:30→11:50)
--- NOTE | 2018-06-22 06:55 | NUR ---
HAND-OFF: Report given to Ekta JAMES.
[2018-06-22 07:37] LABS: HEMATOCRIT 34.8 % (42.0-52.0); HEMOGLOBIN 11.2 G/DL (14.2-18.0); MEAN CORPUSCULAR VOLUME 96 FL (80-99); PLATELET COUNT 206 K/UL (150-450); RED BLOOD COUNT 3.64 M/UL (4.70-6.10); RED CELL DISTRIBUTION WIDTH 15.1 % (11.6-14.8); WHITE BLOOD COUNT 12.7 K/UL (4.8-10.8)
[2018-06-22 07:50] LABS: ALANINE AMINOTRANSFERASE 27 U/L (12-78); ALBUMIN 2.4 G/DL (3.4-5.0); ALBUMIN/GLOBULIN RATIO 0.8 (1.0-2.7); ALKALINE PHOSPHATASE 76 U/L (46-116); ANION GAP 0 mmol/L (5-15); ASPARTATE AMINO TRANSFERASE 13 U/L (15-37); BILIRUBIN,TOTAL 0.2 MG/DL (0.2-1.0); BLOOD UREA NITROGEN 18 mg/dL (7-18); CALCIUM 8.7 MG/DL (8.5-10.1); CARBON DIOXIDE 38 MMOL/L (21-32); CHLORIDE 105 MMOL/L (98-107); CREATININE 0.5 MG/DL (0.55-1.30); POTASSIUM 3.5 MMOL/L (3.5-5.1); SODIUM 143 MMOL/L (136-145)
[2018-06-22 08:00] VITALS: BP 156/79
--- NOTE | 2018-06-22 08:55 | NUR ---
NURSE NOTES: SPOKE WITH JUSTIN REGARDING PLAN OF CARE/DISCHARGE PLAN FOR PATIENT. PER JUSTIN, SHE SPOKE WITH PERSONNEL AT [facility] (PATIENT WAS GOING TO HAVE SURGERY TODAY). PERSONNEL THERE STATED SURGERY HAS BEEN CANCELED, PATIENT WAS TO GET CARDIAC CLEARANCE AND FAILED TO DO SO. DC PLAN IS TO STILL BE HOME TODAY WITH AMBULANCE IF NECESSARY. PER JUSTIN, PATIENT OK TO HAVE FOOD SINCE SURGERY IS CANCELED.
--- NOTE | 2018-06-22 08:59 | NUR ---
DISCHARGE PLANNING PATIENT WAS SCHEDULED FOR SURGERY TODAY AT [facility]. PATIENT REFUSED TO BE DISCHARGED YESTERDAY PLANNED. SINCE PATIENT IS STILL HERE [facility] SALES REPRESENTATIVE CALLED DR DIEGO'S OFFICE AND SPOKE WITH FELIPE WANG, SURGERY HAS BEEN CANCELLED. PATIENT WILL NOW HAVE TO F/U WITH HIS PMD AND OBTAIN CARDIAC CLEARANCE BEFORE SURGERY IS RE-SCHEDULED. PLAN NOW IS TO DISCHARGE PATIENT HOME BY AMBULANCE
--- NOTE | 2018-06-22 09:01 | NUR ---
NURSE NOTES: [facility] SET UP FOR 1100 PICKUP.
[2018-06-22] MEDS: Theophylline ER 100mg ORAL SCH (09:07)
[2018-06-22] MEDS: Enalapril 5mg tab ORAL SCH (09:07)
[2018-06-22] MEDS: Carvedilol 6.25mg Tab ORAL SCH (09:07)
[2018-06-22] MEDS: Nystatin Powder 100,000 units/gm 15gm TOPIC SCH (09:08)
--- NOTE | 2018-06-22 09:50 | Infectious Diseases Prog Note ---
Assessment/Plan Assessment/Plan Assessment: Probable Sepsis, SP -u/a, ucx never done Dyspnea- COPD exacerbation, no PNA on CT -CXR: no acute disease -CT chest: Somewhat limited exam, due to respiratory motion artifact. Mild pulmonary parenchymal hyperinflation. Very faint groundglass opacity in a mosaic distribution is probably related to COPD changes. No acute pulmonary process. Dilated pulmonary artery, consistent with pulmonary arterial hypertension. Suspect left ventricular muscular hypertrophy. Small area of pleural or subpleural scarring in the right hemithorax. 3.4 x 1.6 cm right lower pole thyroid mass. Further evaluation with ultrasound recommended. Slight T7 vertebral body wedge compression fracture deformity. Age indeterminate. -Influenza sc neg Leukocytosis, mild recurrent- ?2ry to malignancy- improving Afebrile Gram positive bacteremia, likely contaminants -06/16 Bcx 07/13 S. simulans, S. epidermis; 06/19 Bcx NTD [place] intertrigo Recent dx of Abd CA hx of UTI -06/10 u/a wbc tnct; ucx 20-30K MRSA, 10-20k E.coli (I Levo, R Bactrim) COPD smoking morbid obesity CHF HTN CAD DM2, Plan: -Continue to monitor off abx -06/21 SP IV Vancomycin and Cefepime #6 -06/16 SP Bactrim x1 -f/u cx -Monitor CBC/CMP, temperatures -f/u Bcx x2, u/a w/ -aspiration precautions -nystatin powder Thank you for this consultation. Will continue to follow along with you. Discussed with RN. Subjective Allergies: Coded Allergies: PENICILLINS (Verified Allergy, Unknown, 04/08/17) Subjective afebrile mild leukocytosis improving repeat Bcx NTD discharge planning Objective Vital Signs Last 24 Hour Vital Signs Date Time Temp Pulse Resp B/P (MAP) Pulse Ox O2 Delivery O2 Flow Rate FiO2 06/22/18 09:07 156/79 06/22/18 09:07 81 156/79 06/22/18 09:00 Room Air 21 06/22/18 09:00 Room Air 21 06/22/18 09:00 Room Air 21 06/22/18 09:00 Room Air 21 06/22/18 08:00 97.9 81 20 156/79 (104) 06/22/18 07:57 76 18 98 Nasal Cannula 2.0 28 06/22/18 07:49 Nasal Cannula 2.0 28 06/22/18 07:49 82 20 96 Room Air 2.0 28 06/22/18 07:49 94 Nasal Cannula 2.0 28 06/22/18 04:00 97.9 80 20 141/73 (95) 06/22/18 03:06 68 18 98 Nasal Cannula 2.0 28 06/22/18 02:58 58 20 97 Room Air 2.0 28 06/22/18 00:00 97.8 77 20 138/77 (97) 06/21/18 22:28 84 18 98 Nasal Cannula 2.0 28 06/21/18 22:19 Nasal Cannula 2.0 06/21/18 22:17 78 20 Nasal Cannula 2.0 28 06/21/18 22:16 78 20 96 Room Air 2.0 28 06/21/18 22:01 132/76 06/21/18 22:00 89 132/76 06/21/18 20:00 97.9 86 19 132/76 (94) 06/21/18 19:45 92 18 97 Nasal Cannula 2.0 28 06/21/18 19:45 90 18 97 Nasal Cannula 2.0 28 06/21/18 19:45 90 18 97 Nasal Cannula 2.0 28 06/21/18 19:37 Nasal Cannula 2.0 28 06/21/18 19:36 95 Nasal Cannula 2.0 28 06/21/18 19:36 86 20 95 Room Air 2.0 28 06/21/18 16:00 97.8 79 18 137/83 (101) 97 06/21/18 15:18 Room Air 06/21/18 15:18 Room Air 06/21/18 12:00 98.5 69 12 156/88 (110) 100 06/21/18 11:00 Room Air 06/21/18 11:00 Room Air Height (Feet): 5 Height (Inches): 6.00 Weight (Pounds): 166 Objective GENERAL: The patient is awake, responsive, and in no acute distress, but chronically ill. HEAD AND NECK: Pupils are equal and reactive to light. Extraocular movements are intact. Neck was supple. No JVD. LUNGS: Good air entry. No wheezing or rales. Expiratory, decreased air in bases. HEART: S1 and S2. Distant heart sounds. No murmurs or gallops. ABDOMEN: Soft, nondistended, nontender, and mildly obese. EXTREMITIES: No cyanosis, clubbing, or edema. The patient has ecchymosis in the bilateral upper extremity, has skin tear. GENITOURINARY: The patient has diffuse macular rashes in the sacrum as well as perineum area. NEUROLOGIC: Cranial nerves II through XII grossly intact. The patient moving all extremities. Gait was unsteady. Microbiology Date/Time Source Procedure Growth Status 06/19/18 13:13 Blood Blood Culture - Preliminary NO GROWTH AFTER 48 HOURS Resulted 06/19/18 13:00 Blood Blood Culture - Preliminary NO GROWTH AFTER 48 HOURS Resulted 06/19/18 14:15 Nasopharynx Influenza Types A,B Antigen (UNIQUE) - Final Complete Laboratory Tests Test 06/22/18 05:40 White Blood Count 12.7 K/UL (4.8-10.8) H Red Blood Count 3.64 M/UL (4.70-6.10) L Hemoglobin 11.2 G/DL (14.2-18.0) L Hematocrit 34.8 % (42.0-52.0) L Mean Corpuscular Volume 96 FL (80-99) Mean Corpuscular Hemoglobin 30.8 PG (27.0-31.0) Mean Corpuscular Hemoglobin Concent 32.2 G/DL (32.0-36.0) Red Cell Distribution Width 15.1 % (11.6-14.8) H Platelet Count 206 K/UL (150-450) Mean Platelet Volume 7.1 FL (6.5-10.1) Neutrophils (%) (Auto) % (45.0-75.0) Lymphocytes (%) (Auto) % (20.0-45.0) Monocytes (%) (Auto) % (1.0-10.0) Eosinophils (%) (Auto) % (0.0-3.0) Basophils (%) (Auto) % (0.0-2.0) Differential Total Cells Counted 100 Neutrophils % (Manual) 90 % (45-75) H Lymphocytes % (Manual) 5 % (20-45) L Monocytes % (Manual) 5 % (1-10) Eosinophils % (Manual) 0 % (0-3) Basophils % (Manual) 0 % (0-2) Band Neutrophils 0 % (0-8) Nucleated Red Blood Cells 1 /100 WBC Platelet Estimate Adequate Platelet Morphology Normal Sodium Level 143 MMOL/L (136-145) Potassium Level 3.5 MMOL/L (3.5-5.1) Chloride Level 105 MMOL/L (98-107) Carbon Dioxide Level 38 MMOL/L (21-32) H Anion Gap 0 mmol/L (5-15) L Blood Urea Nitrogen 18 mg/dL (7-18) Creatinine 0.5 MG/DL (0.55-1.30) L Estimat Glomerular Filtration Rate mL/min (>60) Glucose Level 247 MG/DL (74-106) #H Calcium Level 8.7 MG/DL (8.5-10.1) Total Bilirubin 0.2 MG/DL (0.2-1.0) Aspartate Amino Transf (AST/SGOT) 13 U/L (15-37) L Alanine Aminotransferase (ALT/SGPT) 27 U/L (12-78) Alkaline Phosphatase 76 U/L (46-116) Total Protein 5.6 G/DL (6.4-8.2) L Albumin 2.4 G/DL (3.4-5.0) L Globulin 3.2 g/dL Albumin/Globulin Ratio 0.8 (1.0-2.7) L Current Medications Medications (Trade) Dose Ordered Sig/Evi Route PRN Reason Start Time Stop Time Status Last Admin Dose Admin Acetaminophen/ Hydrocodone Bitart ([place] 10/325) 1 tab Q4H PRN ORAL Severe Pain (Pain Scale 7-10) 06/18/18 19:30 06/25/18 19:29 06/21/18 06:06 Acetaminophen/ Hydrocodone Bitart ([place] 5/325) 1 tab Q4H PRN ORAL Moderate Pain (Pain Scale 4-6) 06/18/18 19:30 06/25/18 19:29 Albuterol/ Ipratropium (Albuterol/ Ipratropium) 3 ml Q4HRT HHN 06/18/18 19:00 06/23/18 18:59 06/22/18 07:49 Budesonide/ Formoterol Fumarate (Symbicort 160/ 4.5) 2 puff BID INH 06/17/18 09:00 07/16/18 08:59 06/21/18 18:00 Carvedilol (Coreg) 6.25 mg EVERY 12 HOURS ORAL 06/17/18 09:00 07/16/18 08:59 06/22/18 09:07 Dextrose (Dextrose 50%) 25 ml Q30M PRN IV Hypoglycemia 06/17/18 08:30 07/16/18 06:59 Dextrose (Dextrose 50%) 50 ml Q30M PRN IV Hypoglycemia 06/17/18 08:30 07/16/18 06:59 Enalapril Maleate (Vasotec) 5 mg EVERY 12 HOURS ORAL 06/17/18 09:00 07/16/18 08:59 06/22/18 09:07 Escitalopram Oxalate (Lexapro) 10 mg DAILY ORAL 06/17/18 09:00 07/16/18 08:59 06/22/18 09:07 Folic Acid (Folate) 1 mg DAILY ORAL 06/22/18 09:00 07/22/18 08:59 06/22/18 09:07 Heparin Sodium (Porcine) (Heparin 5000 units/ml) 5,000 units EVERY 8 HOURS SUBQ 06/17/18 14:00 07/16/18 13:59 06/22/18 06:29 Insulin Aspart (NovoLOG) BEFORE MEALS AND HS SUBQ 06/17/18 11:30 07/16/18 11:29 06/22/18 06:30 Nystatin (Nystop Powder) 1 applic THREE TIMES A DAY TOPIC 06/19/18 17:00 07/19/18 16:59 06/22/18 09:08 Prednisone (predniSONE) 40 mg DAILY ORAL 06/22/18 09:00 07/22/18 08:59 06/22/18 09:07 Promethazine HCl/ Codeine (Phenergan with Codeine) 5 ml Q4H PRN ORAL For Cough 06/17/18 08:05 07/16/18 08:04 Temazepam (Restoril) 15 mg HSPRN PRN ORAL insomnia 06/17/18 21:00 06/23/18 20:59 06/20/18 21:45 Theophylline (Zafar-Dur) 100 mg EVERY 12 HOURS ORAL 06/17/18 09:00 07/16/18 08:59 06/22/18 09:07 Tiotropium [place] (Spiriva Inhaler) 2 puff DAILY INH 06/17/18 09:00 07/16/18 08:59 06/20/18 08:42 Rukhsana Mayfield M.D. Jun 22, 2018 09:50
[2018-06-22 12:00] VITALS: BP 143/74
[2018-06-22] MEDS: HYDROcodone/Acetamin 10/325 tab ORAL PRN (13:15)
--- NOTE | 2018-06-22 13:35 | NUR ---
NURSE NOTES: pt discharged to home picked up by ambulance with stable condition. VSS. all discharge instruction given to pt and verbalized understanding. Denies any pain at this time. belonging given to the patient.
--- NOTE | 2018-06-22 13:37 | Pulmonology Progress Note ---
Assessment/Plan Problems: (1) Acute respiratory failure (2) COPD exacerbation (3) Bronchitis (4) Pneumonia (5) Hypertension (6) Diabetes mellitus Assessment/Plan he wants to go home now feeling better respiratory treatment taper steroids iv abx titrate fio2 to sat of 92% dvt prophylaxis. Subjective ROS Limited/Unobtainable: Yes Constitutional: Reports: no symptoms HEENT: Repors: no symptoms Allergies: Coded Allergies: PENICILLINS (Verified Allergy, Unknown, 04/08/17) Objective Last 24 Hour Vital Signs Date Time Temp Pulse Resp B/P (MAP) Pulse Ox O2 Delivery O2 Flow Rate FiO2 06/22/18 12:00 98.2 72 20 143/74 (97) 06/22/18 11:11 Room Air 06/22/18 11:11 Room Air 06/22/18 09:47 Nasal Cannula 2.0 06/22/18 09:07 156/79 06/22/18 09:07 81 156/79 06/22/18 09:00 Room Air 21 06/22/18 09:00 Room Air 21 06/22/18 09:00 Room Air 21 06/22/18 09:00 Room Air 21 06/22/18 08:00 97.9 81 20 156/79 (104) 06/22/18 07:57 76 18 98 Nasal Cannula 2.0 06/22/18 07:49 Nasal Cannula 2.0 28 06/22/18 07:49 82 20 96 Room Air 2.0 28 06/22/18 07:49 94 Nasal Cannula 2.0 28 06/22/18 04:00 97.9 80 20 141/73 (95) 06/22/18 03:06 68 18 98 Nasal Cannula 2.0 28 06/22/18 02:58 58 20 97 Room Air 2.0 28 06/22/18 00:00 97.8 77 20 138/77 (97) 06/21/18 22:28 84 18 98 Nasal Cannula 2.0 06/21/18 22:19 Nasal Cannula 2.0 06/21/18 22:17 78 20 Nasal Cannula 2.0 28 06/21/18 22:16 78 20 96 Room Air 2.0 28 06/21/18 22:01 132/76 06/21/18 22:00 89 132/76 06/21/18 20:00 97.9 86 19 132/76 (94) 06/21/18 19:45 92 18 97 Nasal Cannula 2.0 28 06/21/18 19:45 90 18 97 Nasal Cannula 2.0 28 06/21/18 19:45 90 18 97 Nasal Cannula 2.0 28 06/21/18 19:37 Nasal Cannula 2.0 28 06/21/18 19:36 95 Nasal Cannula 2.0 28 06/21/18 19:36 86 20 95 Room Air 2.0 28 06/21/18 16:00 97.8 79 18 137/83 (101) 97 06/21/18 15:18 Room Air 06/21/18 15:18 Room Air Intake and Output 06/21/18 06/22/18 19:00 07:00 Intake Total 720 ml Balance 720 ml Intake Oral 720 ml # Voids 5 2 General Appearance: WD/WN HEENT: normocephalic, atraumatic Respiratory/Chest: chest wall non-tender, lungs clear Cardiovascular: normal peripheral pulses, normal rate Abdomen: normal bowel sounds, soft, non tender Genitourinary: normal external genitalia Extremities: no cyanosis Neurologic/Psychiatric: double end trimmer II-XII grossly normal Microbiology Date/Time Source Procedure Growth Status 06/19/18 14:15 Nasopharynx Influenza Types A,B Antigen (UNIQUE) - Final Complete Laboratory Tests 06/22/18 05:40: White Blood Count 12.7H, Red Blood Count 3.64L, Hemoglobin 11.2L, Hematocrit 34.8L, Mean Corpuscular Volume 96, Mean Corpuscular Hemoglobin 30.8, Mean Corpuscular Hemoglobin Concent 32.2, Red Cell Distribution Width 15.1H, Platelet Count 206, Mean Platelet Volume 7.1, Neutrophils (%) (Auto) , Lymphocytes (%) (Auto) , Monocytes (%) (Auto) , Eosinophils (%) (Auto) , Basophils (%) (Auto) , Differential Total Cells Counted 100, Neutrophils % ( Manual) 90H, Lymphocytes % (Manual) 5L, Monocytes % (Manual) 5, Eosinophils % ( Manual) 0, Basophils % (Manual) 0, Band Neutrophils 0, Nucleated Red Blood Cells 1, Platelet Estimate Adequate, Platelet Morphology Normal, Sodium Level 143, Potassium Level 3.5, Chloride Level 105, Carbon Dioxide Level 38H, Anion Gap 0L, Blood Urea Nitrogen 18, Creatinine 0.5L, Estimat Glomerular Filtration Rate , Glucose Level 247#H, Calcium Level 8.7, Total Bilirubin 0.2, Aspartate Amino Transf (AST/SGOT) 13L, Alanine Aminotransferase (ALT/SGPT) 27, Alkaline Phosphatase 76, Total Protein 5.6L, Albumin 2.4L, Globulin 3.2, Albumin/ Globulin Ratio 0.8L Current Medications Medications (Trade) Dose Ordered Sig/Evi Route PRN Reason Start Time Stop Time Status Last Admin Dose Admin Acetaminophen/ Hydrocodone Bitart ([place] 10/325) 1 tab Q4H PRN ORAL Severe Pain (Pain Scale 7-10) 06/18/18 19:30 06/25/18 19:29 06/22/18 13:15 Acetaminophen/ Hydrocodone Bitart ([place] 5/325) 1 tab Q4H PRN ORAL Moderate Pain (Pain Scale 4-6) 06/18/18 19:30 06/25/18 19:29 Albuterol/ Ipratropium (Albuterol/ Ipratropium) 3 ml Q4HRT HHN 06/18/18 19:00 06/23/18 18:59 06/22/18 07:49 Budesonide/ Formoterol Fumarate (Symbicort 160/ 4.5) 2 puff BID INH 06/17/18 09:00 07/16/18 08:59 06/21/18 18:00 Carvedilol (Coreg) 6.25 mg EVERY 12 HOURS ORAL 06/17/18 09:00 07/16/18 08:59 06/22/18 09:07 Dextrose (Dextrose 50%) 25 ml Q30M PRN IV Hypoglycemia 06/17/18 08:30 07/16/18 06:59 Dextrose (Dextrose 50%) 50 ml Q30M PRN IV Hypoglycemia 06/17/18 08:30 07/16/18 06:59 Enalapril Maleate (Vasotec) 5 mg EVERY 12 HOURS ORAL 06/17/18 09:00 07/16/18 08:59 06/22/18 09:07 Escitalopram Oxalate (Lexapro) 10 mg DAILY ORAL 06/17/18 09:00 07/16/18 08:59 06/22/18 09:07 Folic Acid (Folate) 1 mg DAILY ORAL 06/22/18 09:00 07/22/18 08:59 06/22/18 09:07 Heparin Sodium (Porcine) (Heparin 5000 units/ml) 5,000 units EVERY 8 HOURS SUBQ 06/17/18 14:00 07/16/18 13:59 06/22/18 06:29 Insulin Aspart (NovoLOG) BEFORE MEALS AND HS SUBQ 06/17/18 11:30 07/16/18 11:29 06/22/18 11:50 Nystatin (Nystop Powder) 1 applic THREE TIMES A DAY TOPIC 06/19/18 17:00 07/19/18 16:59 06/22/18 09:08 Prednisone (predniSONE) 40 mg DAILY ORAL 06/22/18 09:00 07/22/18 08:59 06/22/18 09:07 Promethazine HCl/ Codeine (Phenergan with Codeine) 5 ml Q4H PRN ORAL For Cough 06/17/18 08:05 07/16/18 08:04 Temazepam (Restoril) 15 mg HSPRN PRN ORAL insomnia 06/17/18 21:00 06/23/18 20:59 06/20/18 21:45 Theophylline (Zafar-Dur) 100 mg EVERY 12 HOURS ORAL 06/17/18 09:00 07/16/18 08:59 06/22/18 09:07 Tiotropium [place] (Spiriva Inhaler) 2 puff DAILY INH 06/17/18 09:00 07/16/18 08:59 06/20/18 08:42 Mikie Gray MD Jun 22, 2018 13:37
--- NOTE | 2018-06-22 15:41 | NUR ---
Entry post discharge SW contacted patient's girlfriend Chantelle Ramírez [phone] who is currently in [facility]. Girlfriend states patient's keys where placed in the basket in-front of the door of his apartment building where the unwanted mail flyers are placed. Patient home provider places the keys in this basket once she finishes cleaning patient's house. This has been their system for 5 years and has never been a problem. Home provider placed the keys in the basket yesterday. Girlfriend will not provide SW the phone number of care provider. Girlfriend also stated she has been in contact with a friend Gabe who when available will go to apartment to look for keys. Girlfriend again declined to provide SW the phone number to Gabe. Girlfriend states she is the primary contact for assistance with harley situation. Girlfriend also stated if keys are missing then she will overnight a copy tomorrow. SW inform embedded case manager. Girlfriend should be contacted and followed with regarding apartment keys.
--- NOTE | 2018-06-23 13:08 | Discharge Summary ---
Discharge Summary Discharge Summary _ DATE OF ADMISSION: 06/16/2018 DATE OF DISCHARGE: 06/22/2018 ATTENDING MD: Dr. Gadiel Ramírez DISCHARGED BY: Dr. Mikie Grya CONSULTANTS: Dr. Mikie Mayfield BRIEF HOSPITAL COURSE: Patient is a 73-year-old gentleman with past medical history significant for chronic smoking, COPD, CHF, coronary artery disease and diabetes type 2, who was recently discharged from the hospital, presented to ED via EMS complaining of shortness of breath, that has progressively worsened over the past several days. He was just discharged from [facility] for the same reason. Patient was found at home by paramedics with feces and urine in bed, with immobility. Patient denied any nausea or vomiting. On evaluation at the ED, blood work showed WBC 14.4, hemoglobin and hematocrit were stable. Electrolytes were normal. Lactic acid was elevated to 2.5. Chest x-ray did not show any acute process. CT of the chest without contrast showed mild pulmonary parenchymal hyperinflation, faint groundglass opacity in the mosaic distribution, probably related to COPD changes. No acute pulmonary process. Dilated pulmonary artery consistent with pulmonary arterial hypertension, suspected left ventricular muscular hypertrophy and a 3.4 x 1.6 cm right lower pole thyroid mass, and a T 7 compression fracture. He was admitted for acute COPD exacerbation and failure to thrive and may need fci placement. Patient has a history of MRSA in the sputum, he was started on IV vancomycin. He was placed on heparin subcutaneous for DVT prophylaxis. He was given nebulizer treatment and was started a trial of theophylline. He was started with IV steroids. He was continued on his inhalers Spiriva and Symbicort. He was given incentive spirometer. Blood glucose was elevated. Likely due to steroid. He was placed on diabetic diet. Hemoglobin A1c was 6.7. Patient had a history of E. coli UTI infection. Blood culture showed growth of gram-positive bacteremia 4/4 with Staphylococcus simulans and Staphylococcus epidermidis. Patient was started on IV vancomycin and cefepime. He was noted to have Mariana intertrigo and was given nystatin powder. Repeat blood culture was obtained. Patient had been diagnosed with malignancy of the stomach, no outside reports were available. CT of the chest did not show any evidence of malignancy. Patient has a scheduled surgery on June 22, 2018. Sputum culture showed growth of Mariana and usual respiratory ciera. Repeat blood culture did not isolate any growth. Influenza screen was negative. Antibiotics were discontinued. Steroids were eventually tapered. He was given PT mobility. He was ordered for discharge home on 06/21/2018, however, patient refused to leave and wanted to be transferred to [facility] for his scheduled elective surgery. Surgery was apparently canceled. Patient was then discharged home via ambulance. FINAL DIAGNOSES: Probable sepsis Acute COPD exacerbation Acute bronchitis Possible pneumonia Hypertension Diabetes mellitus type 2 Gram-positive bacteremia, likely contaminant Mariana intertrigo Recent diagnosis of abdominal CA Smoking Morbid obesity CHF Hypertension Coronary artery disease Irregular bowel syndrome Thyroid mass based on CT T7 compression fracture based on CT DISPOSITION: Patient was discharged home. DISCHARGE MEDICATIONS: Refer to Discharge Medication List. Follow-up with surgeon to reschedule surgery. DISCHARGE INSTRUCTIONS: Follow-up in a week. I have been assigned to complete a discharge summary on this account, I was not involved with the patient's management. Twila Regalado NP Jun 23, 2018 13:08
--- NOTE | 2018-06-26 21:00 | Consultation ---
DATE OF CONSULTATION: 06/16/2018 CONSULTING PHYSICIAN: Gadiel Ramírez M.D. ATTENDING PHYSICIAN: Gadiel Ramírez M.D. REASON FOR CONSULTATION: Skin checks and pressure ulcer prevention. HISTORY OF PRESENT ILLNESS: This is a 73-year-old male with multiple medical problems including diabetes. He has had several recent admissions for shortness of breath. He was again readmitted for exacerbation of chronic obstructive pulmonary disease with bronchitis. PAST MEDICAL HISTORY: Acute respiratory failure, chronic obstructive pulmonary disease, bronchitis, pneumonia, hypertension, and diabetes. MEDICATIONS: Albuterol, Symbicort, carvedilol, enalapril, Lexapro, Lasix, metformin, metoprolol, prednisone, Crestor, theophylline, Spiriva, and Bactrim. REVIEW OF SYSTEM: I completed comprehensive review of systems.CONSTITUTIONAL: The patient denies any weight loss or weight gain. Patient denies any fevers. HEENT: The patient has no new ear or throat pain. CARDIOVASCULAR: The patient denies any palpitations or chest pain. CHEST: The patient complains of shortness of breath and also some wheezing. ABDOMEN: The patient has no abdominal pain, nausea, or vomiting. NEUROVASCULAR: The patient denies any seizure or weakness. PHYSICAL EXAMINATION: VITAL SIGNS: The patient is afebrile. His vitals are stable. GENERAL: He is well developed and well nourished. HEENT: Extraocular movements intact. EXTREMITIES: No C/C. The patient has edema of bilateral lower extremities. GENITOURINARY: The patient has macerations of the entire buttock area and also the scrotal area. SKIN: The patient also has extremely thin skin especially at his forearms. ASSESSMENT: This is a 73-year-old male with multiple medical problems, with multiple admissions for chronic obstructive pulmonary disease and bronchitis. He is incontinent and has significant maceration of his buttocks and scrotal areas. RECOMMENDATIONS: 1. Please monitor for and manage friction and shear. 2. Perform weekly skin checks. 3. Assess condition of mattress and pressure reducing surfaces. 4. Keep linens dry and wrinkle free. 5. Consider bowel and bladder protocol. Please apply barrier cream to the buttocks and also to the scrotal area. 6. Float heels off the mattress. 7. Nutritional consult to ensure adequate nutritional needs and also monitor laboratories. 8. Please turn and reposition patient q.2 hours. 9. The patient has extremely thin and fragile skin and also that he is diabetic, recommend protective arm sleeves. Katia Daniels M.D. DR: JANETTE JOB#: [id number] CC:
== END 2018-06-22 13:35 | disposition home or self-care (01) | DRG 871 ==
LOC: EDUNIT# 22:41 → EDBD 22:41 → EMR 23:05 → 2E 06-16 00:16 → EDBEDREQ 06-16 02:00 → 4E 06-17 06:48
DX: A41.2 Sepsis due to unspecified staphylococcus (principal); J18.9 Pneumonia, unspecified organism; S22.060A Wedge compression fracture of T7-T8 vertebra, initial encounter for closed fracture; J44.1 Chronic obstructive pulmonary disease with (acute) exacerbation; C16.9 Malignant neoplasm of stomach, unspecified; I50.9 Heart failure, unspecified; I27.20 Pulmonary hypertension, unspecified; E66.01 Morbid (severe) obesity due to excess calories; J20.9 Acute bronchitis, unspecified; E11.9 Type 2 diabetes mellitus without complications; K58.9 Irritable bowel syndrome, unspecified; B37.2 Candidiasis of skin and nail; I11.0 Hypertensive heart disease with heart failure; I25.10 Atherosclerotic heart disease of native coronary artery without angina pectoris; E07.9 Disorder of thyroid, unspecified; X58.XXXA Exposure to other specified factors, initial encounter; Z88.0 Allergy status to penicillin; Z87.891 Personal history of nicotine dependence; R62.7 Adult failure to thrive
CPT/HCPCS: 36415; 71045; 71260; 80048; 80053; 80202; 82550; 82553; 82607; 82728; 82746; 82962; 83036; 83540; 83550; 83605; 84443; 84484; 85007; 85025; 86710; 87040; 87070; 87081; 87181; 87205; 93005; 94640; 94664; 94760; 96360; 99285; J1815; J7620